=== PATIENT | female | born 1950 | race Caucasian/White ===

== ENCOUNTER 2020-02-05 13:06 | Outpatient (REF) | payer MEDICARE, SELFPAY ==
[2020-02-05 13:56] LABS: MANUAL DIFF FLAG NO
[2020-02-05 14:05] LABS: Basophils Absolute Auto 0.1 X10*3/uL (0.0-0.2); Eosinophils Absolute Auto 0.1 X10*3/uL (0.0-0.4); Eosinophils Percent Auto 2.4 % (0-4); Hematocrit 44.9 % (37-47); Hemoglobin 14.8 g/dl (12.0-16.0); Imm Gran Abs Auto 0.02 X10*3/uL (0.00-0.03); Imm Gran Pct Auto 0.3 % (0.0-0.4); Lymphocytes Percent Auto 34.8 % (20-40); Mean Corpuscular Hemoglobin 31.4 pg (27.0-33.0); Mean Corpuscular Volume 95.3 fL (80-98); Mean Platelet Volume 9.2 fL (9.4-12.3); Monocytes Absolute Auto 0.5 X10*3/uL (0.1-1.2); Monocytes Percent Auto 8.5 % (2-11); Platelet Count 242 X10*3/uL (160-400); Red Blood Count 4.71 X10*6/uL (4.20-5.50); Red Cell Distribution Width 13.2 % (11.0-16.0); White Blood Count 5.8 X10*3/uL (4.8-10.8)
[2020-02-05 14:28] LABS: Alanine Aminotransferase 12 U/L (0-31); Aspartate Amino Transferase 29 U/L (5-31); Cholesterol 262 mg/dL; Estimated Glomerular Filt Rate > 60; HDL Cholesterol 56 mg/dL; LDL Cholesterol Calculated 171 mg/dl; Triglycerides 176 mg/dL
[2020-02-05 14:51] LABS: Estimated Average Glucose 108 mg/dL; Hemoglobin A1c % 5.4 %
[2020-02-05 14:54] LABS: TSH reflex Free T4 8.13 mIU/mL (0.32-4.0)
[2020-02-05 15:34] LABS: Free T4 (Free Thyroxine) 0.93 ng/dL (0.71-1.85)
[2020-02-06 15:58] LABS: Absolute CD3 Count 1086 cells/uL (840-3060); Absolute CD4 Count 591 cells/uL (490-1740); Absolute CD8 Count 507 cells/uL (180-1170); Absolute Lymphocytes 2016 cells/uL (850-3900); CD4 CD8 Ratio 1.17 (0.86-5.00); Percent CD3 Cells 54 % (57-85); Percent CD4 Cells 29 % (30-61); Percent CD8 Cells 25 % (12-42)
[2020-02-08 12:03] LABS: HIV RNA PCR Qn Copies <20 NOT DETECTED copies/mL (NOT DETECTED); HIV RNA PCR Qn Log Copies <1.30 NOT DETECTED (NOT DETECTED)
== END 2020-02-05 13:07 | disposition home or self-care (01) ==
LOC: HO.LAB 13:06
PROVIDERS: PCP Internal Medicine; Visit Provider Internal Medicine Infectious Disease
DX: B20 Human immunodeficiency virus [HIV] disease (principal)
CPT/HCPCS: 36415; 80061; 82565; 83036; 84439; 84443; 84450; 84460; 85025; 86359; 86360; 87536

== ENCOUNTER → 2020-02-21 11:15 | Outpatient (BNVA) | payer MEDICARE, SELFPAY | PROVIDERS: PCP Internal Medicine; Visit Provider Nurse Practitioner | DX: Z76.89 Persons encountering health services in other specified circumstances (principal) ==

== ENCOUNTER 2020-02-26 12:59 | Emergency (ER) | payer MEDICARE, SELFPAY ==
--- NOTE | 2020-02-26 | ECG_ITS ---
Test Reason : CHEST PAIN Blood Pressure : / mmHG Vent. Rate : 074 BPM Atrial Rate : 074 BPM P-R Int : 152 ms QRS Dur : 076 ms QT Int : 406 ms P-R-T Axes : 055 -19 037 degrees QTc Int : 450 ms Normal sinus rhythm Normal ECG When compared with ECG of 23-JUN-2018 18:10, No significant change was found Referred By: Generic ED Physician Electronically Signed By:STANISLAV HIDALGO
[2020-02-26 13:01] VITALS: BP 181/87; PULSE 78; RESP 18; TEMP 36.9; O2SAT 96; BMI 28.9
--- NOTE | 2020-02-26 14:37 | PC.NURSE ---
called for ekg x2, charge nurse aware
--- NOTE | 2020-02-26 15:42 | PC.NURSE ---
charge nurse brought out ekg machine to triage for ekg to be performed
--- NOTE | 2020-02-26 16:07 | ED.CHESTPAIN ---
HPI - Chest Pain General Chief Complaint: Chest Pain Stated Complaint: chest pain Time Seen by Provider: 02/26/20 15:57 Source: patient Mode of arrival: ambulatory Limitations: no limitations History of Present Illness HPI narrative: Patient comes emergency room complaining of intermittent chest pain for a year. Patient states for the last 4 days, it has been more constant. Patient describes as a pinching sensation lasting a few seconds on the left side of the chest that self resolves. Patient states she feels that she gets a cramping sensation on the left side of her arm and chest. At this time, patient states she has no discomfort. All this is unrelated to exertion. MD complaint: chest pain Related Data Allergies Allergy/AdvReac Type Severity Reaction Status Date / Time peanut [PEANUT] Allergy Intermediate RASH Verified 02/26/20 13:01 Sulfa (Sulfonamide Allergy Intermediate HIVES, Verified 02/26/20 13:01 Antibiotics) hives, [SULFA (SULFONAMIDE rash, ANTIBIOTICS)] hives, rash tramadol Allergy Unknown nausea Verified 02/26/20 13:01 blackberry Allergy Itching Verified 02/26/20 13:01 long Allergy Itching Verified 02/26/20 13:01 strawberry Allergy Itching Verified 02/26/20 13:01 acetaminophen [Tylenol] AdvReac Unknown itch Verified 02/26/20 13:01 animals Allergy Itching Uncoded 02/21/20 11:22 red fruit Allergy Itching Uncoded 02/21/20 11:22 tree Allergy eye Uncoded 02/21/20 11:22 swelling, itch Review of Systems Review of Systems: Constitutional : No Weight loss, No Fever, No Chills, No Night Sweats, No Fatigue, No Malaise ENT/Mouth : No Hearing loss, No Ear Pain, No Nasal Congestion, No Sinus Pain, No Hoarseness, No sore throat, No Rhinorrhea, No Swallowing Difficulty Eyes: No Eye Pain, No Swelling, No Redness, No Foreign Body, No Discharge, No Vision Changes Cardiovascular: complaining of pinching sensation on the left side of the chest, cramping on the left side of the arm and left side of the neck, No SOB, No Dyspnea on Exertion, No Orthopnea, No Edema, No Palpitations Respiratory : No Cough, No Sputum, No Wheezing, No Smoke Exposure, No Dyspnea Gastrointestinal : No Nausea, No Vomiting, No Diarrhea, No Constipation, No abdominal Pain, No Hematochezia, No Melena Genitourinary : no irregular bleeding, No Dysuria, No Urinary Frequency, No Hematuria, No Urinary Incontinence, No Urgency, No Flank Pain, No Urinary Flow Changes, No Hesitancy Musculoskeletal : No joint pain, No Myalgias, No Joint Swelling Skin : No Skin Lesions, No rash Neuro : No Weakness, No Numbness, No Paresthesias, No Loss of Consciousness, No Dizziness, No Headache Psych : No Anxiety/Panic, No Depression, No SI/HI/AH/VH, No Social Issues, Heme/Lymph: No Bruising, No Bleeding,No Lymphadenopathy Endocrine : No Polyuria, No Polydipsia, No Temperature Intolerance [facility] Past Medical History Medical History (Updated 02/26/20 @ 18:33 by Neida Andujar MD) Asthma TIA (transient ischemic attack) Surgical History Hx of colonoscopy Family History Family History (Updated 02/21/20 @ 11:27 by DEL Peck) Father Cancer Diabetes Mother Cancer Diabetes Brother Colon polyps Social History Social History (Updated 02/21/20 @ 11:27 by DEL Peck) Alcohol intake: current Alcohol intake frequency: does not drink Smoking Status: Former smoker Advance Directives: No Advance Directives Information Provided: Yes Physical Exam Vital Signs: Vital Signs: Last Vital Signs Temp 98.4 F 02/26/20 13:01 Pulse 78 02/26/20 13:01 Resp 18 02/26/20 13:01 BP 181/87 H 02/26/20 13:01 Pulse Ox 96 02/26/20 13:01 Body Mass Index 28.9 Appearance: Alert. Oriented X3. No acute distress. Eyes: Pupils equal, round and reactive to light. ENT: Pharynx normal. Neck: Normal inspection. Neck supple. No lymph nodes noted. No crepitus CVS: Normal heart rate and rhythm. Pulses normal. Normal S1 and S2 Respiratory: No respiratory distress. Breath sounds normal. No Wheezing. No rales Abdomen: Soft and nontender. No rigidity. No distention. good BS x4 Skin: Skin warm and dry. Normal skin color. Normal skin turgor. Extremities: No lower extremity edema. No lower extremity edema. No Lacerations. No Rash Neuro: Oriented X 3. No motor deficit. No sensory deficit. Moving all extermities. No slurred speech. Course Course Course Narrative: I was informed by the patient's nurse that the patient did no longer want to wait for her labs to be obtained and did not want to wait for results. Patient did not wait for paperwork either. patient eloped MDM - Chest Pain ECG Data ECG #1: Attestation: I personally reviewed and interpreted this ECG as follows: (Heart rate 74, normal sinus rhythm, QTC 450, no ST segment depressions or elevations, no T-wave inversions) Discharge Plan Discharge Clinical Impression: Chest pain Patient Disposition: Elopement
--- NOTE | 2020-02-26 18:31 | PC.NURSE ---
pt stated that she was leaving because nothing was being done. labs were put in, not drawn
--- NOTE | 2020-02-26 19:15 | PC.NURSE ---
pt is not in the room at the time this rn received report.
== END 2020-02-26 18:45 | disposition left against medical advice (07) ==
PROVIDERS: Emergency Provider Emergency Medicine
DX: R07.9 Chest pain, unspecified (principal); J45.909 Unspecified asthma, uncomplicated; Z86.73 Personal history of transient ischemic attack (TIA), and cerebral infarction without residual deficits
CPT/HCPCS: 93005; 99283

== ENCOUNTER 2020-03-04 12:45 | Outpatient (REF) | payer MEDICARE, SELFPAY ==
--- NOTE | 2020-03-04 12:53 | XR_ITS ---
EXAMINATION: XR SHOULDER, LEFT CLINICAL INFORMATION: Pain COMPARISON: None TECHNIQUE: AP external rotation, Grashey, scapular Y, and axillary views of the left shoulder. FINDINGS: Bone alignment is normal. No fracture or dislocation is seen. The glenohumeral joint is normal. There is mild arthritis at the acromioclavicular joint. Soft tissues are unremarkable. XR/XR shoulder LT min 2V IMPRESSION: Mild arthritis at the acromioclavicular joint.
== END 2020-03-04 12:46 | disposition home or self-care (01) ==
LOC: HO.XRAY 12:45
PROVIDERS: PCP Internal Medicine; Visit Provider Physician Assistant
DX: M25.512 Pain in left shoulder (principal)
CPT/HCPCS: 73030

== ENCOUNTER 2020-04-12 14:00 | Outpatient (RCR) | payer MEDICARE, SELFPAY ==
--- NOTE | 2020-03-15 13:36 | MHC.PT.EP ---
[facility] [place] Office [place] Office [place] Office [address] Ivett Ruelas [address] [phone] F: [phone] F: [phone] F: [phone] F: [phone] Physical Therapy Plan of Care Date of Evaluation: 03/15/20 Date of Surgery: N/A Diagnosis: pain in left shoulder Assessment: pt required increased time to educate as to why her doctor referred her to PT, the purpose and role of PT, and the importance of attendance and participation to see if PT will be helpful in reducing her pain. This eval was limited as pt became upset and required time to console. pt presents to physical therapy with pain, decreased range of motion, decreased strength, impaired functional mobility, impaired postural awareness. pt is a fair candidate for skilled PT due to age, potential remediation of impairments, typical disease/condition progression and prognosis, comorbidities, and motivation. pt would benefit from tailored strengthening and stretching exercise program, functional training, postural re-training, neuromuscular re-education, modalities as needed for pain. Frequency and Duration: The patient will be seen 2x/wk for 4 wks Short Term Goals: pt will be I w/ HEP to promote self-management of condition. pt will improve L shoulder flexion by 15 degrees to facilitate ease w/ reaching into higher cabinets. 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 pt will report <1/10 L shoulder pain w/ lifting 5# object to facilitate return to meal prep. Treatment Plan: Modalities to reduce pain, spasms and effusion. Manual therapy to restore motion and function. Therapeutic exercise to improve strength and flexibility. Neuromuscular re-education for posture and balance. Therapeutic activities to return to functional activities of daily living. Electronically signed by: Bethanie Gonzalez PT, DPT Please sign and return to therapist. Thank you for your referral.
--- NOTE | 2020-04-22 09:16 | MHC.PT.DC ---
[facility] [place] Office [place] Office [place] Office [address] Ivett Ruelas [address] [facility] [phone] F: [phone] F: [phone] F: [phone] F: [phone] Physical Therapy Discharge Report Diagnosis: pain in left shoulder Date of Surgery: N/A Date of Evaluation: 03/15/20 Date of Discharge: 04/22/20 Treatments to Date: 3 Cancellations to Date: 3 No Shows to Date: 2 Discharge Status: Improved Function Recommend MD Follow-up Discharge Summary: The patient has missed several appointments due to not feeling well. The patient was seen by one of the physical therapy assistants who noticed the patient did not appear well. She took her blood pressure several times and the highest value recorded was 211/95. The patient refused to go down to the Emergency Department. Her family was contacted and came to pick her up. She was brought down via wheelchair to her family where they were told about her high blood pressure and to contact her primary care physician. The family and the patient verbalized understanding. She is discharged from this physical therapy plan of care until her cardiac and consitutional symptoms are resolved. If she would like to resume physical therapy for her shoulder a new order will need to be obtained once she is medically stable. Electronically signed by: Bethanie Gonzalez PT, DPT Please sign and return to therapist. Thank you for your referral.
== END 2020-04-22 09:17 | disposition other institution (70) ==
LOC: HO.PT 14:00
PROVIDERS: Visit Provider Physician Assistant
DX: M25.512 Pain in left shoulder (principal); M77.8 Other enthesopathies, not elsewhere classified
CPT/HCPCS: 97110; 97161

== ENCOUNTER 2020-05-15 10:34 | Outpatient (REF) | payer MEDICARE, SELFPAY ==
[2020-05-15 11:20] LABS: Hematocrit 41.5 % (37-47); Mean Corpuscular HGB Conc 33.7 g/dl (31.0-35.0); Mean Corpuscular Hemoglobin 31.4 pg (27.0-33.0); Mean Platelet Volume 9.1 fL (9.4-12.3); Platelet Count 244 X10*3/uL (160-400); Red Blood Count 4.46 X10*6/uL (4.20-5.50); Red Cell Distribution Width 12.9 % (11.0-16.0); White Blood Count 6.6 X10*3/uL (4.8-10.8)
[2020-05-15 12:00] LABS: Alanine Aminotransferase 7 U/L (0-31); Albumin Level 4.2 g/dL (3.5-5.0); Alkaline Phosphatase 84 U/L (39-117); Anion Gap 10 (12-20); Aspartate Amino Transferase 21 U/L (5-31); Bilirubin Total 0.6 mg/dL (0.0-1.0); Blood Urea Nitrogen 19 mg/dL (9-16); Carbon Dioxide 29 mmol/L (22-29); Chloride 105 mmol/L (96-108); Cholesterol 241 mg/dL; Estimated Glomerular Filt Rate > 60; Glucose Fasting 89 mg/dL (60-99); HDL Cholesterol 55 mg/dL; LDL Cholesterol Calculated 145 mg/dl; Potassium 4.3 mmol/L (3.3-5.1); Sodium 140 mmol/L (135-145); Triglycerides 206 mg/dL
[2020-05-15 12:10] LABS: TSH reflex Free T4 4.18 uIU/mL (0.32-4.0)
[2020-05-15 12:26] LABS: Syphilis Screen Nonreactive (Nonreactive)
[2020-05-15 13:19] LABS: Free T4 (Free Thyroxine) 1.14 ng/dL (0.71-1.85)
[2020-05-16 09:33] LABS: ~HepC Num1 0.07 S/CO (0.00-0.79); ~Hepatitis C Antibody Nonreactive (Nonreactive)
[2020-05-16 11:20] LABS: CT PCR NOT DETECTED (Not Detect.); NG PCR NOT DETECTED (Not Detect.)
[2020-05-16 13:16] LABS: Absolute CD3 Count 737 cells/uL (840-3060); Absolute CD4 Count 415 cells/uL (490-1740); Absolute CD8 Count 340 cells/uL (180-1170); Absolute Lymphocytes 1373 cells/uL (850-3900); CD4 CD8 Ratio 1.22 (0.86-5.00); Percent CD3 Cells 54 % (57-85); Percent CD4 Cells 30 % (30-61); Percent CD8 Cells 25 % (12-42)
[2020-05-17 19:37] LABS: HIV RNA PCR Qn Copies <20 NOT DETECTED copies/mL (NOT DETECTED); HIV RNA PCR Qn Log Copies <1.30 NOT DETECTED (NOT DETECTED)
[2020-05-18 13:26] LABS: Vitamin D 25-OH, D2 <4 ng/mL; Vitamin D 25-OH, D3 31 ng/mL; Vitamin D 25-OH, Total 31 ng/mL (30-100)
== END 2020-05-15 10:35 | disposition home or self-care (01) ==
LOC: HO.LAB 10:34
PROVIDERS: PCP Internal Medicine; Visit Provider Internal Medicine Infectious Disease
DX: B20 Human immunodeficiency virus [HIV] disease (principal); E78.5 Hyperlipidemia, unspecified; E03.9 Hypothyroidism, unspecified; E55.9 Vitamin D deficiency, unspecified
CPT/HCPCS: 36415; 80053; 80061; 82306; 84439; 84443; 85027; 86359; 86360; 86780; 86803; 87491; 87536; 87591

== ENCOUNTER 2020-06-25 12:32 | Outpatient (REF) | payer MEDICARE, SELFPAY | END 2020-06-25 12:33 | disposition home or self-care (01) | LOC: HO.LAB 12:32 | PROVIDERS: Visit Provider Internal Medicine | DX: Z20.822 Contact with and (suspected) exposure to COVID-19 (principal) | CPT/HCPCS: C9803; U0003; U0005 ==

== ENCOUNTER 2020-08-08 15:04 | Outpatient (REF) | payer MEDICARE, SELFPAY ==
--- NOTE | ~2020-08-08 | XR_ITS ---
EXAMINATION: XR HIP, LEFT CLINICAL INFORMATION: Left hip pain. COMPARISON: None TECHNIQUE: Three views of the left hip. FINDINGS: The patient is status post left hip ORIF with [address] showing good anatomic alignment with no evidence for hardware malfunction. Mild left hip degenerative joint changes are seen. There is no acute fracture or dislocation. The left hemipelvis is intact. The soft tissues are unremarkable. XR/XR hip LT w PEL1V IMPRESSION: 1. No hardware abnormality. No acute fracture. 2. Mild left hip osteoarthritis.
== END 2020-08-08 15:05 | disposition home or self-care (01) ==
LOC: HO.HMGCX 15:04
PROVIDERS: PCP Internal Medicine; Visit Provider Hospitalist
DX: M25.552 Pain in left hip (principal)
CPT/HCPCS: 73502

== ENCOUNTER 2020-08-21 06:41 | Emergency (ER) | payer MEDICARE, SELFPAY ==
--- NOTE | ~2020-08-21 | XR_ITS ---
EXAMINATION: XR CHEST CLINICAL INFORMATION: Cough and shortness of breath COMPARISON: None TECHNIQUE: Frontal view of the chest was obtained. FINDINGS: The lungs are well-expanded hypoexpanded but and clear of acute process. The heart size and pulmonary vascularity is normal. No gross bony abnormality seen. XR/XR chest 1V IMPRESSION: Unremarkable chest exam.
[2020-08-21 06:50] VITALS: BP 147/100; PULSE 120; RESP 20; TEMP 35.9; O2SAT 93; BMI 27.7
[2020-08-21 07:09] VITALS: BP 105/85; PULSE 101; RESP 20; O2SAT 96; BMI 27.9
--- NOTE | 2020-08-21 07:26 | ED_ITS ---
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 Patient with vomiting, cough, and earache since yesterday. Not vaccinated against covid. Patient feeling short of breath Related Data Home Medications Medication Instructions Recorded Confirmed albuterol sulfate 90 mcg/actuation 0 mcg PO 02/29/20 08/12/20 aerosol inhaler famotidine 40 mg tablet 40 mg PO DAILY 02/29/20 08/12/20 fluticasone propionate 110 2,000,000 mcg INHALATION BID 02/29/20 08/12/20 mcg/actuation HFA aerosol inhaler dolutegravir 50 mg-rilpivirine 25 1 tab PO DAILY 05/15/20 08/12/20 mg tablet montelukast 10 mg tablet 10 mg PO DAILY 05/15/20 08/12/20 Previous Rx's Medication Instructions Recorded levothyroxine 88 mcg tablet 88 mcg PO QAM #90 tab 03/03/20 cetirizine 10 mg capsule 10 mg PO DAILY PRN 90 Days #90 cap 05/15/20 ibuprofen 600 mg tablet 600 mg PO TID #30 tab 08/08/20 amoxicillin-pot clavulanate 1 tab PO BID #14 tab 08/21/20 [Augmentin] dextromethorphan polistirex 10 ml PO Q12H PRN #89 ml 08/21/20 [Robitussin ER] prednisone 60 mg PO DAILY #15 tab 08/21/20 Allergies Allergy/AdvReac Type Severity Reaction Status Date / Time blackberry Allergy Intermediate Itching Verified 08/12/20 15:50 long Allergy Intermediate Itching Verified 08/12/20 15:50 peanut [PEANUT] Allergy Intermediate RASH Verified 08/12/20 15:50 Sulfa (Sulfonamide Allergy Intermediate HIVES, Verified 08/12/20 15:50 Antibiotics) hives, [SULFA (SULFONAMIDE rash, ANTIBIOTICS)] hives, rash tramadol Allergy Intermediate nausea Verified 08/12/20 15:50 strawberry Allergy Itching Verified 08/12/20 15:23 acetaminophen [Tylenol] AdvReac Unknown itch Verified 08/12/20 15:23 animals Allergy Itching Uncoded 08/08/20 15:06 red fruit Allergy Itching Uncoded 08/08/20 15:06 tree Allergy eye Uncoded 08/08/20 15:06 swelling, itch Review of Systems Constitutional: Constitutional: Reports no additional constitutional complaints Eyes: Eyes: Reports no additional eye complaints ENT: Denies dizziness Cardiovascular: Cardiovascular: Reports no additional cardiovascular complaints Respiratory: Respiratory: Reports as per HPI Gastrointestinal: Gastrointestinal: Reports no additional gastrointestinal complaints Genitourinary: Genitourinary: Reports no additional female genitourinary complaints Musculoskeletal: Musculoskeletal: Reports no additional musculoskeletal complaints Integumentary/Breasts: Skin/Breast: Denies rash Neurologic: Reports system reviewed and no additional complaints, except as documented, Denies dizziness and Denies Sensory deficit (Neuro) Psychiatric: Psychiatric: Denies anxiety [facility] Past Medical History Medical History Asthma Asthma Dyslipidemia Fracture of left hip requiring operative repair HIV (human immunodeficiency virus infection) Hypothyroidism TIA (transient ischemic attack) Urticaria Verruca Surgical History H/O umbilical hernia repair History of section History of lumbar fusion Hx of colonoscopy Family History Family History Father Cancer Diabetes Mother Cancer Diabetes Brother Colon polyps Social History Social History Housing: Apartment Alcohol intake: former Year quit: 2010 Patient Tobacco Use Status: Former Tobacco user Tobacco use type: Cigarette Second Hand Smoke Exposure: No Advance Directives: No Advance Directives Information Provided: Yes service: No Current occupational status: retired Physical Exam Vital Signs: Vital Signs: Last Vital Signs Temp 98.6 F 08/21/20 08:28 Pulse 99 08/21/20 08:28 Resp 16 08/21/20 08:28 BP 146/78 H 08/21/20 08:28 Pulse Ox 95 08/21/20 08:28 Body Mass Index 27.9 Const: Other: patient with continuous cough looking uncomfortable Nutritional Appearance: average body habitus Orientation/consciousness: oriented to person and patient oriented x3 Limitations: no limitations HENMT: Other: right TM with erythema and bulging Head: Yes normal to inspection Ears: external ears normal General nose exam: Normal external nose present Mouth: Normal oral and palatal mucosa present and oropharynx normal Throat: Yes posterior oropharynx normal Eyes: General: appearance normal, both eyes and all related structures Neck: Other: supple Neck: Yes normal visual inspection Chest: Chest palpation & inspection: normal inspection of the chest Resp: Other: good air movement slight wheeze bilaterally Cardio: Jugular venous distension: no JVD Rate: regular rate Rhythm: regular rhythm Heart sounds: S1 normal heart sound present and S2 normal heart sound present GI: Inspection: Yes normal to inspection Palpation (GI): Soft to palpation, nontender and No hepatosplenomegaly present Auscultation: normal bowel sounds : General: Yes no CVA tenderness Back/Spine/Pelvis: Back: no CVA tenderness Skin: General skin exam: no rashes or lesions noted Neuro: General: oriented to person and patient oriented x3 Cranial nerves: Yes CN's II-XII intact bilaterally Motor exam (neuro): 5/5 motor strength present throughout Sensory Exam: No Sensory deficit (Neuro) Extrem: General: Yes normal to inspection Psych: Appearance: grossly normal Course Course Course Narrative: Covid negative, xray normal patient resting comfortably, oxygen 96%. Will dc home Medical Decision Making Lab Data Result diagrams: 08/21/20 07:57 08/21/20 08:43 Labs: Lab Results 08/21/20 08/21/20 08/21/20 Range/Units 07:57 07:58 08:43 WBC 9.5 (4.8-10.8) X10*3/uL RBC 4.49 (4.20-5.50) X10*6/uL Hgb 14.0 (12.0-16.0) g/dl Hct 40.7 (37-47) % MCV 90.6 (80-98) fL MCH 31.2 (27.0-33.0) pg MCHC 34.4 (31.0-35.0) g/dl RDW 12.8 (11.0-16.0) % Plt Count 248 (160-400) X10*3/uL MPV 9.9 (9.4-12.3) fL Immature Gran % (Auto) 0.1 (0.0-0.4) % Neut % (Auto) 71.7 (45-73) % Lymph % (Auto) 16.5 L (20-40) % Sibley % (Auto) 9.3 (2-11) % Eos % (Auto) 1.9 (0-4) % Baso % (Auto) 0.5 (0-2) % Lymph # (Auto) 1.6 (1.2-4.9) X10*3/uL Sibley # (Auto) 0.9 (0.1-1.2) X10*3/uL Eos # (Auto) 0.2 (0.0-0.4) X10*3/uL Baso # (Auto) 0.1 (0.0-0.2) X10*3/uL Abs Immat Gran (auto) 0.01 (0.00-0.03) X10*3/uL Absolute Neuts (auto) 6.8 (2.0-8.3) X10*3/uL Absolute Nucleated RBC 0.000 (0.0-0.012) X10*3/uL Nucleated RBC % (auto) 0.0 (0.0-0.2) /100WBC Sodium 138 (135-145) mmol/L Potassium 4.3 (3.3-5.1) mmol/L Chloride 108 (96-108) mmol/L Carbon Dioxide 21 L (22-29) mmol/L Anion Gap 13 (12-20) BUN 7 L D (9-16) mg/dL Creatinine 0.74 (0.5-1.4) mg/dL Estim Creat Clear Calc 62.9 Estimated GFR > 60 Random Glucose 95 (60-115) mg/dL Calcium 9.3 (8.4-10.2) mg/dL Total Bilirubin 0.3 (0.0-1.0) mg/dL Direct Bilirubin < 0.2 (0.0-0.5) mg/dL AST 26 (5-31) U/L ALT 6 (0-31) U/L Alkaline Phosphatase 44 D (39-117) U/L Total Protein 7.4 (6.5-8.0) g/dL Albumin 4.5 (3.5-5.0) g/dL Coronavirus (PCR) NEGATIVE (Negative) Influenza Type A (PCR) NEGATIVE (Negative) Influenza Type B (PCR) NEGATIVE (Negative) RSV RNA Qual (PCR) NEGATIVE (Negative) Imaging Data Chest x-ray: Radiologist's impression: IMPRESSION: Unremarkable chest exam. Discharge Plan Discharge Clinical Impression: Upper respiratory infection, Asthma attack Patient Disposition: Home, Self-Care Instructions: Acute Bronchitis (ED) Prescriptions: New prednisone 20 mg tablet 60 mg PO DAILY Qty: 15 RF: 0 amoxicillin-pot clavulanate [Augmentin] 875-125 mg tablet 1 tab PO BID Qty: 14 RF: 0 dextromethorphan polistirex [Robitussin ER] 30 mg/5 mL suspension,extended rel 12 hr 10 ml PO Q12H PRN (Reason: cough) Qty: 89 RF: 0 No Action levothyroxine 88 mcg tablet 88 mcg PO QAM Qty: 90 RF: 1 Flovent HFA 110 mcg/actuation HFA aerosol inhaler 2,000,000 mcg inhalation BID RF: 0 albuterol sulfate 90 mcg/actuation HFA aerosol inhaler 0 mcg PO RF: 0 famotidine 40 mg tablet 40 mg PO DAILY RF: 0 Juluca 50-25 mg tablet 1 tab PO DAILY RF: 0 montelukast 10 mg tablet 10 mg PO DAILY RF: 0 All Day Allergy (cetirizine) 10 mg capsule 10 mg PO DAILY PRN (Reason: allergy symptoms) 90 Days Qty: 90 RF: 1 ibuprofen 600 mg tablet 600 mg PO TID Qty: 30 RF: 0 Referrals: Yamile Flores MD [Primary Care Provider] - 2 days
[2020-08-21] MEDS: 0.9 % Sodium Chloride 1,000 ML 999 ML IVCONT ×2 (08:00→09:35)
[2020-08-21 08:08] LABS: MANUAL DIFF FLAG NO
[2020-08-21 08:17] LABS: Basophils Absolute Auto 0.1 X10*3/uL (0.0-0.2); Basophils Percent Auto 0.5 % (0-2); Eosinophils Absolute Auto 0.2 X10*3/uL (0.0-0.4); Eosinophils Percent Auto 1.9 % (0-4); Hematocrit 40.7 % (37-47); Imm Gran Abs Auto 0.01 X10*3/uL (0.00-0.03); Imm Gran Pct Auto 0.1 % (0.0-0.4); Lymphocytes Absolute Auto 1.6 X10*3/uL (1.2-4.9); Lymphocytes Percent Auto 16.5 % (20-40); Mean Corpuscular HGB Conc 34.4 g/dl (31.0-35.0); Mean Corpuscular Hemoglobin 31.2 pg (27.0-33.0); Mean Corpuscular Volume 90.6 fL (80-98); Mean Platelet Volume 9.9 fL (9.4-12.3); Monocytes Absolute Auto 0.9 X10*3/uL (0.1-1.2); Monocytes Percent Auto 9.3 % (2-11); Neutrophils Absolute Auto 6.8 X10*3/uL (2.0-8.3); Neutrophils Percent Auto 71.7 % (45-73); Platelet Count 248 X10*3/uL (160-400); Red Blood Count 4.49 X10*6/uL (4.20-5.50); Red Cell Distribution Width 12.8 % (11.0-16.0); White Blood Count 9.5 X10*3/uL (4.8-10.8)
[2020-08-21] MEDS: ondansetron HCL 4 MG/2 ML VIAL IVPUSH (08:21)
[2020-08-21] MEDS: dexAMETHasone sod phosphate 4 MG/ML VIAL 6 MG IVPUSH (08:21)
[2020-08-21] MEDS: Albuterol Sulfate 90 MCG 8 GM INHALER 4 PUFF INHALE ×2 (08:22→10:27)
[2020-08-21 08:23] VITALS: PULSE 103; O2SAT 93
[2020-08-21 08:28] VITALS: BP 146/78; PULSE 99; RESP 16; TEMP 37; O2SAT 95
[2020-08-21 09:02] LABS: Influenza A PCR NEGATIVE (Negative); Influenza B PCR NEGATIVE (Negative); Resp Syncy Virus RNA Qual PCR NEGATIVE (Negative); SARS COV2 PCR INHOUSE NEGATIVE (Negative)
[2020-08-21 09:22] LABS: Alanine Aminotransferase 6 U/L (0-31); Albumin Level 4.5 g/dL (3.5-5.0); Alkaline Phosphatase 44 U/L (39-117); Anion Gap 13 (12-20); Aspartate Amino Transferase 26 U/L (5-31); Bilirubin Direct < 0.2 mg/dL (0.0-0.5); Bilirubin Total 0.3 mg/dL (0.0-1.0); Blood Urea Nitrogen 7 mg/dL (9-16); Calcium 9.3 mg/dL (8.4-10.2); Carbon Dioxide 21 mmol/L (22-29); Chloride 108 mmol/L (96-108); Creatinine Clr Calc Pharmacy 62.9; Estimated Glomerular Filt Rate > 60; Glucose Random 95 mg/dL (60-115); Potassium 4.3 mmol/L (3.3-5.1); Sodium 138 mmol/L (135-145); Total Protein 7.4 g/dL (6.5-8.0)
--- NOTE | 2020-08-21 09:48 | ED_ITS ---
HPI - General Adult General Chief complaint: General Medical Stated complaint: Vomiting Time Seen by Provider: 08/21/20 07:26 Source: patient Limitations: language barrier Related Data Home Medications Medication Instructions Recorded Confirmed albuterol sulfate 90 mcg/actuation 0 mcg PO 02/29/20 08/12/20 aerosol inhaler famotidine 40 mg tablet 40 mg PO DAILY 02/29/20 08/12/20 fluticasone propionate 110 2,000,000 mcg INHALATION BID 02/29/20 08/12/20 mcg/actuation HFA aerosol inhaler dolutegravir 50 mg-rilpivirine 25 1 tab PO DAILY 05/15/20 08/12/20 mg tablet montelukast 10 mg tablet 10 mg PO DAILY 05/15/20 08/12/20 Previous Rx's Medication Instructions Recorded levothyroxine 88 mcg tablet 88 mcg PO QAM #90 tab 03/03/20 cetirizine 10 mg capsule 10 mg PO DAILY PRN 90 Days #90 cap 05/15/20 ibuprofen 600 mg tablet 600 mg PO TID #30 tab 08/08/20 amoxicillin-pot clavulanate 1 tab PO BID #14 tab 08/21/20 [Augmentin] dextromethorphan polistirex 10 ml PO Q12H PRN #89 ml 08/21/20 [Robitussin ER] prednisone 60 mg PO DAILY #15 tab 08/21/20 Allergies Allergy/AdvReac Type Severity Reaction Status Date / Time blackberry Allergy Intermediate Itching Verified 08/12/20 15:50 long Allergy Intermediate Itching Verified 08/12/20 15:50 peanut [PEANUT] Allergy Intermediate RASH Verified 08/12/20 15:50 Sulfa (Sulfonamide Allergy Intermediate HIVES, Verified 08/12/20 15:50 Antibiotics) hives, [SULFA (SULFONAMIDE rash, ANTIBIOTICS)] hives, rash tramadol Allergy Intermediate nausea Verified 08/12/20 15:50 strawberry Allergy Itching Verified 08/12/20 15:23 acetaminophen [Tylenol] AdvReac Unknown itch Verified 08/12/20 15:23 animals Allergy Itching Uncoded 08/08/20 15:06 red fruit Allergy Itching Uncoded 08/08/20 15:06 tree Allergy eye Uncoded 08/08/20 15:06 swelling, itch Review of Systems Constitutional: Constitutional: Reports no additional constitutional comp laints Eyes: Eyes: Reports no additional eye complaints ENT: Denies dizziness Cardiovascular: Cardiovascular: Reports no additional cardiovascular complaints Respiratory: Respiratory: Reports as per HPI Gastrointestinal: Gastrointestinal: Reports no additional gastrointestinal complaints Genitourinary: Genitourinary: Reports no additional female genitourinary complaints Musculoskeletal: Musculoskeletal: Reports no additional musculoskeletal complaints Integumentary/Breasts: Skin/Breast: Denies rash Neurologic: Reports system reviewed and no additional complaints, except as documented, Denies dizziness and Denies Sensory deficit (Neuro) Psychiatric: Psychiatric: Denies anxiety [facility] Past Medical History Medical History Asthma Asthma Dyslipidemia Fracture of left hip requiring operative repair HIV (human immunodeficiency virus infection) Hypothyroidism TIA (transient ischemic attack) Urticaria Verruca Surgical History H/O umbilical hernia repair History of section History of lumbar fusion Hx of colonoscopy Family History Family History Father Cancer Diabetes Mother Cancer Diabetes Brother Colon polyps Social History Social History Housing: Apartment Alcohol intake: former Year quit: 2010 Patient Tobacco Use Status: Former Tobacco user Tobacco use type: Cigarette Second Hand Smoke Exposure: No Advance Directives: No Advance Directives Information Provided: Yes service: No Current occupational status: retired Physical Exam Vital Signs: Vital Signs: Last Vital Signs Temp 98.6 F 08/21/20 08:28 Pulse 99 08/21/20 08:28 Resp 16 08/21/20 08:28 BP 146/78 H 08/21/20 08:28 Pulse Ox 95 08/21/20 08:28 Body Mass Index 27.9 Const: Other: female constantly coughing Nutritional Appearance: average body habitus Orientation/consciousness: oriented to person and patient oriented x3 Limitations: no limitations HENMT: Other: right TM with erythema and bulging Head: Yes normal to inspection Ears: external ears normal General nose exam: Normal external nose present Mouth: Normal oral and palatal mucosa present and oropharynx normal Throat: Yes posterior oropharynx normal Eyes: General: appearance normal, both eyes and all related structures Neck: Other: supple Neck: Yes normal visual inspection Chest: Chest palpation & inspection: normal inspection of the chest Resp: Other: slight wheeze but good air movement Cardio: Jugular venous distension: no JVD Rate: regular rate Rhythm: regular rhythm Heart sounds: S1 normal heart sound present and S2 normal heart sound present GI: Inspection: Yes normal to inspection Palpation (GI): Soft to palpation, nontender and No hepatosplenomegaly present Auscultation: normal bowel sounds : General: Yes no CVA tenderness Back/Spine/Pelvis: Back: no CVA tenderness Skin: General skin exam: no rashes or lesions noted Neuro: General: oriented to person and patient oriented x3 Cranial nerves: Yes CN's II-XII intact bilaterally Motor exam (neuro): 5/5 motor strength present throughout Sensory Exam: No Sensory deficit (Neuro) Extrem: General: Yes normal to inspection Psych: Appearance: grossly normal Course Reevaluation(s) Reevaluation #1: breathing better, CXR and covid all negative will dc home Time: 09:51 Medical Decision Making Lab Data Result diagrams: 08/21/20 07:57 08/21/20 08:43 Labs: Lab Results 08/21/20 08/21/20 08/21/20 Range/Units 07:57 07:58 08:43 WBC 9.5 (4.8-10.8) X10*3/uL RBC 4.49 (4.20-5.50) X10*6/uL Hgb 14.0 (12.0-16.0) g/dl Hct 40.7 (37-47) % MCV 90.6 (80-98) fL MCH 31.2 (27.0-33.0) pg MCHC 34.4 (31.0-35.0) g/dl RDW 12.8 (11.0-16.0) % Plt Count 248 (160-400) X10*3/uL MPV 9.9 (9.4-12.3) fL Immature Gran % (Auto) 0.1 (0.0-0.4) % Neut % (Auto) 71.7 (45-73) % Lymph % (Auto) 16.5 L (20-40) % [place] % (Auto) 9.3 (2-11) % Eos % (Auto) 1.9 (0-4) % Baso % (Auto) 0.5 (0-2) % Lymph # (Auto) 1.6 (1.2-4.9) X10*3/uL [place] # (Auto) 0.9 (0.1-1.2) X10*3/uL Eos # (Auto) 0.2 (0.0-0.4) X10*3/uL Baso # (Auto) 0.1 (0.0-0.2) X10*3/uL Abs Immat Gran (auto) 0.01 (0.00-0.03) X10*3/uL Absolute Neuts (auto) 6.8 (2.0-8.3) X10*3/uL Absolute Nucleated RBC 0.000 (0.0-0.012) X10*3/uL Nucleated RBC % (auto) 0.0 (0.0-0.2) /100WBC Sodium 138 (135-145) mmol/L Potassium 4.3 (3.3-5.1) mmol/L Chloride 108 (96-108) mmol/L Carbon Dioxide 21 L (22-29) mmol/L Anion Gap 13 (12-20) BUN 7 L D (9-16) mg/dL Creatinine 0.74 (0.5-1.4) mg/dL Estim Creat Clear Calc 62.9 Estimated GFR > 60 Random Glucose 95 (60-115) mg/dL Calcium 9.3 (8.4-10.2) mg/dL Total Bilirubin 0.3 (0.0-1.0) mg/dL Direct Bilirubin < 0.2 (0.0-0.5) mg/dL AST 26 (5-31) U/L ALT 6 (0-31) U/L Alkaline Phosphatase 44 D (39-117) U/L Total Protein 7.4 (6.5-8.0) g/dL Albumin 4.5 (3.5-5.0) g/dL Coronavirus (PCR) NEGATIVE (Negative) Influenza Type A (PCR) NEGATIVE (Negative) Influenza Type B (PCR) NEGATIVE (Negative) RSV RNA Qual (PCR) NEGATIVE (Negative) Discharge Plan Discharge Clinical Impression: Upper respiratory infection Qualifiers: URI type: unspecified viral URI Qualified Code(s): J06.9 - Acute upper respiratory infection, unspecified Asthma attack Qualifiers: Asthma severity: mild Asthma persistence: persistent Qualified Code(s): J45.31 - Mild persistent asthma with (acute) exacerbation Otitis media Qualifiers: Otitis media type: other nonsuppurative Chronicity: acute Laterality: right Recurrence: non-recurrent Qualified Code(s): H65.191 - Other acute nonsuppurative otitis media, right ear Patient Disposition: Home, Self-Care Instructions: Acute Bronchitis (ED) Prescriptions: New prednisone 20 mg tablet 60 mg PO DAILY Qty: 15 RF: 0 amoxicillin-pot clavulanate [Augmentin] 875-125 mg tablet 1 tab PO BID Qty: 14 RF: 0 dextromethorphan polistirex [Robitussin ER] 30 mg/5 mL suspension,extended rel 12 hr 10 ml PO Q12H PRN (Reason: cough) Qty: 89 RF: 0 No Action levothyroxine 88 mcg tablet 88 mcg PO QAM Qty: 90 RF: 1 Flovent HFA 110 mcg/actuation HFA aerosol inhaler 2,000,000 mcg inhalation BID RF: 0 albuterol sulfate 90 mcg/actuation HFA aerosol inhaler 0 mcg PO RF: 0 famotidine 40 mg tablet 40 mg PO DAILY RF: 0 Juluca 50-25 mg tablet 1 tab PO DAILY RF: 0 montelukast 10 mg tablet 10 mg PO DAILY RF: 0 All Day Allergy (cetirizine) 10 mg capsule 10 mg PO DAILY PRN (Reason: allergy symptoms) 90 Days Qty: 90 RF: 1 ibuprofen 600 mg tablet 600 mg PO TID Qty: 30 RF: 0 Referrals: Yamile Flores MD [Primary Care Provider] - 2 days
[2020-08-21] MEDS: Amoxicillin/Potassium Clav 875 MG TABLET PO (10:27)
[2020-08-21 10:38] VITALS: BP 150/89; PULSE 101; TEMP 36.7; O2SAT 95
== END 2020-08-21 10:46 | disposition home or self-care (01) ==
PROVIDERS: Emergency Provider Emergency Medicine; PCP Internal Medicine
DX: J45.31 Mild persistent asthma with (acute) exacerbation (principal); J06.9 Acute upper respiratory infection, unspecified; H65.191 Other acute nonsuppurative otitis media, right ear; Z21 Asymptomatic human immunodeficiency virus [HIV] infection status; Z79.899 Other long term (current) drug therapy; Z20.822 Contact with and (suspected) exposure to COVID-19
CPT/HCPCS: 0241U; 36415; 71045; 80048; 80076; 85025; 94640; 96361; 96374; 96375; 99284; 99285; J1100; J2405

== ENCOUNTER 2020-08-27 14:52 | Emergency (ER) | payer MEDICARE, SELFPAY ==
--- NOTE | ~2020-08-27 | CT_ITS ---
EXAMINATION: CT CHEST WITHOUT CONTRAST CLINICAL INFORMATION: Cough and SOB COMPARISON: None TECHNIQUE: Multidetector volumetric CT imaging of the chest was done. Axial MIP volume rendering provided. Sagittal and coronal reformatted images were obtained. This CT examination was performed using dose optimization techniques as appropriate, variously including the following: *Automated exposure control *Adjustment of mA and/or kV according to patient size (this includes techniques or standardized protocols for targeted exams where dose is matched to indication/reason for exam; i.e. 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 No pulmonary nodule, mass or consolidation seen. There is mild right posterior apical pleural thickening. MEDIASTINUM: The thyroid lobes are symmetrical and normal. The central trachea and bronchi widely patent. Heart size and the great vessels are normal caliber. There are coronary artery calcifications present. No abnormal mediastinal or hilar lymph nodes seen. No pericardial effusion seen. PLEURA: There is no pleural effusion. No pleural mass or thickening. AXILLA: Small shotty lymph nodes are seen in bilateral axilla. UPPER ABDOMEN: Visualized liver, spleen, pancreas and gallbladder appears unremarkable. OSSEOUS STRUCTURES: No aggressive lytic or sclerotic lesion. CT/CT chest wo con IMPRESSION: Minimal bibasilar dependent atelectasis and mild right apical pleural thickening. No consolidation, pulmonary nodule or mass.
--- NOTE | ~2020-08-27 | XR_ITS ---
EXAMINATION: XR CHEST CLINICAL INFORMATION: Dyspnea. COMPARISON: None TECHNIQUE: Frontal view of the chest was obtained. FINDINGS: No significant abnormality is noted involving the heart, lungs, mediastinum, bony thorax or soft tissues. XR/XR chest 1V IMPRESSION: Unremarkable chest examination.
[2020-08-27 15:40] VITALS: BP 148/73; PULSE 83; RESP 24; TEMP 36.8; O2SAT 98; BMI 27.9
--- NOTE | 2020-08-27 15:44 | ECG_ITS ---
Test Reason : CHST PAIN Blood Pressure : / mmHG Vent. Rate : 081 BPM Atrial Rate : 081 BPM P-R Int : 134 ms QRS Dur : 068 ms QT Int : 374 ms P-R-T Axes : 061 -16 029 degrees QTc Int : 434 ms Sinus rhythm with Fusion complexes Otherwise normal ECG When compared with ECG of 26-FEB-2020 15:35, Fusion complexes are now Present Referred By: Generic ED Physician Electronically Signed By:JANINE BIANCHI MD
[2020-08-27 16:33] LABS: MANUAL DIFF FLAG NO
[2020-08-27 16:35] LABS: Basophils Absolute Auto 0.1 X10*3/uL (0.0-0.2); Basophils Percent Auto 0.5 % (0-2); Eosinophils Absolute Auto 0.5 X10*3/uL (0.0-0.4); Eosinophils Percent Auto 4.7 % (0-4); Hematocrit 42.2 % (37-47); Hemoglobin 14.3 g/dl (12.0-16.0); Imm Gran Abs Auto 0.09 X10*3/uL (0.00-0.03); Imm Gran Pct Auto 0.9 % (0.0-0.4); Lymphocytes Absolute Auto 2.9 X10*3/uL (1.2-4.9); Lymphocytes Percent Auto 29.6 % (20-40); Mean Corpuscular HGB Conc 33.9 g/dl (31.0-35.0); Mean Corpuscular Hemoglobin 30.7 pg (27.0-33.0); Mean Corpuscular Volume 90.6 fL (80-98); Mean Platelet Volume 9.2 fL (9.4-12.3); Monocytes Absolute Auto 0.8 X10*3/uL (0.1-1.2); Monocytes Percent Auto 8.2 % (2-11); Neutrophils Absolute Auto 5.4 X10*3/uL (2.0-8.3); Neutrophils Percent Auto 56.1 % (45-73); Platelet Count 314 X10*3/uL (160-400); Red Blood Count 4.66 X10*6/uL (4.20-5.50); Red Cell Distribution Width 13.1 % (11.0-16.0); White Blood Count 9.7 X10*3/uL (4.8-10.8)
[2020-08-27 16:53] LABS: Anion Gap 14 (12-20); Blood Urea Nitrogen 22 mg/dL (9-16); Calcium 8.9 mg/dL (8.4-10.2); Carbon Dioxide 27 mmol/L (22-29); Chloride 104 mmol/L (96-108); Creatinine Clr Calc Pharmacy 50.6; Estimated Glomerular Filt Rate > 60; Glucose Random 78 mg/dL (60-115); Sodium 141 mmol/L (135-145)
[2020-08-27 17:00] LABS: B Type Natriuretic Peptide 34 pg/mL (<100); Troponin-I High Sensitivity < 3.5 ng/L (<3.5-17.0)
--- NOTE | 2020-08-27 19:44 | ED.SOB ---
HPI - SOB/Dyspnea General Chief Complaint: Dyspnea Stated Complaint: Asthma Source: patient Mode of arrival: ambulatory Limitations: no limitations History of Present Illness HPI Narrative: 70-year-old female with past medical history of HIV, asthma, hyperlipidemia, presents with upper respiratory symptoms. Was seen on Wednesday and diagnosed with bronchitis. Patient states that her cough has not gotten any better. MD elicited complaint: shortness of breath and cough Pertinent past history: COPD and asthma Onset (ago): week(s) Context: recent illness Timing: constant Severity: moderate Exacerbating factors: lying flat, exertion and coughing Relieving factors: nothing Known history of: COPD and HIV Associated symptoms: denies other symptoms Related Data Home Medications Medication Instructions Recorded Confirmed albuterol sulfate 90 mcg/actuation 0 mcg PO 02/29/20 08/12/20 aerosol inhaler famotidine 40 mg tablet 40 mg PO DAILY 02/29/20 08/12/20 fluticasone propionate 110 2,000,000 mcg INHALATION BID 02/29/20 08/12/20 mcg/actuation HFA aerosol inhaler dolutegravir 50 mg-rilpivirine 25 1 tab PO DAILY 05/15/20 08/12/20 mg tablet montelukast 10 mg tablet 10 mg PO DAILY 05/15/20 08/12/20 Previous Rx's Medication Instructions Recorded levothyroxine 88 mcg tablet 88 mcg PO QAM #90 tab 03/03/20 cetirizine 10 mg capsule 10 mg PO DAILY PRN 90 Days #90 cap 05/15/20 ibuprofen 600 mg tablet 600 mg PO TID #30 tab 08/08/20 amoxicillin-pot clavulanate 1 tab PO BID #14 tab 08/21/20 [Augmentin] dextromethorphan polistirex 10 ml PO Q12H PRN #89 ml 08/21/20 [Robitussin ER] prednisone 60 mg PO DAILY #15 tab 08/21/20 benzonatate [Tessalon Perles] 100 mg PO TID PRN #20 cap 08/27/20 Allergies Allergy/AdvReac Type Severity Reaction Status Date / Time blackberry Allergy Intermediate Itching Verified 08/12/20 15:50 long Allergy Intermediate Itching Verified 08/12/20 15:50 peanut [PEANUT] Allergy Intermediate RASH Verified 08/12/20 15:50 Sulfa (Sulfonamide Allergy Intermediate HIVES, Verified 08/12/20 15:50 Antibiotics) hives, [SULFA (SULFONAMIDE rash, ANTIBIOTICS)] hives, rash tramadol Allergy Intermediate nausea Verified 08/12/20 15:50 strawberry Allergy Itching Verified 08/12/20 15:23 acetaminophen [Tylenol] AdvReac Unknown itch Verified 08/12/20 15:23 animals Allergy Itching Uncoded 08/08/20 15:06 red fruit Allergy Itching Uncoded 08/08/20 15:06 tree Allergy eye Uncoded 08/08/20 15:06 swelling, itch Review of Systems Review of Systems: Constitutional: No Fever, No Chills ENT/Mouth: No Hoarseness, No sore throat, No Rhinorrhea Eyes: No Redness, No Discharge, No Vision Changes Cardiovascular: No Chest Pain, positive SOB, positive Dyspnea on Exertion, No Edema Respiratory: positive Cough, No Sputum, positive Wheezing, Gastrointestinal: No Nausea, No Vomiting, No Diarrhea, No abdominal Pain Genitourinary: No Dysuria, No Hematuria Musculoskeletal: No joint pain, No Myalgias Skin: No rash Neuro: No Weakness, No Numbness, No Headache Psych: No anxiety, depression Heme/Lymph: No Bruising, No Bleeding Endocrine: No Polyuria, No Polydipsia Yes all other systems are reviewed and are negative PMFSH Past Medical History Attestation statement: The following information was validated with the patient. Source: old records reviewed Medical History Asthma Asthma Dyslipidemia Fracture of left hip requiring operative repair HIV (human immunodeficiency virus infection) Hypothyroidism TIA (transient ischemic attack) Urticaria Verruca Surgical History H/O umbilical hernia repair History of section History of lumbar fusion Hx of colonoscopy Family History Family History Father Cancer Diabetes Mother Cancer Diabetes Brother Colon polyps Social History Social History Housing: Apartment Alcohol intake: former Year quit: 2010 Patient Tobacco Use Status: Former Tobacco user Tobacco use type: Cigarette Second Hand Smoke Exposure: No Advance Directives: No Advance Directives Information Provided: No service: No Current occupational status: retired Physical Exam Vital Signs: Vital Signs: Last Vital Signs Temp 97.9 F 08/27/20 20:00 Pulse 73 08/27/20 21:41 Resp 18 08/27/20 20:00 BP 124/72 08/27/20 20:00 Pulse Ox 98 08/27/20 20:00 Oxygen Flow Rate 2 08/27/20 15:40 Body Mass Index 27.9 Appearance: Alert. Oriented X3. Mild distress. Head: Normal external exam. Normocephalic. Atraumatic. No Tran signs noted. No raccoon eyes noted Eyes: PERRLA. EOMI. Conjunctiva and sclera normal. Eyelids normal. ENT: TM's Normal. Pharynx normal. Uvula midline. Moist mucous membranes. No trismus noted. No drooling noted. No muffled voice noted. Neck: Normal inspection. Neck supple. No adenopathy. Thyroid Normal. No meningeal signs. No neck mass noted. CVS: Normal heart rate and rhythm. Heart sound normal. No murmurs noted. Pulses equal to all extremities. Respiratory: No respiratory distress. Painless inspiration. lung sounds expiratory wheezing. Chest nontender. No accessory muscle usage noted or decreased air movement noted. Abdomen: Soft and nontender. Bowel sounds normal in all 4 quadrants. No distention noted. No organomegaly noted. No visible injury noted. Back: No CVA tenderness. Full range of motion noted. Skin: Skin warm and dry. Normal skin color. Normal skin turgor. No rashes/lesions/lacerations noted. Extremities: No lower extremity edema. Extremities exhibit normal range of motion. Extremities nontender. Neuro: cranial nerves 2-12 intact, no focal neural deficits, strength 5/5 to all extremities, No motor deficit. No sensory deficit. Course Course Course Narrative: 70-year-old female presents with worsening upper respiratory symptoms. Was diagnosed with bronchitis about a week ago. Will order CT scan of the chest, labs, rule out ACS. Labs are unremarkable, CT chest is negative, EKG normal sinus. COVID test is negative. Will discharge home with Tessalon. Patient was advised to follow up with primary care physician. Patient verbalized understanding of and agrees plan of care discharge home. MDM - SOB/Dyspnea Differential Diagnosis Differential diagnosis: Likely acute exacerbation of chronic obstructive airways disease, congestive heart failure, pneumonia and asthma with exacerbation Medical Records Attestation: I reviewed the patient's medical records. Lab Data Attestation: I reviewed the patient's lab results. Result diagrams: 08/27/20 16:26 08/27/20 16:26 Labs: Lab Results 08/27/20 08/27/20 08/27/20 Range/Units 16:26 16:26 16:26 WBC 9.7 (4.8-10.8) X10*3/uL RBC 4.66 (4.20-5.50) X10*6/uL Hgb 14.3 (12.0-16.0) g/dl Hct 42.2 (37-47) % MCV 90.6 (80-98) fL MCH 30.7 (27.0-33.0) pg MCHC 33.9 (31.0-35.0) g/dl RDW 13.1 (11.0-16.0) % Plt Count 314 D (160-400) X10*3/uL MPV 9.2 L (9.4-12.3) fL Immature Gran % (Auto) 0.9 H (0.0-0.4) % Neut % (Auto) 56.1 (45-73) % Lymph % (Auto) 29.6 (20-40) % [place] % (Auto) 8.2 (2-11) % Eos % (Auto) 4.7 H (0-4) % Baso % (Auto) 0.5 (0-2) % Lymph # (Auto) 2.9 (1.2-4.9) X10*3/uL [place] # (Auto) 0.8 (0.1-1.2) X10*3/uL Eos # (Auto) 0.5 H (0.0-0.4) X10*3/uL Baso # (Auto) 0.1 (0.0-0.2) X10*3/uL Abs Immat Gran (auto) 0.09 H (0.00-0.03) X10*3/uL Absolute Neuts (auto) 5.4 (2.0-8.3) X10*3/uL Absolute Nucleated RBC 0.000 (0.0-0.012) X10*3/uL Nucleated RBC % (auto) 0.0 (0.0-0.2) /100WBC Sodium 141 (135-145) mmol/L Potassium 4.0 (3.3-5.1) mmol/L Chloride 104 (96-108) mmol/L Carbon Dioxide 27 (22-29) mmol/L Anion Gap 14 (12-20) BUN 22 H D (9-16) mg/dL Creatinine 0.92 (0.5-1.4) mg/dL Estim Creat Clear Calc 50.6 Estimated GFR > 60 Random Glucose 78 (60-115) mg/dL Calcium 8.9 (8.4-10.2) mg/dL Troponin I High Sens < 3.5 (<3.5-17.0) ng/L B-Natriuretic Peptide 34 (<100) pg/mL COVID-19 ([facility]) (Negative) COVID-19 Clin Com 08/27/20 Range/Units 20:11 WBC (4.8-10.8) X10*3/uL RBC (4.20-5.50) X10*6/uL Hgb (12.0-16.0) g/dl Hct (37-47) % MCV (80-98) fL MCH (27.0-33.0) pg MCHC (31.0-35.0) g/dl RDW (11.0-16.0) % Plt Count (160-400) X10*3/uL MPV (9.4-12.3) fL Immature Gran % (Auto) (0.0-0.4) % Neut % (Auto) (45-73) % Lymph % (Auto) (20-40) % [place] % (Auto) (2-11) % Eos % (Auto) (0-4) % Baso % (Auto) (0-2) % Lymph # (Auto) (1.2-4.9) X10*3/uL [place] # (Auto) (0.1-1.2) X10*3/uL Eos # (Auto) (0.0-0.4) X10*3/uL Baso # (Auto) (0.0-0.2) X10*3/uL Abs Immat Gran (auto) (0.00-0.03) X10*3/uL Absolute Neuts (auto) (2.0-8.3) X10*3/uL Absolute Nucleated RBC (0.0-0.012) X10*3/uL Nucleated RBC % (auto) (0.0-0.2) /100WBC Sodium (135-145) mmol/L Potassium (3.3-5.1) mmol/L Chloride (96-108) mmol/L Carbon Dioxide (22-29) mmol/L Anion Gap (12-20) BUN (9-16) mg/dL Creatinine (0.5-1.4) mg/dL Estim Creat Clear Calc Estimated GFR Random Glucose (60-115) mg/dL Calcium (8.4-10.2) mg/dL Troponin I High Sens (<3.5-17.0) ng/L B-Natriuretic Peptide (<100) pg/mL COVID-19 ([facility]) Negative (Negative) COVID-19 Clin Com See Note Imaging Data Chest x-ray: Attestation: I personally reviewed and interpreted this imaging study as follows: Radiologist's impression: EXAMINATION: XR CHEST CLINICAL INFORMATION: Dyspnea. COMPARISON: None TECHNIQUE: Frontal view of the chest was obtained. FINDINGS: No significant abnormality is noted involving the heart, lungs, mediastinum, bony thorax or soft tissues. XR/XR chest 1V IMPRESSION: Unremarkable chest examination. CT scan - chest: Attestation: I personally reviewed and interpreted this imaging study as follows: Radiologist's impression: EXAMINATION: CT CHEST WITHOUT CONTRAST CLINICAL INFORMATION: Cough and SOB COMPARISON: None TECHNIQUE: Multidetector volumetric CT imaging of the chest was done. Axial MIP volume rendering provided. Sagittal and coronal reformatted images were obtained. This CT examination was performed using dose optimization techniques as appropriate, variously including the following: *Automated exposure control *Adjustment of mA and/or kV according to patient size (this includes techniques or standardized protocols for targeted exams where dose is matched to indication/reason for exam; i.e. 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 No pulmonary nodule, mass or consolidation seen. There is mild right posterior apical pleural thickening. MEDIASTINUM: The thyroid lobes are symmetrical and normal. The central trachea and bronchi widely patent. Heart size and the great vessels are normal caliber. There are coronary artery calcifications present. No abnormal mediastinal or hilar lymph nodes seen. No pericardial effusion seen. PLEURA: There is no pleural effusion. No pleural mass or thickening. AXILLA: Small shotty lymph nodes are seen in bilateral axilla. UPPER ABDOMEN: Visualized liver, spleen, pancreas and gallbladder appears unremarkable. OSSEOUS STRUCTURES: No aggressive lytic or sclerotic lesion. CT/CT chest wo con IMPRESSION: Minimal bibasilar dependent atelectasis and mild right apical pleural thickening. No consolidation, pulmonary nodule or mass. ECG Data Attestation: I personally reviewed and interpreted this ECG as follows: ECG interpretation date: 08/27/20 ECG interpretation time: 16:20 Interpretation: Vent. rate 81 BPM HI interval 134 ms QRS duration 68 ms QT/QTc 374/434 ms P-R-T axes 61 -16 29 Sinus rhythm with Fusion complexes Otherwise normal ECG When compared with ECG of 26-FEB-2020 15:35, Fusion complexes are now Present Discharge Plan Discharge Clinical Impression: Acute upper respiratory infection, Viral syndrome Patient Disposition: Home, Self-Care Instructions: Viral Syndrome (ED) Additional Instructions: you were evaluated for upper respiratory symptoms. CT scan of the chest is negative for acute findings. Your COVID-19 test was negative. Your EKG was normal sinus. Your cardiac enzymes are negative. Please follow-up with primary care physician. You may take Tessalon Perles as needed for cough. Thank you for choosing this emergency department for evaluation. Please follow-up with primary care physician as needed. Return to the emergency department for any new, concerning, or worsening symptoms. Prescriptions: New benzonatate [Tessalon Perles] 100 mg capsule 100 mg PO TID PRN (Reason: cough) Qty: 20 RF: 0 No Action levothyroxine 88 mcg tablet 88 mcg PO QAM Qty: 90 RF: 1 prednisone 20 mg tablet 60 mg PO DAILY Qty: 15 RF: 0 amoxicillin-pot clavulanate [Augmentin] 875-125 mg tablet 1 tab PO BID Qty: 14 RF: 0 dextromethorphan polistirex [Robitussin ER] 30 mg/5 mL suspension,extended rel 12 hr 10 ml PO Q12H PRN (Reason: cough) Qty: 89 RF: 0 Flovent HFA 110 mcg/actuation HFA aerosol inhaler 2,000,000 mcg inhalation BID RF: 0 albuterol sulfate 90 mcg/actuation HFA aerosol inhaler 0 mcg PO RF: 0 famotidine 40 mg tablet 40 mg PO DAILY RF: 0 Juluca 50-25 mg tablet 1 tab PO DAILY RF: 0 montelukast 10 mg tablet 10 mg PO DAILY RF: 0 All Day Allergy (cetirizine) 10 mg capsule 10 mg PO DAILY PRN (Reason: allergy symptoms) 90 Days Qty: 90 RF: 1 ibuprofen 600 mg tablet 600 mg PO TID Qty: 30 RF: 0 Interventions: ED Discharge Assessment Last Done: 08/27/20 22:54 Discharge Date/Time: 08/27/20 22:57
[2020-08-27 20:00] VITALS: BP 124/72; PULSE 75; RESP 18; TEMP 36.6; O2SAT 98
[2020-08-27 20:36] LABS: COVID-19 Test Negative (Negative)
[2020-08-27] MEDS: Benzonatate 100 MG CAPSULE 200 MG PO (21:21)
[2020-08-27] MEDS: Albuterol Sulfate (0.083%) 2.5 MG/3 ML VIAL.NEB 5 MG INHALE (21:39)
[2020-08-27 21:41] VITALS: PULSE 73; O2SAT 99
--- NOTE | 2020-08-27 21:44 | PC.NURSE ---
PT REFUSING IV PLACEMENT.
== END 2020-08-27 22:57 | disposition home or self-care (01) ==
PROVIDERS: Nurse Practitioner Family; Emergency Provider Internal Medicine
DX: J06.9 Acute upper respiratory infection, unspecified (principal); B34.9 Viral infection, unspecified; R06.02 Shortness of breath; J45.909 Unspecified asthma, uncomplicated; Z21 Asymptomatic human immunodeficiency virus [HIV] infection status; Z86.73 Personal history of transient ischemic attack (TIA), and cerebral infarction without residual deficits; Z79.899 Other long term (current) drug therapy; Z20.822 Contact with and (suspected) exposure to COVID-19
CPT/HCPCS: 36415; 71045; 71250; 80048; 83880; 84484; 85025; 87635; 93005; 94640; 96374; 99284; J2930

== ENCOUNTER 2020-08-28 07:56 | Outpatient (REF) | payer MEDICARE, SELFPAY | END 2020-08-28 07:57 | disposition home or self-care (01) | LOC: HO.HOSX 07:56 | PROVIDERS: Visit Provider Physician Assistant | DX: Z13.89 Encounter for screening for other disorder (principal) ==

== ENCOUNTER 2020-11-08 10:20 | Outpatient (REF) | payer MEDICARE, SELFPAY ==
[2020-11-08 11:32] LABS: MANUAL DIFF FLAG NO
[2020-11-08 11:38] LABS: Basophils Absolute Auto 0.1 X10*3/uL (0.0-0.2); Basophils Percent Auto 1.2 % (0-2); Eosinophils Absolute Auto 0.2 X10*3/uL (0.0-0.4); Eosinophils Percent Auto 4.6 % (0-4); Hematocrit 43.4 % (37-47); Hemoglobin 14.5 g/dl (12.0-16.0); Imm Gran Abs Auto 0.01 X10*3/uL (0.00-0.03); Imm Gran Pct Auto 0.2 % (0.0-0.4); Lymphocytes Absolute Auto 1.4 X10*3/uL (1.2-4.9); Mean Corpuscular HGB Conc 33.4 g/dl (31.0-35.0); Mean Corpuscular Hemoglobin 30.7 pg (27.0-33.0); Mean Corpuscular Volume 91.9 fL (80-98); Mean Platelet Volume 9.5 fL (9.4-12.3); Monocytes Absolute Auto 0.6 X10*3/uL (0.1-1.2); Monocytes Percent Auto 13.3 % (2-11); Neutrophils Absolute Auto 1.9 X10*3/uL (2.0-8.3); Neutrophils Percent Auto 46.7 % (45-73); Platelet Count 244 X10*3/uL (160-400); Red Blood Count 4.72 X10*6/uL (4.20-5.50); Red Cell Distribution Width 13.2 % (11.0-16.0); White Blood Count 4.2 X10*3/uL (4.8-10.8)
[2020-11-08 12:09] LABS: Alanine Aminotransferase 7 U/L (0-31); Aspartate Amino Transferase 23 U/L (5-31); Estimated Glomerular Filt Rate > 60
[2020-11-08 12:24] LABS: Syphilis Screen Nonreactive (Nonreactive)
[2020-11-08 14:52] LABS: CT PCR NOT DETECTED (Not Detect.); NG PCR NOT DETECTED (Not Detect.)
[2020-11-10 07:31] LABS: HIV RNA PCR Qn Copies <20 NOT DETECTED copies/mL (NOT DETECTED); HIV RNA PCR Qn Log Copies <1.30 NOT DETECTED (NOT DETECTED)
[2020-11-11 12:26] LABS: Absolute CD3 Count 766 cells/uL (840-3060); Absolute CD4 Count 381 cells/uL (490-1740); Absolute CD8 Count 403 cells/uL (180-1170); Absolute Lymphocytes 1502 cells/uL (850-3900); CD4 CD8 Ratio 0.95 (0.86-5.00); Percent CD3 Cells 51 % (57-85); Percent CD4 Cells 25 % (30-61); Percent CD8 Cells 27 % (12-42)
== END 2020-11-08 10:21 | disposition home or self-care (01) ==
LOC: HO.LAB 10:20
PROVIDERS: PCP Internal Medicine; Visit Provider Internal Medicine Infectious Disease
DX: B20 Human immunodeficiency virus [HIV] disease (principal)
CPT/HCPCS: 82565; 84450; 84460; 85025; 86359; 86360; 86780; 87491; 87536; 87591

== ENCOUNTER 2020-12-04 10:32 | Outpatient (REF) | payer MEDICARE, SELFPAY ==
[2020-12-04 12:20] LABS: Alanine Aminotransferase 11 U/L (0-31); Albumin Level 4.2 g/dL (3.5-5.0); Alkaline Phosphatase 75 U/L (39-117); Anion Gap 12 (12-20); Aspartate Amino Transferase 21 U/L (5-31); Bilirubin Total 0.6 mg/dL (0.0-1.0); Blood Urea Nitrogen 16 mg/dL (9-16); Calcium 9.5 mg/dL (8.4-10.2); Carbon Dioxide 26 mmol/L (22-29); Chloride 106 mmol/L (96-108); Estimated Glomerular Filt Rate > 60; Glucose Fasting 97 mg/dL (60-99); Potassium 4.2 mmol/L (3.3-5.1); Sodium 140 mmol/L (135-145)
[2020-12-04 12:40] LABS: Thyroid Stimulating Hormone 0.95 uIU/mL (0.32-4.0)
[2020-12-09 13:02] LABS: Vitamin D 25-OH, D2 <4 ng/mL; Vitamin D 25-OH, D3 34 ng/mL; Vitamin D 25-OH, Total 34 ng/mL (30-100)
== END 2020-12-04 10:33 | disposition home or self-care (01) ==
LOC: HO.LAB 10:32
PROVIDERS: PCP Internal Medicine; Visit Provider Internal Medicine Pulmonary Disease
DX: J45.909 Unspecified asthma, uncomplicated (principal); Z91.09 Other allergy status, other than to drugs and biological substances; E03.9 Hypothyroidism, unspecified; E55.9 Vitamin D deficiency, unspecified; E78.5 Hyperlipidemia, unspecified
CPT/HCPCS: 36415; 80053; 82306; 82785; 84443; 86003; 99202

== ENCOUNTER → 2021-01-29 13:21 | Outpatient (BNVA) | payer MEDICARE, SELFPAY | PROVIDERS: PCP Internal Medicine; Visit Provider Internal Medicine Pulmonary Disease | DX: J45.40 Moderate persistent asthma, uncomplicated (principal); Z91.09 Other allergy status, other than to drugs and biological substances | CPT/HCPCS: 99212 ==

== ENCOUNTER 2021-05-06 11:45 | Outpatient (REF) | payer MEDICARE, SELFPAY ==
[2021-05-06 12:04] LABS: MANUAL DIFF FLAG NO
[2021-05-06 12:29] LABS: Basophils Absolute Auto 0.1 X10*3/uL (0.0-0.2); Eosinophils Absolute Auto 0.2 X10*3/uL (0.0-0.4); Eosinophils Percent Auto 3.2 % (0-4); Hematocrit 46.1 % (37.0-47.0); Hemoglobin 15.6 g/dl (12.0-16.0); Imm Gran Abs Auto 0.02 X10*3/uL (0.00-0.03); Imm Gran Pct Auto 0.4 % (0.0-0.4); Lymphocytes Absolute Auto 1.6 X10*3/uL (1.2-4.9); Lymphocytes Percent Auto 30.7 % (20-40); Mean Corpuscular HGB Conc 33.8 g/dl (31.0-35.0); Mean Corpuscular Hemoglobin 31.4 pg (27.0-33.0); Mean Corpuscular Volume 92.8 fL (80.0-98.0); Mean Platelet Volume 9.4 fL (9.4-12.3); Monocytes Absolute Auto 0.5 X10*3/uL (0.1-1.2); Monocytes Percent Auto 10.3 % (2-11); Neutrophils Absolute Auto 2.8 x10*3/uL (2.0-8.3); Neutrophils Percent Auto 54.4 % (45-73); Platelet Count 269 X10*3/uL (160-400); Red Blood Count 4.97 X10*6/uL (4.20-5.50); Red Cell Distribution Width 13.1 % (11.0-16.0); White Blood Count 5.1 X10*3/uL (4.8-10.8)
[2021-05-06 13:26] LABS: Alanine Aminotransferase 9 U/L (0-31); Albumin Level 4.5 g/dL (3.5-5.0); Alkaline Phosphatase 99 U/L (39-117); Anion Gap 13 (12-20); Aspartate Amino Transferase 21 U/L (5-31); Bilirubin Total 0.7 mg/dL (0.0-1.0); Blood Urea Nitrogen 15 mg/dL (9-16); Carbon Dioxide 26 mmol/L (22-29); Chloride 106 mmol/L (96-108); Estimated Glomerular Filt Rate 53; Glucose Fasting 96 mg/dL (60-99); HDL Cholesterol 64 mg/dL; Potassium 4.7 mmol/L (3.3-5.1); Thyroid Stimulating Hormone 1.86 uIU/mL (0.32-4.0); Triglycerides 120 mg/dL
[2021-05-06 13:28] LABS: Cholesterol 317 mg/dL; LDL Cholesterol Calculated 229 mg/dl; Sodium 140 mmol/L (135-145); Total Protein 7.8 g/dL (6.5-8.0)
[2021-05-07 21:42] LABS: Immunoglobulin E 131 kU/L (<OR=114)
== END 2021-05-06 11:46 | disposition home or self-care (01) ==
LOC: HO.LAB 11:45
PROVIDERS: Internal Medicine Pulmonary Disease; PCP Internal Medicine; Visit Provider Internal Medicine
DX: E78.5 Hyperlipidemia, unspecified (principal); E03.9 Hypothyroidism, unspecified; J45.40 Moderate persistent asthma, uncomplicated; Z91.09 Other allergy status, other than to drugs and biological substances; D64.9 Anemia, unspecified
CPT/HCPCS: 36415; 80053; 80061; 82785; 84443; 85025

== ENCOUNTER 2021-07-17 09:08 | Outpatient (REF) | payer OTHER, SELFPAY ==
[2021-07-17 10:05] LABS: MANUAL DIFF FLAG NO
[2021-07-17 10:42] LABS: Basophils Percent Auto 0.6 % (0-2); Eosinophils Absolute Auto 0.2 X10*3/uL (0.0-0.4); Hematocrit 40.7 % (37.0-47.0); Hemoglobin 13.5 g/dl (12.0-16.0); Imm Gran Abs Auto 0.01 X10*3/uL (0.00-0.03); Imm Gran Pct Auto 0.2 % (0.0-0.4); Lymphocytes Absolute Auto 1.4 X10*3/uL (1.2-4.9); Lymphocytes Percent Auto 29.2 % (20-40); Mean Corpuscular HGB Conc 33.2 g/dl (31.0-35.0); Mean Corpuscular Hemoglobin 30.4 pg (27.0-33.0); Mean Corpuscular Volume 91.7 fL (80.0-98.0); Mean Platelet Volume 9.7 fL (9.4-12.3); Monocytes Absolute Auto 0.6 X10*3/uL (0.1-1.2); Monocytes Percent Auto 12.3 % (2-11); Neutrophils Absolute Auto 2.5 x10*3/uL (2.0-8.3); Neutrophils Percent Auto 53.7 % (45-73); Platelet Count 216 X10*3/uL (160-400); Red Blood Count 4.44 X10*6/uL (4.20-5.50); Red Cell Distribution Width 13.1 % (11.0-16.0); White Blood Count 4.7 X10*3/uL (4.8-10.8)
[2021-07-17 11:33] LABS: Thyroid Stimulating Hormone 1.04 uIU/mL (0.32-4.0)
== END 2021-07-17 09:09 | disposition home or self-care (01) ==
LOC: HO.LAB 09:08
PROVIDERS: PCP Internal Medicine; Visit Provider Internal Medicine Pulmonary Disease
DX: E03.9 Hypothyroidism, unspecified (principal); J45.40 Moderate persistent asthma, uncomplicated; R05.9 Cough, unspecified; Z91.09 Other allergy status, other than to drugs and biological substances
CPT/HCPCS: 36415; 82785; 84443; 85025; 86003; 99212

== ENCOUNTER → 2021-09-10 09:19 | Outpatient (BNVA) | payer OTHER, SELFPAY | PROVIDERS: PCP Internal Medicine; Visit Provider Internal Medicine Pulmonary Disease | DX: J45.40 Moderate persistent asthma, uncomplicated (principal); Z91.09 Other allergy status, other than to drugs and biological substances | CPT/HCPCS: 99212 ==

== ENCOUNTER 2021-09-10 09:38 | Outpatient (REF) | payer OTHER, SELFPAY ==
[2021-09-10 10:54] LABS: Alanine Aminotransferase 11 U/L (0-31); Aspartate Amino Transferase 24 U/L (5-31); Cholesterol 246 mg/dL; Estimated Glomerular Filt Rate 55; HDL Cholesterol 56 mg/dL; LDL Cholesterol Calculated 164 mg/dl; Triglycerides 134 mg/dL
[2021-09-10 10:59] LABS: ~HepC Num1 0.04 S/CO (0.00-0.79); ~Hepatitis C Antibody Nonreactive (Nonreactive)
[2021-09-10 11:13] LABS: Syphilis Screen Nonreactive (Nonreactive)
[2021-09-10 11:15] LABS: Thyroid Stimulating Hormone 1.04 uIU/mL (0.32-4.0)
[2021-09-10 15:38] LABS: CT PCR NOT DETECTED (Not Detect.); NG PCR NOT DETECTED (Not Detect.)
[2021-09-12 11:56] LABS: Absolute CD3 Count 666 cells/uL (840-3060); Absolute CD4 Count 385 cells/uL (490-1740); Absolute CD8 Count 299 cells/uL (180-1170); Absolute Lymphocytes 1290 cells/uL (850-3900); CD4 CD8 Ratio 1.29 (0.86-5.00); Percent CD3 Cells 52 % (57-85); Percent CD4 Cells 30 % (30-61); Percent CD8 Cells 23 % (12-42)
== END 2021-09-10 09:39 | disposition home or self-care (01) ==
LOC: HO.LAB 09:38
PROVIDERS: PCP Internal Medicine; Visit Provider Internal Medicine Infectious Disease
DX: Z11.3 Encounter for screening for infections with a predominantly sexual mode of transmission (principal); B20 Human immunodeficiency virus [HIV] disease; R53.83 Other fatigue; E03.9 Hypothyroidism, unspecified
CPT/HCPCS: 80061; 82565; 84443; 84450; 84460; 86359; 86360; 86592; 86780; 86803; 87389; 87491; 87591

== ENCOUNTER 2021-09-30 09:28 | Outpatient (REF) | payer OTHER, SELFPAY ==
--- NOTE | ~2021-09-30 | MM_ITS ---
EXAMINATION: MM SCREENING DIGITAL BREAST TOMOSYNTHESIS, BILATERAL CLINICAL INFORMATION: Screening. Asymptomatic. The lifetime risk of breast cancer based on the Tyrer-Cuzick Model is 2%. COMPARISON: Mammography: 04/08/2018, 03/28/2018, 09/24/2016 TECHNIQUE: Digital breast tomosynthesis is performed in both the craniocaudal and mediolateral oblique views along with computer-aided detection (CAD). Synthesized 2D images are generated from the tomosynthesis. FINDINGS: There are scattered areas of fibroglandular density (ACR BI-RADS breast composition Category b). There are no significant masses, abnormal calcifications, or other abnormalities. No developing density. The axilla and skin contours are unremarkable. MM/MM tomosynthesis screening BI IMPRESSION: No mammographic evidence of malignancy. ASSESSMENT: BI-RADS 1: Negative RECOMMENDATION: Routine annual mammography screening. This patient's information was entered into a reminder system with a target due date for their next mammogram.
== END 2021-09-30 09:29 | disposition home or self-care (01) ==
LOC: HO.MAMMO 09:28
PROVIDERS: PCP Internal Medicine; Visit Provider Internal Medicine
DX: Z12.31 Encounter for screening mammogram for malignant neoplasm of breast (principal)
CPT/HCPCS: 77063; 77067

== ENCOUNTER 2021-12-10 13:12 | Outpatient (REF) | payer OTHER, SELFPAY ==
--- NOTE | 2021-12-10 | PFT_ITS ---
INDICATION: Asthma. SPIROMETRY: FEV1 to FVC at 80% with an FEV1 of 1.84 L, which is 92% predicted. FVC of 2.09 L with 81% predicted. No significant response to bronchodilators noted. Maximum voluntary ventilation 96% predicted. LUNG VOLUMES: Total lung capacity 80% predicted with an expiratory reserve volume of only 17% predicted. DIFFUSION CAPACITY: DLCO 62% predicted. It does correct to normal to 84% when corrected for the alveolar volume. COMPARISONS: None. INTERPRETATION: No obstructive nor restrictive ventilatory defects identified. No significant response to bronchodilators noted. The maximum voluntary ventilation is normal. Lung volumes are low normal and there is also decrease in the expiratory reserve volume. Could be secondary to elevated BMI although neuromuscular conditions could also be considered. The patient does have mild to moderate diffusion impairment. It does correct to normal when correcting for the alveolar volume. If asthma is in the differential, methacholine challenge may be helpful in assessing for hyper-reactive airways, otherwise clinical correlation warranted. MD JUNIOR Rueda/MODL / [phone]
== END 2021-12-10 13:13 | disposition home or self-care (01) ==
LOC: HO.RESP 13:12
PROVIDERS: PCP Internal Medicine; Visit Provider Internal Medicine Pulmonary Disease
DX: J45.40 Moderate persistent asthma, uncomplicated (principal); B20 Human immunodeficiency virus [HIV] disease; Z91.09 Other allergy status, other than to drugs and biological substances
CPT/HCPCS: 94060; 94727; 94729; 99212

== ENCOUNTER → 2022-01-02 10:20 | Outpatient (BNVA) | payer OTHER, SELFPAY | PROVIDERS: PCP Internal Medicine; Visit Provider Internal Medicine Pulmonary Disease | DX: J45.40 Moderate persistent asthma, uncomplicated (principal); Z91.09 Other allergy status, other than to drugs and biological substances | CPT/HCPCS: 99212 ==

== ENCOUNTER 2022-02-03 12:23 | Outpatient (REF) | payer OTHER, SELFPAY ==
[2022-02-03 12:40] LABS: MANUAL DIFF FLAG NO
[2022-02-03 13:41] LABS: Basophils Absolute Auto 0.1 X10*3/uL (0.0-0.2); Basophils Percent Auto 1.2 % (0-2); Eosinophils Absolute Auto 0.2 X10*3/uL (0.0-0.4); Eosinophils Percent Auto 3.7 % (0-4); Hematocrit 43.7 % (37.0-47.0); Hemoglobin 14.4 g/dl (12.0-16.0); Imm Gran Abs Auto 0.01 X10*3/uL (0.00-0.03); Imm Gran Pct Auto 0.2 % (0.0-0.4); Lymphocytes Absolute Auto 1.8 X10*3/uL (1.2-4.9); Lymphocytes Percent Auto 33.8 % (20-40); Mean Platelet Volume 10.3 fL (9.4-12.3); Monocytes Absolute Auto 0.6 X10*3/uL (0.1-1.2); Monocytes Percent Auto 10.8 % (2-11); Neutrophils Absolute Auto 2.6 x10*3/uL (2.0-8.3); Neutrophils Percent Auto 50.3 % (45-73); Platelet Count 273 X10*3/uL (160-400); Red Cell Distribution Width 13.7 % (11.0-16.0); White Blood Count 5.2 X10*3/uL (4.8-10.8)
[2022-02-03 14:29] LABS: Alanine Aminotransferase 11 U/L (0-31); Aspartate Amino Transferase 22 U/L (5-31); Estimated Glomerular Filt Rate 55
[2022-02-03 15:43] LABS: CT PCR NOT DETECTED (Not Detect.); NG PCR NOT DETECTED (Not Detect.)
[2022-02-04 04:44] LABS: HBsAGNum1 0.23 S/CO (0.00-0.99); Hepatitis B Surface Antigen Negative (Negative); ~Hepatitis C Antibody Nonreactive (Nonreactive)
[2022-02-04 05:51] LABS: Syphilis Screen Nonreactive (Nonreactive)
[2022-02-04 20:18] LABS: HIV RNA PCR Qn Copies NOT DETECTED copies/mL (NOT DETECTED); HIV RNA PCR Qn Log Copies NOT DETECTED (NOT DETECTED)
[2022-02-05 11:34] LABS: Absolute CD3 Count 933 cells/uL (840-3060); Absolute CD4 Count 500 cells/uL (490-1740); Absolute CD8 Count 459 cells/uL (180-1170); Absolute Lymphocytes 1784 cells/uL (850-3900); CD4 CD8 Ratio 1.09 (0.86-5.00); Percent CD3 Cells 52 % (57-85); Percent CD4 Cells 28 % (30-61); Percent CD8 Cells 26 % (12-42)
== END 2022-02-03 12:24 | disposition home or self-care (01) ==
LOC: HO.LAB 12:23
PROVIDERS: PCP Internal Medicine; Visit Provider Internal Medicine Infectious Disease
DX: B20 Human immunodeficiency virus [HIV] disease (principal)
CPT/HCPCS: 82565; 84450; 84460; 85025; 86359; 86360; 86780; 86803; 87340; 87491; 87536; 87591

== ENCOUNTER 2022-02-18 10:15 | Outpatient (REF) | payer OTHER, SELFPAY | END 2022-02-18 10:16 | disposition home or self-care (01) | LOC: HO.MDS 10:15 | PROVIDERS: PCP Internal Medicine; Visit Provider Internal Medicine Pulmonary Disease | DX: J45.50 Severe persistent asthma, uncomplicated (principal) | CPT/HCPCS: 96372 ==

== ENCOUNTER 2022-03-18 11:05 | Outpatient (REF) | payer OTHER, SELFPAY | END 2022-03-18 11:06 | disposition home or self-care (01) | LOC: HO.MDS 11:05 | PROVIDERS: Visit Provider Internal Medicine Pulmonary Disease | DX: J45.50 Severe persistent asthma, uncomplicated (principal) | CPT/HCPCS: 96372 ==

== ENCOUNTER 2022-04-15 14:10 | Outpatient (REF) | payer OTHER, SELFPAY | END 2022-04-15 14:11 | disposition home or self-care (01) | LOC: HO.MDS 14:10 | PROVIDERS: Visit Provider Internal Medicine Pulmonary Disease | DX: J45.50 Severe persistent asthma, uncomplicated (principal) | CPT/HCPCS: 96372 ==

== ENCOUNTER → 2022-05-05 10:15 | Outpatient (BNVA) | payer OTHER, SELFPAY | PROVIDERS: PCP Internal Medicine; Visit Provider Internal Medicine Pulmonary Disease | DX: M79.601 Pain in right arm (principal); J45.40 Moderate persistent asthma, uncomplicated; Z91.09 Other allergy status, other than to drugs and biological substances; Z79.899 Other long term (current) drug therapy | CPT/HCPCS: 99212 ==

== ENCOUNTER 2022-07-07 09:10 | Emergency (ER) | payer OTHER, SELFPAY ==
--- NOTE | ~2022-07-07 | XR_ITS ---
EXAMINATION: XR FINGER, RIGHT CLINICAL INFORMATION: Fifth finger injury COMPARISON: Previous x-ray from 2018 TECHNIQUE: Three views of the right fifth finger. FINDINGS: Bone alignment is normal. No fracture or dislocation. There is arthritis at the IP joints. There is a 1 mm density in the superficial soft tissues at the level of the volar PIP joint. This is new from 2018. It is uncertain whether this is is on the skin, related to old soft tissue trauma or could represent foreign body. XR/XR finger RT min 2V IMPRESSION: No fracture or dislocation. Osteoarthritis. New 1 mm density in the superficial soft tissues at the level of the volar PIP joint question representing something on the skin, related to old soft tissue injury versus soft tissue foreign body.
--- NOTE | ~2022-07-07 | XR_ITS ---
EXAMINATION: XR KNEE, RIGHT CLINICAL INFORMATION: Right knee injury COMPARISON: Previous x-ray from 2018 TECHNIQUE: Four views of the right knee. FINDINGS: The bones are osteopenic. No fracture or dislocation. Small osteophyte at the patellofemoral joint. Soft tissue calcification adjacent to the medial femoral condyle suggestive of old soft tissue injury. No joint effusion. Atherosclerotic disease. XR/XR knee RT 4V IMPRESSION: No acute findings.
[2022-07-07 09:21] VITALS: BP 152/77; PULSE 83; RESP 17; TEMP 35.7; O2SAT 97; BMI 26.4
--- NOTE | 2022-07-07 10:16 | PC.NURSE ---
Ring cut off from right pinky finger. Patient tolerated procedure well.
--- NOTE | 2022-07-07 10:17 | ED_ITS ---
HPI - Extremity Problem General Chief complaint: Extremity Injury, Upper Stated complaint: Fall 07/06/ hand inj/R knee pain Time Seen by Provider: 07/07/22 09:42 Source: patient Limitations: no limitations History of Present Illness HPI Narrative: Nfudhha-gda-vkpg-old female who states she [place] her right knee and right 5th finger. Patient has swelling to the right 5th finger. Patient has a pain increases with palpation of the right hand palpation of the right knee. Pain also increases with ambulation. Symptoms are [id number]. Patient has history of asthma urticaria HIV. Patient denies loss consciousness or hitting her head. Symptoms have worsened over the past 24 hours. Related Data Home Medications Medication Instructions Recorded Confirmed famotidine 40 mg tablet 40 mg PO DAILY 02/29/20 09/17/21 montelukast 10 mg tablet 10 mg PO DAILY 05/15/20 09/17/21 dolutegravir 50 mg-rilpivirine 25 1 tab PO DAILY 12/11/20 09/17/21 mg tablet (Juluca) Previous Rx's Medication Instructions Recorded fluticasone fur. 200 mcg-umeclid 1 inh inhalation DAILY 30 days #1 07/17/21 62.5 mcg-vilant 25 mcg ea inhalat.powder (Trelegy Ellipta) levothyroxine 88 mcg tablet 88 mcg PO QAM #90 tabs 11/08/21 nebulizers (AeroEclipse II #1 ea 11/08/21 Nebulizer) sumatriptan succinate 50 mg tablet 50 mg PO Q2-4H PRN migraine 11/08/21 headache 30 days #9 tabs omalizumab 150 mg/mL subcutaneous 300 mg (2 mL) subcut Q4W 28 days 12/22/21 syringe (Xolair) #2 mL hydroxyzine HCl 25 mg tablet 25 mg PO BEDTIME 90 days #90 tabs 06/23/22 methocarbamol 750 mg tablet 750 mg PO TID PRN pain (scale 07/07/22 score 4-6) #14 tabs Allergies Allergy/AdvReac Type Severity Reaction Status Date / Time blackberry Allergy Intermediate Itching Verified 05/05/22 10:18 long Allergy Intermediate Itching Verified 05/05/22 10:18 peanut [PEANUT] Allergy Intermediate RASH Verified 05/05/22 10:18 Sulfa (Sulfonamide Allergy Intermediate HIVES, Verified 05/05/22 10:18 Antibiotics) hives, [SULFA (SULFONAMIDE rash, ANTIBIOTICS)] hives, rash tramadol Allergy Intermediate nausea Verified 05/05/22 10:18 strawberry Allergy Itching Verified 05/05/22 10:18 acetaminophen [Tylenol] AdvReac Unknown itch Verified 05/05/22 10:18 animals Allergy Itching Uncoded 12/10/21 14:06 red fruit Allergy Itching Uncoded 12/10/21 14:06 tree Allergy eye Uncoded 12/10/21 14:06 swelling, itch Review of Systems Review of Systems: General: No fever, no chills Ophthalmology: No vision changes, no discharge ENT: No sore throat, no ear pain Cardiovascular, no chest pain, no peripheral edema no shortness of breath Respiratory: No dyspnea, no sputum production, no cough Muscle skeletal: Right knee pain, right 5th finger pain GI: No abdominal pain: No nausea vomiting, no diarrhea : No dysuria, no urgency, no frequency Psychiatric: No depression, no suicidal ideation, no homicidal ideation Skin: No rash Immunology: History of HIV Hematology: No bleeding, no bruising PMFSH Past Medical History Source: old records reviewed Medical History Asthma Asthma Dyslipidemia Fracture of left hip requiring operative repair GERD (gastroesophageal reflux disease) HIV (human immunodeficiency virus infection) Hypothyroidism TIA (transient ischemic attack) Urticaria Verruca Surgical History H/O umbilical hernia repair History of section History of lumbar fusion Hx of colonoscopy Family History Family History Father Cancer Diabetes Mother Cancer Diabetes Brother Colon polyps Social History Social History Housing: Apartment Alcohol intake: former Year quit: 2010 Patient Tobacco Use Status: Former Tobacco user Tobacco use type: Cigarette e-Cigarette/Vaping Use: Never Used Second Hand Smoke Exposure: No Advance Directives: No Advance Directives Information Provided: Yes service: No Current occupational status: retired Physical Exam Vital Signs: Vital Signs: Last Vital Signs Temp 96.3 F L 07/07/22 09:21 Pulse 83 07/07/22 09:21 Resp 17 07/07/22 09:21 BP 152/77 H 07/07/22 09:21 Pulse Ox 97 07/07/22 09:21 O2 Del Method Room Air 07/07/22 09:21 BMI result Body Mass Index 26.4 General appearance: Awake, alert, cooperative, in no acute distress Skin: Warm, dry, no rash, impressive edema in the right 5th finger secondary to a rings Eyes: PERRL, EOMI, no icterus ENT: Oropharynx normal Neck: Soft supple full range of motion Pulmonary: Breath sounds clear to auscultation bilaterally, no accessory muscle use Cardiovascular: Regular rate and rhythm no murmurs and rubs Abdomen: Soft nontender no rebound or guarding positive bowel sounds Extremities: Diffuse tenderness right 5th finger positive capillary refill. Right knee positive joint line tenderness patient ambulatory Neuro: Alert oriented x3, no focal deficit Psych: Normal affect Course Course Course Narrative: Right 5th finger contusion Fracture Right 5th finger edema secondary to tourniquet from rings Right knee contusion Right knee fracture 72 year old female status post fall yesterday a post office. Patient states she tripped on uneven sidewalk. Secondary to tourniquet edema will remove rings at this time. Was able to remove rains with trauma Lydia ring cutter with RN patient tolerated well X-ray right hand right knee pending Right knee x-ray is negative Right 5th finger x-rays negative question superficial foreign body on the skin versus retained foreign body will re-evaluate at this time. 11:22 No obvious foreign body noted on physical exam. X-rays reviewed with patient with site superintendent Medical Decision Making Radiology Impression Discussion of test interpretation with radiology: I have reviewed the radiologist's reading. Radiologist Impression: [address] [place] [address] XRay Report Signed Patient: Yamile Sheridan MR#: [id number] : 1950 Acct:[id number] Age/Sex: 72 / F ADM Date: 07/07/22 Loc: HO.ED Attending Dr: Ordering Physician: Dann Titus MD Date of Service: 07/07/22 Procedure(s): XR finger RT min 2V Accession Number(s): [id number] cc: Dann Titus MD~ EXAMINATION: XR FINGER, RIGHT CLINICAL INFORMATION: Fifth finger injury? COMPARISON: Previous x-ray from 2018 TECHNIQUE: Three views of the right fifth finger. FINDINGS: Bone alignment is normal. No fracture or dislocation. There is arthritis at the IP joints. There is a 1 mm density in the superficial soft tissues at the level of the volar PIP joint. This is new from 2018. It is uncertain whether this is is on the skin, related to old soft tissue trauma or could represent foreign body.? XR/XR finger RT min 2V IMPRESSION: No fracture or dislocation. Osteoarthritis. New 1 mm density in the superficial soft tissues at the level of the volar PIP joint question representing something on the skin, related to old soft tissue injury versus soft tissue foreign body. ? Dictated By: Jannie Osman MD Signed By: <Electronically signed by Jannie Osman MD in OV> 07/07/22 1108 DD/ 1020 TD/TT:? Funeral Driver: ZE ? [facility] My List KALLIE ?6? To Be Seen ?10? ED ?19? EDBH ?5? EMC/RP/Pivot ?5? Sheridan,Yamile H? ? [facility] Bed 1 - EMC1? Extremity Injury, Upper? 72 F? With Doctor? 4? ?? 1h 51m? ?? REG ER? Draft? Rouge Sifter Needed? ?? Needs rings cut off Dann Titus Michael Fall 5/8/ R hand inj/R knee pain? Order BP 152/77 Pulse 83 Resp 17 Temp 96.3 F O2 Sat 97% (RA) X-Ray Marisa Valentino? ? [facility] Bed 2 - EMC2? Extremity Problem? 38 F? With Doctor? 4? ?? 1h 35m? ?? REG ER? Draft? Rouge Sifter Needed? ?? Dann Titus Michael R arm pain? Order BP 113/71 Pulse 68 Resp 17 Temp 97.5 F O2 Sat 100% (RA) X-Ray Shae Lopez? ? [facility] Bed 3 - EMC03? General Medical? 56 F? With Doctor? 3? ?? 1h 33m? ?? REG ER? Draft? Dann Titus Michael Headaches/Arm weakness? Order BP 155/95 Pulse 59 Resp 20 Temp 97.8 F O2 Sat 99% (RA) Hematology ECG 12 cheryl... CT Mar Nursing Chemistry Rosina Putnam? ? [facility] Bed 4 - EMC4? Head Injury? 40 F? With Doctor? 3? ?? 1h 56m? ?? REG ER? Draft? Rouge Sifter needed Dann Titus Michael Head inj sent by [facility]? Order BP 118/60 Pulse 113 Resp 20 Temp 96.8 F O2 Sat 96% (RA) CT X-Ray Suraj Bonilla? ? [facility] Bed 5 - EMC5? General Medical? 47 M? With Doctor? 4? ?? 45m? ?? PRE ER? Draft? Dann Titus Michael Chest pressure/Allergies? Order BP 143/89 Pulse 106 Resp 16 Temp 97.8 F O2 Sat 96% (RA) ECG 12 cheryl... Nursing X-Ray Serology X-Ray - XR finger RT min 2V; XR knee RT 4V Yamile Sheridan??72??F??1950 ? Allergy/Adv: blackberry, long, peanut, Sulfa (Sulfonamide Antibiotics), tramadol, strawberry, acetaminophen, [animals], [red fruit], [tree] (More??) Close Results Imaging ACTIVITY DATE EXAM STATUS AUTHOR 07/07/22 09:50 Knee X-Ray Signed Jannie Osman Orders Without Results ORDER STATUS ORDER START ORDER DETAIL XR finger RT min 2V Taken 07/07/22 Imaging Reports Close Knee X-Ray (Signed) Jannie Osman - 07/07/22 Launch?Image [address] [address] XRay Report Signed Patient: Yamile Sheridan MR#: [id number] : 1950 Acct:[id number] Age/Sex: 72 / F ADM Date: 07/07/22 Loc: HO.ED Attending Dr: Ordering Physician: Dann Titus MD Date of Service: 07/07/22 Procedure(s): XR knee RT 4V Accession Number(s): [id number] cc: Dann Titus MD~ EXAMINATION: XR KNEE, RIGHT? CLINICAL INFORMATION: Right knee injury? COMPARISON: Previous x-ray from 2018? TECHNIQUE: Four views of the right knee. FINDINGS: The bones are osteopenic. No fracture or dislocation. Small osteophyte at the patellofemoral joint. Soft tissue calcification adjacent to the medial femoral condyle suggestive of old soft tissue injury. No joint effusion. Atherosclerotic disease. XR/XR knee RT 4V IMPRESSION: No acute findings. ? Dictated By: Jannie Osman MD Signed By: <Electronically signed by Jannie Osman MD in OV> 07/07/22 1057 DD/ 0950 TD/TT:? Funeral Driver: ZE Discharge Plan Discharge Clinical Impression: Contusion of knee, right, Finger contusion Patient Disposition: Home, Self-Care Instructions: Contusion in Adults (ED) Additional Instructions: X-ray of your right knee is negative X-ray of the right 5th finger is negative question retained foreign body but none was noted on exam Rest ice elevation of the right upper extremity to help decrease swelling Return if symptoms worsen Prescriptions: New methocarbamol 750 mg tablet 750 mg PO TID PRN (Reason: pain (scale score 4-6)) Qty: 14 0RF No Action levothyroxine 88 mcg tablet 88 mcg PO QAM Qty: 90 2RF sumatriptan succinate 50 mg tablet 50 mg PO Q2-4H PRN (Reason: migraine headache) 30 Days Qty: 9 0RF Rx Instructions: do not exceed 4 doses per 24 hrs (DME) AeroEclipse II Nebulizer Misc See Rx Instructions .Route Qty: 1 0RF Rx Instructions: As directed Xolair 150 mg/mL syringe 300 mg subcut Q4W 28 Days Qty: 2 12RF hydroxyzine HCl 25 mg tablet 25 mg PO BEDTIME 90 Days Qty: 90 0RF famotidine 40 mg tablet 40 mg PO DAILY Juluca 50-25 mg tablet 1 tab PO DAILY Rx Instructions: must administer with a meal/food montelukast 10 mg tablet 10 mg PO DAILY Trelegy Ellipta 200-62.5-25 mcg blister with device 1 inh inhalation DAILY 30 Days Qty: 1 6RF Print Language: Polish
--- NOTE | 2022-07-07 10:59 | PC.NURSE ---
Patient with nasal congestion and cough from worsening allergies. Patient with clear lungs, breathing evenly. Patient takes over the counter allergy medication.
--- NOTE | 2022-07-07 11:03 | PC.NURSE ---
Patient fell outside post office due to the sidewalk being broke and uneven. Patient pinky on the right hand is noted to be swollen, tender to touch, and patient has difficulty moving the finger.
[2022-07-07 11:40] VITALS: BP 158/90; PULSE 79; RESP 17; O2SAT 97
== END 2022-07-07 11:45 | disposition home or self-care (01) ==
PROVIDERS: Emergency Provider Emergency Medicine; PCP Internal Medicine
DX: S80.01XA Contusion of right knee, initial encounter (principal); W01.0XXA Fall on same level from slipping, tripping and stumbling without subsequent striking against object, initial encounter; S60.051A Contusion of right little finger without damage to nail, initial encounter; R60.9 Edema, unspecified; B20 Human immunodeficiency virus [HIV] disease; E78.5 Hyperlipidemia, unspecified; Y93.89 Activity, other specified; Y92.242 Post office as the place of occurrence of the external cause; Y99.9 Unspecified external cause status; Z79.899 Other long term (current) drug therapy
CPT/HCPCS: 73140; 73564; 99283; 99284

== ENCOUNTER 2022-07-20 15:06 | Outpatient (REF) | payer OTHER, SELFPAY ==
--- NOTE | ~2022-07-20 | XR_ITS ---
EXAMINATION: XR CERVICAL SPINE CLINICAL INFORMATION: Cervicalgia. COMPARISON: MR cervical spine 12/20/2017. TECHNIQUE: 3 views of the cervical spine were obtained. FINDINGS: Evaluation of fine osseous details is limited due to exuberant anterior osteophytes as well as calcification of the longitudinal ligaments. However, accounting for this limitation, no discrete acute compression deformity or traumatic subluxation are noted. Advanced multilevel intervertebral disc height loss and uncovertebral hypertrophy with limited assessment of neural foraminal encroachment as well as degree of central canal stenosis in the absence of oblique views. No prevertebral soft tissue thickening. Included portions of the lung apices are clear. XR/XR cervical spine 3V IMPRESSION: Somewhat limited radiographic examination in view of background of advanced cervical spondylosis as well as prominent ossification of the longitudinal ligaments. No discrete fracture or malalignment. Recommend further evaluation with an MRI of the cervical spine as clinically warranted.
--- NOTE | ~2022-07-20 | XR_ITS ---
EXAMINATION: XR SHOULDER, RIGHT CLINICAL INFORMATION: Pain. COMPARISON: CT chest 08/27/2020. TECHNIQUE: Three views of the right shoulder. FINDINGS: No acute fractures or subluxation. Mild to moderate degenerative osteoarthritis of the acromioclavicular joint with bony productive changes and joint space narrowing. No abnormal soft tissue calcifications. Included portions of the right-sided ribs and right lung are clear. XR/XR shoulder RT min 2V IMPRESSION: 1. No acute fractures or subluxation. 2. Mild to moderate degenerative osteoarthritis of the acromioclavicular joint.
== END 2022-07-20 15:07 | disposition home or self-care (01) ==
LOC: HO.XRAY 15:06
PROVIDERS: PCP Internal Medicine; Visit Provider Nurse Practitioner Family
DX: M79.601 Pain in right arm (principal); M54.2 Cervicalgia; M25.511 Pain in right shoulder; G56.91 Unspecified mononeuropathy of right upper limb
CPT/HCPCS: 72040; 73030; 99202

== ENCOUNTER 2022-07-22 09:11 | Outpatient (REF) | payer OTHER, SELFPAY ==
--- NOTE | 2022-07-22 09:21 | EMG_ITS ---
Please see scanned EMG / Nerve Conduction Report. MTDD
== END 2022-07-22 09:12 | disposition home or self-care (01) ==
LOC: HO.NEURO 09:11
PROVIDERS: Visit Provider Nurse Practitioner Family
DX: M54.2 Cervicalgia (principal); G56.90 Unspecified mononeuropathy of unspecified upper limb
CPT/HCPCS: 95885; 95913

== ENCOUNTER 2022-08-04 09:09 | Emergency (ER) | payer OTHER, SELFPAY ==
--- NOTE | ~2022-08-04 | XR_ITS ---
EXAMINATION: XR CHEST CLINICAL INFORMATION: Cough with chest pain. COMPARISON: 08/27/2020 chest radiograph. TECHNIQUE: 2 views of the chest were obtained. FINDINGS: No significant abnormality is noted involving the heart, lungs, mediastinum, bony thorax or soft tissues. XR/XR chest 2V IMPRESSION: No acute cardiopulmonary process.
[2022-08-04 09:15] VITALS: BP 129/87; PULSE 74; RESP 24; TEMP 36.7; O2SAT 95; BMI 26.8
--- NOTE | 2022-08-04 09:48 | ED.ASTHMA ---
HPI - Asthma General Chief Complaint: Asthma Stated Complaint: Diff breathing Time Seen by Provider: 08/04/22 09:48 Source: patient, family and interpreter for the deaf Mode of arrival: ambulatory Limitations: language barrier History of Present Illness HPI Narrative: Patient is a 72 year old assigned female at with a history of asthma presenting to the emergency department today with worsening wheezing. Patient states that she was upstairs to visit her son when she began to feel increased wheezing. Patient denies any dizziness, lightheadedness, abdominal pain, nausea, vomiting, fever, chills, blurry vision, double vision, loss of vision, chest pain, back pain, night sweats, pain with urination, increased urinary frequency, increased urinary urgency, blood in her urine or stool, syncope or a near syncopal episode, recent trauma or falls, bowel incontinence, bladder incontinence, bowel retention, bladder retention, or any other complaints at this time. MD complaint: asthma attack and wheezing Onset (ago): minute(s) Severity: mild Associated symptoms: none Related Data Home Medications Medication Instructions Recorded Confirmed famotidine 40 mg tablet 40 mg PO DAILY 02/29/20 07/09/22 montelukast 10 mg tablet 10 mg PO DAILY 05/15/20 07/09/22 dolutegravir 50 mg-rilpivirine 25 1 tab PO DAILY 12/11/20 07/09/22 mg tablet (Juluca) atorvastatin 10 mg tablet 10 mg PO DAILY 07/20/22 famotidine 20 mg tablet 20 mg PO BID PRN acid reflux 07/20/22 Previous Rx's Medication Instructions Recorded fluticasone fur. 200 mcg-umeclid 1 inh inhalation DAILY 30 days #1 07/17/21 62.5 mcg-vilant 25 mcg ea inhalat.powder (Trelegy Ellipta) levothyroxine 88 mcg tablet 88 mcg PO QAM #90 tabs 11/08/21 nebulizers (AeroEclipse II #1 ea 11/08/21 Nebulizer) sumatriptan succinate 50 mg tablet 50 mg PO Q2-4H PRN migraine 11/08/21 headache 30 days #9 tabs omalizumab 150 mg/mL subcutaneous 300 mg (2 mL) subcut Q4W 28 days 12/22/21 syringe (Xolair) #2 mL hydroxyzine HCl 25 mg tablet 25 mg PO BEDTIME 90 days #90 tabs 04/25/23 methocarbamol 750 mg tablet 750 mg PO TID PRN pain (scale 07/07/22 score 4-6) #14 tabs albuterol sulfate 1.25 mg/3 mL 1.25 mg (3 mL) inhalation Q4-6H 08/04/22 solution for nebulization PRN shortness of breath or wheezing #75 mL Allergies Allergy/AdvReac Type Severity Reaction Status Date / Time blackberry Allergy Intermediate Itching Verified 07/20/22 15:18 long Allergy Intermediate Itching Verified 07/20/22 15:18 peanut [PEANUT] Allergy Intermediate RASH Verified 07/20/22 15:18 Sulfa (Sulfonamide Allergy Intermediate HIVES, Verified 07/20/22 15:18 Antibiotics) hives, [SULFA (SULFONAMIDE rash, ANTIBIOTICS)] hives, rash tramadol Allergy Intermediate nausea Verified 07/20/22 15:18 strawberry Allergy Itching Verified 07/20/22 15:18 acetaminophen [Tylenol] AdvReac Unknown itch Verified 07/20/22 15:18 animals Allergy Itching Uncoded 12/10/21 14:06 red fruit Allergy Itching Uncoded 12/10/21 14:06 tree Allergy eye Uncoded 12/10/21 14:06 swelling, itch Review of Systems Constitutional: Constitutional: Reports no additional constitutional complaints, Denies chills, Denies fever(s) and Denies night sweats Eyes: Eyes: Reports no additional eye complaints, Denies blurry vision, Denies change in vision, Denies diplopia, Denies eye discharge, Denies loss of vision and Denies eye pain ENT: Denies dizziness Cardiovascular: Cardiovascular: Reports no additional cardiovascular complaints, Denies chest pain, Denies lightheadedness and Denies Loss of Consciousness Respiratory: Respiratory: Reports no additional respiratory complaints and Reports wheezing Gastrointestinal: Gastrointestinal: Reports no additional gastrointestinal complaints, Denies abdominal pain, Denies melena, Denies hematochezia, Denies change in bowel habits and Denies change in stool character Genitourinary: Genitourinary: Denies hematuria, Denies urinary frequency, Denies dysuria, Denies urinary incontinence, Denies urinary hesitancy and Denies urinary urgency Musculoskeletal: Musculoskeletal: Reports no additional musculoskeletal complaints, Denies numbness and Denies tingling Neurologic: Denies dizziness, Denies loss of vision, Denies numbness and Denies tingling Psychiatric: Psychiatric: Reports no additional psychiatric complaints Endocrine: Endocrine: Reports no additional endocrine complaints Hematologic/Lymphatic: Hematologic/Lymphatic: Reports no additional hematologic/lymphatic complaints Allergic/Immunologic: Allergic/Immunologic: Reports no additional allergic/immunologic complaints and Reports wheezing PMFSH Past Medical History Attestation statement: The following information was validated with the patient. (all information validated with the family at the bed side) Source: old records reviewed, obtained from family (patient's family at the bed side) and nursing notes reviewed Medical History Asthma Asthma Dyslipidemia Fracture of left hip requiring operative repair GERD (gastroesophageal reflux disease) HIV (human immunodeficiency virus infection) Hypothyroidism TIA (transient ischemic attack) Urticaria Verruca Surgical History H/O umbilical hernia repair History of section History of lumbar fusion Hx of colonoscopy Family History Family History Father Cancer Diabetes Mother Cancer Diabetes Brother Colon polyps Social History Social History Housing: Apartment Alcohol intake: never Patient Tobacco Use Status: Former Tobacco user Tobacco use type: Cigarette e-Cigarette/Vaping Use: Never Used Second Hand Smoke Exposure: No Advance Directives: Yes Advance Directives Information Provided: Yes Advance Directives on File: No service: No Current occupational status: retired Physical Exam Vital Signs: Vital Signs: Last Vital Signs Temp 98.1 F 08/04/22 09:15 Pulse 74 08/04/22 10:01 Resp 20 08/04/22 10:01 BP 129/87 08/04/22 09:15 Pulse Ox 95 08/04/22 09:15 O2 Del Method Room Air 08/04/22 09:15 BMI result Body Mass Index 26.8 Const: General: cooperative, no acute distress, alert and awake Nutritional Appearance: well nourished Orientation/consciousness: patient oriented x3 Limitations: no limitations HEENT: Head: Yes normal to inspection and Yes atraumatic Ears: hearing grossly normal bilaterally and external ears normal General nose exam: Normal external nose present, no nasal discharge noted and no epistaxis Face and sinus: Yes normal facial exam, No abrasion and No laceration Mouth: Normal oral and palatal mucosa present, no drooling and no muffled voice Eyes: General: appearance normal, both eyes and all related structures Periorbital: periorbital findings normal Eyelids: Yes eyelids normal Conjunctivae: conjunctivae normal Pupils: Equal, round and reactive pupils present EOM: EOMs intact bilaterally Neck: Neck: Yes normal visual inspection, Yes full ROM and Yes no lymphadenopathy Chest: Chest palpation & inspection: normal inspection of the chest Resp: Effort & Inspection: normal respiratory effort and able to speak in complete sentences Auscultation: clear to auscultation bilaterally GI: Inspection: Yes normal to inspection Neuro: General: patient oriented x3 and moves all extremities Cranial nerves: Yes Equal, round and reactive pupils present Cognition (Neuro): normal cognition Motor exam (neuro): 5/5 motor strength present throughout Sensory Exam: Normal double simultaneous stimulation for sensation Coordination: [id number] test normal Extrem: General: Yes normal to inspection, Yes full ROM and Yes capillary refill normal Psych: Appearance: grossly normal Mental Status: mental status grossly normal Affect: normal affect Attitude: cooperative Thought process: Normal thought process present Thought content: Normal thought content present Insight: Good insight present (Psych) Medications Administered Discontinued Medications Generic Name Dose Route Start Last Admin Trade Name Viktoria PRN Reason Stop Dose Admin Albuterol Sulfate 10 mg 08/04/22 09:49 08/04/22 10:00 Albuterol Sulfate (0.083%) 2.5 Mg/3 Ml Vial.Neb INHALE 08/04/22 09:50 10 mg ONCE ONE Administration Magnesium Sulfate 2 gm in 50 mls @ 25 mls/hr 08/04/22 09:49 08/04/22 10:17 Magnesium Sulfate/H2o IV 08/04/22 11:48 25 mls/hr ONCE ONE Administration Methylprednisolone Sodium Succinate 60 mg 08/04/22 09:49 08/04/22 10:17 Methylprednisolone Sod Succ 125 Mg/2 Ml Vial IVPUSH 08/04/22 09:50 60 mg ONCE ONE Administration Medical Decision Making Medical Decision Making [place] Narrative: Patient is a 72 year old assigned female at with a history of asthma presenting to the emergency department today with increased wheezing. Patient's physical exam showed bilaterally clear lungs to auscultation. Patient's blood work was unremarkable. Patient's chest x-ray showed no acute process. I explained my physical exam findings as well as all test results to the patient and the patient's family at the bed side. I answered all questions asked by the patient and the patient's family at the bed side. Patient received IV steroids, magnesium, and a breathing treatment which she stated helped her symptoms significantly. I stressed the importance of the patient taking her medication as prescribed. I stressed the importance of the patient following up with her primary care provider. I stressed the importance of the patient returning to the emergency department immediately if her symptoms were to worsen or if she were to develop any dizziness, shortness of breath, difficulty breathing, chest pain, blurry vision, loss of vision, nausea, vomiting, abdominal pain, fever, chills, back pain, or any other complaints. Patient and the patient's family at the bed side verbalized agreement and understanding with this treatment plan and discharge. Differential Diagnosis Differential Diagnoses: The differential diagnosis associated with the presentation includes asthma exacerbation, asthma Admission/Observation Consideration of admission/observation: Escalation of care including admission/observation considered Patient would have been admitted to the hospital had his work up had any findings where hospital admission was appropriate. Lab Data MDM Lab Attestation statement: I reviewed the patient's lab results. My interpretation of these studies and their corresponding values is that they are grossly normal. 08/04/22 10:29 08/04/22 10:29 Labs: Lab Results 08/04/22 08/04/22 08/04/22 Range/Units 10:29 10:29 10:29 WBC 8.0 (4.8-10.8) X10*3/uL RBC 4.82 (4.20-5.50) X10*6/uL Hgb 15.1 (12.0-16.0) g/dl Hct 45.3 (37.0-47.0) % MCV 94.0 (80.0-98.0) fL MCH 31.3 (27.0-33.0) pg MCHC 33.3 (31.0-35.0) g/dl RDW 13.6 (11.0-16.0) % Plt Count 250 (160-400) X10*3/uL MPV 9.1 L (9.4-12.3) fL Immature Gran % (Auto) 0.2 (0.0-0.4) % Neut % (Auto) 40.7 L (45-73) % Lymph % (Auto) 49.4 H (20-40) % [place] % (Auto) 6.9 (2-11) % Eos % (Auto) 2.2 (0-4) % Baso % (Auto) 0.6 (0-2) % Lymph # (Auto) 4.0 (1.2-4.9) X10*3/uL [place] # (Auto) 0.6 (0.1-1.2) X10*3/uL Eos # (Auto) 0.2 (0.0-0.4) X10*3/uL Baso # (Auto) 0.1 (0.0-0.2) X10*3/uL Abs Immat Gran (auto) 0.02 (0.00-0.03) X10*3/uL Absolute Neuts (auto) 3.3 (2.0-8.3) x10*3/uL Absolute Nucleated RBC 0.000 (0.0-0.012) X10*3/uL Nucleated RBC % (auto) 0.0 (0.0-0.2) /100WBC Sodium 143 (135-145) mmol/L Potassium 3.6 D (3.3-5.1) mmol/L Chloride 106 (96-108) mmol/L Carbon Dioxide 25 (22-29) mmol/L Anion Gap 16 (12-20) BUN 12 (9-16) mg/dL Creatinine 0.87 (0.5-1.4) mg/dL Estim Creat Clear Calc 50.9 Estimated GFR > 60 Random Glucose 110 (60-115) mg/dL Calcium 10.2 (8.4-10.2) mg/dL Magnesium 2.3 (1.6-2.6) mg/dL Total Bilirubin 0.6 (0.0-1.0) mg/dL AST 22 (5-31) U/L ALT 10 (0-31) U/L Alkaline Phosphatase 112 (39-117) U/L Total Protein 7.4 (6.5-8.0) g/dL Albumin 4.3 (3.5-5.0) g/dL COVID-19 ([facility]) Negative (Negative) COVID-19 Clin Com See Note Independent Interpretation I performed an independent interpretation of an: Plain X-Ray Interpretation: My interpretation is in agreement with the radiologist's impression of this imaging study. EXAMINATION: XR CHEST CLINICAL INFORMATION: Cough with chest pain. COMPARISON: 08/27/2020 chest radiograph. TECHNIQUE: 2 views of the chest were obtained. FINDINGS: No significant abnormality is noted involving the heart, lungs, mediastinum, bony thorax or soft tissues. XR/XR chest 2V IMPRESSION: No acute cardiopulmonary process. Dictated By: Oswaldo Gutierrez MD Signed By: Electronically signed by Oswaldo Gutierrez MD 08/04/22 1144 Independent Historian Clinical information obtained from an independent historian. History obtained from or confirmed by: Other (family at the bed side provided history and confirmed the history provided by the patient) Critical Care Time Critical Care Time Critical Care Time: Yes Total Critical Care Time: 30 Attestation: I spent 30 minutes of Critical Care Time with this patient. This does not include time spent on separately reported billable procedures. Discharge Plan Discharge Clinical Impression: Asthma Patient Disposition: Home, Self-Care Instructions: Asthma (DC) Additional Instructions: Follow up with your primary care provider. Return to the emergency department immediately if your symptoms worsen or if you develop any dizziness, shortness of breath, difficulty breathing, chest pain, blurry vision, loss of vision, nausea, vomiting, abdominal pain, fever, chills, back pain, or any other complaints. Michael un seguimiento con lazcano proveedor de atenci?n primaria. Regrese a la jeromy de emergencias de inmediato si sly s?ntomas empeoran o si presenta mareos, dificultad para respirar, dolor de pecho, visi?n borrosa, p?rdida de la visi?n, n?useas, v?mitos, dolor abdominal, fiebre, escalofr?os, dolor de espalda o cualquier otras quejas. Prescriptions: New albuterol sulfate 1.25 mg/3 mL solution for nebulization 1.25 mg inhalation Q4-6H PRN (Reason: shortness of breath or wheezing) Qty: 75 0RF No Action levothyroxine 88 mcg tablet 88 mcg PO QAM Qty: 90 2RF sumatriptan succinate 50 mg tablet 50 mg PO Q2-4H PRN (Reason: migraine headache) 30 Days Qty: 9 0RF Rx Instructions: do not exceed 4 doses per 24 hrs (DME) AeroEclipse II Nebulizer Misc See Rx Instructions .Route Qty: 1 0RF Rx Instructions: As directed Xolair 150 mg/mL syringe 300 mg subcut Q4W 28 Days Qty: 2 12RF hydroxyzine HCl 25 mg tablet 25 mg PO BEDTIME 90 Days Qty: 90 0RF methocarbamol 750 mg tablet 750 mg PO TID PRN (Reason: pain (scale score 4-6)) Qty: 14 0RF famotidine 40 mg tablet 40 mg PO DAILY Juluca 50-25 mg tablet 1 tab PO DAILY Rx Instructions: must administer with a meal/food montelukast 10 mg tablet 10 mg PO DAILY Trelegy Ellipta 200-62.5-25 mcg blister with device 1 inh inhalation DAILY 30 Days Qty: 1 6RF famotidine 20 mg tablet 20 mg PO BID PRN (Reason: acid reflux) atorvastatin 10 mg tablet 10 mg PO DAILY Referrals: [facility] [place] [place] [facility] [Provider Group] (Call to establish and follow up with a primary care provider. If you already have a primary care provider, please follow up with them. Llame para establecer y hacer un seguimiento con un proveedor de atenci?n primaria. Si ya tiene un proveedor de atenci?n primaria, michael un seguimiento con ?l.) [facility] [place] [Provider Group] (Call to establish and follow up with a primary care provider. If you already have a primary care provider, please follow up with them. Llame para establecer y hacer un seguimiento con un proveedor de atenci?n primaria. Si ya tiene un proveedor de atenci?n primaria, michael un seguimiento con ?l.) [facility] [place] [facility] [Provider Group] (Call to establish and follow up with a primary care provider. If you already have a primary care provider, please follow up with them. Llame para establecer y hacer un seguimiento con un proveedor de atenci?n primaria. Si ya tiene un proveedor de atenci?n primaria, michael un seguimiento con ?l.) Interventions: ED Discharge Assessment Last Done: 08/04/22 11:34 Discharge Date/Time: 08/04/22 11:36 Print Language: Croatian
[2022-08-04] MEDS: Albuterol Sulfate (0.083%) 2.5 MG/3 ML VIAL.NEB 10 MG INHALE (10:00)
[2022-08-04 10:01] VITALS: PULSE 74; RESP 20; O2SAT 97
[2022-08-04] MEDS: Magnesium Sulfate/H2O 2 GM/50 ML PIGGYBACK IV (10:17)
[2022-08-04] MEDS: methylPREDNISolone Sod Succ 125 MG/2 ML VIAL 60 MG IVPUSH (10:17)
[2022-08-04 10:37] LABS: MANUAL DIFF FLAG NO
[2022-08-04 10:42] LABS: Basophils Absolute Auto 0.1 X10*3/uL (0.0-0.2); Basophils Percent Auto 0.6 % (0-2); Eosinophils Absolute Auto 0.2 X10*3/uL (0.0-0.4); Eosinophils Percent Auto 2.2 % (0-4); Hematocrit 45.3 % (37.0-47.0); Hemoglobin 15.1 g/dl (12.0-16.0); Imm Gran Abs Auto 0.02 X10*3/uL (0.00-0.03); Imm Gran Pct Auto 0.2 % (0.0-0.4); Lymphocytes Percent Auto 49.4 % (20-40); Mean Corpuscular HGB Conc 33.3 g/dl (31.0-35.0); Mean Corpuscular Hemoglobin 31.3 pg (27.0-33.0); Mean Platelet Volume 9.1 fL (9.4-12.3); Monocytes Absolute Auto 0.6 X10*3/uL (0.1-1.2); Monocytes Percent Auto 6.9 % (2-11); Neutrophils Absolute Auto 3.3 x10*3/uL (2.0-8.3); Neutrophils Percent Auto 40.7 % (45-73); Platelet Count 250 X10*3/uL (160-400); Red Blood Count 4.82 X10*6/uL (4.20-5.50); Red Cell Distribution Width 13.6 % (11.0-16.0)
[2022-08-04 10:56] LABS: Alanine Aminotransferase 10 U/L (0-31); Albumin Level 4.3 g/dL (3.5-5.0); Alkaline Phosphatase 112 U/L (39-117); Anion Gap 16 (12-20); Aspartate Amino Transferase 22 U/L (5-31); Bilirubin Total 0.6 mg/dL (0.0-1.0); Blood Urea Nitrogen 12 mg/dL (9-16); Calcium 10.2 mg/dL (8.4-10.2); Carbon Dioxide 25 mmol/L (22-29); Chloride 106 mmol/L (96-108); Creatinine Clr Calc Pharmacy 50.9; Estimated Glomerular Filt Rate > 60; Glucose Random 110 mg/dL (60-115); Magnesium 2.3 mg/dL (1.6-2.6); Potassium 3.6 mmol/L (3.3-5.1); Sodium 143 mmol/L (135-145); Total Protein 7.4 g/dL (6.5-8.0)
[2022-08-04 11:00] LABS: COVID-19 Test Negative (Negative); IDNOW Serial# 08D9AD1C
== END 2022-08-04 11:36 | disposition home or self-care (01) ==
PROVIDERS: Physician Assistant Medical; Emergency Provider Emergency Medicine
DX: J45.909 Unspecified asthma, uncomplicated (principal); Z20.822 Contact with and (suspected) exposure to COVID-19; Z79.899 Other long term (current) drug therapy
CPT/HCPCS: 71046; 80053; 83735; 85025; 87635; 94640; 96365; 96375; 99283; 99284; J2930; J3475

== ENCOUNTER 2022-09-28 13:26 | Emergency (ER) | payer OTHER, SELFPAY ==
--- NOTE | ~2022-09-28 | XR_ITS ---
EXAMINATION: XR CHEST CLINICAL INFORMATION: Shortness of breath. COMPARISON: 08/04/2022 TECHNIQUE: Frontal view of the chest was obtained. FINDINGS: Rounded double density overlying the left lung base is unchanged as compared to prior and may correspond to a small eventration. Mild linear atelectasis at the left lung base . No consolidation, pneumothorax, or pleural effusion. Cardiac and mediastinal contours are normal. No acute osseous findings. Mild degenerative disc disease in the thoracolumbar spine. XR/XR chest 1V IMPRESSION: No acute pulmonary findings. Mild linear atelectasis at the left lung base.
[2022-09-28 13:33] VITALS: BP 158/73; PULSE 86; RESP 17; TEMP 35.7; O2SAT 97; BMI 24.2
--- NOTE | 2022-09-28 13:35 | ED.GENADULT ---
HPI - General Adult General Chief complaint: Asthma Stated complaint: asthma Time Seen by Provider: 09/28/22 13:53 Source: patient, RN notes reviewed and old records reviewed Mode of arrival: ambulatory History of Present Illness HPI narrative: 72-year-old female with a past medical history of asthma, HLD, GERD, HIV, hypothyroid, TIA, presenting to the ED complaining of asthma exacerbation with dry cough, SOB, and chest tightness x 4 days. States ran out of her asthma pump, denies recent steroids/prednisone use. Does admit recently got home from [place] on the , denies sick contacts. Denies fever/chills, sore throat, edema, calf pain Onset (ago): day(s) Related Data Home Medications Medication Instructions Recorded Confirmed famotidine 40 mg tablet 40 mg PO DAILY 02/29/20 07/09/22 montelukast 10 mg tablet 10 mg PO DAILY 05/15/20 07/09/22 dolutegravir 50 mg-rilpivirine 25 1 tab PO DAILY 12/11/20 07/09/22 mg tablet (Juluca) atorvastatin 10 mg tablet 10 mg PO DAILY 07/20/22 famotidine 20 mg tablet 20 mg PO BID PRN acid reflux 07/20/22 Previous Rx's Medication Instructions Recorded fluticasone fur. 200 mcg-umeclid 1 inh inhalation DAILY 30 days #1 07/17/21 62.5 mcg-vilant 25 mcg ea inhalat.powder (Trelegy Ellipta) levothyroxine 88 mcg tablet 88 mcg PO QAM #90 tabs 11/08/21 nebulizers (AeroEclipse II #1 ea 11/08/21 Nebulizer) sumatriptan succinate 50 mg tablet 50 mg PO Q2-4H PRN migraine 11/08/21 headache 30 days #9 tabs omalizumab 150 mg/mL subcutaneous 300 mg (2 mL) subcut Q4W 28 days 12/22/21 syringe (Xolair) #2 mL methocarbamol 750 mg tablet 750 mg PO TID PRN pain (scale 07/07/22 score 4-6) #14 tabs albuterol sulfate 1.25 mg/3 mL 1.25 mg (3 mL) inhalation Q4-6H 08/04/22 solution for nebulization PRN shortness of breath or wheezing #75 mL hydroxyzine HCl 25 mg tablet 25 mg PO BEDTIME 90 days #90 tabs 09/19/22 albuterol sulfate 2.5 mg/0.5 mL 5 mg inhalation Q4H PRN shortness 09/28/22 solution for nebulization of breath or wheezing #30 ea albuterol sulfate 90 mcg/actuation 2 puff inhalation Q4-6H PRN 09/28/22 aerosol inhaler shortness of breath or wheezing #6.7 grams benzonatate 100 mg capsule 100 mg PO TID PRN cough #14 caps 09/28/22 prednisone 20 mg tablet 40 mg PO DAILY 5 days #10 tabs 09/28/22 Allergies Allergy/AdvReac Type Severity Reaction Status Date / Time blackberry Allergy Intermediate Itching Verified 07/20/22 15:18 long Allergy Intermediate Itching Verified 07/20/22 15:18 peanut [PEANUT] Allergy Intermediate RASH Verified 07/20/22 15:18 Sulfa (Sulfonamide Allergy Intermediate HIVES, Verified 07/20/22 15:18 Antibiotics) hives, [SULFA (SULFONAMIDE rash, ANTIBIOTICS)] hives, rash tramadol Allergy Intermediate nausea Verified 07/20/22 15:18 strawberry Allergy Itching Verified 07/20/22 15:18 acetaminophen [Tylenol] AdvReac Unknown itch Verified 07/20/22 15:18 animals Allergy Itching Uncoded 12/10/21 14:06 red fruit Allergy Itching Uncoded 12/10/21 14:06 tree Allergy eye Uncoded 12/10/21 14:06 swelling, itch Review of Systems Review of Systems: Constitutional: No Fever, No Chills, No Fatigue, No Malaise ENT/Mouth: No Ear Pain, No Nasal Congestion, No sore throat, No Rhinorrhea, No Swallowing Difficulty Eyes: No Eye Pain, No Swelling, No Redness, No Vision Changes Cardiovascular: + Chest tightness, + SOB, No Dyspnea on Exertion, No Orthopnea, No Edema, No Palpitations Respiratory: + Cough, No Sputum, No Dyspnea, +wheezing Gastrointestinal: No Nausea, No Vomiting, No Diarrhea, No Constipation, No Abdominal pain Musculoskeletal: No joint pain, No Myalgias, No Joint Swelling Skin: No Skin Lesions, No rash Neuro: No Weakness, No Numbness, No Headache Yes all other systems are reviewed and are negative Constitutional: Constitutional: Reports as per HPI PMFSH Past Medical History Attestation statement: The following information was validated with the patient. Source: old records reviewed Medical History Asthma Asthma Dyslipidemia Fracture of left hip requiring operative repair GERD (gastroesophageal reflux disease) HIV (human immunodeficiency virus infection) Hypothyroidism TIA (transient ischemic attack) Urticaria Verruca Surgical History H/O umbilical hernia repair History of section History of lumbar fusion Hx of colonoscopy Family History Family History Father Cancer Diabetes Mother Cancer Diabetes Brother Colon polyps Social History Social History Housing: Apartment Alcohol intake: never Patient Tobacco Use Status: Former Tobacco user Tobacco use type: Cigarette Smoked in Last 30 Days: No e-Cigarette/Vaping Use: Never Used Second Hand Smoke Exposure: No Use of substances other than those prescribed or required for medical reasons: No Advance Directives: No Advance Directives Information Provided: No service: No Current occupational status: retired Physical Exam ED Vital Signs: Vital Signs - 24 hr 09/28/22 13:33 09/28/22 13:49 09/28/22 13:55 Temperature 96.3 F L Pulse Rate 86 92 87 Respiratory Rate 17 16 30 H Blood Pressure 158/73 H Pulse Oximetry 97 100 Oxygen Delivery Method Room Air Nasal Cannula Oxygen Flow Rate 5 09/28/22 15:07 09/28/22 15:49 Temperature Pulse Rate 93 96 Respiratory Rate 16 18 Blood Pressure 140/80 H Pulse Oximetry 100 Oxygen Delivery Method Room Air Oxygen Flow Rate BMI result Body Mass Index 24.2 Const General: cooperative, healthy appearing, no acute distress and anxious Orientation/consciousness: patient oriented x3 Limitations: no limitations HENMT Head: Yes normal to inspection and Yes atraumatic Ears: hearing grossly normal bilaterally General nose exam: Normal external nose present Face and sinus: Yes normal facial exam Eyes General: appearance normal, both eyes and all related structures EOM: EOMs intact bilaterally Neck Neck: Yes normal visual inspection and Yes no meningeal signs Resp Effort & Inspection: normal respiratory effort and no respiratory distress Auscultation: wheezes expiratory wheezes and diminished lung sounds diffuse Cardio Rate: regular rate Heart sounds: S1 normal heart sound present and S2 normal heart sound present Skin Rashes: no rashes Wounds: no wounds Neuro General: patient oriented x3, tone normal and no meningeal signs Gait exam (Neuro): Normal gait present Extrem General: Yes normal to inspection, Yes no pedal edema and Yes no calf tenderness Course Course Course Narrative: This is an RME: Additional HPI, ROS, PE not included below will be deferred to primary provider. 72-year-old female presents with dry cough, shortness of breath patient states that this is her typical asthma attack. She says she has been here before for this. Wheezing throughout on exam Patient's vital signs are stable in triage. Albuterol treatment ordered. And chest x-ray no indication for labs. -1550--on re-evaluation patient is still with persistent dry cough, lungs with much improvement, good air movement, slight residual wheeze -labs reassuring, troponin negative -COVID and influenza negative -1725--on re-evaluation patient reports symptomatic improvement, lungs CTA, safe for discharge home at this time Results discussed with patient including worrisome signs and symptoms and strict return precautions, and when to return to the emergency department. They verbalized understanding and feel safe for discharge at this time. Medications Administered Discontinued Medications Generic Name Dose Route Start Last Admin Trade Name Viktoria PRN Reason Stop Dose Admin Albuterol Sulfate 10 mg 09/28/22 13:32 09/28/22 13:48 Albuterol Sulfate (0.083%) 2.5 Mg/3 Ml Vial.Neb INHALE 09/28/22 13:33 10 mg ONCE ONE Administration Benzonatate 100 mg 09/28/22 15:34 09/28/22 15:44 Benzonatate 100 Mg Capsule PO 09/28/22 15:35 100 mg ONCE ONE Administration Albuterol Sulfate 2.5 mg/ 0 mg 09/28/22 15:34 09/28/22 15:47 Albuterol/Ipratropium 3 ml INHALE 09/28/22 15:35 1 dose ONCE ONE Administration Hydrocodone Bit/Homatropine Methylb 5 ml 09/28/22 15:34 09/28/22 15:44 Hydrocodone/Homat 5/1.5/5 Ml 5 Ml Syrup PO 09/28/22 15:35 5 ml ONCE ONE Administration Methylprednisolone Sodium Succinate 125 mg 09/28/22 14:29 09/28/22 14:37 Methylprednisolone Sod Succ 125 Mg/2 Ml Vial IVPUSH 09/28/22 14:30 125 mg ONCE ONE Administration Medical Decision Making Medical Decision Making [facility] Narrative: 72-year-old female with a past medical history of asthma, HLD, GERD, HIV, hypothyroid, TIA, presenting to the ED complaining of asthma exacerbation with dry cough, SOB, and chest tightness x 4 days. On exam vital signs stable, anxious, thrashing around stretcher, expiratory wheeze and diminished lung sounds noted throughout. No pedal edema/calf tenderness. Dry cough appreciated. Concern for asthma exacerbation vs viral syndrome vs pneumonia. Lower suspicion for ACS/PE or CHF. Unlikely DVT Plan: EKG, labs, CXR, COVID/influenza testing, DuoNeb, IV Solu-Medrol, re-evaluate Please refer to course for remaining clinical decision making, interpretation of labs/imaging results, and discussions with consultants and/or family members. Differential Diagnosis Differential Diagnoses: The differential diagnosis associated with the presentation includes As above Admission/Observation Consideration of admission/observation: Escalation of care including admission/observation considered Lab Data [facility] Lab Attestation statement: I reviewed the patient's lab results. 09/28/22 14:34 09/28/22 14:34 Labs: Lab Results 09/28/22 09/28/22 09/28/22 Range/Units 14:34 14:34 15:09 WBC 11.9 H (4.8-10.8) X10*3/uL RBC 4.54 (4.20-5.50) X10*6/uL Hgb 14.5 (12.0-16.0) g/dl Hct 43.0 (37.0-47.0) % MCV 94.7 (80.0-98.0) fL MCH 31.9 (27.0-33.0) pg MCHC 33.7 (31.0-35.0) g/dl RDW 13.6 (11.0-16.0) % Plt Count 262 (160-400) X10*3/uL MPV 9.5 (9.4-12.3) fL Immature Gran % (Auto) 0.4 (0.0-0.4) % Neut % (Auto) 63.4 (45-73) % Lymph % (Auto) 24.4 (20-40) % [place] % (Auto) 9.5 (2-11) % Eos % (Auto) 1.6 (0-4) % Baso % (Auto) 0.7 (0-2) % Lymph # (Auto) 2.9 (1.2-4.9) X10*3/uL [place] # (Auto) 1.1 (0.1-1.2) X10*3/uL Eos # (Auto) 0.2 (0.0-0.4) X10*3/uL Baso # (Auto) 0.1 (0.0-0.2) X10*3/uL Abs Immat Gran (auto) 0.05 H (0.00-0.03) X10*3/uL Absolute Neuts (auto) 7.5 (2.0-8.3) x10*3/uL Absolute Nucleated RBC 0.000 (0.0-0.012) X10*3/uL Nucleated RBC % (auto) 0.0 (0.0-0.2) /100WBC Sodium 141 (135-145) mmol/L Potassium 3.5 (3.3-5.1) mmol/L Chloride 107 (96-108) mmol/L Carbon Dioxide 21 L (22-29) mmol/L Anion Gap 17 (12-20) BUN 8 L (9-16) mg/dL Creatinine 0.78 (0.5-1.4) mg/dL Estim Creat Clear Calc 52.3 Estimated GFR > 60 Random Glucose 109 (60-115) mg/dL Calcium 9.5 D (8.4-10.2) mg/dL Troponin I High Sens 4.2 (<3.5-17.0) ng/L COVID-19 (SAMY) (Negative) COVID-19 Clin Com Influenza Type A (NEFTALI) (Negative) Influenza Type B (NEFTALI) (Negative) Influenza A & B Note 09/28/22 09/28/22 Range/Units 15:09 15:09 WBC (4.8-10.8) X10*3/uL RBC (4.20-5.50) X10*6/uL Hgb (12.0-16.0) g/dl Hct (37.0-47.0) % MCV (80.0-98.0) fL MCH (27.0-33.0) pg MCHC (31.0-35.0) g/dl RDW (11.0-16.0) % Plt Count (160-400) X10*3/uL MPV (9.4-12.3) fL Immature Gran % (Auto) (0.0-0.4) % Neut % (Auto) (45-73) % Lymph % (Auto) (20-40) % [place] % (Auto) (2-11) % Eos % (Auto) (0-4) % Baso % (Auto) (0-2) % Lymph # (Auto) (1.2-4.9) X10*3/uL [place] # (Auto) (0.1-1.2) X10*3/uL Eos # (Auto) (0.0-0.4) X10*3/uL Baso # (Auto) (0.0-0.2) X10*3/uL Abs Immat Gran (auto) (0.00-0.03) X10*3/uL Absolute Neuts (auto) (2.0-8.3) x10*3/uL Absolute Nucleated RBC (0.0-0.012) X10*3/uL Nucleated RBC % (auto) (0.0-0.2) /100WBC Sodium (135-145) mmol/L Potassium (3.3-5.1) mmol/L Chloride (96-108) mmol/L Carbon Dioxide (22-29) mmol/L Anion Gap (12-20) BUN (9-16) mg/dL Creatinine (0.5-1.4) mg/dL Estim Creat Clear Calc Estimated GFR Random Glucose (60-115) mg/dL Calcium (8.4-10.2) mg/dL Troponin I High Sens (<3.5-17.0) ng/L COVID-19 (SAMY) Negative (Negative) COVID-19 Clin Com See Note Influenza Type A (NEFTALI) Negative (Negative) Influenza Type B (NEFTALI) Negative (Negative) Influenza A & B Note See Note Independent Interpretation I performed an independent interpretation of an: EKG (My interpretation normal sinus rhythm at a rate of 84. QTC 458. No STEMI ) Radiology Impression Discussion of test interpretation with radiology: I have reviewed the radiologist's reading. Independent Historian Clinical information obtained from an independent historian. History obtained from or confirmed by: Other (Family) External Record Review External record reviewed: Inpatient record, Office record, Outpatient record, Prior outpatient labs, Prior outpatient radiology, Primary care record and Outside ED record Tests considered The following testing was considered but not selected: As above Prescription Management I considered prescription management with: Other Chronic Conditions Patient?s care impacted by: Other (Asthma) Critical Care Time Critical Care Time Critical Care Time: Yes Total Critical Care Time: 40 Attestation: I have personally provided critical care time exclusive of time spent on separately billable procedures. Time includes review of lab data, radiology results, discussion with consultants, and monitoring for potential decompensation. Intervention performed as documented. Discharge Plan Discharge Clinical Impression: Asthma with acute exacerbation Patient Disposition: Home, Self-Care Instructions: Asthma (DC) Additional Instructions: Your blood work and x-ray were reassuring Please use your inhalers and neb machine at home In addition prednisone as a steroid please take as prescribed Tessalon Perlflorentino for cough Follow-up with her doctor Is symptoms persist or worsen return to the ED Seo an?lisis de kleber y carmen X fueron tranquilizadores. Utilice sly inhaladores y seo m?quina neb en casa. Adem?s, prednisona sherman esteroide, t?gary seg?n lo prescrito. Tesalon Perles para la tos Seguimiento con seo m?dico Si los s?ntomas persisten o empeoran, regrese al servicio de urgencias. Prescriptions: New prednisone 20 mg tablet 40 mg PO DAILY 5 Days Qty: 10 0RF benzonatate 100 mg capsule 100 mg PO TID PRN (Reason: cough) Qty: 14 0RF albuterol sulfate 90 mcg/actuation HFA aerosol inhaler 2 puff inhalation Q4-6H PRN (Reason: shortness of breath or wheezing) Qty: 6.7 0RF albuterol sulfate 2.5 mg/0.5 mL solution for nebulization 5 mg inhalation Q4H PRN (Reason: shortness of breath or wheezing) Qty: 30 0RF No Action levothyroxine 88 mcg tablet 88 mcg PO QAM Qty: 90 2RF sumatriptan succinate 50 mg tablet 50 mg PO Q2-4H PRN (Reason: migraine headache) 30 Days Qty: 9 0RF Rx Instructions: do not exceed 4 doses per 24 hrs (DME) AeroEclipse II Nebulizer Misc See Rx Instructions .Route Qty: 1 0RF Rx Instructions: As directed Xolair 150 mg/mL syringe 300 mg subcut Q4W 28 Days Qty: 2 12RF hydroxyzine HCl 25 mg tablet 25 mg PO BEDTIME 90 Days Qty: 90 0RF methocarbamol 750 mg tablet 750 mg PO TID PRN (Reason: pain (scale score 4-6)) Qty: 14 0RF albuterol sulfate 1.25 mg/3 mL solution for nebulization 1.25 mg inhalation Q4-6H PRN (Reason: shortness of breath or wheezing) Qty: 75 0RF famotidine 40 mg tablet 40 mg PO DAILY Juluca 50-25 mg tablet 1 tab PO DAILY Rx Instructions: must administer with a meal/food montelukast 10 mg tablet 10 mg PO DAILY Trelegy Ellipta 200-62.5-25 mcg blister with device 1 inh inhalation DAILY 30 Days Qty: 1 6RF famotidine 20 mg tablet 20 mg PO BID PRN (Reason: acid reflux) atorvastatin 10 mg tablet 10 mg PO DAILY Referrals: Yamile Flores MD [Physician] - 2 days Interventions: ED Discharge Assessment Last Done: 09/28/22 17:45 Discharge Date/Time: 09/28/22 17:46 Print Language: [place]
[2022-09-28] MEDS: Albuterol Sulfate (0.083%) 2.5 MG/3 ML VIAL.NEB 10 MG INHALE (13:48)
[2022-09-28 13:49] VITALS: PULSE 92; RESP 16; O2SAT 94
[2022-09-28 13:55] VITALS: PULSE 87; RESP 30; O2SAT 100
--- NOTE | 2022-09-28 14:29 | ECG_ITS ---
Test Reason : SOB Blood Pressure : / mmHG Vent. Rate : 084 BPM Atrial Rate : 084 BPM P-R Int : 134 ms QRS Dur : 074 ms QT Int : 388 ms P-R-T Axes : 051 -21 025 degrees QTc Int : 458 ms Normal sinus rhythm Nonspecific ST and T wave abnormality When compared with ECG of 27-AUG-2020 16:20, Nonspecific ST and T wave abnormality present Referred By: Carolynn Hoang Electronically Signed By:STANISLAV HIDALGO
[2022-09-28] MEDS: methylPREDNISolone Sod Succ 125 MG/2 ML VIAL IVPUSH (14:37)
[2022-09-28 14:40] LABS: MANUAL DIFF FLAG NO
[2022-09-28 14:47] LABS: Basophils Absolute Auto 0.1 X10*3/uL (0.0-0.2); Basophils Percent Auto 0.7 % (0-2); Eosinophils Absolute Auto 0.2 X10*3/uL (0.0-0.4); Eosinophils Percent Auto 1.6 % (0-4); Hemoglobin 14.5 g/dl (12.0-16.0); Imm Gran Abs Auto 0.05 X10*3/uL (0.00-0.03); Imm Gran Pct Auto 0.4 % (0.0-0.4); Lymphocytes Absolute Auto 2.9 X10*3/uL (1.2-4.9); Lymphocytes Percent Auto 24.4 % (20-40); Mean Corpuscular HGB Conc 33.7 g/dl (31.0-35.0); Mean Corpuscular Hemoglobin 31.9 pg (27.0-33.0); Mean Corpuscular Volume 94.7 fL (80.0-98.0); Mean Platelet Volume 9.5 fL (9.4-12.3); Monocytes Absolute Auto 1.1 X10*3/uL (0.1-1.2); Monocytes Percent Auto 9.5 % (2-11); Neutrophils Absolute Auto 7.5 x10*3/uL (2.0-8.3); Neutrophils Percent Auto 63.4 % (45-73); Platelet Count 262 X10*3/uL (160-400); Red Blood Count 4.54 X10*6/uL (4.20-5.50); Red Cell Distribution Width 13.6 % (11.0-16.0); White Blood Count 11.9 X10*3/uL (4.8-10.8)
[2022-09-28 15:07] VITALS: BP 140/80; PULSE 93; RESP 16; O2SAT 100
--- NOTE | 2022-09-28 15:09 | PC.NURSE ---
pt brought over to [facility] from triage due to asthma exacerbation. Pt was having difficulty breathing, pdry cough, with strong sats and HR in 80s. Some wheezing noted in lung enamorado. Respiratory admin albuterol treatment. IV obtained and labs drawn. Solumedrol given per APR. at this time, pt is resting, on room air sat 99%. will cont to monitor
[2022-09-28 15:12] LABS: Troponin-I High Sensitivity 4.2 ng/L (<3.5-17.0)
[2022-09-28 15:32] LABS: COVID-19 Test Negative (Negative); IDNOW Serial# BCCEAD1C
[2022-09-28 15:33] LABS: IDNOW Serial# 08D9AD1C; Influenza A Negative (Negative); Influenza B2 Negative (Negative)
[2022-09-28 15:35] LABS: Anion Gap 17 (12-20); Blood Urea Nitrogen 8 mg/dL (9-16); Calcium 9.5 mg/dL (8.4-10.2); Carbon Dioxide 21 mmol/L (22-29); Chloride 107 mmol/L (96-108); Creatinine Clr Calc Pharmacy 52.3; Estimated Glomerular Filt Rate > 60; Glucose Random 109 mg/dL (60-115); Potassium 3.5 mmol/L (3.3-5.1); Sodium 141 mmol/L (135-145)
[2022-09-28] MEDS: HYDROcodone/Homat 5/1.5/5 ML 5 ML SYRUP PO (15:44)
[2022-09-28] MEDS: Benzonatate 100 MG CAPSULE PO (15:44)
[2022-09-28] MEDS: Albuterol Sulfate 2.5 MG, Albuterol/Iprat 2.5/0.5MG 3 ML 3 ML INHALE (15:47)
[2022-09-28 15:49] VITALS: PULSE 96; RESP 18; O2SAT 100
== END 2022-09-28 17:46 | disposition home or self-care (01) ==
PROVIDERS: Physician Assistant; Emergency Provider Emergency Medicine
DX: J45.901 Unspecified asthma with (acute) exacerbation (principal); Z20.822 Contact with and (suspected) exposure to COVID-19; E78.5 Hyperlipidemia, unspecified; B20 Human immunodeficiency virus [HIV] disease; Z87.891 Personal history of nicotine dependence
CPT/HCPCS: 36415; 71045; 80048; 84484; 85025; 87502; 87635; 93005; 94640; 96374; 99284; 99285; J2930

== ENCOUNTER → 2022-09-28 14:29 | Outpatient (BNV) | payer OTHER, SELFPAY | PROVIDERS: Emergency Provider Emergency Medicine; Visit Provider Internal Medicine | DX: R06.02 Shortness of breath (principal); R94.31 Abnormal electrocardiogram [ECG] [EKG] | CPT/HCPCS: 93010 ==

== ENCOUNTER 2022-09-29 12:34 | Emergency (ER) | payer OTHER, SELFPAY ==
--- NOTE | ~2022-09-29 | XR_ITS ---
EXAMINATION: XR CHEST CLINICAL INFORMATION: Chest pain, shortness of breath COMPARISON: 09/28/2022, 08/04/2022 TECHNIQUE: 2 views of the chest were obtained. FINDINGS: Redemonstration of rounded double density overlying the left lung base, possibly related to eventration. Decreased mild left basilar atelectasis. There is no gross pneumothorax. Heart size is normal. No pleural effusion. Mild degenerative changes in the thoracic spine. XR/XR chest 2V IMPRESSION: Redemonstration of rounded double density overlying the left lung base, possibly related to eventration, but of indeterminate etiology. CT scan could be considered for further evaluation. Decreased mild left basilar atelectasis. Stat results provided as requested to referring clinician at time of this exam was provided for interpretation.
--- NOTE | ~2022-09-29 | CT_ITS ---
EXAMINATION: CT CHEST WITHOUT CONTRAST CLINICAL INFORMATION: Abnormal chest x-ray, cough, history of HIV. COMPARISON: Chest radiographs from earlier today as well as a CT scan dated 08/27/2020. TECHNIQUE: Multidetector volumetric CT imaging of the chest was done. Axial MIP volume rendering provided. Sagittal and coronal reformatted images were obtained. Suboptimal inspiration limits evaluation. This CT examination was performed using dose optimization techniques as appropriate, variously including the following: *Automated exposure control *Adjustment of mA and/or kV according to patient size (this includes techniques or standardized protocols for targeted exams where dose is matched to indication/reason for exam; i.e. extremities or head) *Use of iterative reconstruction technique DLP: 225 mGy-cm FINDINGS: LUNGS/PLEURA/AIRWAYS: There is mild elevation of the right hemidiaphragm with mild smooth lobulation without significant change secondary to the superjacent superior hepatic margin. Mild biapical pleural thickening and scarring is seen, right greater than left with similar appearance. Mild centrilobular paraseptal emphysema is seen. Mild dependent atelectasis in the lower lobes and bases. No significant/suspicious pulmonary nodules. There are no pleural effusions. The airways are patent. MEDIASTINUM: Mild atherosclerosis in the aortic arch. No significant dilatation. Mild coronary artery calcifications. No pericardial effusion. No mediastinal or hilar lymphadenopathy. UPPER ABDOMEN: Unremarkable. MUSCULOSKELETAL: Mild to moderate degenerative changes in the thoracic spine. No acute/suspicious abnormality. SOFT TISSUES: Unremarkable. CT/CT chest wo IV con IMPRESSION: 1. Chronic hemidiaphragm changes. Mild increased lung markings are likely secondary to suboptimal inspiration. Chronic changes without suspicious abnormality. Short-term radiographic follow-up is recommended as clinically indicated.
--- NOTE | 2022-09-29 12:36 | ECG_ITS ---
Test Reason : chest pain/sob Blood Pressure : / mmHG Vent. Rate : 091 BPM Atrial Rate : 091 BPM P-R Int : 150 ms QRS Dur : 070 ms QT Int : 368 ms P-R-T Axes : 067 -10 035 degrees QTc Int : 452 ms Normal sinus rhythm Possible Left atrial enlargement Borderline ECG When compared with ECG of 28-SEP-2022 14:39, No significant change was found Referred By: Ester Minaya Electronically Signed By:STANISLAV HIDALGO
[2022-09-29 13:09] VITALS: BP 152/67; PULSE 89; RESP 15; TEMP 35.9; O2SAT 97; BMI 24.6
--- NOTE | 2022-09-29 13:10 | ED.SOB ---
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 She reports 4 days of shortness of breath, sore throat, cough the shortness of breath follow the cough she otherwise denies any GI or symptoms and denies any chest pain/palpitations. She has had some mild nausea. Related Data Home Medications Medication Instructions Recorded Confirmed famotidine 40 mg tablet 40 mg PO DAILY 02/29/20 07/09/22 montelukast 10 mg tablet 10 mg PO DAILY 05/15/20 07/09/22 dolutegravir 50 mg-rilpivirine 25 1 tab PO DAILY 12/11/20 07/09/22 mg tablet (Juluca) atorvastatin 10 mg tablet 10 mg PO DAILY 07/20/22 famotidine 20 mg tablet 20 mg PO BID PRN acid reflux 07/20/22 Previous Rx's Medication Instructions Recorded fluticasone fur. 200 mcg-umeclid 1 inh inhalation DAILY 30 days #1 07/17/21 62.5 mcg-vilant 25 mcg ea inhalat.powder (Trelegy Ellipta) levothyroxine 88 mcg tablet 88 mcg PO QAM #90 tabs 11/08/21 nebulizers (AeroEclipse II #1 ea 11/08/21 Nebulizer) sumatriptan succinate 50 mg tablet 50 mg PO Q2-4H PRN migraine 11/08/21 headache 30 days #9 tabs omalizumab 150 mg/mL subcutaneous 300 mg (2 mL) subcut Q4W 28 days 12/22/21 syringe (Xolair) #2 mL methocarbamol 750 mg tablet 750 mg PO TID PRN pain (scale 07/07/22 score 4-6) #14 tabs albuterol sulfate 1.25 mg/3 mL 1.25 mg (3 mL) inhalation Q4-6H 08/04/22 solution for nebulization PRN shortness of breath or wheezing #75 mL hydroxyzine HCl 25 mg tablet 25 mg PO BEDTIME 90 days #90 tabs 09/19/22 albuterol sulfate 2.5 mg/0.5 mL 5 mg inhalation Q4H PRN shortness 09/28/22 solution for nebulization of breath or wheezing #30 ea albuterol sulfate 90 mcg/actuation 2 puff inhalation Q4-6H PRN 09/28/22 aerosol inhaler shortness of breath or wheezing #6.7 grams benzonatate 100 mg capsule 100 mg PO TID PRN cough #14 caps 09/28/22 prednisone 20 mg tablet 40 mg PO DAILY 5 days #10 tabs 09/28/22 benzonatate 200 mg capsule 200 mg PO TID PRN cough #20 caps 09/29/22 Allergies Allergy/AdvReac Type Severity Reaction Status Date / Time blackberry Allergy Intermediate Itching Verified 07/20/22 15:18 long Allergy Intermediate Itching Verified 07/20/22 15:18 peanut [PEANUT] Allergy Intermediate RASH Verified 07/20/22 15:18 Sulfa (Sulfonamide Allergy Intermediate HIVES, Verified 07/20/22 15:18 Antibiotics) hives, [SULFA (SULFONAMIDE rash, ANTIBIOTICS)] hives, rash tramadol Allergy Intermediate nausea Verified 07/20/22 15:18 strawberry Allergy Itching Verified 07/20/22 15:18 acetaminophen [Tylenol] AdvReac Unknown itch Verified 07/20/22 15:18 animals Allergy Itching Uncoded 12/10/21 14:06 red fruit Allergy Itching Uncoded 12/10/21 14:06 tree Allergy eye Uncoded 12/10/21 14:06 swelling, itch Review of Systems Review of Systems: Pertinent positives and negatives as stated in [facility] Past Medical History Source: nursing notes reviewed Medical History Asthma Asthma Dyslipidemia Fracture of left hip requiring operative repair GERD (gastroesophageal reflux disease) HIV (human immunodeficiency virus infection) Hypothyroidism TIA (transient ischemic attack) Urticaria Verruca Surgical History H/O umbilical hernia repair History of section History of lumbar fusion Hx of colonoscopy Family History Family History Father Cancer Diabetes Mother Cancer Diabetes Brother Colon polyps Social History Social History Housing: Apartment Alcohol intake: never Patient Tobacco Use Status: Former Tobacco user Tobacco use type: Cigarette Smoked in Last 30 Days: No e-Cigarette/Vaping Use: Never Used Second Hand Smoke Exposure: No Use of substances other than those prescribed or required for medical reasons: No Advance Directives: No Advance Directives Information Provided: Yes service: No Current occupational status: retired Physical Exam Vital Signs: Vital Signs: Last Vital Signs Temp 96.7 F L 09/29/22 13:09 Pulse 106 H 09/29/22 15:42 Resp 22 H 09/29/22 15:42 BP 148/68 H 09/29/22 14:53 Pulse Ox 95 09/29/22 14:53 O2 Del Method Room Air 09/29/22 14:53 BMI result Body Mass Index 24.6 VITAL SIGNS: Reviewed. GENERAL: Well developed, well nourished, in no acute distress. HEAD: Normocephalic/atraumatic EYES: PERRLA, EOMI EARS: Ext canals without abnormality NOSE: Nares patent bilateral OROPHARYNX: no oral lesions noted, posterior pharynx clear NECK: Supple, no adenopathy LUNGS: Coarse rhonchi, no bibasilar rales and no expiratory wheeze appreciated. SpO2<95> CARDIOVASCULAR: Regular rate and rhythm without noted murmurs, no JVD or lower extremity edema. ABDOMEN: Soft, non-tender, non-distended with bowel sounds. MUSCULOSKELETAL: No tenderness, deformities, or effusions noted on gross inspection. EXTREMITIES: No cyanosis, clubbing or edema. SKIN: Inspection of the skin reveals no rashes NEUROLOGIC: Alert and oriented x 4. Strength and sensation to light touch were grossly intact x 4. Course Course Course Narrative: RME - 72 yo Brazilian speaking female with history of HIV, asthma, GERD, HLD, hypothyroidism who was seen here yesterday for SOB and dry cough who presents back to the ER for evaluation of ongoing cough and SOB for the last 5 days. Discharged after improvement with nebs and IV steroids. Snet home with prednisone and albuterol but her nebulizer tubing needs to be replaced. Also has trouble using the inhaler correctly. In triage persistent dry cough. And now diffuse chest pain with every cough as well as at rest. SpO2 98%. No wheezing on exam but very bronchospastic. Plan: repeat CXR and labs given chest pains, EKG Medications Administered Discontinued Medications Generic Name Dose Route Start Last Admin Trade Name Viktoria PRN Reason Stop Dose Admin Albuterol Sulfate 10 mg 09/29/22 13:23 09/29/22 13:41 Albuterol Sulfate (0.083%) 2.5 Mg/3 Ml Vial.Neb INHALE 09/29/22 13:24 10 mg ONCE ONE Administration Albuterol Sulfate 2 puff 09/29/22 15:45 09/29/22 16:04 Albuterol Sulfate 90 Mcg 8 Gm Inhaler INHALE 09/29/22 15:46 2 puff ONCE ONE Administration Benzonatate 200 mg 09/29/22 15:12 09/29/22 15:36 Benzonatate 100 Mg Capsule PO 09/29/22 15:13 200 mg ONCE ONE Administration Albuterol Sulfate 7.5 mg/ 0 mg 09/29/22 15:12 09/29/22 15:39 Albuterol/Ipratropium 3 ml INHALE 09/29/22 15:13 10 each ONCE ONE Administration Guaifenesin/Codeine Phosphate 10 ml 09/29/22 13:23 09/29/22 13:35 Guaifen/Codeine Sf 200/20/10ml 10 Ml Liquid PO 09/29/22 13:24 10 ml ONCE ONE Administration Medical Decision Making Medical Decision Making MDM Narrative: 72-year-old female with history and clinical presentation, DDX: Persistent asthma exacerbation without hypoxia patient was discharged home on steroids and suspect that the leukocytosis that is observed to secondary to the steroid use as patient is afebrile. Patient is compliant with HAART medication so I do not feel that this is in HIV related infection although on my review of laboratory results there is no corresponding eosinophilia to better explain patient's presentation. Review of viral testing yesterday is negative for evidence of influenza or COVID. Cough does appear to be dry. The remaining laboratory results I reviewed and chemistry indices are grossly within normal limits without evidence of GIL, electrolyte or liver enzyme abnormalities. There is a slight increase in BNP but there is no comparison - CT chest noncontrast, DuoNeb x2, Tessalon I reviewed CT of the chest without gross abnormalities, patient received an additional DuoNeb treatment as well as cough suppressant, patient was also provided with the inhaler with a spacer as requested. She is otherwise hemodynamically stable, oxygenating well and is being discharged home to resume her continued course of steroids and albuterol. Differential Diagnosis Differential Diagnoses: The differential diagnosis associated with the presentation includes Please see the discussion above Admission/Observation Consideration of admission/observation: Escalation of care including admission/observation considered Please see the discussion above Lab Data MDM Lab Attestation statement: I reviewed the patient's lab results. Please see the discussion above 09/29/22 12:58 09/29/22 12:58 Labs: Lab Results 09/29/22 09/29/22 09/29/22 Range/Units 12:58 12:58 12:58 WBC 14.7 H (4.8-10.8) X10*3/uL RBC 4.30 (4.20-5.50) X10*6/uL Hgb 13.5 (12.0-16.0) g/dl Hct 39.7 (37.0-47.0) % MCV 92.3 (80.0-98.0) fL MCH 31.4 (27.0-33.0) pg MCHC 34.0 (31.0-35.0) g/dl RDW 13.7 (11.0-16.0) % Plt Count 286 (160-400) X10*3/uL MPV 9.2 L (9.4-12.3) fL Immature Gran % (Auto) 0.4 (0.0-0.4) % Neut % (Auto) 70.4 (45-73) % Lymph % (Auto) 18.9 L (20-40) % [place] % (Auto) 10.0 (2-11) % Eos % (Auto) 0.1 (0-4) % Baso % (Auto) 0.2 (0-2) % Lymph # (Auto) 2.8 (1.2-4.9) X10*3/uL [place] # (Auto) 1.5 H (0.1-1.2) X10*3/uL Eos # (Auto) 0.0 (0.0-0.4) X10*3/uL Baso # (Auto) 0.0 (0.0-0.2) X10*3/uL Abs Immat Gran (auto) 0.06 H (0.00-0.03) X10*3/uL Absolute Neuts (auto) 10.3 H (2.0-8.3) x10*3/uL Absolute Nucleated RBC 0.000 (0.0-0.012) X10*3/uL Nucleated RBC % (auto) 0.0 (0.0-0.2) /100WBC Sodium 141 (135-145) mmol/L Potassium 3.8 (3.3-5.1) mmol/L Chloride 107 (96-108) mmol/L Carbon Dioxide 20 L (22-29) mmol/L Anion Gap 18 (12-20) BUN 12 (9-16) mg/dL Creatinine 0.85 (0.5-1.4) mg/dL Estim Creat Clear Calc 50.1 Estimated GFR > 60 Random Glucose 98 (60-115) mg/dL Calcium 10.0 (8.4-10.2) mg/dL Magnesium 2.3 (1.6-2.6) mg/dL Total Bilirubin 0.6 (0.0-1.0) mg/dL Direct Bilirubin 0.2 (0.0-0.5) mg/dL AST 27 (5-31) U/L ALT 9 (0-31) U/L Alkaline Phosphatase 106 (39-117) U/L Troponin I High Sens 7.4 D (<3.5-17.0) ng/L B-Natriuretic Peptide (<100) pg/mL Total Protein 7.6 (6.5-8.0) g/dL Albumin 4.2 (3.5-5.0) g/dL 09/29/22 Range/Units 12:58 WBC (4.8-10.8) X10*3/uL RBC (4.20-5.50) X10*6/uL Hgb (12.0-16.0) g/dl Hct (37.0-47.0) % MCV (80.0-98.0) fL MCH (27.0-33.0) pg MCHC (31.0-35.0) g/dl RDW (11.0-16.0) % Plt Count (160-400) X10*3/uL MPV (9.4-12.3) fL Immature Gran % (Auto) (0.0-0.4) % Neut % (Auto) (45-73) % Lymph % (Auto) (20-40) % [place] % (Auto) (2-11) % Eos % (Auto) (0-4) % Baso % (Auto) (0-2) % Lymph # (Auto) (1.2-4.9) X10*3/uL [place] # (Auto) (0.1-1.2) X10*3/uL Eos # (Auto) (0.0-0.4) X10*3/uL Baso # (Auto) (0.0-0.2) X10*3/uL Abs Immat Gran (auto) (0.00-0.03) X10*3/uL Absolute Neuts (auto) (2.0-8.3) x10*3/uL Absolute Nucleated RBC (0.0-0.012) X10*3/uL Nucleated RBC % (auto) (0.0-0.2) /100WBC Sodium (135-145) mmol/L Potassium (3.3-5.1) mmol/L Chloride (96-108) mmol/L Carbon Dioxide (22-29) mmol/L Anion Gap (12-20) BUN (9-16) mg/dL Creatinine (0.5-1.4) mg/dL Estim Creat Clear Calc Estimated GFR Random Glucose (60-115) mg/dL Calcium (8.4-10.2) mg/dL Magnesium (1.6-2.6) mg/dL Total Bilirubin (0.0-1.0) mg/dL Direct Bilirubin (0.0-0.5) mg/dL AST (5-31) U/L ALT (0-31) U/L Alkaline Phosphatase (39-117) U/L Troponin I High Sens (<3.5-17.0) ng/L B-Natriuretic Peptide 103 H (<100) pg/mL Total Protein (6.5-8.0) g/dL Albumin (3.5-5.0) g/dL Independent Interpretation I performed an independent interpretation of an: EKG Interpretation: Normal sinus rhythm, HR-91, no STEMI, PA/QRS/QTC is within normal limits. Radiology Impression Radiologist Impression: No pneumonia, otherwise my interpretation is in agreement with radiology's impression and will proceed with CT of the chest. CT of the chest without acute pneumonia and otherwise my interpretation is in agreement with radiology's impression External Record Review External record reviewed: Outpatient record and Prior outpatient labs Chronic Conditions Patient?s care impacted by: Other HIV, Asthma Critical Care Time Critical Care Time Critical Care Time: Yes Total Critical Care Time: 30 Attestation: I personally attest to this time spent taking care of the patient. Discharge Plan Discharge Clinical Impression: Asthma exacerbation Patient Disposition: Home, Self-Care Instructions: Asthma (ED) Additional Instructions: 1. Reanudar todos los medicamentos caseros seg?n lo prescrito. 2. Complete el curso de esteroides seg?n lo prescrito. 3. Le he recetado medicamentos para ayudar a controlar la tos. 4. Llame a la oficina de lazcano proveedor de atenci?n primaria a primera hora de la ma?americo para programar josh yash para la reevaluaci?n. Adem?s, comun?quese con el consultorio de lazcano neum?logo para programar josh yash para josh reevaluaci?n. Regrese a la jeromy de emergencias si los s?ntomas empeoran. 1. Resume all home medications as prescribed. 2. Complete the course of steroids as prescribed. 3. I have prescribed you for medication to help control your cough. 4. Please call the office of your primary care provider 1st thing in the morning to set up an appointment for re-evaluation. 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 Return to the ER for any worsening symptoms. Prescriptions: New benzonatate 200 mg capsule 200 mg PO TID PRN (Reason: cough) Qty: 20 0RF No Action levothyroxine 88 mcg tablet 88 mcg PO QAM Qty: 90 2RF sumatriptan succinate 50 mg tablet 50 mg PO Q2-4H PRN (Reason: migraine headache) 30 Days Qty: 9 0RF Rx Instructions: do not exceed 4 doses per 24 hrs (DME) AeroEclipse II Nebulizer Misc See Rx Instructions .Route Qty: 1 0RF Rx Instructions: As directed Xolair 150 mg/mL syringe 300 mg subcut Q4W 28 Days Qty: 2 12RF hydroxyzine HCl 25 mg tablet 25 mg PO BEDTIME 90 Days Qty: 90 0RF prednisone 20 mg tablet 40 mg PO DAILY 5 Days Qty: 10 0RF benzonatate 100 mg capsule 100 mg PO TID PRN (Reason: cough) Qty: 14 0RF albuterol sulfate 90 mcg/actuation HFA aerosol inhaler 2 puff inhalation Q4-6H PRN (Reason: shortness of breath or wheezing) Qty: 6.7 0RF albuterol sulfate 2.5 mg/0.5 mL solution for nebulization 5 mg inhalation Q4H PRN (Reason: shortness of breath or wheezing) Qty: 30 0RF methocarbamol 750 mg tablet 750 mg PO TID PRN (Reason: pain (scale score 4-6)) Qty: 14 0RF albuterol sulfate 1.25 mg/3 mL solution for nebulization 1.25 mg inhalation Q4-6H PRN (Reason: shortness of breath or wheezing) Qty: 75 0RF famotidine 40 mg tablet 40 mg PO DAILY Juluca 50-25 mg tablet 1 tab PO DAILY Rx Instructions: must administer with a meal/food montelukast 10 mg tablet 10 mg PO DAILY Trelegy Ellipta 200-62.5-25 mcg blister with device 1 inh inhalation DAILY 30 Days Qty: 1 6RF famotidine 20 mg tablet 20 mg PO BID PRN (Reason: acid reflux) atorvastatin 10 mg tablet 10 mg PO DAILY Referrals: Lucho Aburto MD [Physician] - Armen Bone PA-C [Physician Advanced Clinical Specialist] - Print Language: Brazilian
[2022-09-29 13:17] LABS: MANUAL DIFF FLAG NO
[2022-09-29 13:20] LABS: Basophils Percent Auto 0.2 % (0-2); Eosinophils Percent Auto 0.1 % (0-4); Hematocrit 39.7 % (37.0-47.0); Hemoglobin 13.5 g/dl (12.0-16.0); Imm Gran Abs Auto 0.06 X10*3/uL (0.00-0.03); Imm Gran Pct Auto 0.4 % (0.0-0.4); Lymphocytes Absolute Auto 2.8 X10*3/uL (1.2-4.9); Lymphocytes Percent Auto 18.9 % (20-40); Mean Corpuscular Hemoglobin 31.4 pg (27.0-33.0); Mean Corpuscular Volume 92.3 fL (80.0-98.0); Mean Platelet Volume 9.2 fL (9.4-12.3); Monocytes Absolute Auto 1.5 X10*3/uL (0.1-1.2); Neutrophils Absolute Auto 10.3 x10*3/uL (2.0-8.3); Neutrophils Percent Auto 70.4 % (45-73); Platelet Count 286 X10*3/uL (160-400); Red Cell Distribution Width 13.7 % (11.0-16.0); White Blood Count 14.7 X10*3/uL (4.8-10.8)
[2022-09-29] MEDS: guaiFEN/Codeine SF 200/20/10ML 10 ML LIQUID PO (13:35)
[2022-09-29 13:41] VITALS: PULSE 92; O2SAT 98
[2022-09-29] MEDS: Albuterol Sulfate (0.083%) 2.5 MG/3 ML VIAL.NEB 10 MG INHALE (13:41)
[2022-09-29 13:43] LABS: Alanine Aminotransferase 9 U/L (0-31); Albumin Level 4.2 g/dL (3.5-5.0); Alkaline Phosphatase 106 U/L (39-117); Anion Gap 18 (12-20); Aspartate Amino Transferase 27 U/L (5-31); Bilirubin Direct 0.2 mg/dL (0.0-0.5); Bilirubin Total 0.6 mg/dL (0.0-1.0); Blood Urea Nitrogen 12 mg/dL (9-16); Carbon Dioxide 20 mmol/L (22-29); Chloride 107 mmol/L (96-108); Creatinine Clr Calc Pharmacy 50.1; Estimated Glomerular Filt Rate > 60; Glucose Random 98 mg/dL (60-115); Magnesium 2.3 mg/dL (1.6-2.6); Potassium 3.8 mmol/L (3.3-5.1); Sodium 141 mmol/L (135-145); Total Protein 7.6 g/dL (6.5-8.0)
[2022-09-29 13:49] LABS: B Type Natriuretic Peptide 103 pg/mL (<100)
[2022-09-29 13:50] LABS: Troponin-I High Sensitivity 7.4 ng/L (<3.5-17.0)
--- NOTE | 2022-09-29 14:31 | PC.NURSE ---
pt comes in with uncontrolled cough. updraft and cough syrup given. lung sounds clear throughout - wheeze noted with cough audibly but not heard in lung enamorado.
[2022-09-29 14:53] VITALS: BP 148/68; PULSE 106; RESP 26; O2SAT 95
--- NOTE | 2022-09-29 14:53 | PC.NURSE ---
updraft finished - was admin off of wall Air, not 02. Sats 95 RA continual cough, though has lessened since first arrival
[2022-09-29] MEDS: Benzonatate 100 MG CAPSULE 200 MG PO (15:36)
[2022-09-29] MEDS: Albuterol Sulfate 7.5 MG, Albuterol/Iprat 2.5/0.5MG 3 ML 3 ML INHALE (15:39)
[2022-09-29 15:42] VITALS: PULSE 106; RESP 22
[2022-09-29] MEDS: Albuterol Sulfate 90 MCG 8 GM INHALER 2 PUFF INHALE (16:04)
--- NOTE | 2022-09-29 17:23 | PC.NURSE ---
lung sounds clear, pt continues to have persistent cough. will CTM
== END 2022-09-29 17:51 | disposition home or self-care (01) ==
PROVIDERS: Physician Assistant; Emergency Provider Student in an Organized Health Care Education/Training Program
DX: J45.901 Unspecified asthma with (acute) exacerbation (principal); R06.02 Shortness of breath; E78.5 Hyperlipidemia, unspecified; B20 Human immunodeficiency virus [HIV] disease; Z87.891 Personal history of nicotine dependence; Z79.899 Other long term (current) drug therapy
CPT/HCPCS: 36415; 71046; 71250; 80048; 80076; 83735; 83880; 84484; 85025; 93005; 94640; 99285

== ENCOUNTER → 2022-09-29 12:36 | Outpatient (BNV) | payer OTHER, SELFPAY | PROVIDERS: Emergency Provider Student in an Organized Health Care Education/Training Program; Visit Provider Internal Medicine | DX: R07.9 Chest pain, unspecified (principal); R06.02 Shortness of breath; R94.31 Abnormal electrocardiogram [ECG] [EKG] | CPT/HCPCS: 93010 ==

== ENCOUNTER 2022-10-10 13:23 | Emergency (ER) | payer OTHER, SELFPAY ==
[2022-10-10 14:56] VITALS: BP 139/75; PULSE 84; RESP 18; TEMP 36.8; O2SAT 98; BMI 24.6
--- NOTE | 2022-10-10 14:57 | ED.GENADULT ---
HPI - General Adult General Chief complaint: General Medical Stated complaint: covid symptoms Time Seen by Provider: 10/10/22 15:20 Source: patient Mode of arrival: ambulatory Limitations: no limitations History of Present Illness HPI narrative: 72-year-old [place]ian-speaking female with history of GERD, asthma, hypothyroidism, dyslipidemia, HIV on HAART who presents to the ER for evaluation of scratchy no and runny nose that started this morning. She denies any fever or chills. She has no shortness of breath or chest pain. She has a slight cough that has been present for over a month. While in the waiting room patient reports a stabbing pain in her left arm that has since resolved. No chest pain at the time. No injury to the arm. No swelling of the arm. MD complaint: Scratchy throat and runny nose Onset (ago): hour(s) Relieving factors: none Exacerbating factors: none Associated symptoms: denies other symptoms Treatments prior to arrival: none Related Data Home Medications Medication Instructions Recorded Confirmed famotidine 40 mg tablet 40 mg PO DAILY 02/29/20 07/09/22 montelukast 10 mg tablet 10 mg PO DAILY 05/15/20 07/09/22 dolutegravir 50 mg-rilpivirine 25 1 tab PO DAILY 12/11/20 07/09/22 mg tablet (Juluca) atorvastatin 10 mg tablet 10 mg PO DAILY 07/20/22 famotidine 20 mg tablet 20 mg PO BID PRN acid reflux 07/20/22 Previous Rx's Medication Instructions Recorded fluticasone fur. 200 mcg-umeclid 1 inh inhalation DAILY 30 days #1 07/17/21 62.5 mcg-vilant 25 mcg ea inhalat.powder (Trelegy Ellipta) levothyroxine 88 mcg tablet 88 mcg PO QAM #90 tabs 11/08/21 nebulizers (AeroEclipse II #1 ea 11/08/21 Nebulizer) sumatriptan succinate 50 mg tablet 50 mg PO Q2-4H PRN migraine 11/08/21 headache 30 days #9 tabs omalizumab 150 mg/mL subcutaneous 300 mg (2 mL) subcut Q4W 28 days 12/22/21 syringe (Xolair) #2 mL methocarbamol 750 mg tablet 750 mg PO TID PRN pain (scale 07/07/22 score 4-6) #14 tabs albuterol sulfate 1.25 mg/3 mL 1.25 mg (3 mL) inhalation Q4-6H 08/04/22 solution for nebulization PRN shortness of breath or wheezing #75 mL hydroxyzine HCl 25 mg tablet 25 mg PO BEDTIME 90 days #90 tabs 09/19/22 albuterol sulfate 2.5 mg/0.5 mL 5 mg inhalation Q4H PRN shortness 09/28/22 solution for nebulization of breath or wheezing #30 ea albuterol sulfate 90 mcg/actuation 2 puff inhalation Q4-6H PRN 09/28/22 aerosol inhaler shortness of breath or wheezing #6.7 grams benzonatate 100 mg capsule 100 mg PO TID PRN cough #14 caps 09/28/22 prednisone 20 mg tablet 40 mg PO DAILY 5 days #10 tabs 09/28/22 benzonatate 200 mg capsule 200 mg PO TID PRN cough #20 caps 09/29/22 Allergies Allergy/AdvReac Type Severity Reaction Status Date / Time blackberry Allergy Intermediate Itching Verified 07/20/22 15:18 long Allergy Intermediate Itching Verified 07/20/22 15:18 peanut [PEANUT] Allergy Intermediate RASH Verified 07/20/22 15:18 Sulfa (Sulfonamide Allergy Intermediate HIVES, Verified 07/20/22 15:18 Antibiotics) hives, [SULFA (SULFONAMIDE rash, ANTIBIOTICS)] hives, rash tramadol Allergy Intermediate nausea Verified 07/20/22 15:18 strawberry Allergy Itching Verified 07/20/22 15:18 acetaminophen [Tylenol] AdvReac Unknown itch Verified 07/20/22 15:18 animals Allergy Itching Uncoded 12/10/21 14:06 red fruit Allergy Itching Uncoded 12/10/21 14:06 tree Allergy eye Uncoded 12/10/21 14:06 swelling, itch Review of Systems Review of Systems: Yes all other systems are reviewed and are negative PMFSH Past Medical History Medical History Asthma Asthma Dyslipidemia Fracture of left hip requiring operative repair GERD (gastroesophageal reflux disease) HIV (human immunodeficiency virus infection) Hypothyroidism TIA (transient ischemic attack) Urticaria Verruca Surgical History H/O umbilical hernia repair History of section History of lumbar fusion Hx of colonoscopy Family History Family History Father Cancer Diabetes Mother Cancer Diabetes Brother Colon polyps Social History Social History Housing: Apartment Alcohol intake: never Patient Tobacco Use Status: Former Tobacco user Tobacco use type: Cigarette e-Cigarette/Vaping Use: Never Used Second Hand Smoke Exposure: No Advance Directives: No Advance Directives Information Provided: Yes service: No Current occupational status: retired Physical Exam ED Vital Signs: Vital Signs - 24 hr 10/10/22 14:56 Temperature 98.2 F Pulse Rate 84 Respiratory Rate 18 Blood Pressure 139/75 Pulse Oximetry 98 Oxygen Delivery Method Room Air BMI result Body Mass Index 24.6 Appearance: Alert. Oriented X3. No acute distress. Head: normocephalic, atraumatic. Eyes: Pupils equal, round and reactive to light. ENT: Pharynx normal. No tonsillar swelling or exudate. Neck: Normal inspection. Neck supple. CVS: Normal heart rate and rhythm. Pulses normal. Respiratory: No respiratory distress. Breath sounds normal. Abdomen: Soft and nontender. +BS x4 Skin: Skin warm and dry. Normal skin color. Normal skin turgor. No rashes. Extremities: No lower extremity edema. No joint swelling. Normal ROM of the LUE without swelling or tenderness. Neuro/psych: Oriented X 3. No motor deficit. No sensory deficit. CN II-XII intact. Normal speech and cognition. Steady gait Course Course Course Narrative: RME- 72-year-old female presents for evaluation of ?scratchy throat and runny nose. She would like to be tested for COVID. Medical Decision Making Medical Decision Making MDM Narrative: 72-year-old female presenting to the ER for evaluation of scratchy throat and runny nose that started today. Her vital signs are stable on arrival. Her physical exam is unremarkable. Patient was found to be COVID positive. Her symptoms are very mild. She does have a medical comorbidities however there are multiple interactions with her medications, would not recommend Paxlovid at this time, wound defer to PCP. patient was counseled on her diagnosis and return precautions. She is stable for discharge home with supportive care. Patient agrees w/ plan Differential Diagnosis Differential Diagnoses: The differential diagnosis associated with the presentation includes strep, covid, flu, rsv, other viral syndrome, bronchitis, pneumonia, no evidence of peritonsillar abcsess or retropharyngeal abscess Lab Data [facility] Lab Attestation statement: I reviewed the patient's lab results. Labs: Lab Results 10/10/22 Range/Units 15:01 COVID-19 ([facility]) Positive A (Negative) COVID-19 Clin Com See Note External Record Review External record reviewed: Office record, Outpatient record, Prior outpatient labs and Prior outpatient radiology Tests considered The following testing was considered but not selected: consider chest x-ray but oxygen saturations are normal and lung sounds are clear. Prescription Management I considered prescription management with: Antiviral Chronic Conditions Patient?s care impacted by: Other ( HIV and asthma) Critical Care Time Critical Care Time Critical Care Time: No Discharge Plan Discharge Clinical Impression: COVID-19 Patient Disposition: Home, Self-Care Instructions: Covid-19 Viral Syndrome and Novel Coronavirus (ED) Hey/Ath Additional Instructions: You were found to be COVID-19 POSITIVE today. Your exam and oxygen levels were normal. Rest. Drink plenty of fluids. Do not go out in public while you are not feeling well. Take over the counter cold/flu medications as needed for your symptoms. Take Tylenol and/or Motrin as needed for fevers and body aches. Follow up with your doctor as needed If you develop new or worsening symptoms call 911 or come back to the ER for further evaluation. Prescriptions: No Action levothyroxine 88 mcg tablet 88 mcg PO QAM Qty: 90 2RF sumatriptan succinate 50 mg tablet 50 mg PO Q2-4H PRN (Reason: migraine headache) 30 Days Qty: 9 0RF Rx Instructions: do not exceed 4 doses per 24 hrs (DME) AeroEclipse II Nebulizer Misc See Rx Instructions .Route Qty: 1 0RF Rx Instructions: As directed Xolair 150 mg/mL syringe 300 mg subcut Q4W 28 Days Qty: 2 12RF hydroxyzine HCl 25 mg tablet 25 mg PO BEDTIME 90 Days Qty: 90 0RF prednisone 20 mg tablet 40 mg PO DAILY 5 Days Qty: 10 0RF benzonatate 100 mg capsule 100 mg PO TID PRN (Reason: cough) Qty: 14 0RF albuterol sulfate 90 mcg/actuation HFA aerosol inhaler 2 puff inhalation Q4-6H PRN (Reason: shortness of breath or wheezing) Qty: 6.7 0RF albuterol sulfate 2.5 mg/0.5 mL solution for nebulization 5 mg inhalation Q4H PRN (Reason: shortness of breath or wheezing) Qty: 30 0RF benzonatate 200 mg capsule 200 mg PO TID PRN (Reason: cough) Qty: 20 0RF methocarbamol 750 mg tablet 750 mg PO TID PRN (Reason: pain (scale score 4-6)) Qty: 14 0RF albuterol sulfate 1.25 mg/3 mL solution for nebulization 1.25 mg inhalation Q4-6H PRN (Reason: shortness of breath or wheezing) Qty: 75 0RF famotidine 40 mg tablet 40 mg PO DAILY Juluca 50-25 mg tablet 1 tab PO DAILY Rx Instructions: must administer with a meal/food montelukast 10 mg tablet 10 mg PO DAILY Trelegy Ellipta 200-62.5-25 mcg blister with device 1 inh inhalation DAILY 30 Days Qty: 1 6RF famotidine 20 mg tablet 20 mg PO BID PRN (Reason: acid reflux) atorvastatin 10 mg tablet 10 mg PO DAILY Interventions: ED Discharge Assessment Last Done: 10/10/22 16:38 Discharge Date/Time: 10/10/22 16:39 Print Language: Bermudian
[2022-10-10 15:40] LABS: COVID-19 Test Positive (Negative); IDNOW Serial# BCCEAD1C
== END 2022-10-10 16:39 | disposition home or self-care (01) ==
PROVIDERS: Physician Assistant; Emergency Provider Emergency Medicine Emergency Medical Services
DX: U07.1 COVID-19 (principal); R09.89 Other specified symptoms and signs involving the circulatory and respiratory systems; B20 Human immunodeficiency virus [HIV] disease; E03.9 Hypothyroidism, unspecified; R05.9 Cough, unspecified
CPT/HCPCS: 87635; 99282; 99283

== ENCOUNTER 2022-10-21 12:34 | Outpatient (AMB) | payer OTHER, SELFPAY ==
[2022-10-21 12:53] VITALS: BP 132/88; PULSE 96; O2SAT 98; BMI 25.2
--- NOTE | 2022-10-21 12:53 | MHC.OFFVIS ---
Intake Vital Signs 10/21/22 12:53 Height 5 ft 1 in Weight 133 lb 6.075 oz BMI 25.2 BP 132/88 Blood Pressure Location Lt brachial Position Sitting Pulse 96 Pulse Source Doppler Pulse Oximetry (%) 98 Oxygen Delivery Method Room Air Intake Visit Reasons: asthma Allergies blackberry Allergy (Intermediate, Verified 10/21/22 13:00) Itching long Allergy (Intermediate, Verified 10/21/22 13:00) Itching peanut [PEANUT] Allergy (Intermediate, Verified 10/21/22 13:00) RASH Sulfa (Sulfonamide Antibiotics) [SULFA (SULFONAMIDE ANTIBIOTICS)] Allergy (Intermediate, Verified 10/21/22 13:00) HIVES, hives, rash, hives, rash tramadol Allergy (Intermediate, Verified 10/21/22 13:00) nausea strawberry Allergy (Verified 10/21/22 13:00) Itching acetaminophen [Tylenol] Adverse Reaction (Unknown, Verified 10/21/22 13:00) itch animals Allergy (Uncoded 12/10/21 14:06) Itching red fruit Allergy (Uncoded 12/10/21 14:06) Itching tree Allergy (Uncoded 12/10/21 14:06) eye swelling, itch HPI asthma HPI Details 72-year-old lady, former smoker of marijuana, but not tobacco, now followed for moderate to severe persistent asthma and environmental allergies.? Patient previously on Xolair, however now she does not want to using. She states that his symptoms are well controlled on trilogy and albuterol MDI/nebs. She denies recent exacerbations. [facility] Medical History Asthma Asthma Dyslipidemia Fracture of left hip requiring operative repair GERD (gastroesophageal reflux disease) HIV (human immunodeficiency virus infection) Hypothyroidism TIA (transient ischemic attack) Urticaria Verruca Surgical History H/O umbilical hernia repair History of section History of lumbar fusion Hx of colonoscopy Family History Father Cancer Diabetes Mother Cancer Diabetes Brother Colon polyps Social History Housing: Apartment Alcohol intake: never Patient Tobacco Use Status: Former Tobacco user Tobacco use type: Cigarette e-Cigarette/Vaping Use: Never Used Second Hand Smoke Exposure: No service: No Current occupational status: retired Review of Systems Const Denies daytime sleepiness, Denies excessive sweating, Denies fatigue, Denies fever(s), Denies lethargy, Denies malaise, Denies night sweats, Denies snoring and Denies weight loss Eyes Denies blurry vision and Denies itchy eyes ENT Denies nasal congestion, Denies post nasal drip, Denies sinus pain, Denies sinus pressure and Denies other ( Thrush) Card Denies chest pain, Denies pedal edema, Denies dyspnea, Denies orthopnea and Denies paroxysmal nocturnal dyspnea Resp Denies cough, Denies hemoptysis, Denies excessive phlegm production, Denies dyspnea, Denies snoring and Denies wheezing GI Denies abdominal pain and Denies heartburn Musc Denies myalgias, Denies arthralgias and Denies joint swelling Skin/Breast Denies rash Neuro Denies memory loss and Denies seizure-like activity Psych Denies abnormal sleep pattern, Denies anxiety and Denies memory loss Endo Denies excessive sweating, Denies fatigue and Denies heat intolerance Cordell/Lymph Denies easy bruising Aller/Immun Denies itchy eyes, Denies seasonal rhinorrhea and Denies wheezing Physical Exam Vital Signs: Last Vital Signs Pulse 96 10/21/22 12:53 BP 132/88 10/21/22 12:53 Pulse Ox 98 10/21/22 12:53 Oxygen Delivery Method Room Air 10/21/22 12:53 BMI result Body Mass Index 25.2 Const General: no acute distress and alert Nutritional Appearance: not obese Orientation/consciousness: Other orientation findings ( oriented) HEENT Head: Yes atraumatic Eyes General: appearance normal, both eyes and all related structures Sclerae: sclerae normal EOM: EOMs intact bilaterally Neck Neck: Yes supple Lymphatic: no lymphadenopathy noted Resp Effort & Inspection: normal respiratory effort and no use of accessory muscles Auscultation: clear to auscultation bilaterally Cardio Rate: regular rate Rhythm: regular rhythm Heart sounds: no gallops, no murmurs and no rubs Skin General skin exam: other ( warm) Extrem General: No clubbing, No cyanosis and No edema Assessment & Plan Assessment & Plan (1) Asthma: Code(s): J45.909 - Unspecified asthma, uncomplicated Qualifiers: Asthma severity: moderate Asthma persistence: persistent Asthma complication type: uncomplicated Qualified Code(s): J45.40 - Moderate persistent asthma, uncomplicated Plan: Well controlled current regimen of Trelegy and albuterol MDI. Continue current regimen. (2) Environmental allergies: Code(s): Z91.09 - Other allergy status, other than to drugs and biological substances Plan: Patient does not want Xolair therapy at this time. Continue on Singulair. Medications: Refilled elwfnykksps-kczupkocc-drbslhyv 200-62.5-25 mcg (Trelegy Ellipta) 1 inh inhalation DAILY 1 ea 6RF 30 days Discontinued omalizumab (Xolair) Discontinued Reason: Doctor's Order 300 mg (2 mL) subcut Q4W 2 mL 12RF 28 days Coding Level of Care Code Est Pt Level 4 (87192) Diagnoses Asthma J45.40 Asthma severity: moderate Asthma persistence: persistent Asthma complication type: uncomplicated Environmental allergies Z91.09
== END 2022-10-21 13:08 | disposition home or self-care (01) ==
PROVIDERS: PCP Physician Assistant; Visit Provider Internal Medicine Pulmonary Disease
DX: J45.40 Moderate persistent asthma, uncomplicated (principal); Z91.09 Other allergy status, other than to drugs and biological substances
CPT/HCPCS: 99214

== ENCOUNTER → 2022-10-21 12:34 | Outpatient (BNVA) | payer OTHER, SELFPAY | PROVIDERS: Visit Provider Internal Medicine Pulmonary Disease | DX: J45.40 Moderate persistent asthma, uncomplicated (principal); Z91.09 Other allergy status, other than to drugs and biological substances; Z79.899 Other long term (current) drug therapy | CPT/HCPCS: 99212 ==

== ENCOUNTER 2022-11-16 11:07 | Outpatient (AMB) | payer OTHER, SELFPAY ==
[2022-11-16 11:13] VITALS: BP 142/82; PULSE 85; RESP 16; O2SAT 99; BMI 27.7
--- NOTE | 2022-11-16 11:13 | MHC.PC.OV ---
Vital Signs 11/16/22 11:13 Height 4 ft 11 in Weight 137 lb 2 oz BMI 27.7 BP 142/82 H Blood Pressure Location Lt brachial Position Sitting Respiration 16 Pulse 85 Pulse Source Pulse Oximeter Pulse Oximetry (%) 99 Oxygen Delivery Method Room Air Comment pt had 4oz of coffee with cream. Intake Visit Reasons: Transfer of care Intake Note: Pt is here for transfer of care from Dr. Bates. Pt had a fall around June and was not seen at the ER. Pt has been experiencing ongoing pain on the left side of the hip. [employer] Required: Yes [employer] Language: Tamazight Accompanied by: Self / Same As Patient Allergies blackberry Allergy (Intermediate, Verified 11/16/22 11:34) Itching long Allergy (Intermediate, Verified 11/16/22 11:34) Itching peanut [PEANUT] Allergy (Intermediate, Verified 11/16/22 11:34) RASH Sulfa (Sulfonamide Antibiotics) [SULFA (SULFONAMIDE ANTIBIOTICS)] Allergy (Intermediate, Verified 11/16/22 11:34) HIVES, hives, rash, hives, rash tramadol Allergy (Intermediate, Verified 11/16/22 11:34) nausea strawberry Allergy (Verified 11/16/22 11:34) Itching acetaminophen [Tylenol] Adverse Reaction (Unknown, Verified 11/16/22 11:34) itch animals Allergy (Uncoded 11/16/22 11:16) Itching red fruit Allergy (Uncoded 11/16/22 11:16) Itching tree Allergy (Uncoded 11/16/22 11:16) eye swelling, itch Medication List - Last Reconciled 11/16/22 by Armen Bone PA-C albuterol sulfate 1.25 mg (3 mL) inhalation Q4-6H PRN albuterol sulfate 5 mg inhalation Q4H PRN albuterol sulfate 90 mcg/actuation 2 puffs inhalation Q4-6H PRN atorvastatin 10 mg PO DAILY dolutegravir-rilpivirine 50-25 mg (Juluca) 1 tab PO DAILY famotidine 40 mg PO DAILY famotidine 20 mg PO BID PRN ximrptrytvd-orsnmnitz-dbgeedxz 200-62.5-25 mcg (Trelegy Ellipta) 1 inh inhalation DAILY 30 days hydroxyzine HCl 25 mg PO BEDTIME 90 days levothyroxine 88 mcg PO QAM methocarbamol 750 mg PO TID PRN montelukast 10 mg PO DAILY nebulizers (AeroEclipse II Nebulizer) As directed sumatriptan succinate 50 mg PO Q2-4H PRN 30 days Tobacco use date assessed: 07/09/22 Fall risk assessment: 2 + Falls in past year Last assessed Fall Risk: 11/16/22 Dental Screening Dental Screen Date: 11/16/22 Did you have a dental visit in the last 12 months?: No Did you have a dental problem in the last 6 months where you did not have access to dental care?: No Was dental information given to patient?: Patient has dentist HPI Transfer of care HPI Details Pt is a 72 y/o F here today for a transfer of care visit. Patient has a past medical history significant moderate persistent asthma, history of HIV, hypothyroidism migraine disorder. . Concern--> has a warty like lesion over her left side of scalp that she has been using topical [id number] creams on which without much relief. She would like to this lesion removed. Also has history a left total hip replacement secondary to a fracture. She does have hardware in place. She does report a while vacationing in [place] tilting and left hip pain to which she continues to have. She reports pain is mostly on the lateral aspect of her hip that radiates down the lateral thigh which causes her to have a lot of pain while getting up from sitting position. .. Asthma: Patient by [facility] pulmonology and continues and inhaler and albuterol inhaler p.r.n.. She reports her asthma is fairly well controlled does seldomly have asthma exacerbations. She also seems to be suffering with allergies to which bother her eyes, nose and throat. She does use Benadryl which is helpful at night. . HIV: Patient followed by infectious disease specialist and continues on daily antiviral therapy. [facility] Medical History (Updated 11/16/22 @ 11:55 by Armen Bone PA-C) GERD (gastroesophageal reflux disease) Asthma Urticaria Fracture of left hip requiring operative repair HIV (human immunodeficiency virus infection) Hypothyroidism Dyslipidemia Verruca TIA (transient ischemic attack) Asthma Surgical History History of hip replacement, total History of lumbar fusion History of section H/O umbilical hernia repair Hx of colonoscopy Family History Father Cancer Diabetes Mother Cancer Diabetes Brother Colon polyps Social History Housing: Apartment Alcohol intake: never Patient Tobacco Use Status: Former Tobacco user Tobacco use type: Cigarette e-Cigarette/Vaping Use: Never Used Second Hand Smoke Exposure: No service: No Current occupational status: retired Cognitive needs: No Hearing needs: No Vision needs: Yes Questionnaire Thrive Questionnaire Date Thrive assessed: 04/28/21 IAN-7 AMB Questionnaire IAN-7 Date IAN - 7 assessed: 07/09/22 Source: Developed by Drs. Bobo Mccall, Karen Huber, Jason Soria and colleagues, with an educational ramin from [employer]. Review of Systems Const Denies headache(s) Eyes Denies loss of vision ENT Denies vertigo, Denies dizziness, Denies headache(s) and Denies sore throat Card Denies chest pain, Denies leg edema and Denies lightheadedness Resp Denies cough, Denies hemoptysis and Denies wheezing GI Denies abdominal pain, Denies melena, Denies constipation, Denies diarrhea and Denies vomiting Denies urinary frequency, Denies dysuria and Denies urinary urgency Musc Denies arthralgias, Denies joint swelling, Denies numbness and Denies tingling Neuro Denies Abnormal speech present, Denies behavioral changes, Denies vertigo, Denies dizziness, Denies headache(s), Denies loss of vision, Denies memory loss, Denies numbness and Denies tingling Psych Denies anxiety, Denies behavioral changes, Denies depression, Denies memory loss and Denies panic attacks Cordell/Lymph Denies easy bleeding and Denies easy bruising Aller/Immun Denies wheezing Physical exam (Primary Care) Vital Signs: Last Vital Signs Pulse 85 11/16/22 11:13 Resp 16 11/16/22 11:13 BP 142/82 H 11/16/22 11:13 Pulse Ox 99 11/16/22 11:13 Oxygen Delivery Method Room Air 11/16/22 11:13 BMI result Body Mass Index 27.7 Tobacco/Smoking Status: Tobacco use Status Tobacco use date assessed 07/09/22 11/16/22 11:23 Patient Tobacco Use Status Former Tobacco user 11/16/22 11:23 Tobacco use type Cigarette 11/16/22 11:23 e-Cigarette/Vaping Use Never Used 11/16/22 11:23 Thrive Assessment: Date of Thrive Assessment Date Thrive assessed 04/28/21 11/16/22 11:23 Const General: healthy appearing, no acute distress, alert and awake Nutritional Appearance: well nourished Orientation/consciousness: oriented to person, oriented to place and oriented to time HENMT Ears: TM's normal bilaterally General nose exam: Normal nasal mucous membranes and turbinates present Eyes Conjunctivae: conjunctivae normal Sclerae: sclerae normal Pupils: Equal, round and reactive pupils present Neck Neck: Yes no lymphadenopathy and Yes no JVD Thyroid: Thyroid normal Carotids: no bruits Resp Effort & Inspection: normal respiratory effort and not tachypneic Auscultation: no crackles, no rales, no rhonchi and no wheezes Cardio Rate: regular rate Rhythm: regular rhythm Heart sounds: no murmurs and normal S1 and S2 GI Palpation (GI): Soft to palpation, nontender, no hepatomegaly and no splenomegaly Auscultation: normal bowel sounds Skin General skin exam: no rashes or lesions noted and dry skin Neuro General: oriented to person, oriented to place and oriented to time Cranial nerves: Yes Equal, round and reactive pupils present Speech: No Abnormal speech present Gait exam (Neuro): Normal gait present Motor exam (neuro): no tremor noted Extrem Right upper extremity: full ROM Left upper extremity: full ROM Right lower extremity: full ROM; no edema Left lower extremity: full ROM; no edema Psych Mental Status: mental status grossly normal Speech and movement: Normal speech and movement present Affect: normal affect Attitude: cooperative Thought process: Normal thought process present Assessment and Plan Assessment & Plan (1) HIV (human immunodeficiency virus infection): Code(s): B20 - Human immunodeficiency virus [HIV] disease Qualifiers: HIV symptom status: asymptomatic, with no history of HIV-related illness Qualified Code(s): Z21 - Asymptomatic human immunodeficiency virus [HIV] infection status Plan: Followed by HIV specialist. Continues on daily antiviral therapy. (2) Dyslipidemia: Code(s): E78.5 - Hyperlipidemia, unspecified Plan: Continues on statin therapy. Will check fasting lipid panel to assure normal. Goal LDL to be below 130 (3) Iliotibial band tendinitis of left side: Code(s): M76.32 - Iliotibial band syndrome, left leg Plan: Seems to be suffering with iliotibial band tendinitis and greater trochanteric bursitis which he would likely benefit from physical therapy. (4) Hypothyroidism: Code(s): E03.9 - Hypothyroidism, unspecified Qualifiers: Hypothyroidism type: acquired Qualified Code(s): E03.9 - Hypothyroidism, unspecified Plan: Patient continues on daily use of levothyroxine 88 mcg. Will repeat check TSH to assure normal. (5) Asthma: Code(s): J45.909 - Unspecified asthma, uncomplicated Qualifiers: Asthma complication type: uncomplicated Asthma persistence: persistent Asthma severity: moderate Qualified Code(s): J45.40 - Moderate persistent asthma, uncomplicated Plan: Patient followed by pulmonology. She does report having some asthma exacerbations at times related to her allergies and changes in weather. (6) Left hip pain: Code(s): M25.552 - Pain in left hip Plan: Has a history of left hip fracture and replacement. She does report having some lateral hip pain after a fall. Will send for x-ray to evaluate hardware placement. (7) Wart of scalp: Code(s): B07.9 - Viral wart, unspecified (8) Conjunctiva disorder: Code(s): H11.9 - Unspecified disorder of conjunctiva Plan: Seems to be suffering with allergic conjunctivitis. Advised on antihistamine eyedrops and use of daily antihistamine therapy. Orders: Orders TSH reflex Free T4 Today E03.9 - Hypothyroidism, unspecified Comprehensive [facility]. Panel Fast Today E78.5 - Hyperlipidemia, unspecified PT Evaluation and Treatment Today M76.32 - Iliotibial band syndrome, left leg XR hip LT min 2V Today M25.552 - Pain in left hip Lipid Panel Today E78.5 - Hyperlipidemia, unspecified Referrals General Surgery Referral B07.9 - Viral wart, unspecified Medications: New gabapentin 100 mg PO DAILY 15 days PRN 15 caps 1RF pain (scale score 7-10) G56.90 - Unspecified mononeuropathy of unspecified upper limb loratadine 10 mg PO DAILY 90 days 90 tabs 1RF H11.9 - Unspecified disorder of conjunctiva olopatadine 0.2% (Pataday Once Daily Relief) 1 drp ophthalmic (eye) DAILY 30 days 2.5 mL 1RF H11.9 - Unspecified disorder of conjunctiva Coding Level of Care Code Est Pt Level 4 (37225) Diagnoses Asymptomatic HIV infection, with no history of HIV-related illness Z21 HIV symptom status: asymptomatic, with no history of HIV-related illness Dyslipidemia E78.5 Iliotibial band tendinitis of left side M76.32 Acquired hypothyroidism E03.9 Hypothyroidism type: acquired Moderate persistent asthma without complication J45.40 Asthma complication type: uncomplicated Asthma persistence: persistent Asthma severity: moderate Left hip pain M25.552 Wart of scalp B07.9 Conjunctiva disorder H11.9
== END 2022-11-16 12:01 | disposition home or self-care (01) ==
PROVIDERS: PCP Internal Medicine; Visit Provider Physician Assistant
DX: Z21 Asymptomatic human immunodeficiency virus [HIV] infection status (principal); E03.9 Hypothyroidism, unspecified; J45.40 Moderate persistent asthma, uncomplicated; E78.5 Hyperlipidemia, unspecified; M76.32 Iliotibial band syndrome, left leg; M25.552 Pain in left hip; B07.9 Viral wart, unspecified; H11.9 Unspecified disorder of conjunctiva
CPT/HCPCS: 99214

== ENCOUNTER 2022-11-20 10:35 | Outpatient (REF) | payer OTHER, SELFPAY ==
--- NOTE | ~2022-11-20 | XR_ITS ---
EXAMINATION: XR HIP, LEFT CLINICAL INFORMATION: Pain COMPARISON: Hip radiograph 08/08/2020 TECHNIQUE: Two views of the left hip. 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 Mild degenerative changes of the hip with degenerative spurring. No evidence of hardware fracture or complication. Calcified phleboliths in the pelvis. Desiccated stool within the rectum. No acute fracture or dislocation. XR/XR hip LT min 2V IMPRESSION: 1. 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 No evidence of hardware fracture or complication. 2. Mild degenerative changes of the hip.
[2022-11-20 12:41] LABS: Alanine Aminotransferase 6 U/L (0-31); Albumin Level 4.3 g/dL (3.5-5.0); Alkaline Phosphatase 116 U/L (39-117); Anion Gap 13 (12-20); Aspartate Amino Transferase 21 U/L (5-31); Bilirubin Total 0.4 mg/dL (0.0-1.0); Blood Urea Nitrogen 13 mg/dL (9-16); Calcium 9.3 mg/dL (8.4-10.2); Carbon Dioxide 29 mmol/L (22-29); Chloride 105 mmol/L (96-108); Cholesterol 262 mg/dL (<200); Estimated Glomerular Filt Rate 57; Glucose Fasting 96 mg/dL (60-99); HDL Cholesterol 67 mg/dL (>40); LDL Cholesterol Calculated 172 mg/dL (<100); Potassium 4.3 mmol/L (3.3-5.1); Sodium 143 mmol/L (135-145); TSH reflex Free T4 15.52 uIU/mL (0.32-4.0); Total Protein 7.6 g/dL (6.5-8.0); Triglycerides 116 mg/dL (<150)
[2022-11-20 13:11] LABS: Free T4 (Free Thyroxine) 0.84 ng/dL (0.71-1.85)
== END 2022-11-20 10:36 | disposition home or self-care (01) ==
LOC: HO.LAB 10:35
PROVIDERS: PCP Physician Assistant; Visit Provider Physician Assistant
DX: E03.9 Hypothyroidism, unspecified (principal); E78.5 Hyperlipidemia, unspecified; M25.552 Pain in left hip
CPT/HCPCS: 36415; 73502; 80053; 80061; 84439; 84443

== ENCOUNTER 2022-11-30 10:19 | Outpatient (REF) | payer OTHER, SELFPAY ==
[2022-11-30 11:03] LABS: MANUAL DIFF FLAG NO
[2022-11-30 12:04] LABS: Basophils Absolute Auto 0.1 X10*3/uL (0.0-0.2); Basophils Percent Auto 1.2 % (0-2); Eosinophils Absolute Auto 0.2 X10*3/uL (0.0-0.4); Eosinophils Percent Auto 3.8 % (0-4); Hemoglobin 14.7 g/dl (12.0-16.0); Imm Gran Abs Auto 0.01 X10*3/uL (0.00-0.03); Imm Gran Pct Auto 0.2 % (0.0-0.4); Lymphocytes Absolute Auto 1.5 X10*3/uL (1.2-4.9); Lymphocytes Percent Auto 25.2 % (20-40); Mean Corpuscular HGB Conc 33.4 g/dl (31.0-35.0); Mean Corpuscular Hemoglobin 31.9 pg (27.0-33.0); Mean Corpuscular Volume 95.4 fL (80.0-98.0); Monocytes Absolute Auto 0.6 X10*3/uL (0.1-1.2); Monocytes Percent Auto 10.2 % (2-11); Neutrophils Absolute Auto 3.4 x10*3/uL (2.0-8.3); Neutrophils Percent Auto 59.4 % (45-73); Platelet Count 300 X10*3/uL (160-400); Red Blood Count 4.61 X10*6/uL (4.20-5.50); Red Cell Distribution Width 13.6 % (11.0-16.0); White Blood Count 5.8 X10*3/uL (4.8-10.8)
[2022-11-30 12:53] LABS: HBsAGNum1 0.43 S/CO (0.00-0.99); Hepatitis B Surface Antigen Negative (Negative); Syphilis Screen Nonreactive (Nonreactive); ~HepC Num1 0.04 S/CO (0.00-0.79); ~Hepatitis C Antibody Nonreactive (Nonreactive)
[2022-11-30 12:58] LABS: Alanine Aminotransferase 7 U/L (0-31); Anion Gap 15 (12-20); Aspartate Amino Transferase 19 U/L (5-31); Carbon Dioxide 27 mmol/L (22-29); Chloride 104 mmol/L (96-108); Estimated Glomerular Filt Rate > 60; Potassium 3.7 mmol/L (3.3-5.1); Sodium 142 mmol/L (135-145)
[2022-11-30 13:38] LABS: CT PCR NOT DETECTED (Not Detect.); NG PCR NOT DETECTED (Not Detect.)
[2022-12-01 07:23] LABS: Absolute CD3 Count 875 cells/uL (840-3060); Absolute CD4 Count 470 cells/uL (490-1740); Absolute CD8 Count 424 cells/uL (180-1170); Absolute Lymphocytes 1654 cells/uL (850-3900); CD4 CD8 Ratio 1.11 (0.86-5.00); Percent CD3 Cells 53 % (57-85); Percent CD4 Cells 28 % (30-61); Percent CD8 Cells 26 % (12-42)
[2022-12-02 09:09] LABS: Hepatitis B Viral DNA Qn - cp NOT DETECTED Log IU/mL (NOT DETECTED); Hepatitis B Viral DNA Qn-IU/mL NOT DETECTED (NOT DETECTED)
[2022-12-02 19:18] LABS: HIV RNA PCR Qn Copies NOT DETECTED copies/mL (NOT DETECTED); HIV RNA PCR Qn Log Copies NOT DETECTED (NOT DETECTED)
== END 2022-11-30 10:20 | disposition home or self-care (01) ==
LOC: HO.LAB 10:19
PROVIDERS: PCP Physician Assistant; Visit Provider Internal Medicine Infectious Disease
DX: B20 Human immunodeficiency virus [HIV] disease (principal)
CPT/HCPCS: 0353U; 80051; 82565; 84450; 84460; 85025; 86359; 86360; 86780; 86803; 87340; 87517; 87536

== ENCOUNTER 2023-01-11 12:37 | Emergency (ER) | payer OTHER, SELFPAY ==
--- NOTE | ~2023-01-11 | CT_ITS ---
EXAMINATION: CT ABDOMEN AND PELVIS WITH CONTRAST CLINICAL INFORMATION: lower abdominal pain mucousy bloody stools COMPARISON: 11/20/2019 CT scan TECHNIQUE: Multidetector volumetric imaging was performed from the superior aspect of the liver through the pubic symphysis following administration of 85 mL Omnipaque 300 intravenous contrast. Sagittal and coronal reformatted images were obtained on the technologist workstation.. This CT examination was performed using dose optimization techniques as appropriate, variously including the following: *Automated exposure control *Adjustment of mA and/or kV according to patient size (this includes techniques or standardized protocols for targeted exams where dose is matched to indication/reason for exam; i.e. extremities or head) *Use of iterative reconstruction technique DLP: 458 mGy-cm FINDINGS: LUNG BASES: Mild bibasilar dependent atelectasis LIVER, GALLBLADDER, AND BILIARY TREE: The liver is normal in size, shape, and attenuation. No focal hepatic lesion or biliary ductal dilatation is present. The gallbladder is unremarkable with no evidence of radiopaque gallstones, gallbladder wall thickening, or obvious pericholecystic inflammatory changes. PANCREAS: Unfortunately there is new pancreatic ductal dilatation extending up to the region of the ampulla where there is a very subtle 1 cm hypoattenuating lesions seen. Although this is near the ampulla, the common bile duct does not appear to be abnormally dilated with this appearance, a subtle pancreatic mass lesion would be suspected. Correlation with dedicated ERCP and endoscopic ultrasound or pancreatic MRI would be recommended to exclude underlying pancreatic malignancy. No peripancreatic inflammatory changes or fluid SPLEEN: Unremarkable. ADRENAL GLANDS: Unremarkable. KIDNEYS AND URETERS: The kidneys are normal in size, shape, and attenuation. No hydronephrosis, hydroureter, or calculi seen. No perinephric stranding. BLADDER: Unremarkable. GASTROINTESTINAL TRACT: There is scattered colonic diverticulosis. Main abnormality of note is diffuse colonic wall thickening in the region of the mid transverse colon to mid descending colon appearance is likely due to underlying infectious or inflammatory colitis and likely the source of the patient's current symptoms. No obstructive changes to the more proximal bowel. Visualized small bowel unremarkable ABDOMINAL WALL: No significant hernia is appreciated. LYMPHOVASCULAR STRUCTURES: No lymphadenopathy. The aorta is unremarkable. PELVIC VISCERA: Unremarkable. OSSEOUS STRUCTURES: Extensive multilevel degenerative changes in the spine CT/CT abdomen pelvis w IV con IMPRESSION: 1. Unfortunately there is new pancreatic ductal dilatation extending up to the region of the ampulla where there is a very subtle 1 cm hypoattenuating lesion seen in the inferior pancreatic head. Although this is near the ampulla, the common bile duct does not appear to be abnormally dilated. With this appearance, a subtle pancreatic mass lesion would be suspected. Correlation with dedicated ERCP and endoscopic ultrasound or pancreatic MRI would be recommended to exclude underlying pancreatic malignancy. 2. There is diffuse colonic wall thickening in the region of the mid transverse colon to mid descending colon. The appearance is likely due to underlying infectious or inflammatory colitis and likely the source of the patient's current symptoms. This critical result was discussed with Dr Camara at 01/11/2023 5:59 PM and it was ascertained that the content and urgency of the report was understood at the time of direct communication.
[2023-01-11 13:01] VITALS: BP 151/64; PULSE 83; RESP 18; TEMP 36.6; O2SAT 98; BMI 24.9
--- NOTE | 2023-01-11 13:04 | ED_ITS ---
HPI - General Adult General Chief complaint: Abdominal Pain Stated complaint: Lower abd pain Time Seen by Provider: 01/11/23 15:05 Source: patient, old records reviewed and seismic interpreter Mode of arrival: ambulatory Limitations: no limitations History of Present Illness HPI narrative: 73 yo female with PMH of GERD, hypothyroidism, athma, migraines, HLD, HIV on HAART without any illness here with c/o 3 days of lower abdominal cramping, not feeling well, significant diarrhea that is now mucousy and at times streaked with blood or dark. No travel, abx use. But this started the day after she went to a [employer] and ate a lot of shrimp. She reports regular normal colonoscopy. No bleeding today. MD complaint: abdominal pain diarrhea Onset (ago): day(s) (3) Location: abdomen Radiation: non-radiation Severity: moderate Quality: other (cramping) Pain Consistency: intermittent Relieving factors: none Exacerbating factors: eating Associated symptoms: loss of appetite and other (diarrhea) Treatments prior to arrival: none Related Data Home Medications Medication Instructions Recorded Confirmed famotidine 40 mg tablet 40 mg PO DAILY 02/29/20 11/16/22 dolutegravir 50 mg-rilpivirine 25 1 tab PO DAILY 12/11/20 11/16/22 mg tablet (Juluca) atorvastatin 10 mg tablet 10 mg PO DAILY 07/20/22 11/16/22 famotidine 20 mg tablet 20 mg PO BID PRN acid reflux 07/20/22 11/16/22 Previous Rx's Medication Instructions Recorded nebulizers (AeroEclipse II #1 ea 11/08/21 Nebulizer) sumatriptan succinate 50 mg tablet 50 mg PO Q2-4H PRN migraine 11/08/21 headache 30 days #9 tabs methocarbamol 750 mg tablet 750 mg PO TID PRN pain (scale 07/07/22 score 4-6) #14 tabs albuterol sulfate 1.25 mg/3 mL 1.25 mg (3 mL) inhalation Q4-6H 08/04/22 solution for nebulization PRN shortness of breath or wheezing #75 mL albuterol sulfate 2.5 mg/0.5 mL 5 mg inhalation Q4H PRN shortness 09/28/22 solution for nebulization of breath or wheezing #30 ea albuterol sulfate 90 mcg/actuation 2 puff inhalation Q4-6H PRN 09/28/22 aerosol inhaler shortness of breath or wheezing #6.7 grams fluticasone fur. 200 mcg-umeclid 1 inh inhalation DAILY 30 days #1 10/21/22 62.5 mcg-vilant 25 mcg ea inhalat.powder (Trelegy Ellipta) gabapentin 100 mg capsule 100 mg PO DAILY PRN pain (scale 11/16/22 score 7-10) 15 days #15 caps loratadine 10 mg tablet 10 mg PO DAILY 90 days #90 tabs 11/16/22 olopatadine 0.2 % eye drops 1 drp ophthalmic (eye) DAILY 30 11/16/22 (Pataday Once Daily Relief) days #2.5 mL levothyroxine 112 mcg tablet 112 mcg PO DAILY 30 days #30 tabs 11/25/22 hydroxyzine HCl 25 mg tablet 25 mg PO BEDTIME 90 days #90 tabs 12/18/22 Allergies Allergy/AdvReac Type Severity Reaction Status Date / Time blackberry Allergy Intermediate Itching Verified 11/16/22 11:34 long Allergy Intermediate Itching Verified 11/16/22 11:34 peanut [PEANUT] Allergy Intermediate RASH Verified 11/16/22 11:34 Sulfa (Sulfonamide Allergy Intermediate HIVES, Verified 11/16/22 11:34 Antibiotics) hives, [SULFA (SULFONAMIDE rash, ANTIBIOTICS)] hives, rash tramadol Allergy Intermediate nausea Verified 11/16/22 11:34 strawberry Allergy Itching Verified 11/16/22 11:34 acetaminophen [Tylenol] AdvReac Unknown itch Verified 11/16/22 11:34 animals Allergy Itching Uncoded 11/16/22 11:16 red fruit Allergy Itching Uncoded 11/16/22 11:16 tree Allergy eye Uncoded 11/16/22 11:16 swelling, itch Review of Systems 2 Review of Systems: Constitutional : No Weight loss, No Fever, No Chills ENT/Mouth : No sore throat, No Rhinorrhea Eyes: No Swelling, No Redness Cardiovascular : No Chest Pain, No SOB, NoEdema Respiratory : No Cough, No Sputum, No Wheezing Gastrointestinal : Positive Nausea, no Vomiting, positive Diarrhea, positive abdominal Pain, pos Hematochezia, No Melena Genitourinary : No Dysuria, No Urinary Frequency, No Hematuria, No Urgency Musculoskeletal : No joint pain, No Myalgias, No Joint Swelling Skin : No Skin Lesions, No rash Neuro : No Weakness, No Numbness, No Dizziness, No Headache Psych : No Anxiety/Panic, No Depression All other systems reviewed and are negative. [facility] Past Medical History Attestation statement: The following information was validated with the patient. Source: old records reviewed Medical History Conjunctiva disorder Wart of scalp COVID-19 Upper extremity neuropathy Right shoulder pain Right arm pain Physical exam Cough Environmental allergies Left hip pain Left shoulder tendinitis Left shoulder pain GERD (gastroesophageal reflux disease) Asthma Urticaria Fracture of left hip requiring operative repair HIV (human immunodeficiency virus infection) Hypothyroidism Dyslipidemia Verruca TIA (transient ischemic attack) Asthma Surgical History History of hip replacement, total History of lumbar fusion History of section H/O umbilical hernia repair Hx of colonoscopy Family History Family History Father Cancer Diabetes Mother Cancer Diabetes Brother Colon polyps Social History Social History Housing: Apartment Alcohol intake: never Patient Tobacco Use Status: Former Tobacco user Tobacco use type: Cigarette Smoked in Last 30 Days: No e-Cigarette/Vaping Use: Never Used Second Hand Smoke Exposure: No Use of substances other than those prescribed or required for medical reasons: Yes Substance Use Type: Marijuana Advance Directives: No Advance Directives Information Provided: Yes service: No Current occupational status: retired Cognitive needs: No Hearing needs: No Vision needs: Yes Physical Exam ED Vital Signs: Vital Signs - 24 hr 01/11/23 13:01 Temperature 97.8 F Pulse Rate 83 Respiratory Rate 18 Blood Pressure 151/64 H Pulse Oximetry 98 Oxygen Delivery Method Room Air BMI result Body Mass Index 24.9 Appearance: Alert. Oriented X3. No acute distress. Eyes: Pupils equal, round and reactive to light. ENT: Pharynx normal. Neck: Normal inspection. Neck supple. CVS: Normal heart rate and rhythm. Pulses normal. Respiratory: No respiratory distress. Breath sounds normal. Abdomen: Soft and mild LLQ pain Rectal: loose brownish mucous stool Skin: Skin warm and dry. Normal skin color. Normal skin turgor. Extremities: No lower extremity edema. No calf ttp Neuro: Oriented X 3. No motor deficit. No sensory deficit. Course Course Course Narrative: RME performed by Belle Goetz PA-C. Patient is a 73 year old assigned female at presenting to the emergency department with abdominal pain and diarrhea. Labs and swabs ordered. Patient placed back in the waiting room pending room availability and results. Reevaluation(s) Reevaluation #1: signed out to Dr. Campos pending CT scan and further lab studies Medical Decision Making Medical Decision Making MDM Narrative: 73 yo female with PMH of GERD, hypothyroidism, athma, migraines, HLD, HIV on HAART without any illness here with 3 days of abdominal cramping, diarrhea that is mucous sometimes blood after eating shrimp at [employer] at this time will obtain labs, stool study, UA and CT scan for possible colitis. Has never had colitis and all symptoms started after eating shrimp. Differential Diagnosis Differential Diagnoses: The differential diagnosis associated with the presentation includes enteritis, colitis, diarrhea Admission/Observation Consideration of admission/observation: Escalation of care including admission/observation considered Lab Data [facility] Lab Attestation statement: I reviewed the patient's lab results. 01/11/23 13:22 01/11/23 13:22 Labs: Lab Results 01/11/23 01/11/23 01/11/23 Range/Units 13:18 13:22 15:34 WBC 8.2 (4.8-10.8) X10*3/uL RBC 4.67 (4.20-5.50) X10*6/uL Hgb 14.6 (12.0-16.0) g/dl Hct 44.0 (37.0-47.0) % MCV 94.2 (80.0-98.0) fL MCH 31.3 (27.0-33.0) pg MCHC 33.2 (31.0-35.0) g/dl RDW 13.0 (11.0-16.0) % Plt Count 276 (160-400) X10*3/uL MPV 9.0 L (9.4-12.3) fL Immature Gran % (Auto) 0.1 (0.0-0.4) % Neut % (Auto) 60.6 (45-73) % Lymph % (Auto) 28.2 (20-40) % Spencer % (Auto) 8.2 (2-11) % Eos % (Auto) 2.4 (0-4) % Baso % (Auto) 0.5 (0-2) % Lymph # (Auto) 2.3 (1.2-4.9) X10*3/uL Spencer # (Auto) 0.7 (0.1-1.2) X10*3/uL Eos # (Auto) 0.2 (0.0-0.4) X10*3/uL Baso # (Auto) 0.0 (0.0-0.2) X10*3/uL Abs Immat Gran (auto) 0.01 (0.00-0.03) X10*3/uL Absolute Neuts (auto) 5.0 (2.0-8.3) x10*3/uL Absolute Nucleated RBC 0.000 (0.0-0.012) X10*3/uL Nucleated RBC % (auto) 0.0 (0.0-0.2) /100WBC Sodium 143 (135-145) mmol/L Potassium 3.7 (3.3-5.1) mmol/L Chloride 104 (96-108) mmol/L Carbon Dioxide 28 (22-29) mmol/L Anion Gap 15 (12-20) BUN 14 (9-16) mg/dL Creatinine 0.84 (0.5-1.4) mg/dL Estim Creat Clear Calc 50.2 Estimated GFR > 60 Random Glucose 98 (60-115) mg/dL Calcium 9.4 (8.4-10.2) mg/dL Magnesium 2.2 (1.6-2.6) mg/dL Total Bilirubin 0.4 (0.0-1.0) mg/dL AST 21 (5-31) U/L ALT 11 (0-31) U/L Alkaline Phosphatase 96 (39-117) U/L Total Protein 7.2 (6.5-8.0) g/dL Albumin 4.1 (3.5-5.0) g/dL Urine Color Yellow Urine Appearance Clear Urine pH 6.0 (5.0-9.0) Ur Specific [place] 1.020 (1.005-1.025) Urine Protein Negative (Neg-Trace) mg/dL Urine Glucose (UA) Negative (Negative) mg/dL Urine Ketones Negative (Negative) mg/dL Urine Blood Small (1+) H (Negative) Urine Nitrite Negative (Negative) Ur Leukocyte Esterase Trace H (Negative) Urine RBC 11-20 H (0-2) /HPF Urine WBC 0-5 (0-5) /HPF Ur Squamous Epith Cells 0-2 (0-2) /HPF Urine Bacteria None Seen (None Seen) Hyaline Casts 0-2 (0-2) /LPF Stool Occult Blood NEGATIVE (NEGATIVE) Influenza Type A (PCR) NEGATIVE (Negative) Influenza Type B (PCR) NEGATIVE (Negative) RSV RNA Qual (PCR) NEGATIVE (Negative) SARS-CoV-2 RNA (RT-PCR) NEGATIVE (Negative) Independent Interpretation I performed an independent interpretation of an: CT Scan Independent Historian Clinical information obtained from an independent historian. History obtained from or confirmed by: Other (sister) External Record Review External record reviewed: Inpatient record Chronic Conditions Patient?s care impacted by: Other (HIV) Discharge Plan Discharge Clinical Impression: Acute diarrhea Abdominal pain Qualifiers: Abdominal location: lower abdomen, unspecified Qualified Code(s): R10.30 - Lower abdominal pain, unspecified Patient Disposition: Still a Patient Prescriptions: No Action sumatriptan succinate 50 mg tablet 50 mg PO Q2-4H PRN (Reason: migraine headache) 30 Days Qty: 9 0RF Rx Instructions: do not exceed 4 doses per 24 hrs (DME) AeroEclipse II Nebulizer Misc See Rx Instructions .Route Qty: 1 0RF Rx Instructions: As directed levothyroxine 112 mcg tablet 112 mcg PO DAILY 30 Days Qty: 30 1RF hydroxyzine HCl 25 mg tablet 25 mg PO BEDTIME 90 Days Qty: 90 0RF albuterol sulfate 90 mcg/actuation HFA aerosol inhaler 2 puff inhalation Q4-6H PRN (Reason: shortness of breath or wheezing) Qty: 6.7 0RF albuterol sulfate 2.5 mg/0.5 mL solution for nebulization 5 mg inhalation Q4H PRN (Reason: shortness of breath or wheezing) Qty: 30 0RF methocarbamol 750 mg tablet 750 mg PO TID PRN (Reason: pain (scale score 4-6)) Qty: 14 0RF albuterol sulfate 1.25 mg/3 mL solution for nebulization 1.25 mg inhalation Q4-6H PRN (Reason: shortness of breath or wheezing) Qty: 75 0RF famotidine 40 mg tablet 40 mg PO DAILY Juluca 50-25 mg tablet 1 tab PO DAILY Rx Instructions: must administer with a meal/food loratadine 10 mg tablet 10 mg PO DAILY 90 Days Qty: 90 1RF olopatadine [Pataday Once Daily Relief] 0.2 % drops 1 drp ophthalmic (eye) DAILY 30 Days Qty: 2.5 1RF gabapentin 100 mg capsule 100 mg PO DAILY PRN (Reason: pain (scale score 7-10)) 15 Days Qty: 15 1RF Trelegy Ellipta 200-62.5-25 mcg blister with device 1 inh inhalation DAILY 30 Days Qty: 1 6RF famotidine 20 mg tablet 20 mg PO BID PRN (Reason: acid reflux) atorvastatin 10 mg tablet 10 mg PO DAILY
[2023-01-11 13:26] LABS: MANUAL DIFF FLAG NO
[2023-01-11 13:27] LABS: Basophils Percent Auto 0.5 % (0-2); Eosinophils Absolute Auto 0.2 X10*3/uL (0.0-0.4); Eosinophils Percent Auto 2.4 % (0-4); Hemoglobin 14.6 g/dl (12.0-16.0); Imm Gran Abs Auto 0.01 X10*3/uL (0.00-0.03); Imm Gran Pct Auto 0.1 % (0.0-0.4); Lymphocytes Absolute Auto 2.3 X10*3/uL (1.2-4.9); Lymphocytes Percent Auto 28.2 % (20-40); Mean Corpuscular HGB Conc 33.2 g/dl (31.0-35.0); Mean Corpuscular Hemoglobin 31.3 pg (27.0-33.0); Mean Corpuscular Volume 94.2 fL (80.0-98.0); Monocytes Absolute Auto 0.7 X10*3/uL (0.1-1.2); Monocytes Percent Auto 8.2 % (2-11); Neutrophils Percent Auto 60.6 % (45-73); Platelet Count 276 X10*3/uL (160-400); Red Blood Count 4.67 X10*6/uL (4.20-5.50); White Blood Count 8.2 X10*3/uL (4.8-10.8)
[2023-01-11 13:41] LABS: Alanine Aminotransferase 11 U/L (0-31); Albumin Level 4.1 g/dL (3.5-5.0); Alkaline Phosphatase 96 U/L (39-117); Anion Gap 15 (12-20); Aspartate Amino Transferase 21 U/L (5-31); Bilirubin Total 0.4 mg/dL (0.0-1.0); Blood Urea Nitrogen 14 mg/dL (9-16); Calcium 9.4 mg/dL (8.4-10.2); Carbon Dioxide 28 mmol/L (22-29); Chloride 104 mmol/L (96-108); Creatinine Clr Calc Pharmacy 50.2; Estimated Glomerular Filt Rate > 60; Glucose Random 98 mg/dL (60-115); Magnesium 2.2 mg/dL (1.6-2.6); Potassium 3.7 mmol/L (3.3-5.1); Sodium 143 mmol/L (135-145); Total Protein 7.2 g/dL (6.5-8.0)
[2023-01-11 14:14] LABS: Influenza A PCR NEGATIVE (Negative); Influenza B PCR NEGATIVE (Negative); Resp Syncy Virus RNA Qual PCR NEGATIVE (Negative); SARS COV2 PCR INHOUSE NEGATIVE (Negative)
--- OUTSIDE RECORDS SUMMARY | 2023-01-11 15:09 | XMS_ITS | Continuity of Care Document ---
Author Name Unknown Organization [facility] Address [address] [place] [address]- Care Team Providers Care Machine Repairman Name Role Phone Kvng Saha DO Primary Care Physician [phone] Encounter [facility] Date(s): 04/03/21 - 05/25/[address] [address]- Attending Physician: Idania Altamirano OD, I Admitting Physician: Idania Altamirano OD, I Allergies, Adverse Reactions, Alerts Substance Reaction Severity Status sulfADIAZINE hives Persistent Moderate Active Immunizations Given and Recorded Vaccine Date Status Refusal Reason pneumococcal 23-valent vaccine 03/24/17 Given influenza virus vaccine, inactivated 1 12/01/16 Gi gabino influenza virus vaccine, inactivated 2 01/04/15 Gi gabino influenza virus vaccine, inactivated 12/08/13 Give n tetanus/diphtheria/pertussis, acel(Tdap) 12/08/13 Given 1Result Comment: [12/01/2016] [facility] 59588-527-47 2Result Comment: [01/04/2015] VIS in Greek given with service order expediter Aroldo Medications acetaminophen-HYDROcodone 325 mg-5 mg oral tablet 1 tablet, By Mouth, Every 12 hours, PRN for pain, # 56 tablet, 0 Refills, Maintenance, 11/22/17 9:55:53 EDT, Tablet Start Date: 11/22/17 Status: Ordered aspirin 81 mg oral tablet 1 tablet = 81 mg, By Mouth, Daily, # 90 tablet, 3 Refills, Maintenance, 09/13/17 16:10:47 EDT, Tablet Start Date: 09/13/17 Status: Ordered Calcium 600 +D oral tablet 2 tablets, By Mouth, Daily, # 180 tablet, 4 Refills, Maintenance, 06/11/17 14:40:35 EDT, Tablet, 2 tablets By Mouth Daily,x90 days Start Date: 06/11/17 Stop Date: 09/04/18 Status: Ordered diclofenac 1% topical gel = 4 Gm, Topically, 4 times a day, PRN for pain, # 100 Gm, 3 Refills, Maintenance, 10/01/17 14:48:43EDT, Gel, 4 Gm Topically 4 times a day,x30 days,PRN:for pain Start Date: 10/01/17 Stop Date: 01/29/18 Status: Ordered Genvoya oral tablet 1 tablet, By Mouth, Daily, with food, # 30 tablet, 5 Refills, Maintenance, 09/20/17 16:02:53 EDT, Tablet, 1 tablet By Mouth Daily,Instr:with food Start Date: 09/20/17 Status: Ordered Grabber tool Grabber tool, See Instructions, # 1 each, Refills 0, Tot. Refills 0, Maintenance, Dx: Left hip fracture, impaired mobility, fall risk Duration of need: 3 months, 08/30/17 15:52:29 EDT, Compound Start Date: 08/30/17 Status: Ordered hydrOXYzine hydrochloride 25 mg oral tablet 1 tablet = 25 mg, By Mouth, 3 times a day, PRN for anxiety, # 40 tablet, 5 Refills, Maintenance, 01/25/18 23:38:11 EST, Tablet Start Date: 01/25/18 Status: Ordered levothyroxine 0.088 mg oral tablet 1 tablet = 88 mcg, By Mouth, Daily, take at 7am before food, # 30 tablet, 3 Refills, Maintenance, 08/30/17 15:21:16 EDT, Tablet Start Date: 08/30/17 Status: Ordered loratadine 10 mg oral tablet 10 mg, 1, tablet, By Mouth, Daily, label in Greek. for allergies, # 30 tablet, Refills 5, Tot. Refills 5, Maintenance, 08/30/17 15:21:34 EDT, Route to Pharmacy Electronically, [id number], [facility] [place], [place] -... Start Date: 08/30/17 Stop Date: 02/26/18 Status: Ordered omeprazole 40 mg oral enteric coated capsule 1 capsule = 40 mg, By Mouth, Daily, # 30 capsule, 2 Refills, Maintenance, 11/20/17 7:58:12 EDT, EC Capsule Start Date: 11/20/17 Status: Ordered Ventolin HFA 108 mcg/inh inhalation aerosol with adapter 2 puffs, Inhalation, 4 times a day, PRN for wheezing, # 1 each, 11 Refills, Maintenance, 01/25/18 23:38:11 EST, Aerosol Start Date: 01/25/18 Stop Date: 01/20/19 Status: Ordered verapamil 40 mg oral tablet 1 tablet = 40 mg, By Mouth, 3 times a day, # 90 tablet, 5 Refills, Maintenance, 08/30/17 15:19:56 EDT Start Date: 08/30/17 Status: Ordered Wellbutrin XL 300 mg/24 hours oral tablet, extended release 1 tablet = 300 mg, By Mouth, Daily, # 30 tablet, 5 Refills, Maintenance, 08/30/17 15:26:32 EDT, ER Tablet Start Date: 08/30/17 Status: Ordered Wheeled walker with seat and brakes Wheeled walker with seat and brakes, See Instructions, # 1 each, Refills 0, Tot. Refills 0, Maintenance, Dx: Femur Fracture ICD10: S72.3 Duration of need: 1 year, 09/07/17 11:36:10 EDT, Compound Start Date: 09/07/17 Status: Ordered Problem List Condition Effective Dates Status Health Status Inform ant Anxiety(Confirmed) Active Closed fracture of base of n adria of femur with routine healing(Confirmed) 06/2017 Active Depression(Confirmed) Active TMJ (dislocation of temporom andibular joint)(Confirmed) Active GERD (gastroesophageal reflu x disease)(Confirmed) Active HIV infection(Confirmed) 2 Active Hypothyroidism(Confirmed) Active Chronic joint pain(Confirmed) Active Osteopenia(Confirmed) Active *[id number]-[facility] Partn er Katherine Howard(Confirmed) Active TIA (transient ischemic attack)(Confirmed) 3 10/2015 Active 1surgically repaired at [place], [place] 2followed by Dr. Shah 3Seen at [facility] ER Social History Social History Type Response Smoking Status Former smoker; Other : pt states she quit 1992; entered on: 08/17/14 Sex
--- OUTSIDE RECORDS SUMMARY | 2023-01-11 15:09 | XMS_ITS | Continuity of Care Document ---
Author Name Unknown Organization [facility] Address [address] [place] [address]- Care Team Providers Care Screening Specialist Name Role Phone Kvng Saha DO Primary Care Physician Encounter [facility] Date(s): 04/24/22 - 05/24/22 [facility] [address], [place] [address] Attending Physician: Matt Guajardo Admitting Physician: AdmtrMatt Referring Physician: Admtr, Ar8 Allergies, Adverse Reactions, Alerts Substance Reaction Severity Status sulfADIAZINE hives Persistent Moderate Active Immunizations Given and Recorded Vaccine Date Status Refusal Reason pneumococcal 23-valent vaccine 03/24/17 Given influenza virus vaccine, inactivated 1 12/01/16 Gi gabino influenza virus vaccine, inactivated 2 01/04/15 Gi gabino influenza virus vaccine, inactivated 12/08/13 Give n tetanus/diphtheria/pertussis, acel(Tdap) 12/08/13 Given 1Result Comment: [12/01/2016] [facility] 31393-480-03 2Result Comment: [01/04/2015] VIS in Bulgarian given with mine shifter Aroldo Medications acetaminophen-HYDROcodone 325 mg-5 mg oral [...] Date: 10/01/17 Stop Date: 01/29/18 Status: Ordered gabapentin 100 mg oral capsule 1-2 capsule, By Mouth, 2 times a day, PRN, Start with 1 cap and increase to 2 caps daily if needed and tolerated. May cause tiredness. May ALSO take Tylenol., # 60 capsule, Refills 1, Tot. Refills 1,Maintenance, arm pain, 04/24/22 18:31:00 EST, Rou... Start Date: 04/24/22 Stop Date: 06/23/22 Status: Ordered Genvoya oral tablet 1 tablet, [...] 1, tablet, By Mouth, Daily, label in Bulgarian. for allergies, # 30 tablet, Refills 5, Tot. Refills 5, Maintenance, 08/30/17 15:21:34 EDT, Route to Pharmacy Electronically, [id number], [place], [place] -... Start Date: 08/30/17 Stop Date: [...] Date: 09/07/17 Status: Ordered Problem List Condition Confirmation Course Effective Dates Status Health Status Informant Anxiety Confirmed Active Closed fracture of base of neck of femur with routine healing 1 Confirmed 06/2017 Active Depression Confirmed Active TMJ (dislocation of temporomandibular joint) Confirmed Active GERD (gastroesophageal reflux disease) Confirmed Active HIV infection 2 Confirmed Active Hypothyroidism Confirmed Active Chronic joint pain Confirmed Active Osteopenia Confirmed Active *[id number]-Clinical Lab Assistant Katherine Howard Confirmed Active TIA (transient ischemic attack) 3 Confirmed 10/2015 Active 1surgically repaired at [place], [place] 2followed by Dr. Shah 3Seen at [facility] ER Social History Social History Type Response Smoking Status Former smoker; Other : pt states she quit 1992; entered on: 08/17/14 Sex Patient Care team information Care Team Personnel Name: Kvng Saha DO Position: [facility] Resident Member Role: PCP Address: Address: [address] [place] [id number]- Name: Michoacano ARMENDARIZ, Pura Position: [facility] Hospital It Solutions Architect Member Role: Primary Care Nurse Care Team Related Persons Name: LOULOU RIVERA Name: LIBBY HERNANDEZ Address: home [address] [place] [address] Name: ROSIBEL JORDAN Address: [place] [address] Name: MIRNA GRANT Address: home [address] [place] [address]
--- OUTSIDE RECORDS SUMMARY | 2023-01-11 15:09 | XMS_ITS | Continuity of Care Document ---
Author Name Unknown Organization [facility] Address [address] [place] [address]- Care Team Providers Care Immigration Manager Name Role Phone Socorro CONRAD, Marcia Hall Primary Care Physician Encounter [facility] Date(s): 09/12/22 - 10/21/[address] [address] Attending Physician: Marcia Quintanilla MD Admitting Physician: Marcia Quintanilla MD Referring Physician: Marcia Quintanilla MD Allergies, Adverse Reactions, Alerts Substance Reaction Severity Status sulfADIAZINE hives Persistent Moderate Active Immunizations Given and Recorded Vaccine Date Status Refusal Reason pneumococcal 23-valent vaccine 03/24/17 Given influenza virus vaccine, inactivated 1 12/01/16 Gi gabino influenza virus vaccine, inactivated 2 01/04/15 Gi gabino influenza virus vaccine, inactivated 12/08/13 Give n tetanus/diphtheria/pertussis, acel(Tdap) 12/08/13 Given 1Result Comment: [12/01/2016] [facility] [id number] 2Result Comment: [01/04/2015] VIS in Chilean given with bilingual interpreter Aroldo Medications atorvastatin 10 mg oral tablet 1 tablet = 10 mg, By Mouth, Daily at bedtime, # 90 tablet, 1 Refills, Maintenance, 07/17/22 16:34:00 EDT, [facility]/pharmacy #[id number], Partial fill upon patient request if the prescription is for a schedule II opioid drug., 152.5, cm, 07/17/22 10:23:00 EDT, He... Start Date: 07/17/22 Stop Date: 01/13/23 Status: Ordered famotidine 20 mg oral tablet See Instructions, TOME LEONA TABLETA DOS VECES AL DEANA CUANDO SEA NECESARIO FOR REFLUX, # 180 tablet, Refills 0, Maintenance, 10/13/22 9:27:00 EDT, Instructions Replace Required Details, Route to Pharmacy Electronically, [id number], 152.5, cm, 07/17... Start Date: 10/13/22 Status: Ordered gabapentin 100 mg oral capsule 100 mg, 1, capsule, By Mouth, Daily at bedtime, # 90 capsule, Refills 0, Maintenance, 07/17/22 8:20:00 EDT, Partial fill upon patient request if the prescription is for a schedule II opioid drug. Start Date: 07/17/22 Status: Ordered hydrOXYzine hydrochloride 25 mg oral tablet 1 tablet = 25 mg, By Mouth, Daily, # 90 tablet, 0 Refills, Maintenance, 07/17/22 8:20:00 EDT, Tablet, Partial fill upon patient request if the prescription is for a schedule II opioid drug. Start Date: 07/17/22 Status: Ordered Juluca 50 mg-25 mg oral tablet 1 tablet, 0 Refills, Maintenance, 07/17/22 8:25:00 EDT, Partial fill upon patient request if the prescription is for a schedule II opioid drug. Start Date: 07/17/22 Status: Ordered levothyroxine 0.088 mg oral tablet 1 tablet = 88 mcg, By Mouth, Daily, # 90 tablet, 0 Refills, Maintenance, 07/17/22 8:20:00 EDT, Tablet, Partial fill upon patient request if the prescription is for a schedule II opioid drug. Start Date: 07/17/22 Status: Ordered Problem List Condition Confirmation Course Effective Dates Status Health Status Informant Anxiety Confirmed Active Closed fracture of base of neck of femur with routine healing 1 Confirmed 06/2017 Active Depression Confirmed Active TMJ (dislocation of temporomandibular joint) Confirmed Active GERD (gastroesophageal reflux disease) Confirmed Active HIV infection 2 Confirmed Active Hypothyroidism Confirmed Active Chronic joint pain Confirmed Active Migraine Confirmed Active Osteopenia Confirmed Active *[id number]-Chicken And Fish Butcher Katherine Howard Confirmed Active TIA (transient ischemic attack) 3 Confirmed 10/2015 Active 1surgically repaired at [place], [place] 2followed by Dr. Shah 3Seen at [facility] ER Social History Social History Type Response Smoking Status Former smoker; Other : pt states she quit 1992; entered on: 08/17/14 Sex Patient Care team information Care Team Personnel Name: Marcia Quintanilla MD Position: [facility] Physician - Primary Care Member Role: PCP Address: Address: [address] [place] [address]- Name: Pura Ríos RN Position: [facility] Hospital Parachute Folder Member Role: Primary Care Nurse Care Team Related Persons Name: LOULOU RIVERA Name: LIBBY HERNANDEZ Address: home [address] [place] [address] Name: ROSIBEL JORDAN Address: [place] [address] Name: MIRNA GRANT Address: home [address] [place] [address]
--- OUTSIDE RECORDS SUMMARY | 2023-01-11 15:09 | XMS_ITS | Continuity of Care Document ---
Author Name Unknown Organization [facility] Address [address] [place] [address]- Care Team Providers Care Photographer'S Model Name Role Phone Kvng Saha DO Primary Care Physician Encounter [facility] Date(s): 03/12/21 - 05/03/[address] [address] Attending Physician: Not on Staff, Attending MD Allergies, Adverse Reactions, Alerts Substance Reaction Severity Status sulfADIAZINE hives Persistent Moderate Active Immunizations Given and Recorded Vaccine Date Status Refusal Reason pneumococcal 23-valent vaccine 03/24/17 Given influenza virus vaccine, inactivated 1 12/01/16 Gi gabino influenza virus vaccine, inactivated 2 01/04/15 Gi gabino influenza virus vaccine, inactivated 12/08/13 Give n tetanus/diphtheria/pertussis, acel(Tdap) 12/08/13 Given 1Result Comment: [12/01/2016] [facility] [id number] 2Result Comment: [01/04/2015] VIS in Tamazight given with real estate professor Aroldo Medications acetaminophen-HYDROcodone 325 mg-5 mg oral [...] 1, tablet, By Mouth, Daily, label in Tamazight. for allergies, # 30 tablet, Refills 5, Tot. Refills 5, Maintenance, 08/30/17 15:21:34 EDT, Route to Pharmacy Electronically, [id number], [facility] [place], [place] -... Start Date: 08/30/17 Stop Date: [...] n adria of femur with routine healing(Confirmed) 1 06/2017 Active Depression(Confirmed) Active TMJ (dislocation of temporom andibular joint)(Confirmed) Active GERD (gastroesophageal reflu x disease)(Confirmed) Active HIV infection(Confirmed) 2 Active Hypothyroidism(Confirmed) Active Chronic joint pain(Confirmed) Active Osteopenia(Confirmed) Active *[id number]-[facility] Partn er Katherine Howard(Confirmed) Active TIA (transient ischemic attack)(Confirmed) 3 10/2015 Active 1surgically repaired at [place], [place] 2followed by Dr. Shah 3Seen at [facility] ER Social History Social History Type Response Smoking Status Former smoker; Other : pt states she quit 1992; entered on: 08/17/14 Sex
--- OUTSIDE RECORDS SUMMARY | 2023-01-11 15:09 | XMS_ITS | Continuity of Care Document ---
Author Name Unknown Organization [facility] Address [address] [place] [address]- Care Team Providers Care Double Surface Operator Name Role Phone Kvng Saha DO Primary Care Physician Encounter [facility] Date(s): 06/12/21 - 07/12/[address] [address]- Attending Physician: AdmMatt pulido Admitting Physician: AdmtrMatt Referring Physician: Admtr, Ar8 [...] tetanus/diphtheria/pertussis, acel(Tdap) 12/08/13 Given 1Result Comment: [12/01/2016] [facility] [id number] 2Result Comment: [01/04/2015] VIS in Rwandan given with language interpreter Aroldo Medications acetaminophen-HYDROcodone 325 mg-5 mg oral [...] 1, tablet, By Mouth, Daily, label in Rwandan. for allergies, # 30 tablet, Refills 5, Tot. Refills 5, Maintenance, 08/30/17 15:21:34 EDT, Route to Pharmacy Electronically, [id number], [facility] [place], [place] -... Start Date: 08/30/17 Stop Date: [...] Active Chronic joint pain(Confirmed) Active Osteopenia(Confirmed) Active *[id number]-[facility] Partn er Katherine Howard(Confirmed) Active TIA (transient ischemic attack)(Confirmed) 3 10/2015 Active 1surgically repaired at [place], [place] 2followed by Dr. Shah 3Seen at [facility] ER Social History Social History Type Response Smoking Status Former smoker; Other : pt states she quit 1992; entered on: 08/17/14 Sex
--- OUTSIDE RECORDS SUMMARY | 2023-01-11 15:09 | XMS_ITS | Continuity of Care Document ---
Author Name Unknown Organization [facility] Address [address] [place] [address]- Care Team Providers Care Nursing Staff Development Coordinator Name Role Phone Marcia Quintanilla MD Primary Care Physician Encounter [facility] Date(s): 11/19/22 - 12/19/[address] [address] Attending Physician: Matt Guajardo Admitting Physician: Matt Guajardo Referring Physician: AdmtrMatt Allergies, Adverse Reactions, Alerts Substance Reaction Severity Status sulfADIAZINE hives Persistent Moderate Active Immunizations Given and Recorded Vaccine Date Status Refusal Reason pneumococcal 23-valent vaccine 03/24/17 Given influenza virus vaccine, inactivated 1 12/01/16 Gi gabino influenza virus vaccine, inactivated 2 01/04/15 Gi gabino influenza virus vaccine, inactivated 12/08/13 Give n tetanus/diphtheria/pertussis, acel(Tdap) 12/08/13 Given 1Result Comment: [12/01/2016] [facility] [id number] 2Result Comment: [01/04/2015] VIS in North Korean given with web site developer Aroldo Medications atorvastatin 10 mg oral tablet 1 tablet = 10 mg, By Mouth, Daily at bedtime, # 90 tablet, 1 Refills, Maintenance, 07/17/22 16:34:00 EDT, [facility]/pharmacy #[id number], Partial fill upon patient request if the [...] Replace Required Details, Route to Pharmacy Electronically, [id number], 152.5, cm, 07/17... Start Date: 10/13/22 Status: [...] Active Migraine Confirmed Active Osteopenia Confirmed Active *[id number]-Senior Test Engineer Katherine Howard Confirmed Active TIA (transient ischemic attack) 3 Confirmed 10/2015 Active 1surgically repaired at [place], [place] 2followed by Dr. Shah 3Seen at [facility] ER Social History Social History Type Response Smoking Status Former smoker; Other : pt states she quit 1992; entered on: 08/17/14 Sex Patient Care team information Care Team Personnel Name: Marcia Quintanilla MD Position: [facility] Physician - Primary Care Member Role: PCP Address: Address: [address] [place] [id number] Name: Pura Ríos RN Position: [facility] Hospital Adjuster And Inspector Member Role: Primary Care Nurse Care Team Related Persons Name: LOULOU RIVERA Name: LIBBY HERNANDEZ Address: home [address] [place] [address] Name: ROSIBEL JORDAN Address: [place] [address] Name: MIRNA GRANT Address: [address] [address]
--- OUTSIDE RECORDS SUMMARY | 2023-01-11 15:09 | XMS_ITS | Continuity of Care Document ---
Author Name Unknown Organization [facility] Address [address] [place] [address]- Care Team Providers Care Chain Saw Operator Name Role Phone Kvng Saha DO Primary Care Physician Encounter [facility] Date(s): 10/24/19 - 12/01/[address] [address]- [place] Attending Physician: Not on Staff, Attending MD Referring Physician: Kvng Saha DO Allergies, Adverse Reactions, Alerts Substance Reaction Severity Status sulfADIAZINE hives Persistent Moderate Active Immunizations Given and Recorded Vaccine Date Status Refusal Reason pneumococcal 23-valent vaccine 03/24/17 Given influenza virus vaccine, inactivated 1 12/01/16 Gi gabino influenza virus vaccine, inactivated 2 01/04/15 Gi gabino influenza virus vaccine, inactivated 12/08/13 Give n tetanus/diphtheria/pertussis, acel(Tdap) 12/08/13 Given 1Result Comment: [12/01/2016] [facility] [id number] 2Result Comment: [01/04/2015] VIS in Bahraini given with paddock judge Aroldo Medications acetaminophen-HYDROcodone 325 mg-5 mg oral [...] 1, tablet, By Mouth, Daily, label in Bahraini. for allergies, # 30 tablet, Refills 5, Tot. Refills 5, Maintenance, 08/30/17 15:21:34 EDT, Route to Pharmacy Electronically, [id number], [facility] [place], [place] -... Start Date: 08/30/17 Stop [...] Active Chronic joint pain(Confirmed) Active Osteopenia(Confirmed) Active *[id number]-[facility] Partn er Katherine Howard(Confirmed) Active TIA (transient ischemic attack)(Confirmed) 3 10/2015 Active 1surgically repaired at [place], [place] 2followed by Dr. Shah 3Seen at [facility] ER Social History Social History Type Response Smoking Status Former smoker; Other : pt states she quit 1992; entered on: 08/17/14 Sex
--- OUTSIDE RECORDS SUMMARY | 2023-01-11 15:09 | XMS_ITS | Continuity of Care Document ---
Author Name Unknown Organization [facility] Address [address] [place] [address]- Care Team Providers Care Dental Technology Advisor Name Role Phone Socorro CONRAD, Marcia Hall Primary Care Physician Encounter [facility] Date(s): 07/17/22 - 08/16/22 [facility] [address] [place] [address]- Attending Physician: Matt Guajardo Admitting Physician: Matt [...] tetanus/diphtheria/pertussis, acel(Tdap) 12/08/13 Given 1Result Comment: [12/01/2016] [facility] [id number] 2Result Comment: [01/04/2015] VIS in Brazilian given with social work faculty member Aroldo Medications atorvastatin 10 mg oral tablet 1 tablet = 10 mg, By Mouth, Daily at bedtime, # 90 tablet, 1 Refills, Maintenance, 07/17/22 16:34:00 EDT, [facility]/pharmacy #[id number], Partial fill upon patient request if the prescription is for a schedule II opioid drug., 152.5, cm, 07/17/22 10:23:00 EDT, He... Start Date: 07/17/22 Stop Date: 01/13/23 Status: Ordered famotidine 20 mg oral tablet 20 mg, 1, tablet, By Mouth, 2 times a day, PRN, # 180 tablet, Refills 0, Tot. Refills 0, Maintenance, reflux, 07/17/22 8:34:00 EDT, Route to Pharmacy Electronically, [facility]/pharmacy #[id number], Partial fill upon patient request if the prescription is for a sc... Start Date: 07/17/22 Stop Date: 10/15/22 Status: Ordered gabapentin 100 mg oral capsule [...] Active Migraine Confirmed Active Osteopenia Confirmed Active *[id number]-Digital Marketing Officer Katherine Baezkel Confirmed Active TIA (transient ischemic attack) 3 Confirmed 10/2015 Active 1surgically repaired at [place], [place] 2followed by Dr. Shah 3Seen at [facility] ER Social History Social History Type Response Smoking Status Former smoker; Other : pt states she quit 1992; entered on: 08/17/14 Sex Laboratory * Event Display: Non Lab Results Authored Date: Patient Care team information Care Team Personnel Name: Marcia Quintanilla MD Position: [facility] Physician - Primary Care Member Role: PCP Address: Address: [address] [place] [id number] Name: Michoacano ARMENDARIZ, Pura Position: [facility] Hospital Clock Repairer Member Role: Primary Care Nurse Care Team Related Persons Name: LOULOU RIVERA Name: LIBBY HERNANDEZ Address: home [address] [place] [id number] Name: ROSIBEL JORDAN Address: [place] [address] Name: MIRNA GRANT Address: [address] [address]
--- OUTSIDE RECORDS SUMMARY | 2023-01-11 15:09 | XMS_ITS | Continuity of Care Document ---
Author Name Unknown Organization [facility] Address [address] [place] [address]- Care Team Providers Care Regional Trainer Name Role Phone Kvng Saha DO Primary Care Physician Encounter [facility] Date(s): 11/01/19 - 12/01/[address] [address]- [facility] Attending Physician: Matt Guajardo Admitting Physician: Matt [...] acel(Tdap) 12/08/13 Given 1Result Comment: [12/01/2016] [facility] [id number] 2Result Comment: [01/04/2015] VIS in Citizen Of [place] given with dental laboratory technician Aroldo Medications acetaminophen-HYDROcodone 325 mg-5 mg oral [...] 1, tablet, By Mouth, Daily, label in [place]. for allergies, # 30 tablet, Refills 5, Tot. Refills 5, Maintenance, 08/30/17 15:21:34 EDT, Route to Pharmacy Electronically, [id number], [facility] [place], [place] -... Start Date: 08/30/17 Stop Date: [...] Active Chronic joint pain(Confirmed) Active Osteopenia(Confirmed) Active *[id number]-[facility] Partn er Katherine Howard(Confirmed) Active TIA (transient ischemic attack)(Confirmed) 3 10/2015 Active 1surgically repaired at [place], [place] 2followed by Dr. Shah 3Seen at [facility] ER Social History Social History Type Response Smoking Status Former smoker; Other : pt states she quit 1992; entered on: 08/17/14 Sex
--- OUTSIDE RECORDS SUMMARY | 2023-01-11 15:09 | XMS_ITS | Continuity of Care Document ---
Author Name Unknown Organization [facility] Address [address] [place] [address]- Care Team Providers Care Cement Finisher Apprentice Name Role Phone Marcia Quintanilla MD Primary Care Physician Encounter [facility] [place] Date(s): 09/21/22 - 10/21/[address] [address] Attending Physician: Matt Guajardo Admitting Physician: AdmtrMatt [...] tetanus/diphtheria/pertussis, acel(Tdap) 12/08/13 Given 1Result Comment: [12/01/2016] [facility] [id number] 2Result Comment: [01/04/2015] VIS in Iraqi given with seismic interpreter Aroldo Medications atorvastatin 10 mg oral tablet 1 tablet = 10 mg, By Mouth, Daily at bedtime, # 90 tablet, 1 Refills, Maintenance, 07/17/22 16:34:00 EDT, [facility]/pharmacy #[id number], Partial fill upon patient request if the [...] Replace Required Details, Route to Pharmacy Electronically, [id number], 152.5, cm, 07/17... Start Date: 10/13/22 Status: [...] Active Migraine Confirmed Active Osteopenia Confirmed Active *[id number]-Occupational Hygienist Katherine Baezkel Confirmed Active TIA (transient ischemic attack) 3 Confirmed 10/2015 Active 1surgically repaired at [place], [place] 2followed by Dr. Shah 3Seen at [facility] ER Social History Social History Type Response Smoking Status Former smoker; Other : pt states she quit 1992; entered on: 08/17/14 Sex Patient Care team information Care Team Personnel Name: Socorro CONRAD, Marcia Hall Position: [facility] Physician - Primary Care Member Role: PCP Address: Address: [address] [place] [address]- Name: Pura Ríos RN Position: [facility] Hospital Bank Vault Attendant Member Role: Primary Care Nurse Care Team Related Persons Name: LOULOU RIVERA Name: LIBBY HERNANDEZ Address: home [address] [place] [address] Name: ROSIBEL JORDAN Address: [place] [address] Name: MIRNA GRANT Address: home [address] [place] [address]
--- OUTSIDE RECORDS SUMMARY | 2023-01-11 15:09 | XMS_ITS | Continuity of Care Document ---
Author Name Unknown Organization [facility] Address [address] [place] [address]- Care Team Providers Care Short Goods Drier Name Role Phone Marcia Quintanilla MD Primary Care Physician [place] [facility] [place] 07/01/22 - 10/21/[address] [address] Attending Physician: Not on Staff, [...] Given 1Result Comment: [12/01/2016] [facility] [id number] 2Result Comment: [01/04/2015] VIS in Nauruan given with fire technology instructor Aroldo Medications atorvastatin 10 mg oral tablet 1 tablet = 10 mg, By Mouth, Daily at bedtime, # 90 tablet, 1 Refills, Maintenance, 07/17/22 16:34:00 EDT, [facility]/pharmacy #[id number], Partial fill upon patient request if the prescription is for a schedule II opioid drug., 152.5, cm, 07/17/22 10:23:00 EDT, He... Start Date: 07/17/22 Stop Date: 01/13/23 Status: Ordered famotidine 20 mg oral tablet See Instructions, TOME LEONA TABLETA DOS VECES AL DEANA CUANDO SEA NECESARIO FOR REFLUX, # 180 tablet, Refills 0, Maintenance, 08/15/23 9:27:00 EDT, Instructions Replace Required Details, Route to Pharmacy Electronically, [facility], 152.5, cm, 07/17... Start Date: 10/13/22 Status: [...] Active Migraine Confirmed Active Osteopenia Confirmed Active *[id number]-Arts And Crafts Instructor Katherine Howard Confirmed Active TIA (transient ischemic attack) 3 Confirmed 10/2015 Active 1surgically repaired at [place], [place] 2followed by Dr. Shah 3Seen at [facility] Social History Social History Type Response Smoking Status Former smoker; Other : pt states she quit 1992; entered on: 08/17/14 Sex Patient Care team information Care Team Personnel Name: Socorro CONRAD, Marcia Hall Position: [facility] Physician - Primary Care Member Role: PCP Address: Address: [address] [place] [address]- Name: Pura Ríos RN Position: [facility] Hospital Director [place] Sales Member Role: Primary Care Nurse Care Team Related Persons Name: LOULOU RIVERA Name: LIBBY HERNANDEZ Address: home [address] [place] [address] Name: ROSIBEL JORDAN Address: [place] [address] Name: MIRNA GRANT Address: [address] [address]
--- OUTSIDE RECORDS SUMMARY | 2023-01-11 15:09 | XMS_ITS | Continuity of Care Document ---
Author Name Unknown Organization [facility] Address [address] [place] [address]- Care Team Providers Care Dynamic Balancer Name Role Phone Kvng Saha DO Primary Care Physician Encounter [facility] Date(s): 05/28/20 - 06/27/[address] [address]- Allergies, Adverse Reactions, Alerts Substance Reaction Severity Status sulfADIAZINE hives Persistent Moderate Active Immunizations Given and Recorded Vaccine Date Status Refusal Reason pneumococcal 23-valent vaccine 03/24/17 Given influenza virus vaccine, inactivated 1 12/01/16 Gi gabino influenza virus vaccine, inactivated 2 01/04/15 Gi gabino influenza virus vaccine, inactivated 12/08/13 Give n tetanus/diphtheria/pertussis, acel(Tdap) 12/08/13 Given 1Result Comment: [12/01/2016] [facility] [id number] 2Result Comment: [01/04/2015] VIS in French given with parts interpreter Aroldo Medications acetaminophen-HYDROcodone 325 mg-5 mg [...] 1, tablet, By Mouth, Daily, label in French. for allergies, # 30 tablet, Refills 5, Tot. Refills 5, Maintenance, 08/30/17 15:21:34 EDT, Route to Pharmacy Electronically, [id number], [facility] [place], [place] -... Start Date: 08/30/17 Stop Date: [...] Active Chronic joint pain(Confirmed) Active Osteopenia(Confirmed) Active *[id number]-[facility] Partn er Katherine Howard(Confirmed) Active TIA (transient ischemic attack)(Confirmed) 3 10/2015 Active 1surgically repaired at [place], [place] 2followed by Dr. Shah 3Seen at [facility] Social History Social History Type Response Smoking Status Former smoker; Other : pt states she quit 1992; entered on: 08/17/14 Sex
[2023-01-11 15:45] LABS: OBS Int Ctl Valid YES; OBS1 NEGATIVE (NEGATIVE)
[2023-01-11 15:46] LABS: Appearance Urine Clear; Color Urine Yellow; Glucose Urine UA Negative (Negative); Leukocyte Esterase Urine Trace (Negative); Nitrite Urine Negative (Negative); UMIC TRIGGER UACC YES; Urine Blood Small (1+) (Negative); Urine Ketones Negative (Negative); Urine Protein Negative (Neg-Trace)
[2023-01-11 15:50] LABS: Bacteria Urine None Seen (None Seen); Hyaline Casts Urine 0-2 /LPF (0-2); Squamous Epithelial Cell Urine 0-2 /HPF (0-2); WBC Urine 0-5 /HPF (0-5)
[2023-01-11 16:00] VITALS: BP 169/89; PULSE 75; RESP 16; TEMP 36.8; O2SAT 99
[2023-01-11] MEDS: ondansetron HCL 4 MG/2 ML VIAL IVPUSH (16:21)
[2023-01-11] MEDS: 0.9 % Sodium Chloride 1,000 ML 999 ML IV (16:21)
[2023-01-11] MEDS: Morphine Sulfate 2 MG/ML CARTRIDGE IVPUSH (16:21)
--- NOTE | 2023-01-11 16:28 | PC.NURSE ---
pt a&ox3, ambulated to bathroom with steady gait, urine obtained, rectal exam performed by provider, iv inserted, labs previously drawn in triage, pt medicated for nausea/pain, ivf hung per order, vss, pt awaiting for ct scan will continue to monitor
[2023-01-11] MEDS: iohexoL 350 MG/ML 100 ML INFUS..BTL IV (17:01)
--- NOTE | 2023-01-11 17:25 | PC.NURSE ---
pt ambulated to bathroom with steady gait
[2023-01-11] MEDS: cefTRIAXone sodium 1 GM in 0.9 % Sodium Chloride 50 ML IV (18:40)
[2023-01-11] MEDS: metroNIDAZOLE 500 MG TABLET PO (18:41)
--- NOTE | 2023-01-11 18:54 | PC.NURSE ---
provider stated pt does NOT need blood cultures, po abx and IV abx hung per order.
--- NOTE | 2023-01-11 20:08 | PC.NURSE ---
Reviewed discharge instructions with pt and family at the bed side, Notified MARCELLO Ceballos.
== END 2023-01-11 20:10 | disposition home or self-care (01) ==
PROVIDERS: Emergency Medicine; Physician Assistant Medical; Emergency Provider Internal Medicine; PCP Physician Assistant
DX: R19.7 Diarrhea, unspecified (principal); R10.30 Lower abdominal pain, unspecified; B20 Human immunodeficiency virus [HIV] disease; K52.9 Noninfective gastroenteritis and colitis, unspecified; K86.9 Disease of pancreas, unspecified; E03.9 Hypothyroidism, unspecified; Z20.822 Contact with and (suspected) exposure to COVID-19; Z20.828 Contact with and (suspected) exposure to other viral communicable diseases
CPT/HCPCS: 0241U; 74177; 80053; 81001; 82272; 83735; 85025; 96374; 96375; 99284; J0696; J2270; J2405; Q9967

== ENCOUNTER → 2023-01-18 15:40 | Outpatient (BNV) | payer OTHER, SELFPAY | PROVIDERS: PCP Physician Assistant; Visit Provider Internal Medicine | DX: K86.89 Other specified diseases of pancreas (principal) | CPT/HCPCS: 99204; 99214 ==

== ENCOUNTER 2023-01-27 12:10 | Outpatient (AMB) | payer OTHER, SELFPAY ==
--- OUTSIDE RECORDS SUMMARY | 2023-01-27 12:12 | XMS_ITS | Continuity of Care Document ---
Author Name Unknown Organization [facility] Address [address] [place] [address]- Care Team Providers Care Trommel Tender Name Role Phone Socorro CONRAD, Marcia Hall Primary Care Physician Encounter [facility] Date(s): 12/25/22 - 01/24/23 [facility] [address] [place] [address]- Allergies, Adverse Reactions, Alerts Substance Reaction Severity Status sulfADIAZINE hives Persistent Moderate Active Immunizations Given and Recorded Vaccine Date Status Refusal Reason pneumococcal 23-valent vaccine 03/24/17 Given influenza virus vaccine, inactivated 1 12/01/16 Gi gabino influenza virus vaccine, inactivated 2 01/04/15 Gi gabino influenza virus vaccine, inactivated 12/08/13 Give n tetanus/diphtheria/pertussis, acel(Tdap) 12/08/13 Given 1Result Comment: [12/01/2016] [facility] [id number] 2Result Comment: [01/04/2015] VIS in Polish given with spanish medical interpreter Aroldo Medications atorvastatin 10 mg oral tablet See Instructions, TOME LEONA TABLETA TODOS [place] ACOSTARSE, # 90 tablet, 1 Refills, Maintenance, 01/07/23 17:43:00 EST, [facility], 152.5, cm, 07/17/22 10:23:00 EDT, Height Start Date: 01/07/23 Status: Ordered famotidine 20 mg oral tablet See Instructions, TOME LEONA TABLETA DOS VECES AL DEANA CUANDO SEA NECESARIO FOR REFLUX, # 180 tablet, Refills 0, Maintenance, 01/08/23 9:04:00 EST, Instructions Replace Required Details, Route to Pharmacy Electronically, [facility], 152.5, cm, 07/17... Start Date: 01/08/23 Status: Ordered gabapentin 100 mg oral capsule [...] Active Migraine Confirmed Active Osteopenia Confirmed Active *[id number]-Social Media Executive Katherine Howard Confirmed Active TIA (transient ischemic attack) 3 Confirmed 10/2015 Active 1surgically repaired at [place], [place] 2followed by Dr. Shah 3Seen at [facility] ER Social History Social History Type Response Smoking Status Former smoker; Other : pt states she quit 1992; entered on: 08/17/14 Sex Patient Care team information Care Team Personnel Name: Marcia Quintanilla MD Position: S Physician - Primary Care Member Role: PCP Address: Address: [address] [place], [place] [address], [place] [address]- [place] Name: [place] ARMENDARIZ, Pura Position: [facility] Manager Sustainability Member Role: Primary Care Nurse Care Team Related Persons Name: LOULOU RIVERA Name: LIBBY HERNANDEZ Address: home [address] [place] [phone] Name: ROSIBEL JORDAN Address: [place] [address] Name: MIRNA RGANT Address: home [address] [place] [id number]
[2023-01-27 12:24] VITALS: BP 140/70; PULSE 92; TEMP 36.6; O2SAT 98
--- NOTE | 2023-01-27 12:24 | AM.OFFWIN_ITS ---
Intake Vital Signs 01/27/23 12:24 Height 5 ft 1 in BP 140/70 H Blood Pressure Location Rt brachial Position Sitting Pulse 92 Pulse Source Pulse Oximeter Temp 97.9 F Temp Source Oral Pulse Oximetry (%) 98 Intake Visit Reasons: EST/vomitting/bowel issues(lobby masked) Intake Note: pt is here for c/o vomitting and diarrhea since 5 am Patient Tobacco Use Status: Former Tobacco user Allergies blackberry Allergy (Intermediate, Verified 01/27/23 13:12) Itching long Allergy (Intermediate, Verified 01/27/23 13:12) Itching peanut [PEANUT] Allergy (Intermediate, Verified 01/27/23 13:12) RASH Sulfa (Sulfonamide Antibiotics) [SULFA (SULFONAMIDE ANTIBIOTICS)] Allergy (Intermediate, Verified 01/27/23 13:12) HIVES, hives, rash, hives, rash tramadol Allergy (Intermediate, Verified 01/27/23 13:12) nausea strawberry Allergy (Verified 01/27/23 13:12) Itching animals Allergy (Uncoded 01/27/23 13:12) Itching red fruit Allergy (Uncoded 01/27/23 13:12) Itching tree Allergy (Uncoded 01/27/23 13:12) eye swelling, itch Do you need a note to return to daycare/school/sports/work: Yes HPI HPI Comments History of Present Illness Details Niece and property disposal manager with her interpretting Pt speaks japanese as well 5am onset of vomiting, diarrhea (loose s tools) without blood or black but states very dark Pain in abdomen is 8/10 She has not been able to keep pepto or edwina seltzer down 3 weeks ago seen in [place] ER and diagn osed with pancreatic mass with Ct scan who recommended oncology follow up Noted pancreatic mass/ca by oncology but awaiting MRI and biopsy at [facility] No fevers PFSH Medical History Conjunctiva disorder Wart of scalp COVID-19 Upper extremity neuropathy Right shoulder pain Right arm pain Physical exam Cough Environmental allergies Left hip pain Left shoulder tendinitis Left shoulder pain GERD (gastroesophageal reflux disease) Asthma Urticaria Fracture of left hip requiring operative repair HIV (human immunodeficiency virus infection) Hypothyroidism Dyslipidemia Verruca TIA (transient ischemic attack) Asthma Surgical History History of hip replacement, total History of lumbar fusion History of section H/O umbilical hernia repair Hx of colonoscopy Family History Father Cancer Diabetes Mother Cancer Diabetes Brother Colon polyps Social History (Updated 01/18/23 @ 15:42 by Jennie Mcallister) Household Members: None Housing: Apartment Alcohol intake: never Patient Tobacco Use Status: Former Tobacco user Tobacco use type: Cigarette e-Cigarette/Vaping Use: Never Used Second Hand Smoke Exposure: No Substance Use Type: Marijuana service: No Current occupational status: retired Cognitive needs: No Hearing needs: No Vision needs: Yes Review of Systems Const Denies fever(s), Reports malaise and Reports poor appetite Card Denies chest pain and Reports dyspnea (chronic due to asthma but unchanged per pt) Resp Denies cough and Reports dyspnea (chronic due to asthma but unchanged per pt) GI Reports abdominal pain, Denies constipation, Reports diarrhea, Reports nausea and Reports vomiting Denies dysuria Physical Exam Vital Signs: Last Vital Signs Temp 97.9 F 01/27/23 12:24 Pulse 92 01/27/23 12:24 BP 140/70 H 01/27/23 12:24 Pulse Ox 98 01/27/23 12:24 General: Non-toxic, NAD. Speaking full sentences. Skin: Warm dry throughout Eye: EOMI Respiratory: CTA bilaterally. No wheezes, rales or rhonchi Cardiac: RRR. No murmur Abdominal: BS present. + tender throughout. No pusatile mass noted. MSK: Full ROM extremities. Neurology: No aphasia or facial droop. Gait without abnormality Psych: Good mood and affect Assessment & Plan Assessment & Plan (1) Acute abdominal pain: Code(s): R10.9 - Unspecified abdominal pain (2) Pancreatic mass: Code(s): K86.89 - Other specified diseases of pancreas (3) Acute nausea with nonbilious vomiting: Code(s): R11.2 - Nausea with vomiting, unspecified Plan Patient seen and evaluated. She is hypertensive with acute abdominal pain Newly diagnosed pancreatic mass Discussed with patient and relative that she needs to go to ED for fluids, pain control, imaging and labs They understand and niece feels comfortable driving her down Patient gave verbal understanding and had no additional questions or concerns at time of discharge All questions answered Expect was called to the [facility] ED Coding Level of Care Code Est Pt Level 4 (75[address]) Diagnoses Acute abdominal pain R10.9 Pancreatic mass K86.89 Acute nausea with nonbilious vomiting R11.2
== END 2023-01-27 13:04 | disposition home or self-care (01) ==
PROVIDERS: PCP Physician Assistant; Visit Provider Physician Assistant
DX: R10.9 Unspecified abdominal pain (principal); K86.89 Other specified diseases of pancreas; R11.2 Nausea with vomiting, unspecified
CPT/HCPCS: 99214

== ENCOUNTER 2023-01-27 13:01 | Emergency (ER) | payer OTHER, SELFPAY ==
--- NOTE | ~2023-01-27 | CT_ITS ---
EXAMINATION: CT ABDOMEN AND PELVIS WITH CONTRAST CLINICAL INFORMATION: Abdominal pain. COMPARISON: CT abdomen and pelvis dated 01/11/2023. TECHNIQUE: Multidetector volumetric images were obtained from the superior aspect of the liver through the pubic symphysis following administration 85 mL of Omnipaque 350 intravenous contrast. Sagittal and coronal reformatted images were obtained on the technologist's workstation. Oral contrast: No This CT examination was performed using dose optimization techniques as appropriate, variously including the following: *Automated exposure control *Adjustment of mA and/or kV according to patient size (this includes techniques or standardized protocols for targeted exams where dose is matched to indication/reason for exam; i.e. extremities or head) *Use of iterative reconstruction technique DLP: 412 mGy-cm FINDINGS: LUNG BASES: There is bibasilar dependent hypoaeration. LIVER, GALLBLADDER, AND BILIARY TREE: The liver is normal in size, shape, and attenuation. There is mild focal fatty infiltration adjacent to the falciform ligament. No focal hepatic lesion or biliary ductal dilatation is present. The gallbladder is unremarkable with no evidence of radiopaque gallstones, gallbladder wall thickening, or obvious pericholecystic inflammatory changes. PANCREAS: Again, there is mild pancreatic ductal dilatation to 4 mm, which extends to the ampulla. A very subtle 1.2 cm lesion is again questioned of the inferior pancreatic head adjacent to the ampulla (7:44 and 3:34). Again, the common bile duct is not distended. SPLEEN: Unremarkable. ADRENAL GLANDS: Unremarkable. KIDNEYS AND URETERS: The kidneys are normal in size, shape, and attenuation. No hydronephrosis, hydroureter, or calculi seen. No perinephric stranding. BLADDER: Unremarkable. GASTROINTESTINAL TRACT: There is mild diverticulosis, without acute diverticulitis. No bowel obstruction, free intraperitoneal air or abscess is seen. There is no significant focal bowel wall thickening presently noted. The vermiform appendix appears normal, with a caliber of 5 mm and no periappendiceal fat stranding or fluid (3:59). ABDOMINAL WALL: No significant hernia is appreciated. LYMPH NODES: Normal. VASCULAR: There is moderate aortoiliac atherosclerotic calcification. No abdominal aortic aneurysm or dissection is seen. PELVIC VISCERA: Unremarkable. OSSEOUS STRUCTURES: There is multi-level marked thoracolumbar degenerative disc disease, spondylosis and facet arthropathy. Particular note is made of large upper and lower endplate Schmorl's nodes at L3-L4. No acute or aggressive osseous finding is seen. CT/CT abdomen pelvis w IV con IMPRESSION: 1. Again, there is pancreatic ductal dilatation and a subtle inferior pancreatic head mass is questioned in the vicinity of the ampulla. The common bile does not appear distended. Again, recommend correlation with ERCP and endoscopic ultrasound or pancreatic MRI (please see report dated 01/11/2023). 2. There is interim improvement in previously noted wall thickening of the transverse and descending colon segments. No obstruction, free intraperitoneal air or abscess is presently seen. There is diverticulosis, without acute diverticulitis. The vermiform appendix appears normal. 3. There are multi-level degenerative changes of the spine. Fleischner guidelines were followed.
[2023-01-27 13:12] VITALS: BP 143/85; PULSE 88; RESP 19; TEMP 36.6; O2SAT 98; BMI 24.2
--- NOTE | 2023-01-27 13:12 | ED_ITS ---
HPI - General Adult General Chief complaint: Abdominal Pain Stated complaint: Vomiting, abd pain Time Seen by Provider: 01/27/23 21:05 Source: patient and family History of Present Illness HPI narrative: This is a 73-year-old female who presents with known pancreatic mass and describes 1 week diarrhea, bladder pain , as well as nausea but denies any fever or chills. Related Data Home Medications Medication Instructions Recorded Confirmed famotidine 40 mg tablet 40 mg PO DAILY 02/29/20 01/18/23 dolutegravir 50 mg-rilpivirine 25 1 tab PO DAILY 12/11/20 01/18/23 mg tablet (Juluca) atorvastatin 10 mg tablet 10 mg PO DAILY 07/20/22 01/18/23 famotidine 20 mg tablet 20 mg PO BID PRN acid reflux 07/20/22 01/18/23 Previous Rx's Medication Instructions Recorded nebulizers (AeroEclipse II #1 ea 11/08/21 Nebulizer) sumatriptan succinate 50 mg tablet 50 mg PO Q2-4H PRN migraine 11/08/21 headache 30 days #9 tabs methocarbamol 750 mg tablet 750 mg PO TID PRN pain (scale 07/07/22 score 4-6) #14 tabs albuterol sulfate 1.25 mg/3 mL 1.25 mg (3 mL) inhalation Q4-6H 08/04/22 solution for nebulization PRN shortness of breath or wheezing #75 mL albuterol sulfate 2.5 mg/0.5 mL 5 mg inhalation Q4H PRN shortness 09/28/22 solution for nebulization of breath or wheezing #30 ea albuterol sulfate 90 mcg/actuation 2 puff inhalation Q4-6H PRN 09/28/22 aerosol inhaler shortness of breath or wheezing #6.7 grams fluticasone fur. 200 mcg-umeclid 1 inh inhalation DAILY 30 days #1 10/21/22 62.5 mcg-vilant 25 mcg ea inhalat.powder (Trelegy Ellipta) gabapentin 100 mg capsule 100 mg PO DAILY PRN pain (scale 11/16/22 score 7-10) 15 days #15 caps loratadine 10 mg tablet 10 mg PO DAILY 90 days #90 tabs 11/16/22 olopatadine 0.2 % eye drops 1 drp ophthalmic (eye) DAILY 30 11/16/22 (Pataday Once Daily Relief) days #2.5 mL hydroxyzine HCl 25 mg tablet 25 mg PO BEDTIME 90 days #90 tabs 12/18/22 ciprofloxacin HCl 500 mg tablet 500 mg PO BID #20 tabs 01/11/23 (Cipro) dicyclomine 20 mg tablet 20 mg PO QID PRN abdominal pain 01/11/23 #20 tabs metronidazole 500 mg tablet 500 mg PO BID 10 days #20 tabs 01/11/23 oxycodone 5 mg tablet 5 mg PO BID PRN pain 5 days #10 01/18/23 tabs levothyroxine 112 mcg tablet 112 mcg PO DAILY 30 days #30 tabs 01/22/23 Allergies Allergy/AdvReac Type Severity Reaction Status Date / Time blackberry Allergy Intermediate Itching Verified 01/27/23 13:12 long Allergy Intermediate Itching Verified 01/27/23 13:12 peanut [PEANUT] Allergy Intermediate RASH Verified 01/27/23 13:12 Sulfa (Sulfonamide Allergy Intermediate HIVES, Verified 01/27/23 13:12 Antibiotics) hives, [SULFA (SULFONAMIDE rash, ANTIBIOTICS)] hives, rash tramadol Allergy Intermediate nausea Verified 01/27/23 13:12 strawberry Allergy Itching Verified 01/27/23 13:12 animals Allergy Itching Uncoded 01/27/23 13:12 red fruit Allergy Itching Uncoded 01/27/23 13:12 tree Allergy eye Uncoded 01/27/23 13:12 swelling, itch Review of Systems 2 Review of Systems: Pertinent positives and negatives as stated in [facility] Past Medical History Source: nursing notes reviewed Medical History Conjunctiva disorder Wart of scalp COVID-19 Upper extremity neuropathy Right shoulder pain Right arm pain Physical exam Cough Environmental allergies Left hip pain Left shoulder tendinitis Left shoulder pain GERD (gastroesophageal reflux disease) Asthma Urticaria Fracture of left hip requiring operative repair HIV (human immunodeficiency virus infection) Hypothyroidism Dyslipidemia Verruca TIA (transient ischemic attack) Asthma Surgical History History of hip replacement, total History of lumbar fusion History of section H/O umbilical hernia repair Hx of colonoscopy Family History Family History Father Cancer Diabetes Mother Cancer Diabetes Brother Colon polyps Social History Social History Household Members: None Housing: Apartment Alcohol intake: never Patient Tobacco Use Status: Former Tobacco user Tobacco use type: Cigarette Smoked in Last 30 Days: No e-Cigarette/Vaping Use: Never Used Second Hand Smoke Exposure: No Substance Use Type: Marijuana Advance Directives: No Advance Directives Information Provided: Yes service: No Current occupational status: retired Cognitive needs: No Hearing needs: No Vision needs: Yes Physical Exam ED Vital Signs: Vital Signs - 24 hr 01/27/23 13:12 01/27/23 19:22 01/27/23 22:40 Temperature 98 F 98.2 F 98.4 F Pulse Rate 88 85 96 Respiratory Rate 19 16 18 Blood Pressure 143/85 H 150/82 H 138/84 Pulse Oximetry 98 97 97 Oxygen Delivery Method Room Air Room Air Room Air BMI result Body Mass Index 24.2 VITAL SIGNS: Reviewed. GENERAL: Well developed, well nourished, in no acute distress. HEAD: Normocephalic/atraumatic EYES: PERRLA, EOMI EARS: Ext canals without abnormality NOSE: Nares patent bilateral OROPHARYNX: no oral lesions noted, posterior pharynx clear NECK: Supple, no adenopathy LUNGS: Normal breath sounds. No adventitious sounds or accessory muscle use. SpO2<97> CARDIOVASCULAR: Regular rate and rhythm without noted murmurs, no JVD or lower extremity edema. ABDOMEN: Soft, lower abdominal tenderness to palpation without rebound, non- distended with bowel sounds. MUSCULOSKELETAL: No tenderness, deformities, or effusions noted on gross inspection. EXTREMITIES: No cyanosis, clubbing or edema. SKIN: Inspection of the skin reveals no rashes NEUROLOGIC: Alert and oriented x 4. Strength and sensation to light touch were grossly intact x 4. Course Course Course Narrative: This is an RME: Additional HPI, ROS, PE not included below will be deferred to primary provider. This is a [id number]-female presenting to the emergency department with a complaint of abdominal pain, vomiting and diarrhea since 5am. Was seen in [place] ER, diagnosed with pancreatic mass with CT scan who rec oncology follow up. Seen by oncology but waiting for MRI and biopsy at [facility]. 2139 - Pt has been in main ER awaiting to be picked up by primary provider. Nurse Desiree approached me as pt was having worsening AP and nausea. IV zofran, morphine, and CT abd w/ IV con ordered. Medications Administered Discontinued Medications Generic Name Dose Route Start Last Admin Trade Name Desq PRN Reason Stop Dose Admin Iohexol 85 ml 01/27/23 21:54 01/27/23 21:55 Iohexol 350 Mg/Ml 100 Ml Infus..Btl IV 01/27/23 21:55 85 ml ONCE ONE Administration Morphine Sulfate 4 mg 01/27/23 20:35 01/27/23 21:33 Morphine Sulfate 4 Mg/Ml Cartridge IVPUSH 01/27/23 20:36 4 mg ONCE ONE Administration Protocol Ondansetron HCl 4 mg 01/27/23 20:35 01/27/23 21:33 Ondansetron Hcl 4 Mg/2 Ml Vial IVPUSH 01/27/23 20:36 4 mg ONCE ONE Administration Medical Decision Making Medical Decision Making [facility] Narrative: 2144: 73-year-old female with history and clinical presentation, DDX: Colitis (viral/bacterial), UTI, diverticulitis I reviewed all investigations and there is no hematologic indices indicating leukocytosis, there is a left shift and no anemia or thrombocytopenia. Chemistry indices are grossly within normal limits without evidence of GIL I are electrolytes/liver enzyme derangements, lipase is within normal limits. Urinalysis is negative for urinary tract infection. Viral testing negative for influenza/RSV/COVID. Review of CT scan negative for evidence to suggest a colitis/diverticulitis/appendicitis. My interpretation is that patient is having lower abdominal discomfort and nausea which may be related to her underlying pathology although liver enzymes appear to be within normal limits, patient has had no further bowel movements since arrival to the emergency room so unable to obtain GI panel prior to discharge. I did discuss all results and findings with the patient and encouraged her to follow-up with Dr. Verdugo for possible increased pain and nausea management. At this time will discharge patient with Zofran, it does appear that she has been approved for her MRI which will now be scheduled and she has a pending appointment with [facility] to see the pancreatic cancer specialist. I discussed all results and findings with the patient and her family at bedside Differential Diagnosis Differential Diagnoses: The differential diagnosis associated with the presentation includes Please see the discussion above Admission/Observation Consideration of admission/observation: Escalation of care including admission/observation considered Please see the discussion above Lab Data MDM Lab Attestation statement: I reviewed the patient's lab results. Please see the discussion above 01/27/23 15:17 01/27/23 15:17 Labs: Lab Results 01/27/23 01/27/23 Range/Units 15:17 20:15 WBC 8.4 (4.8-10.8) X10*3/uL RBC 4.89 (4.20-5.50) X10*6/uL Hgb 15.4 (12.0-16.0) g/dl Hct 45.7 (37.0-47.0) % MCV 93.5 (80.0-98.0) fL MCH 31.5 (27.0-33.0) pg MCHC 33.7 (31.0-35.0) g/dl RDW 12.8 (11.0-16.0) % Plt Count 292 (160-400) X10*3/uL MPV 8.9 L (9.4-12.3) fL Immature Gran % (Auto) 0.2 (0.0-0.4) % Neut % (Auto) 82.3 H (45-73) % Lymph % (Auto) 13.8 L (20-40) % [place] % (Auto) 2.7 (2-11) % Eos % (Auto) 0.6 (0-4) % Baso % (Auto) 0.4 (0-2) % Lymph # (Auto) 1.2 (1.2-4.9) X10*3/uL [place] # (Auto) 0.2 (0.1-1.2) X10*3/uL Eos # (Auto) 0.1 (0.0-0.4) X10*3/uL Baso # (Auto) 0.0 (0.0-0.2) X10*3/uL Abs Immat Gran (auto) 0.02 (0.00-0.03) X10*3/uL Absolute Neuts (auto) 6.9 (2.0-8.3) x10*3/uL Absolute Nucleated RBC 0.000 (0.0-0.012) X10*3/uL Nucleated RBC % (auto) 0.0 (0.0-0.2) /100WBC Sodium 141 (135-145) mmol/L Potassium 4.2 (3.3-5.1) mmol/L Chloride 105 (96-108) mmol/L Carbon Dioxide 26 (22-29) mmol/L Anion Gap 14 (12-20) BUN 12 (9-16) mg/dL Creatinine 0.75 (0.5-1.4) mg/dL Estim Creat Clear Calc 55.5 Estimated GFR > 60 Random Glucose 90 (60-115) mg/dL Calcium 9.9 (8.4-10.2) mg/dL Magnesium 2.3 (1.6-2.6) mg/dL Total Bilirubin 0.6 (0.0-1.0) mg/dL Direct Bilirubin 0.1 (0.0-0.5) mg/dL AST 20 (5-31) U/L ALT 6 (0-31) U/L Alkaline Phosphatase 88 (39-117) U/L Total Protein 7.7 (6.5-8.0) g/dL Albumin 4.3 (3.5-5.0) g/dL Lipase 16 (8-78) U/L Urine Color Dark Yellow Urine Appearance Clear Urine pH 5.5 (5.0-9.0) Ur Specific [place] >= 1.030 H (1.005-1.025) Urine Protein Trace (Neg-Trace) mg/dL Urine Glucose (UA) Negative (Negative) mg/dL Urine Ketones 15 (Negative) mg/dL Urine Blood Trace H (Negative) Urine Nitrite Negative (Negative) Ur Leukocyte Esterase Negative (Negative) Urine RBC 11-20 H (0-2) /HPF Urine WBC 0-5 (0-5) /HPF Ur Squamous Epith Cells 0-2 (0-2) /HPF Urine Bacteria None Seen (None Seen) Hyaline Casts 0-2 (0-2) /LPF Influenza Type A (PCR) NEGATIVE (Negative) Influenza Type B (PCR) NEGATIVE (Negative) RSV RNA Qual (PCR) NEGATIVE (Negative) SARS-CoV-2 RNA (RT-PCR) NEGATIVE (Negative) Radiology Impression Discussion of test interpretation with radiology: I have reviewed the radiologist's reading. Radiologist Impression: Please see the discussion above External Record Review External record reviewed: Outpatient record, Prior outpatient labs and Prior outpatient radiology Chronic Conditions Patient?s care impacted by: Other HIV Critical Care Time Critical Care Time Critical Care Time: Yes Total Critical Care Time: 30 Attestation: I personally attest to this time spent taking care of the patient. Discharge Plan Discharge Clinical Impression: Abdominal pain, lower, Nausea Patient Disposition: Home, Self-Care Instructions: Abdominal Pain (ED) Additional Instructions: 1. Reanudar todos los medicamentos caseros seg?n lo recetado. 2. Le recet? Zofran para ayudar a controlar las n?useas. 3. Comun?quese con el Dr. Verdugo o lazcano m?dico de atenci?n primaria a primera hora de la ma?americo para programar josh yash para josh reevaluaci?n, josh posible discusi?n adicional sobre el manejo ambulatorio sobre un mayor control/manejo del dolor. Regrese a la jeromy de emergencias si los s?ntomas empeoran. 1. Resume all home medications as prescribed. 2. I have prescribed Zofran to help control your nausea. 3. Please contact Dr. Verdugo or your primary care doctor 1st thing in the morning to set up an appointment for re-evaluation further outpatient management possible discussion regarding increased pain control/management. Return to the ER for any worsening symptoms. Prescriptions: No Action sumatriptan succinate 50 mg tablet 50 mg PO Q2-4H PRN (Reason: migraine headache) 30 Days Qty: 9 0RF Rx Instructions: do not exceed 4 doses per 24 hrs (DME) AeroEclipse II Nebulizer Misc See Rx Instructions .Route Qty: 1 0RF Rx Instructions: As directed hydroxyzine HCl 25 mg tablet 25 mg PO BEDTIME 90 Days Qty: 90 0RF oxycodone 5 mg tablet 5 mg PO BID PRN (Reason: pain) 5 Days Qty: 10 0RF Rx Instructions: Partial Fill upon patient request. levothyroxine 112 mcg tablet 112 mcg PO DAILY 30 Days Qty: 30 1RF albuterol sulfate 90 mcg/actuation HFA aerosol inhaler 2 puff inhalation Q4-6H PRN (Reason: shortness of breath or wheezing) Qty: 6.7 0RF albuterol sulfate 2.5 mg/0.5 mL solution for nebulization 5 mg inhalation Q4H PRN (Reason: shortness of breath or wheezing) Qty: 30 0RF metronidazole 500 mg tablet 500 mg PO BID 10 Days Qty: 20 0RF ciprofloxacin HCl [Cipro] 500 mg tablet 500 mg PO BID Qty: 20 0RF dicyclomine 20 mg tablet 20 mg PO QID PRN (Reason: abdominal pain) Qty: 20 0RF methocarbamol 750 mg tablet 750 mg PO TID PRN (Reason: pain (scale score 4-6)) Qty: 14 0RF albuterol sulfate 1.25 mg/3 mL solution for nebulization 1.25 mg inhalation Q4-6H PRN (Reason: shortness of breath or wheezing) Qty: 75 0RF famotidine 40 mg tablet 40 mg PO DAILY Juluca 50-25 mg tablet 1 tab PO DAILY Rx Instructions: must administer with a meal/food loratadine 10 mg tablet 10 mg PO DAILY 90 Days Qty: 90 1RF olopatadine [Pataday Once Daily Relief] 0.2 % drops 1 drp ophthalmic (eye) DAILY 30 Days Qty: 2.5 1RF gabapentin 100 mg capsule 100 mg PO DAILY PRN (Reason: pain (scale score 7-10)) 15 Days Qty: 15 1RF Trelegy Ellipta 200-62.5-25 mcg blister with device 1 inh inhalation DAILY 30 Days Qty: 1 6RF famotidine 20 mg tablet 20 mg PO BID PRN (Reason: acid reflux) atorvastatin 10 mg tablet 10 mg PO DAILY Referrals: Armen Bone PA-C [Primary Care Provider] - Johanny Verdugo MD [Physician] - Print Language: Faroese
[2023-01-27 15:29] LABS: MANUAL DIFF FLAG NO
[2023-01-27 15:39] LABS: Basophils Percent Auto 0.4 % (0-2); Eosinophils Absolute Auto 0.1 X10*3/uL (0.0-0.4); Eosinophils Percent Auto 0.6 % (0-4); Hematocrit 45.7 % (37.0-47.0); Hemoglobin 15.4 g/dl (12.0-16.0); Imm Gran Abs Auto 0.02 X10*3/uL (0.00-0.03); Imm Gran Pct Auto 0.2 % (0.0-0.4); Lymphocytes Absolute Auto 1.2 X10*3/uL (1.2-4.9); Lymphocytes Percent Auto 13.8 % (20-40); Mean Corpuscular HGB Conc 33.7 g/dl (31.0-35.0); Mean Corpuscular Hemoglobin 31.5 pg (27.0-33.0); Mean Corpuscular Volume 93.5 fL (80.0-98.0); Mean Platelet Volume 8.9 fL (9.4-12.3); Monocytes Absolute Auto 0.2 X10*3/uL (0.1-1.2); Monocytes Percent Auto 2.7 % (2-11); Neutrophils Absolute Auto 6.9 x10*3/uL (2.0-8.3); Neutrophils Percent Auto 82.3 % (45-73); Platelet Count 292 X10*3/uL (160-400); Red Blood Count 4.89 X10*6/uL (4.20-5.50); Red Cell Distribution Width 12.8 % (11.0-16.0); White Blood Count 8.4 X10*3/uL (4.8-10.8)
[2023-01-27 15:46] LABS: Alanine Aminotransferase 6 U/L (0-31); Albumin Level 4.3 g/dL (3.5-5.0); Alkaline Phosphatase 88 U/L (39-117); Anion Gap 14 (12-20); Aspartate Amino Transferase 20 U/L (5-31); Bilirubin Direct 0.1 mg/dL (0.0-0.5); Bilirubin Total 0.6 mg/dL (0.0-1.0); Blood Urea Nitrogen 12 mg/dL (9-16); Calcium 9.9 mg/dL (8.4-10.2); Carbon Dioxide 26 mmol/L (22-29); Chloride 105 mmol/L (96-108); Creatinine Clr Calc Pharmacy 55.5; Estimated Glomerular Filt Rate > 60; Glucose Random 90 mg/dL (60-115); Lipase 16 U/L (8-78); Magnesium 2.3 mg/dL (1.6-2.6); Potassium 4.2 mmol/L (3.3-5.1); Sodium 141 mmol/L (135-145); Total Protein 7.7 g/dL (6.5-8.0)
[2023-01-27 16:20] LABS: Influenza A PCR NEGATIVE (Negative); Influenza B PCR NEGATIVE (Negative); Resp Syncy Virus RNA Qual PCR NEGATIVE (Negative); SARS COV2 PCR INHOUSE NEGATIVE (Negative)
[2023-01-27 19:22] VITALS: BP 150/82; PULSE 85; RESP 16; TEMP 36.8; O2SAT 97
[2023-01-27 20:22] LABS: Appearance Urine Clear; Color Urine Dark Yellow; Glucose Urine UA Negative (Negative); Leukocyte Esterase Urine Negative (Negative); Nitrite Urine Negative (Negative); PH 5.5 (5.0-9.0); Specific Gravity - Urine >= 1.030 (1.005-1.025); UMIC TRIGGER UACC YES; Urine Blood Trace (Negative); Urine Ketones 15 mg/dL (Negative); Urine Protein Trace mg/dL (Neg-Trace)
[2023-01-27 20:24] LABS: Bacteria Urine None Seen (None Seen); Hyaline Casts Urine 0-2 /LPF (0-2); Squamous Epithelial Cell Urine 0-2 /HPF (0-2); WBC Urine 0-5 /HPF (0-5)
[2023-01-27] MEDS: ondansetron HCL 4 MG/2 ML VIAL IVPUSH (21:33)
[2023-01-27] MEDS: Morphine Sulfate 4 MG/ML CARTRIDGE IVPUSH (21:33)
[2023-01-27] MEDS: iohexoL 350 MG/ML 100 ML INFUS..BTL 85 ML IV (21:55)
[2023-01-27 22:40] VITALS: BP 138/84; PULSE 96; RESP 18; TEMP 36.9; O2SAT 97
== END 2023-01-27 23:36 | disposition home or self-care (01) ==
PROVIDERS: Physician Assistant Medical; Emergency Provider Student in an Organized Health Care Education/Training Program; PCP Physician Assistant
DX: R11.2 Nausea with vomiting, unspecified (principal); R10.30 Lower abdominal pain, unspecified; Z79.899 Other long term (current) drug therapy; Z87.891 Personal history of nicotine dependence; Z20.822 Contact with and (suspected) exposure to COVID-19; Z20.828 Contact with and (suspected) exposure to other viral communicable diseases
CPT/HCPCS: 0241U; 74177; 80048; 80076; 81001; 83690; 83735; 85025; 96374; 96375; 99284; J2270; J2405; Q9967

== ENCOUNTER 2023-02-05 11:11 | Outpatient (REF) | payer OTHER, SELFPAY ==
--- NOTE | ~2023-02-05 | MR_ITS ---
EXAMINATION: MR ABDOMEN WITHOUT AND WITH CONTRAST CLINICAL INFORMATION: Followup pancreatic lesion. COMPARISON: CT abdomen/pelvis 01/27/2023 and 01/11/2023. TECHNIQUE: MR abdomen was performed without and with use of 5.5 mL intravenous Gadavist gadolinium contrast. Postcontrast images are performed in multiphase dynamic sequences. Imaging was performed in 3 planes. FINDINGS: LUNG BASES: The visualized lung bases are unremarkable. LIVER, GALLBLADDER, AND BILIARY TREE: Signal loss of the liver parenchyma in the opposed phase dual echo images consistent with hepatic steatosis. Otherwise, liver is normal in size and shape. No focal hepatic lesion or biliary ductal dilatation is present. Cholelithiasis without significant findings to suspect acute cholecystitis. No biliary ductal dilatation. PANCREAS: Again noted pancreatic ductal dilatation measuring up to 6 mm in diameter up to the level of the periampullary region increased compared to 11/20/2019, not significantly changed compared to recent prior CTs from December 2022. Corresponding to the previously described focal observation on CT along the inferior pancreatic head adjacent to the ampullary region, there is perhaps some minimal decreased T1 signal (image 33 series 9) and faint hypoenhancement, best seen on postcontrast arterial phase (image 84 series 100). No discrete additional focal signal abnormalities are noted in the pancreatic parenchyma. SPLEEN: Normal. ADRENAL GLANDS: Normal. KIDNEYS AND URETERS: The kidneys are normal in size, shape, and enhance symmetrically. No hydronephrosis. No perinephric stranding. GASTROINTESTINAL TRACT: No bowel obstruction. No ascites or fluid collection. ABDOMINAL WALL: No significant hernia is appreciated. LYMPH NODES: No lymphadenopathy. VASCULAR: Normal caliber abdominal aorta. OSSEOUS STRUCTURES: No acute or aggressive appearing osseous findings. MR/MR abdomen wo/w con IMPRESSION: Again noted pancreatic ductal dilatation up to the periampullary region that is increased compared to a remote CT from 11/20/2019 with a faint focal area of signal abnormality in the inferior aspect of the pancreatic head near the ampullary region/duodenum. Findings remain worrisome for underlying lesion in view of the changes in the caliber of the main pancreatic duct compared to 2019. If not recently obtained, EUS correlation is highly recommended. If the EUS results are normal, then close attention on follow-up with interval MRI in 3-6 months is recommended. Addition of DWI sequences to the MRI would be helpful in future imaging. Also, as a troubleshooting imaging modality PET/CT could be considered.
[2023-02-05] MEDS: gadobutroL 7.5 ML VIAL IVPUSH (12:26)
== END 2023-02-05 11:12 | disposition home or self-care (01) ==
LOC: HO.MRI 11:11
PROVIDERS: PCP Physician Assistant; Visit Provider Internal Medicine
DX: K86.89 Other specified diseases of pancreas (principal)
CPT/HCPCS: 74183; A9585

== ENCOUNTER 2023-02-08 13:08 | Outpatient (REF) | payer OTHER, SELFPAY ==
[2023-02-08 13:33] LABS: MANUAL DIFF FLAG NO
[2023-02-08 14:29] LABS: Basophils Absolute Auto 0.1 X10*3/uL (0.0-0.2); Basophils Percent Auto 0.8 % (0-2); Eosinophils Absolute Auto 0.2 X10*3/uL (0.0-0.4); Eosinophils Percent Auto 2.5 % (0-4); Hematocrit 42.7 % (37.0-47.0); Hemoglobin 14.2 g/dl (12.0-16.0); Imm Gran Abs Auto 0.02 X10*3/uL (0.00-0.03); Imm Gran Pct Auto 0.3 % (0.0-0.4); Lymphocytes Absolute Auto 1.8 X10*3/uL (1.2-4.9); Lymphocytes Percent Auto 28.6 % (20-40); Mean Corpuscular HGB Conc 33.3 g/dl (31.0-35.0); Mean Corpuscular Hemoglobin 30.9 pg (27.0-33.0); Mean Corpuscular Volume 92.8 fL (80.0-98.0); Mean Platelet Volume 9.6 fL (9.4-12.3); Monocytes Absolute Auto 0.4 X10*3/uL (0.1-1.2); Monocytes Percent Auto 6.3 % (2-11); Neutrophils Absolute Auto 3.9 x10*3/uL (2.0-8.3); Neutrophils Percent Auto 61.5 % (45-73); Platelet Count 314 X10*3/uL (160-400); Red Cell Distribution Width 12.3 % (11.0-16.0); White Blood Count 6.4 X10*3/uL (4.8-10.8)
[2023-02-08 15:09] LABS: Alanine Aminotransferase 6 U/L (0-31); Anion Gap 13 (12-20); Aspartate Amino Transferase 17 U/L (5-31); Carbon Dioxide 28 mmol/L (22-29); Chloride 106 mmol/L (96-108); Estimated Glomerular Filt Rate > 60; Potassium 3.9 mmol/L (3.3-5.1); Sodium 143 mmol/L (135-145)
[2023-02-08 16:55] LABS: CT PCR NOT DETECTED (Not Detect.); NG PCR NOT DETECTED (Not Detect.)
[2023-02-09 08:03] LABS: HBsAGNum1 0.36 S/CO (0.00-0.99); Hepatitis B Surface Antigen Negative (Negative); ~HepC Num1 0.07 S/CO (0.00-0.79); ~Hepatitis C Antibody Nonreactive (Nonreactive)
[2023-02-09 08:20] LABS: Syphilis Screen Nonreactive (Nonreactive)
[2023-02-09 12:39] LABS: Absolute CD3 Count 1096 cells/uL (840-3060); Absolute CD4 Count 628 cells/uL (490-1740); Absolute CD8 Count 500 cells/uL (180-1170); Absolute Lymphocytes 2042 cells/uL (850-3900); CD4 CD8 Ratio 1.26 (0.86-5.00); Percent CD3 Cells 54 % (57-85); Percent CD4 Cells 31 % (30-61); Percent CD8 Cells 24 % (12-42)
[2023-02-09 14:19] LABS: HIV RNA PCR Qn Copies NOT DETECTED copies/mL (NOT DETECTED); HIV RNA PCR Qn Log Copies NOT DETECTED (NOT DETECTED)
== END 2023-02-08 13:09 | disposition home or self-care (01) ==
LOC: HO.LAB 13:08
PROVIDERS: Visit Provider Internal Medicine Infectious Disease
DX: B20 Human immunodeficiency virus [HIV] disease (principal)
CPT/HCPCS: 0353U; 80051; 82565; 84450; 84460; 85025; 86359; 86360; 86780; 86803; 87340; 87536

== ENCOUNTER 2023-02-10 08:51 | Outpatient (AMB) | payer OTHER, SELFPAY ==
[2023-02-10 09:07] VITALS: BP 162/104; PULSE 90; RESP 16; BMI 24.8
--- NOTE | 2023-02-10 09:07 | MHC.PC.OV ---
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: No Accompanied by: Other Relationship Allergies blackberry Allergy (Intermediate, Verified 02/10/23 09:26) Itching long Allergy (Intermediate, Verified 02/10/23 09:26) Itching peanut [PEANUT] Allergy (Intermediate, Verified 02/10/23 09:26) RASH Sulfa (Sulfonamide Antibiotics) [SULFA (SULFONAMIDE ANTIBIOTICS)] Allergy (Intermediate, Verified 02/10/23 09:26) HIVES, hives, rash, hives, rash tramadol Allergy (Intermediate, Verified 02/10/23 09:26) nausea strawberry Allergy (Verified 02/10/23 09:26) Itching animals Allergy (Uncoded 02/10/23 09:14) Itching red fruit Allergy (Uncoded 02/10/23 09:14) Itching tree Allergy (Uncoded 02/10/23 09:14) eye swelling, itch Medication List - Last Reconciled 02/10/23 by Armen Bone PA-C albuterol sulfate 1.25 mg (3 mL) inhalation Q4-6H PRN albuterol sulfate 5 mg inhalation Q4H PRN albuterol sulfate 90 mcg/actuation 2 puffs inhalation Q4-6H PRN atorvastatin 10 mg PO DAILY dicyclomine 20 mg PO QID PRN dolutegravir-rilpivirine 50-25 mg (Juluca) 1 tab PO DAILY famotidine 20 mg PO BID PRN wqzaepbiraz-lxojoseid-snaxvsru 200-62.5-25 mcg (Trelegy Ellipta) 1 inh inhalation DAILY 30 days gabapentin 100 mg PO DAILY PRN 15 days hydroxyzine HCl 25 mg PO BEDTIME 90 days levothyroxine 112 mcg PO DAILY 30 days loratadine 10 mg PO DAILY 90 days lorazepam 0.5 mg PO ONCE PRN 1 day methocarbamol 750 mg PO TID PRN nebulizers (AeroEclipse II Nebulizer) As directed olopatadine 0.2% (Pataday Once Daily Relief) 1 drp ophthalmic (eye) DAILY 30 days ondansetron 8 mg PO Q8H PRN oxycodone 5 mg PO BID PRN 5 days sumatriptan succinate 50 mg PO Q2-4H PRN 30 days Tobacco use date assessed: 07/09/22 HPI 3 month f/u HPI Details Patient is a 73 y/o F here today for a follow-up visit Patient has a past medical history significant moderate persistent asthma, history of HIV, hypothyroidism migraine disorder. . Concern--> recently had several your visits for abdominal pain. CT of abdomen showing concerning pancreatic lesion. Has been referred to Oncology an MRI of abdomen done and of waiting results. Recently had endoscopy at [facility] and a possible lesion at the distal common bile duct a fine-needle biopsy was done (awaiting pathology report). There was mild dilation of the pancreatic duct in the head. CA 19 9 normal. Continues to have abd pain mostly over her mid abd/ lower abdomen. She denies any diarrhea . She does report oxycodone is helpful to reduce her pain. She is only using this medication on a very limited PRN basis. She does admit to some urinary frequency and urinalysis does show red blood cells. She is a former smoker thus will send for urine cytology and bladder scan. .. CHRONIC MEDICAL CONDITION--> Asthma: Patient by [facility] and continues and inhaler and albuterol inhaler p.r.n.. She reports her asthma is fairly well controlled does seldomly have asthma exacerbations. She also seems to be suffering with allergies to which bother her eyes, nose and throat. She does use Benadryl which is helpful at night. . HIV: Patient followed by infectious disease specialist and continues on daily antiviral therapy. [facility] Medical History Conjunctiva disorder Wart of scalp COVID-19 Upper extremity neuropathy Right shoulder pain Right arm pain Physical exam Cough Environmental allergies Left hip pain Left shoulder tendinitis Left shoulder pain GERD (gastroesophageal reflux disease) Asthma Urticaria Fracture of left hip requiring operative repair HIV (human immunodeficiency virus infection) Hypothyroidism Dyslipidemia Verruca TIA (transient ischemic attack) Asthma Surgical History History of hip replacement, total History of lumbar fusion History of section H/O umbilical hernia repair Hx of colonoscopy Family History Father Cancer Diabetes Mother Cancer Diabetes Brother Colon polyps Social History Household Members: None Housing: Apartment Alcohol intake: never Patient Tobacco Use Status: Former Tobacco user Tobacco use type: Cigarette e-Cigarette/Vaping Use: Never Used Second Hand Smoke Exposure: No Substance Use Type: Marijuana service: No Current occupational status: retired Cognitive needs: No Hearing needs: No Vision needs: Yes Questionnaire Thrive Questionnaire Date Thrive assessed: 02/10/23 I am a: Patient What is your living situation today?: I have a steady place to live Within the past 12 months, did the food you bought not last and you didn't have the money to get more?: Never true Within the past 12 months, did you worry whether your food would run out before you got money to buy more?: Never true Do you have trouble paying for medicines?: No Do you have trouble getting transportation to medical appointments?: No Do you have trouble paying your heating and electricity bill?: No Do you have trouble taking care of your child, family member or friend?: No Do you have trouble with day-to-day activities such as bathing, preparing meals, shopping, managing finances, etc.?: No Are you currently unemployed and looking for a job?: No Are you interested in more education?: No Please select the resources that you would like help with: None Currently or been in a relationship where the following occur: no concerns reported AUDIT C Alcohol Use Questionnaire (AUDIT-C) 1. How often do you have a drink containing alcohol?: Never 3. How often do you have six or more drinks on one occasion?: Never Total Score: 0 IAN-7 AMB Questionnaire IAN-7 Date IAN - 7 assessed: 07/09/22 Source: Developed by Drs. Bobo Mccall, Karen Huber, Jason Soria and colleagues, with an educational ramin from [employer]. Review of Systems Const Denies headache(s) Eyes Denies loss of vision ENT Denies vertigo, Denies dizziness, Denies headache(s) and Denies sore throat Card Denies chest pain, Denies leg edema and Denies lightheadedness Resp Denies cough, Denies hemoptysis and Denies wheezing GI Denies abdominal pain, Denies melena, Denies constipation, Denies diarrhea and Denies vomiting Denies urinary frequency, Denies dysuria and Denies urinary urgency Musc Denies arthralgias, Denies joint swelling, Denies numbness and Denies tingling Neuro Denies Abnormal speech present, Denies behavioral changes, Denies vertigo, Denies dizziness, Denies headache(s), Denies loss of vision, Denies memory loss, Denies numbness and Denies tingling Psych Denies anxiety, Denies behavioral changes, Denies depression, Denies memory loss and Denies panic attacks Cordell/Lymph Denies easy bleeding and Denies easy bruising Aller/Immun Denies wheezing Physical exam (Primary Care) Vital Signs: Last Vital Signs Pulse 90 02/10/23 09:07 Resp 16 02/10/23 09:07 BP 148/90 H 02/10/23 09:43 BMI result Body Mass Index 24.8 Tobacco/Smoking Status: Tobacco use Status Tobacco use date assessed 07/09/22 02/10/23 09:17 Patient Tobacco Use Status Former Tobacco user 02/10/23 09:17 Tobacco use type Cigarette 02/10/23 09:17 e-Cigarette/Vaping Use Never Used 02/10/23 09:17 Thrive Assessment: Date of Thrive Assessment Date Thrive assessed 02/10/23 02/10/23 09:17 Currently or been in a relationship where the following occur: no concerns reported Const General: healthy appearing, no acute distress, alert and awake Nutritional Appearance: well nourished Orientation/consciousness: oriented to person, oriented to place and oriented to time [facility] Ears: TM's normal bilaterally General nose exam: Normal nasal mucous membranes and turbinates present Eyes Conjunctivae: conjunctivae normal Sclerae: sclerae normal Pupils: Equal, round and reactive pupils present Neck Neck: Yes no lymphadenopathy and Yes no JVD Thyroid: Thyroid normal Carotids: no bruits Resp Effort & Inspection: normal respiratory effort and not tachypneic Auscultation: no crackles, no rales, no rhonchi and no wheezes Cardio Rate: regular rate Rhythm: regular rhythm Heart sounds: no murmurs and normal S1 and S2 GI Other: TENDERNESS TO PALPATION OVER RIGHT/MIDDLE AND LEFT LOWER ABDOMEN. Palpation (GI): Soft to palpation, Tenderness to palpation present (GI), no hepatomegaly and no splenomegaly Auscultation: normal bowel sounds Skin General skin exam: no rashes or lesions noted and dry skin Neuro General: oriented to person, oriented to place and oriented to time Cranial nerves: Yes Equal, round and reactive pupils present Speech: No Abnormal speech present Gait exam (Neuro): Normal gait present Motor exam (neuro): no tremor noted Extrem Right upper extremity: full ROM Left upper extremity: full ROM Right lower extremity: full ROM; no edema Left lower extremity: full ROM; no edema Psych Mental Status: mental status grossly normal Speech and movement: Normal speech and movement present Affect: normal affect Attitude: cooperative Thought process: Normal thought process present Assessment and Plan Assessment & Plan (1) Pancreatic mass: Code(s): K86.89 - Other specified diseases of pancreas Plan: As per HPI patient is undergoing evaluation for pancreatic mass. Endoscopy findings as per HPI. She did get biopsy at the time of her endoscopy. Has followed up with Oncology--> She recently got MRI of abdomen is awaiting Radiology final. (2) Bladder pain: Code(s): R39.89 - Other symptoms and signs involving the genitourinary system Plan: Patient's pain seems to be more focused on lower abdomen. She does have red blood cells in the urine thus will send for urine cytology to evaluate for any typical cells. Will send for bladder ultrasound and transvaginal ultrasound to evaluate for uterine fibroids are ovarian cysts that could be causing her abdominal pain. (3) Dyslipidemia: Code(s): E78.5 - Hyperlipidemia, unspecified Plan: Continues on statin therapy. Will check fasting lipid panel to assure normal. Goal LDL to be below 130 (4) Hypothyroidism: Code(s): E03.9 - Hypothyroidism, unspecified Qualifiers: Hypothyroidism type: acquired Qualified Code(s): E03.9 - Hypothyroidism, unspecified Plan: Patient continues on daily use of levothyroxine 88 mcg. Will repeat check TSH to assure normal. (5) Asthma: Code(s): J45.909 - Unspecified asthma, uncomplicated Qualifiers: Asthma complication type: uncomplicated Asthma persistence: persistent Asthma severity: moderate Qualified Code(s): J45.40 - Moderate persistent asthma, uncomplicated Plan: Patient followed by pulmonology. She does report having some asthma exacerbations at times related to her allergies and changes in weather. (6) Abdominal pain, lower: Code(s): R10.30 - Lower abdominal pain, unspecified Orders: Orders US pelvic and transvaginal Today R10.2 - Pelvic and perineal pain, R10.9 - Unspecified abdominal pain US bladder Today R31.9 - Hematuria, unspecified, R39.89 - Other symptoms and signs involving the genitourinary system Urine Cytology Today R39.89 - Other symptoms and signs involving the genitourinary system XR KUB Today R39.89 - Other symptoms and signs involving the genitourinary system Medications: New oxycodone Partial Fill upon patient request. 10 mg PO BID 7 days PRN 14 tabs 0RF pain K86.89 - Other specified diseases of pancreas Changed From dicyclomine 20 mg PO QID PRN 20 tabs 0RF abdominal pain R10.9 - Unspecified abdominal pain To dicyclomine 20 mg PO TID 30 days 90 tabs 2RF abdominal pain R10.9 - Unspecified abdominal pain Refilled sumatriptan succinate do not exceed 4 doses per 24 hrs 50 mg PO Q2-4H 30 days PRN 9 tabs 0RF migraine headache hydroxyzine HCl 25 mg PO BEDTIME 90 days 90 tabs 0RF Discontinued oxycodone Partial Fill upon patient request. Discontinued Reason: Duplicate 5 mg PO BID 5 days PRN 10 tabs 0RF pain K86.89 - Other specified diseases of pancreas Coding Level of Care Code Est Pt Level 4 (73794) Diagnoses Pancreatic mass K86.89 Bladder pain R39.89 Dyslipidemia E78.5 Acquired hypothyroidism E03.9 Hypothyroidism type: acquired Moderate persistent asthma without complication J45.40 Asthma complication type: uncomplicated Asthma persistence: persistent Asthma severity: moderate Abdominal pain, lower R10.30
[2023-02-10 09:43] VITALS: BP 148/90
== END 2023-02-10 09:58 | disposition home or self-care (01) ==
PROVIDERS: Visit Provider Physician Assistant
DX: K86.89 Other specified diseases of pancreas (principal); R39.89 Other symptoms and signs involving the genitourinary system; E78.5 Hyperlipidemia, unspecified; E03.9 Hypothyroidism, unspecified; J45.40 Moderate persistent asthma, uncomplicated; R10.30 Lower abdominal pain, unspecified
CPT/HCPCS: 99214

== ENCOUNTER 2023-02-11 09:22 | Outpatient (REF) | payer OTHER, SELFPAY ==
--- NOTE | ~2023-02-11 | XR_ITS ---
EXAMINATION: XR ABDOMEN KUB CLINICAL INDICATION: Other symptoms and signs involving the genitourinary system. COMPARISON: MR abdomen 02/05/2023, CT abdomen and pelvis 01/27/2023, left hip radiographs 11/20/2022. TECHNIQUE: 2 AP supine views of the abdomen. FINDINGS: Tepikete-yz-tqaee amount stool in the colon. Nonobstructive bowel gas pattern. Degenerative changes in the lumbar spine. Postsurgical changes of left hip ORIF redemonstrated with 3 surgical fixation screws. No radiopaque renal calculi identified, however, visualization limited due to overlying bowel. XR/XR KUB IMPRESSION: Mwdhykbh-qu-tekmz amount of stool in the colon. Nonobstructive bowel gas pattern.
[2023-02-11 10:11] LABS: Urine Cytology See Pathology rpt
== END 2023-02-11 09:23 | disposition home or self-care (01) ==
LOC: HO.LAB 09:22
PROVIDERS: PCP Physician Assistant; Visit Provider Physician Assistant
DX: R39.89 Other symptoms and signs involving the genitourinary system (principal)
CPT/HCPCS: 74018; 88112

== ENCOUNTER 2023-03-30 09:57 | Outpatient (AMB) | payer OTHER, SELFPAY ==
--- NOTE | 2023-03-30 10:02 | A.OFFVIS_ITS ---
Intake Intake Visit Reasons: Hematuria Intake Note: New Patient presents for initial visit for Hematuria Urology Medications: none Blood Thinner: none Smoker: former smoker Recent Cytology: 02/20 Cashier Or Checker Stock Clerk Required: Yes Cashier Or Checker Stock Clerk Name: EMILIANO FELDMAN MONIQUE Accompanied by: Unknown Allergies blackberry Allergy (Intermediate, Verified 03/30/23 14:31) Itching long Allergy (Intermediate, Verified 03/30/23 14:31) Itching peanut [PEANUT] Allergy (Intermediate, Verified 03/30/23 14:31) RASH Sulfa (Sulfonamide Antibiotics) [SULFA (SULFONAMIDE ANTIBIOTICS)] Allergy (Inte rmediate, Verified 03/30/23 14:31) HIVES, hives, rash, hives, rash tramadol Allergy (Intermediate, Verified 03/30/23 14:31) nausea strawberry Allergy (Verified 03/30/23 14:31) Itching animals Allergy (Uncoded 03/30/23 14:31) Itching red fruit Allergy (Uncoded 03/30/23 14:31) Itching tree Allergy (Uncoded 03/30/23 14:31) eye swelling, itch Medication List - Last Reconciled 03/30/23 by ANDERSON Gonzalez- albuterol sulfate 1.25 mg (3 mL) inhalation Q4-6H PRN albuterol sulfate 5 mg inhalation Q4H PRN albuterol sulfate 90 mcg/actuation 2 puffs inhalation Q4-6H PRN atorvastatin 10 mg PO DAILY dicyclomine 20 mg PO TID 30 days dolutegravir-rilpivirine 50-25 mg (Juluca) 1 tab PO DAILY famotidine 20 mg PO BID PRN nxzwpchtvau-lgzpdwlxc-kzzqipze 200-62.5-25 mcg (Trelegy Ellipta) 1 inh inhalation DAILY 30 days gabapentin 100 mg PO DAILY PRN 15 days hydroxyzine HCl 25 mg PO BEDTIME 90 days levothyroxine 112 mcg PO DAILY 30 days loratadine 10 mg PO DAILY 90 days lorazepam 0.5 mg PO ONCE PRN 1 day methocarbamol 750 mg PO TID PRN nebulizers (AeroEclipse II Nebulizer) As directed olopatadine 0.2% (Pataday Once Daily Relief) 1 drp ophthalmic (eye) DAILY 30 days ondansetron 8 mg PO Q8H PRN oxycodone 10 mg PO BID PRN 7 days phenazopyridine 100 mg PO Q8H 6 doses sennosides (senna) 17.2 mg (2 x 8.6 mg) PO BEDTIME PRN 15 days sumatriptan succinate 50 mg PO Q2-4H PRN 30 days HPI HPI Comments History of Present Illness Details Yamile is a very pleasant 73-year-old [place]-speaking female patient of Dr. Bone who was accompanied by her niece at today's office visit. Cashier Or Checker Stock Clerk offered however patient would like and is requesting niece to provide translation. Cashier Or Checker Stock Clerk present if needed. She has a past medical history of environmental allergies, GERD, anxiety, HIV, hypothyroidism, dyslipidemia, TIA, and asthma. She presents to the office today as a new patient for microscopic hematuria and abnormal cytology. In discussion with the patient today she reports having followed up with her PCP for ongoing lower abdominal pressure and discomfort at which time a CT was ordered for further assessment evaluation. These results reviewed with the patient today. The kidneys are normal in size shape and attenuation. No hydronephrosis, hydroureter or calculi seen. The bladder is unremarkable. There were abnormal findings regarding her pancreas and she reports to be following up with Gastroenterology. In review of patient's chart it appears cytology was ordered and performed. These results were reviewed with the patient today. Urine: Few atypical squamous cells, suspicious for low grade dysplasia. When asked she does report a longstanding history of smoking recreational marijuana frequently. She reports having smoked for many years. She reports smoking recreational marijuana daily for over 20 years however quit for 12 years in his smoking again. She otherwise denies any previous nicotine dependence and or workplace chemical exposure. When asked she reports lower abdominal bladder pressure, nocturia, and urinary urgency. Discussed at length potential causes for lower urinary tract symptoms patient is experiencing. Discussed further workup with in office cystoscopy for further assessment evaluation. In office urinalysis today with 2+ microscopic hematuria. She otherwise denies dysuria, foul smelling urine, changes to urinary stream, flank pain, fever, and or chills. [facility] Medical History Conjunctiva disorder Wart of scalp COVID-19 Upper extremity neuropathy Right shoulder pain Right arm pain Physical exam Cough Environmental allergies Left hip pain Left shoulder tendinitis Left shoulder pain GERD (gastroesophageal reflux disease) Asthma Urticaria Fracture of left hip requiring operative repair HIV (human immunodeficiency virus infection) Hypothyroidism Dyslipidemia Verruca TIA (transient ischemic attack) Asthma Surgical History History of hip replacement, total History of lumbar fusion History of section H/O umbilical hernia repair Hx of colonoscopy Family History Father Cancer Diabetes Mother Cancer Diabetes Brother Colon polyps Social History Household Members: None Housing: Apartment Alcohol intake: never Patient Tobacco Use Status: Former Tobacco user Tobacco use type: Cigarette e-Cigarette/Vaping Use: Never Used Second Hand Smoke Exposure: No Substance Use Type: Marijuana service: No Current occupational status: retired Cognitive needs: No Hearing needs: No Vision needs: Yes Review of Systems Const Reports as per HPI Eyes Reports no additional complaints ENT Reports no additional complaints Card Reports as per HPI Resp Reports as per HPI GI Reports as per HPI Reports as per HPI Musc Reports no additional complaints Neuro Reports as per HPI Psych Reports as per HPI Endo Reports no additional complaints Cordell/Lymph Reports as per HPI Aller/Immun Reports as per HPI Physical Exam Const General: cooperative, healthy appearing, comfortable, no acute distress, well developed, alert and awake Orientation/consciousness: patient oriented x3 Limitations: no limitations HEENT Head: Yes normal to inspection, Yes normocephalic and Yes atraumatic Ears: hearing grossly normal bilaterally Eyes General: appearance normal, both eyes and all related structures Neck Neck: Yes normal visual inspection and Yes trachea midline Chest Chest palpation & inspection: normal inspection of the chest Resp Effort & Inspection: normal respiratory effort and able to speak in complete sentences Cardio Rate: regular rate GI Inspection: Yes normal to inspection General: Yes no CVA tenderness Back/Spine/Pelvis Back: no CVA tenderness Skin General skin exam: no rashes or lesions noted Neuro General: patient oriented x3 Extrem General: Yes normal to inspection Psych Appearance: grossly normal and well kempt Mental Status: mental status grossly normal Speech and movement: Normal speech and movement present and Clear speech present Affect: normal affect Attitude: cooperative Thought process: Normal thought process present Thought content: Normal thought content present Insight: Fair insight present (Psych) Judgement: Fair judgement present (Psych) Results AMB Urinalysis, Automated UA Leukoctes 0 Jason/uL Last Edit by Dialective on 03/30/23 10:17 UA Nitrite Negative Last Edit by Dialective on 03/30/23 10:17 UA Urobilinogen 0.2 mg/dL Last Edit by Dialective on 03/30/23 10:17 UA Protein 15 mg/dL Last Edit by Dialective on 03/30/23 10:17 UA pH 6.0 Last Edit by Dialective on 03/30/23 10:17 UA Blood 80 Obdulio/uL Last Edit by Dialective on 03/30/23 10:17 UA Specific [place] 1.025 Last Edit by Dialective on 03/30/23 10:17 UA Ketone Negative Last Edit by Dialective on 03/30/23 10:17 UA Bilirubin 0 mg/dL Last Edit by Dialective on 03/30/23 10:17 UA Glucose 0 mg/dL Last Edit by Dialective on 03/30/23 10:17 Results Reviewed Results Reviewed: Laboratory Last Values Urine pH (Auto) 6.0 03/30/23 10:11 Specific [place] (Auto) 1.025 03/30/23 10:11 Urine Protein (Auto) 15 mg/dL 03/30/23 10:11 Glucose (UA)(Auto) 0 mg/dL 03/30/23 10:11 Urine Ketones (Auto) Negative 03/30/23 10:11 Urine Blood (Auto) 80 Obdulio/uL 03/30/23 10:11 Urine Nitrite (Auto) Negative 03/30/23 10:11 Urine Bilirubin (Auto) 0 mg/dL 03/30/23 10:11 Urine Urobilinogen (Auto) 0.2 mg/dL 03/30/23 10:11 Leukocyte Esterase (Auto) 0 Jason/uL 03/30/23 10:11 Date of Service: 01/27/23 EXAMINATION: CT ABDOMEN AND PELVIS WITH CONTRAST FINDINGS: LUNG BASES: There is bibasilar dependent hypoaeration. LIVER, GALLBLADDER, AND BILIARY TREE: The liver is normal in size, shape, and attenuation. There is mild focal fatty infiltration adjacent to the falciform ligament. No focal hepatic lesion or biliary ductal dilatation is present. The gallbladder is unremarkable with no evidence of radiopaque gallstones, gallbladder wall thickening, or obvious pericholecystic inflammatory changes. PANCREAS: Again, there is mild pancreatic ductal dilatation to 4 mm, which extends to the ampulla. A very subtle 1.2 cm lesion is again questioned of the inferior pancreatic head adjacent to the ampulla (7:44 and 3:34). Again, the common bile duct is not distended. SPLEEN: Unremarkable. ADRENAL GLANDS: Unremarkable. KIDNEYS AND URETERS: The kidneys are normal in size, shape, and attenuation. No hydronephrosis, hydroureter, or calculi seen. No perinephric stranding. BLADDER: Unremarkable. GASTROINTESTINAL TRACT: There is mild diverticulosis, without acute diverticulitis. No bowel obstruction, free intraperitoneal air or abscess is seen. There is no significant focal bowel wall thickening presently noted. The vermiform appendix appears normal, with a caliber of 5 mm and no periappendiceal fat stranding or fluid (3:59). ABDOMINAL WALL: No significant hernia is appreciated. LYMPH NODES: Normal. VASCULAR: There is moderate aortoiliac atherosclerotic calcification. No abdominal aortic aneurysm or dissection is seen. PELVIC VISCERA: Unremarkable. OSSEOUS STRUCTURES: There is multi-level marked thoracolumbar degenerative disc disease, spondylosis and facet arthropathy. Particular note is made of large upper and lower endplate Schmorl's nodes at L3-L4. No acute or aggressive osseous finding is seen. CT/CT abdomen pelvis w IV con IMPRESSION: 1. Again, there is pancreatic ductal dilatation and a subtle inferior pancreatic head mass is questioned in the vicinity of the ampulla. The common bile does not appear distended. Again, recommend correlation with ERCP and endoscopic ultrasound or pancreatic MRI (please see report dated 01/11/2023). 2. There is interim improvement in previously noted wall thickening of the transverse and descending colon segments. No obstruction, free intraperitoneal air or abscess is presently seen. There is diverticulosis, without acute diverticulitis. The vermiform appendix appears normal. 3. There are multi-level degenerative changes of the spine. Assessment & Plan Assessment & Plan (1) Hematuria: Code(s): R31.9 - Hematuria, unspecified (2) Abnormal cytology: Code(s): R89.6 - Abnormal cytological findings in specimens from other organs, systems and tissues (3) Sensation of pressure in bladder area: Code(s): R39.89 - Other symptoms and signs involving the genitourinary system (4) Cannabis abuse: Code(s): F12.10 - Cannabis abuse, uncomplicated Plan In office urinalysis results reviewed with the patient today; as noted above; will send for urine cytology. Recent CT results reviewed with the patient today; as noted above. Recent urine cytology results reviewed with the patient today; as noted above. Discussed at length potential causes of microscopic hematuria and lower urinary tract symptoms patient has been experiencing. Discussed, educated, and stressed the importance of drinking plenty of water daily. Prescription provided for p.r.n. Pyridium. Discussed and educated on the importance of limiting/quitting recreational marijuana for overall health and well-being. Discussed further workup with in office cystoscopy for further assessment evaluation; risks and benefits were discussed at length Follow-up cystoscopy; or sooner with any issues, concerns, and or questions. Orders: Orders AMB Urinalysis Automated Today Z13.9 - Encounter for screening, unspecified Urine Cytology Today R31.9 - Hematuria, unspecified Medications: New phenazopyridine 100 mg PO Q8H 6 doses 6 tabs 0RF M54.50 - Low back pain, unspecified, R31.9 - Hematuria, unspecified Patient Instructions: The patient had an opportunity to ask questions regarding the treatment plan. All questions were answered. Physical exam, labs, and imaging were discussed and reviewed in detail. As well as risks, benefits, and discussion of treatment choices. No major barriers to understanding were identified. The patient expressed understanding and agreement with the above treatment plan. The patient was made aware they should contact our office by phone for worsening of their current condition, the appearance of new symptoms, or with any questions or concerns. Compliance is encouraged with any medications and follow up testing that is ordered. It is a privilege to be allowed the opportunity to participate in? your urological care.? Again, if you have any questions or concerns If you have any questions or concerns please do not hesitate to contact me. The office is [phone]. This note is constructed using voice recognition software. While every effort has been made to ensure accuracy aquaculturist errors may have been included. Yours sincerely, RAYSA Gonzalez Coding Level of Care Code New Pt Level 4 (41488) Diagnoses Hematuria R31.9 Abnormal cytology R89.6 Sensation of pressure in bladder area R39.89 Cannabis abuse F12.10
== END 2023-03-30 10:49 | disposition home or self-care (01) ==
PROVIDERS: PCP Physician Assistant; Visit Provider Nurse Practitioner Family
DX: R31.9 Hematuria, unspecified (principal); R89.6 Abnormal cytological findings in specimens from other organs, systems and tissues; R39.89 Other symptoms and signs involving the genitourinary system; F12.10 Cannabis abuse, uncomplicated; Z13.9 Encounter for screening, unspecified
CPT/HCPCS: 99204

== ENCOUNTER 2023-03-30 09:57 | Outpatient (REF) | payer OTHER, SELFPAY ==
[2023-03-30 16:45] LABS: Urine Cytology See Pathology rpt
== END 2023-03-30 09:58 | disposition home or self-care (01) ==
LOC: HO.LNP 09:57
PROVIDERS: PCP Physician Assistant; Visit Provider Nurse Practitioner Family
DX: R31.29 Other microscopic hematuria (principal); R39.15 Urgency of urination; R35.1 Nocturia; R14.0 Abdominal distension (gaseous); R89.6 Abnormal cytological findings in specimens from other organs, systems and tissues; R39.89 Other symptoms and signs involving the genitourinary system; Z79.899 Other long term (current) drug therapy
CPT/HCPCS: 81003; 88112; 99202

== ENCOUNTER 2023-04-27 13:03 | Outpatient (REF) | payer OTHER, SELFPAY ==
[2023-04-27 13:31] LABS: MANUAL DIFF FLAG NO
[2023-04-27 13:49] LABS: Basophils Absolute Auto 0.1 X10*3/uL (0.0-0.2); Basophils Percent Auto 0.8 % (0-2); Eosinophils Absolute Auto 0.1 X10*3/uL (0.0-0.4); Hematocrit 45.8 % (37.0-47.0); Hemoglobin 15.4 g/dl (12.0-16.0); Imm Gran Abs Auto 0.01 X10*3/uL (0.00-0.03); Imm Gran Pct Auto 0.2 % (0.0-0.4); Lymphocytes Absolute Auto 1.8 X10*3/uL (1.2-4.9); Lymphocytes Percent Auto 29.7 % (20-40); Mean Corpuscular HGB Conc 33.6 g/dl (31.0-35.0); Mean Corpuscular Hemoglobin 31.6 pg (27.0-33.0); Mean Corpuscular Volume 93.9 fL (80.0-98.0); Mean Platelet Volume 9.2 fL (9.4-12.3); Monocytes Absolute Auto 0.5 X10*3/uL (0.1-1.2); Monocytes Percent Auto 7.5 % (2-11); Neutrophils Absolute Auto 3.6 x10*3/uL (2.0-8.3); Neutrophils Percent Auto 59.8 % (45-73); Platelet Count 260 X10*3/uL (160-400); Red Blood Count 4.88 X10*6/uL (4.20-5.50); Red Cell Distribution Width 13.6 % (11.0-16.0)
[2023-04-27 14:27] LABS: Alanine Aminotransferase 8 U/L (0-31); Anion Gap 13 (12-20); Aspartate Amino Transferase 22 U/L (5-31); Carbon Dioxide 27 mmol/L (22-29); Chloride 104 mmol/L (96-108); Estimated Glomerular Filt Rate 43; Potassium 3.8 mmol/L (3.3-5.1); Sodium 140 mmol/L (135-145)
[2023-04-27 16:48] LABS: CT PCR NOT DETECTED (Not Detect.); NG PCR NOT DETECTED (Not Detect.)
[2023-04-28 08:27] LABS: HBsAGNum1 0.39 S/CO (0.00-0.99); Hepatitis B Surface Antigen Negative (Negative); ~HepC Num1 0.08 S/CO (0.00-0.79); ~Hepatitis C Antibody Nonreactive (Nonreactive)
[2023-04-28 08:43] LABS: Syphilis Screen Nonreactive (Nonreactive)
[2023-04-28 16:37] LABS: HIV RNA PCR Qn Copies NOT DETECTED copies/mL (NOT DETECTED); HIV RNA PCR Qn Log Copies NOT DETECTED (NOT DETECTED)
[2023-04-29 21:44] LABS: TS Negative Control Passed; TS Panel A 1; TS Panel B 1; TS Positive Control Passed; TSpotTB Negative (Negative)
== END 2023-04-27 13:04 | disposition home or self-care (01) ==
LOC: HO.LAB 13:03
PROVIDERS: PCP Physician Assistant; Visit Provider Internal Medicine Infectious Disease
DX: B20 Human immunodeficiency virus [HIV] disease (principal)
CPT/HCPCS: 0353U; 80051; 82565; 84450; 84460; 85025; 86481; 86780; 86803; 87340; 87536

== ENCOUNTER 2023-04-28 13:23 | Outpatient (AMB) | payer OTHER, SELFPAY ==
[2023-04-28 13:25] VITALS: BP 138/78; PULSE 88; O2SAT 99; BMI 26.4
--- NOTE | 2023-04-28 13:25 | A.OFFVIS_ITS ---
Intake Vital Signs 04/28/23 13:25 Height 5 ft 1 in Weight 139 lb 15.896 oz BMI 26.4 BP 138/78 Blood Pressure Location Rt brachial Position Sitting Pulse 88 Pulse Source Doppler Pulse Oximetry (%) 99 Oxygen Delivery Method Room Air Intake Visit Reasons: asthma Stock Taker Required: Yes Stock Taker Name: Cindy Almanza Julio.L.M Allergies blackberry Allergy (Intermediate, Verified 04/28/23 13:33) Itching long Allergy (Intermediate, Verified 04/28/23 13:33) Itching peanut [PEANUT] Allergy (Intermediate, Verified 04/28/23 13:33) RASH Sulfa (Sulfonamide Antibiotics) [SULFA (SULFONAMIDE ANTIBIOTICS)] Allergy (Intermediate, Verified 04/28/23 13:33) HIVES, hives, rash, hives, rash tramadol Allergy (Intermediate, Verified 04/28/23 13:33) nausea strawberry Allergy (Verified 04/28/23 13:33) Itching animals Allergy (Uncoded 03/30/23 14:31) Itching red fruit Allergy (Uncoded 03/30/23 14:31) Itching tree Allergy (Uncoded 03/30/23 14:31) eye swelling, itch HPI asthma HPI Details 73-year-old lady, former smoker of [employer] but not tobacco, now followed for moderate to severe persistent asthma and environmental allergies.? Patient previously on Xolair, however now she does not want to continue using. She states that his symptoms are well controlled on Trelegy and albuterol MDI/nebs. She has been using Singulair for her underlying allergies. She denies recent exacerbations. [facility] Medical History Conjunctiva disorder Wart of scalp COVID-19 Upper extremity neuropathy Right shoulder pain Right arm pain Physical exam Cough Environmental allergies Left hip pain Left shoulder tendinitis Left shoulder pain GERD (gastroesophageal reflux disease) Asthma Urticaria Fracture of left hip requiring operative repair HIV (human immunodeficiency virus infection) Hypothyroidism Dyslipidemia Verruca TIA (transient ischemic attack) Asthma Surgical History History of hip replacement, total History of lumbar fusion History of section H/O umbilical hernia repair Hx of colonoscopy Family History Father Cancer Diabetes Mother Cancer Diabetes Brother Colon polyps Social History Household Members: None Housing: Apartment Alcohol intake: never Patient Tobacco Use Status: Former Tobacco user Tobacco use type: Cigarette e-Cigarette/Vaping Use: Never Used Second Hand Smoke Exposure: No Substance Use Type: Marijuana service: No Current occupational status: retired Cognitive needs: No Hearing needs: No Vision needs: Yes Review of Systems Const Denies daytime sleepiness, Denies excessive sweating, Denies fatigue, Denies fever(s), Denies lethargy, Denies malaise, Denies night sweats, Denies snoring and Denies weight loss Eyes Denies blurry vision and Denies itchy eyes ENT Denies nasal congestion, Denies post nasal drip, Denies sinus pain, Denies sinus pressure and Denies other ( Thrush) Card Denies chest pain, Denies pedal edema, Denies dyspnea, Denies orthopnea and Denies paroxysmal nocturnal dyspnea Resp Denies cough, Denies hemoptysis, Denies excessive phlegm production, Denies dyspnea, Denies snoring and Denies wheezing GI Denies abdominal pain and Denies heartburn Musc Denies myalgias, Denies arthralgias and Denies joint swelling Skin/Breast Denies rash Neuro Denies memory loss and Denies seizure-like activity Psych Denies abnormal sleep pattern, Denies anxiety and Denies memory loss Endo Denies excessive sweating, Denies fatigue and Denies heat intolerance Cordell/Lymph Denies easy bruising Aller/Immun Denies itchy eyes, Denies seasonal rhinorrhea and Denies wheezing Physical Exam Vital Signs: Last Vital Signs Pulse 88 04/28/23 13:25 BP 138/78 04/28/23 13:25 Pulse Ox 99 04/28/23 13:25 Oxygen Delivery Method Room Air 04/28/23 13:25 BMI result Body Mass Index 26.4 Const General: no acute distress and alert Nutritional Appearance: not obese Orientation/consciousness: Other orientation findings ( oriented) HEENT Head: Yes atraumatic Eyes General: appearance normal, both eyes and all related structures Sclerae: sclerae normal EOM: EOMs intact bilaterally Neck Neck: Yes supple Lymphatic: no lymphadenopathy noted Resp Effort & Inspection: normal respiratory effort and no use of accessory muscles Auscultation: clear to auscultation bilaterally Cardio Rate: regular rate Rhythm: regular rhythm Heart sounds: no gallops, no murmurs and no rubs Skin General skin exam: other ( warm) Extrem General: No clubbing, No cyanosis and No edema Assessment & Plan Assessment & Plan (1) Asthma: Code(s): J45.909 - Unspecified asthma, uncomplicated Qualifiers: Asthma severity: moderate Asthma persistence: persistent Asthma complication type: uncomplicated Qualified Code(s): J45.40 - Moderate persistent asthma, uncomplicated Plan: Well controlled on Trelegy and albuterol MDI. Continue current regimen. (2) Environmental allergies: Code(s): Z91.09 - Other allergy status, other than to drugs and biological substances Plan: Patient no longer wants to continue on Xolair. Continue Singulair. Coding Level of Care Code Est Pt Level 4 (96829) Diagnoses Moderate persistent asthma without complication J45.40 Asthma severity: moderate Asthma persistence: persistent Asthma complication type: uncomplicated Environmental allergies Z91.09
== END 2023-04-28 13:50 | disposition home or self-care (01) ==
PROVIDERS: PCP Physician Assistant; Visit Provider Internal Medicine Pulmonary Disease
DX: J45.40 Moderate persistent asthma, uncomplicated (principal); Z91.09 Other allergy status, other than to drugs and biological substances
CPT/HCPCS: 99214

== ENCOUNTER → 2023-04-28 13:23 | Outpatient (BNVA) | payer OTHER, SELFPAY | PROVIDERS: PCP Physician Assistant; Visit Provider Internal Medicine Pulmonary Disease | DX: J45.40 Moderate persistent asthma, uncomplicated (principal); Z91.09 Other allergy status, other than to drugs and biological substances | CPT/HCPCS: 99212 ==

== ENCOUNTER 2023-05-04 15:30 | Outpatient (AMB) | payer OTHER, SELFPAY ==
--- NOTE | 2023-05-04 15:34 | MHC.OFFVIS ---
Intake Intake Visit Reasons: cysto Confirmed Intake Note: Patient presents today for a Cystoscopy Meds: None Allergies to Antibiotic: Sulfa Blood Thinner: None Urinalysis test clear for Cysto? Yes Disposable Uro-G Cystoscope Cannula: Lot: [id number] Exp: 07/12/2024 Dish Carrier Required: No Accompanied by: niece Allergies blackberry Allergy (Intermediate, Verified 05/04/23 16:54) Itching long Allergy (Intermediate, Verified 05/04/23 16:54) Itching peanut [PEANUT] Allergy (Intermediate, Verified 05/04/23 16:54) RASH Sulfa (Sulfonamide Antibiotics) [SULFA (SULFONAMIDE ANTIBIOTICS)] Allergy (Intermediate, Verified 05/04/23 16:54) HIVES, hives, rash, hives, rash tramadol Allergy (Intermediate, Verified 05/04/23 16:54) nausea strawberry Allergy (Verified 05/04/23 16:54) Itching animals Allergy (Uncoded 05/04/23 16:54) Itching red fruit Allergy (Uncoded 05/04/23 16:54) Itching tree Allergy (Uncoded 05/04/23 16:54) eye swelling, itch Medication List - Last Reconciled 05/04/23 by ANDERSON Gonzalez-FUENTES albuterol sulfate 1.25 mg (3 mL) inhalation Q4-6H PRN albuterol sulfate 5 mg inhalation Q4H PRN albuterol sulfate 90 mcg/actuation 2 puffs inhalation Q4-6H PRN amitriptyline 25 mg PO BEDTIME 30 days atorvastatin 10 mg PO DAILY dicyclomine 20 mg PO TID 30 days dolutegravir-rilpivirine 50-25 mg (Juluca) 1 tab PO DAILY estradiol 0.01%(0.1mg/gram) vaginally 3 times a week; pea sized amount to urethra 3 times a week 30 days famotidine 20 mg PO BID PRN wtsrczbcujf-ujijfdruk-lzdmgows 200-62.5-25 mcg (Trelegy Ellipta) 1 inh inhalation DAILY 30 days gabapentin 100 mg PO DAILY PRN 15 days hydroxyzine HCl 25 mg PO BEDTIME 90 days levothyroxine 112 mcg PO DAILY 30 days loratadine 10 mg PO DAILY 90 days lorazepam 0.5 mg PO ONCE PRN 1 day methocarbamol 750 mg PO TID PRN mirabegron ER (Myrbetriq) 25 mg PO DAILY 30 days montelukast 10 mg PO DAILY 30 days nebulizers (AeroEclipse II Nebulizer) As directed olopatadine 0.2% (Pataday Once Daily Relief) 1 drp ophthalmic (eye) DAILY 30 days ondansetron 8 mg PO Q8H PRN oxycodone 10 mg PO BID PRN 7 days phenazopyridine 100 mg PO Q8H 6 doses sennosides (senna) 17.2 mg (2 x 8.6 mg) PO BEDTIME PRN 15 days sumatriptan succinate 50 mg PO Q2-4H PRN 30 days HPI HPI Comments History of Present Illness Details Yamile is a very pleasant 73-year-old [place] Islander-speaking female patient of Dr. Bone who was accompanied by her niece at today's office visit. Dish Carrier offered however patient would like and is requesting niece to provide translation. She has a past medical history of environmental allergies, GERD, anxiety, HIV, hypothyroidism, dyslipidemia, TIA, and asthma. She presents to the office today for Of note, patient was seen approximately 6 weeks ago as a new patient for microscopic hematuria and abnormal cytology. She presents to the office today for a cystoscopy for further assessment evaluation. Mild generalized erythema noted throughout the bladder. Caruncle noted. No bladder tumors noted. Discussed possible interstitial cystitis given mild generalized erythema noted throughout the bladder. Discussed importance of bladder triggers and irritants as well as pelvic floor therapy. Previous workup has included a CT noting kidneys are normal in size shape and attenuation. No hydronephrosis, hydroureter or calculi seen. The bladder is unremarkable. Cytology 02/20--few atypical squamous cell, suspicion for low-grade dysplasia, 04/24--atypical squamous cells. When asked she does report a longstanding history of smoking recreational marijuana frequently. She reports having smoked for many years. She reports smoking recreational marijuana daily for over 20 years however quit for 12 years and is now smoking again. She otherwise denies any previous nicotine dependence and or workplace chemical exposure. When asked she continues to report lower abdominal bladder pressure, nocturia, and urinary urgency. Discussed at length potential causes for lower urinary tract symptoms patient is experiencing. In office urinalysis results reviewed with the patient today. She otherwise denies dysuria, foul smelling urine, changes to urinary stream, flank pain, fever, and or chills. [facility] Medical History Conjunctiva disorder Wart of scalp COVID-19 Upper extremity neuropathy Right shoulder pain Right arm pain Physical exam Cough Environmental allergies Left hip pain Left shoulder tendinitis Left shoulder pain GERD (gastroesophageal reflux disease) Asthma Urticaria Fracture of left hip requiring operative repair HIV (human immunodeficiency virus infection) Hypothyroidism Dyslipidemia Verruca TIA (transient ischemic attack) Asthma Surgical History History of hip replacement, total History of lumbar fusion History of section H/O umbilical hernia repair Hx of colonoscopy Family History Father Cancer Diabetes Mother Cancer Diabetes Brother Colon polyps Social History Household Members: None Housing: Apartment Alcohol intake: never Patient Tobacco Use Status: Former Tobacco user Tobacco use type: Cigarette e-Cigarette/Vaping Use: Never Used Second Hand Smoke Exposure: No Substance Use Type: Marijuana service: No Current occupational status: retired Cognitive needs: No Hearing needs: No Vision needs: Yes Review of Systems Const Reports as per [facility] Eyes Reports no additional complaints ENT Reports no additional complaints Card Reports as per [facility] Resp Reports as per [facility] GI Reports as per HPI Reports as per [facility] Musc Reports no additional complaints Neuro Reports as per [facility] Psych Reports as per [facility] Endo Reports no additional complaints Cordell/Lymph Reports as per HPI Aller/Immun Reports as per HPI Physical Exam Const General: cooperative, healthy appearing, comfortable, no acute distress, well developed, alert and awake Orientation/consciousness: patient oriented x3 Limitations: no limitations HEENT Head: Yes normal to inspection, Yes normocephalic and Yes atraumatic Ears: hearing grossly normal bilaterally Eyes General: appearance normal, both eyes and all related structures Neck Neck: Yes normal visual inspection and Yes trachea midline Chest Chest palpation & inspection: normal inspection of the chest Resp Effort & Inspection: normal respiratory effort and able to speak in complete sentences Cardio Rate: regular rate GI Inspection: Yes normal to inspection General: Yes no CVA tenderness External Female Exam: normal external appearance and other (caruncle) Speculum Exam - Vagina: normal appearance of the vagina Back/Spine/Pelvis Back: no CVA tenderness Skin General skin exam: no rashes or lesions noted Neuro General: patient oriented x3 Extrem General: Yes normal to inspection Psych Appearance: grossly normal and well kempt Mental Status: mental status grossly normal Speech and movement: Normal speech and movement present and Clear speech present Affect: normal affect Attitude: cooperative Thought process: Normal thought process present Thought content: Normal thought content present Insight: Fair insight present (Psych) Judgement: Fair judgement present (Psych) Office Procedures Cystoscopy Consent Discussed risk and benefit or proposed procedure with the patient. Information consent for procedure given to the patient. Discussed technical aspects, risks, benefits and alternatives in full. Addressed all of the patient's questions and concerns regarding the procedure. The patient demonstrated knowledge and understanding. They wish to proceed with this procedure. Preparation The patient was prepped in the usual manner. A proposal specialist was present and in the room. Genitalia was prepped with betadine solution in a sterile manner. Lidocaine Jelly 2% was placed into the urethra and 16Fr flexible Olympus cystoscope was inserted into the meatus after adequate lubrication. Procedure Meatus: caruncle Urethra: Normal Bladder examination with retroflexion of cystoscope Bladder Orifices: normal shape and position Trigone: inflamed Bladder Capacity: medium Trabeculations: mild; grade one Cellule Formation : None Diverticulum Formation: none Mucosal Erythema: Mild mucosal erythema throughout the bladder. Bladder Tumor: none. Patient tolerated procedure well. [id number] DISPOSABLE SCOPE URO-G FLEXIBLE SCOPE Procedure code (CPT) selection complete Office Meds lidocaine HCl 2 % mucosal jelly in applicator Performing Provider: AMBER Gonzalez [place] [facility] [facility] Administered by: Arjun Benavidez LPN on 05/04/23 15:53 Dose Route Admin Location Dispensed Lot Number Expiration Date [facility] Corporate Director Of Pharmacy 10 mL intra-urethral 10 mL nitrofurantoin monohydrate/macrocrystals 100 mg capsule Performing Provider: AMBER Gonzalez [place] [facility] [place] [facility] Administered by: Arjun Benavidez LPN on 05/04/23 15:53 Dose Route Admin Location Dispensed Lot Number Expiration Date [facility] Corporate Director Of Pharmacy 100 mg PO 1 cap naproxen 500 mg tablet Performing Provider: AMBER Gonzalez [place]forming [place] [facility] [place] [facility] Administered by: Arjun Benavidez LPN on 05/04/23 15:53 Dose Route Admin Location Dispensed Lot Number Expiration Date [facility] Corporate Director Of Pharmacy 500 mg PO 1 tab Results AMB Urinalysis, Automated UA Leukoctes 0 Jason/uL Last Edit by Leanne Lopez, [facility] on 05/04/23 16:06 UA Nitrite Negative Last Edit by [facility], [facility] on 05/04/23 16:06 UA Urobilinogen 0.2 mg/dL Last Edit by [facility], [facility] on 05/04/23 16:06 UA Protein 15 mg/dL Last Edit by [facility], [facility] on 05/04/23 16:06 UA pH 5.5 Last Edit by [facility], [facility] on 05/04/23 16:06 UA Blood 80 Obdulio/uL Last Edit by [facility], [facility] on 05/04/23 16:06 UA Specific [place] 1.025 Last Edit by [facility], [facility] on 05/04/23 16:06 UA Ketone Negative Last Edit by [facility], [facility] on 05/04/23 16:06 UA Bilirubin 0 mg/dL Last Edit by [facility], [facility] on 05/04/23 16:06 UA Glucose 0 mg/dL Last Edit by [facility], [facility] on 05/04/23 16:06 Results Reviewed Results Reviewed: Laboratory Last Values Urine pH (Auto) 5.5 05/04/23 16:04 Specific [place] (Auto) 1.025 05/04/23 16:04 Urine Protein (Auto) 15 mg/dL 05/04/23 16:04 Glucose (UA)(Auto) 0 mg/dL 05/04/23 16:04 Urine Ketones (Auto) Negative 05/04/23 16:04 Urine Blood (Auto) 80 Obdulio/uL 05/04/23 16:04 Urine Nitrite (Auto) Negative 05/04/23 16:04 Urine Bilirubin (Auto) 0 mg/dL 05/04/23 16:04 Urine Urobilinogen (Auto) 0.2 mg/dL 05/04/23 16:04 Leukocyte Esterase (Auto) 0 Jason/uL 05/04/23 16:04 Assessment & Plan Assessment & Plan (1) Bladder pain: Code(s): R39.89 - Other symptoms and signs involving the genitourinary system (2) Pelvic pain in female: Code(s): R10.2 - Pelvic and perineal pain (3) Sensation of pressure in bladder area: Code(s): R39.89 - Other symptoms and signs involving the genitourinary system (4) Urinary urgency: Code(s): R39.15 - Urgency of urination Plan In office urinalysis results reviewed with the patient today; as noted above. Start amitriptyline 25 mg at bedtime, Myrbetriq 25 mg daily, and Estrace cream as discussed and prescribed. Discussed at length potential causes for lower urinary tract symptoms patient is experiencing. Discussed pelvic floor therapy for further assessment evaluation. Discussed at length caruncle. Discussed bladder triggers/irritants. Discussed importance of drinking water daily. Follow-up in 3 months with [facility]; or sooner with any issues, concerns, and or questions. Orders: Orders AMB Cystoscopy 05/04/23 R31.9 - Hematuria, unspecified, R39.89 - Other symptoms and signs involving the genitourinary system, R89.6 - Abnormal cytological findings in specimens from other organs, systems and tissues AMB Urinalysis Automated 05/04/23 R33.9 - Retention of urine, unspecified Referrals Pelvic Cheese Grader Referral R10.2 - Pelvic and perineal pain, R39.89 - Other symptoms and signs involving the genitourinary system Medications: New mirabegron ER (Myrbetriq) 25 mg PO DAILY 30 tabs 2RF 30 days N30.10 - Interstitial cystitis (chronic) without hematuria, N32.81 - Overactive bladder, R35.1 - Nocturia, R39.15 - Urgency of urination estradiol 0.01%(0.1mg/gram) vaginally 3 times a week; pea sized amount to urethra 3 times a week 42.5 grams 3RF 30 days amitriptyline 25 mg PO BEDTIME 30 tabs 2RF 30 days N30.10 - Interstitial cystitis (chronic) without hematuria Discontinued oxycodone Partial Fill upon patient request. Discontinued Reason: Patient Completed Course 10 mg PO BID 7 days PRN 14 tabs 0RF pain K86.89 - Other specified diseases of pancreas Patient Instructions: The patient had an opportunity to ask questions regarding the treatment plan. All questions were answered. Physical exam, labs, and imaging were discussed and reviewed in detail. As well as risks, benefits, and discussion of treatment choices. No major barriers to understanding were identified. The patient expressed understanding and agreement with the above treatment plan. The patient was made aware they should contact our office by phone for worsening of their current condition, the appearance of new symptoms, or with any questions or concerns. Compliance is encouraged with any medications and follow up testing that is ordered. It is a privilege to be allowed the opportunity to participate in? your urological care.? Again, if you have any questions or concerns If you have any questions or concerns please do not hesitate to contact me. The office is [phone]. This note is constructed using voice recognition software. While every effort has been made to ensure accuracy nike athlete errors may have been included. Yours sincerely, ANDERSON Gonzalez-FUENTES Coding Level of Care Code Est Pt Level 4 (34830) Diagnoses Bladder pain R39.89 Pelvic pain in female R10.2 Sensation of pressure in bladder area R39.89 Urinary urgency R39.15 CPT Codes Cystoscopy - CPT: 03295-[id number] ([id number])
== END 2023-05-04 16:46 | disposition home or self-care (01) ==
PROVIDERS: PCP Physician Assistant; Visit Provider Nurse Practitioner Family
DX: R39.89 Other symptoms and signs involving the genitourinary system (principal); R10.2 Pelvic and perineal pain; R39.15 Urgency of urination
CPT/HCPCS: 52000; 99214

== ENCOUNTER → 2023-05-04 15:30 | Outpatient (BNVA) | payer OTHER, SELFPAY | PROVIDERS: PCP Physician Assistant; Visit Provider Nurse Practitioner Family | DX: R39.89 Other symptoms and signs involving the genitourinary system (principal); R10.2 Pelvic and perineal pain; R39.15 Urgency of urination | CPT/HCPCS: 52000; 81003; 99212 ==

== ENCOUNTER 2023-05-13 09:19 | Outpatient (AMB) | payer OTHER, SELFPAY ==
--- NOTE | 2023-05-13 09:36 | MHC.PC.OV ---
Vital Signs 05/13/23 09:37 Height 5 ft 1 in Weight 135 lb BMI 25.5 BP 126/76 Blood Pressure Location Lt brachial Position Sitting Respiration 15 Pulse 86 Pulse Source Pulse Oximeter Pulse Oximetry (%) 98 Oxygen Delivery Method Room Air Intake Visit Reasons: PE Intake Note: Patient is here today for a physical. Slab Miller Operator Required: No Accompanied by: Other Relationship Allergies blackberry Allergy (Intermediate, Verified 05/13/23 09:53) Itching long Allergy (Intermediate, Verified 05/13/23 09:53) Itching peanut [PEANUT] Allergy (Intermediate, Verified 05/13/23 09:53) RASH Sulfa (Sulfonamide Antibiotics) [SULFA (SULFONAMIDE ANTIBIOTICS)] Allergy (Intermediate, Verified 05/13/23 09:53) HIVES, hives, rash, hives, rash tramadol Allergy (Intermediate, Verified 05/13/23 09:53) nausea strawberry Allergy (Verified 05/13/23 09:53) Itching animals Allergy (Uncoded 05/13/23 09:43) Itching red fruit Allergy (Uncoded 05/13/23 09:43) Itching tree Allergy (Uncoded 05/13/23 09:43) eye swelling, itch Medication List - Last Reconciled 05/13/23 by Armen Bone PA-C albuterol sulfate 5 mg inhalation Q4H PRN albuterol sulfate 90 mcg/actuation 2 puffs inhalation Q4-6H PRN amitriptyline 25 mg PO BEDTIME 30 days atorvastatin 10 mg PO DAILY dicyclomine 20 mg PO TID 30 days dolutegravir-rilpivirine 50-25 mg (Juluca) 1 tab PO DAILY estradiol 0.01%(0.1mg/gram) vaginally 3 times a week; pea sized amount to urethra 3 times a week 30 days famotidine 20 mg PO BID PRN tpdkrvfqmyz-voatwbahq-udkbyjqv 200-62.5-25 mcg (Trelegy Ellipta) 1 inh inhalation DAILY 30 days gabapentin 100 mg PO DAILY PRN 15 days hydroxyzine HCl 25 mg PO BEDTIME 90 days levothyroxine 112 mcg PO DAILY 30 days loratadine 10 mg PO DAILY 90 days lorazepam 0.5 mg PO ONCE PRN 1 day methocarbamol 750 mg PO TID PRN mirabegron ER (Myrbetriq) 25 mg PO DAILY 30 days montelukast 10 mg PO DAILY 30 days nebulizers (AeroEclipse II Nebulizer) As directed olopatadine 0.2% (Pataday Once Daily Relief) 1 drp ophthalmic (eye) DAILY 30 days ondansetron 8 mg PO Q8H PRN phenazopyridine 100 mg PO Q8H 6 doses sennosides (senna) 17.2 mg (2 x 8.6 mg) PO BEDTIME PRN 15 days sumatriptan succinate 50 mg PO Q2-4H PRN 30 days Tobacco use date assessed: 05/13/23 Fall risk assessment: No Falls in past year Last assessed Fall Risk: 05/13/23 Dental Screening Dental Screen Date: 05/13/23 Did you have a dental visit in the last 12 months?: Yes Did you have a dental problem in the last 6 months where you did not have access to dental care?: No Was dental information given to patient?: Patient has dentist HPI PE HPI Details Patient is a 73 y/o F here today for a routine annual physical Patient has a past medical history significant moderate persistent asthma, history of HIV, hypothyroidism migraine disorder. Concern--> reports having bilateral thigh and hip pain and weakness. She does report having a surgical hardware in her left hip due to an injury while in [place]. She also reports she has widespread body itch that has worsened over the last several weeks. She has a very itchy scalp and has multiple verruca like lesions over her head. She is interested in seeing a per diem physical therapist assistant . Lower abdominal pain: recently had several your visits for abdominal pain. CT of abdomen showing concerning pancreatic lesion. Has been referred to Oncology an MRI of abdomen done and of waiting results. Recently had endoscopy at [facility] and a possible lesion at the distal common bile duct a fine-needle biopsy was done (awaiting pathology report). There was mild dilation of the pancreatic duct in the head. CA 19 9 normal. Continues to have abd pain mostly over her mid abd/ lower abdomen. She denies any diarrhea . She is followed up with Gastroenterology at [facility] and did get pancreatic biopsy which showed benign tissue. She has followed up with Urology and did undergo a cystoscopy and was started on new bladder medication. She did have a urine cytology showing atypical squamous cells. .. CHRONIC MEDICAL CONDITION--> Asthma: Patient by [facility] pul[facility] and continues and inhaler and albuterol inhaler p.r.n.. She reports her asthma is fairly well controlled does seldomly have asthma exacerbations. She also seems to be suffering with allergies to which bother her eyes, nose and throat. She does use Benadryl which is helpful at night. . HIV: Patient followed by infectious disease specialist and continues on daily antiviral therapy. VAccine: Declines Flu vaccine, UTD PCV, reports getting td. Need shingles vaccine. Colonoscopy: done in 2019 - Mammo : missed appt for mammo [facility] Medical History Conjunctiva disorder Wart of scalp COVID-19 Upper extremity neuropathy Right shoulder pain Right arm pain Physical exam Cough Environmental allergies Left hip pain Left shoulder tendinitis Left shoulder pain GERD (gastroesophageal reflux disease) Asthma Urticaria Fracture of left hip requiring operative repair HIV (human immunodeficiency virus infection) Hypothyroidism Dyslipidemia Verruca TIA (transient ischemic attack) Asthma Surgical History History of hip replacement, total History of lumbar fusion History of section H/O umbilical hernia repair Hx of colonoscopy Family History Father Cancer Diabetes Mother Cancer Diabetes Brother Colon polyps Social History (Updated 05/13/23 @ 10:09 by Armen Bone PA-C) Household Members: None Housing: Apartment Alcohol intake: never Patient Tobacco Use Status: Former Tobacco user Quit Date: 2009 Tobacco use type: Cigarette e-Cigarette/Vaping Use: Never Used Second Hand Smoke Exposure: No Substance Use Type: Marijuana service: No Current occupational status: retired Cognitive needs: No Hearing needs: No Vision needs: Yes Questionnaire PHQ-9 Over the last 2 weeks, how often have you been bothered by any of the following problems? 1. Little interest or pleasure in doing things: not at all 2. Feeling down, depressed, or hopeless: more than half the days 3. Trouble falling or staying asleep, or sleeping too much: more than half the days 4. Feeling tired or having little energy: more than half the days 5. Poor appetite or overeating: not at all 6. Feeling bad about yourself - or that you are a failure or have let yourself or your family down: not at all 7. Trouble concentrating on things, such as reading the newspaper or watching television: more than half the days 8. Moving or speaking so slowly that other people could have noticed. Or the opposite - being so fidgety or restless that you have been moving around a lot more than usual: not at all 9. Thoughts that you would be better off or of hurting yourself in some way: not at all Total score: 8 Depression Screening Interpretation: Positive Depression Screening Follow-up: Existing condition and Community Mental Health Worker F/U Depression Screening Done: Yes 41036 - PHQ-9 Billing: Yes Source: Developed by Drs. Bobo Mccall, Karen Huber, Jason Soria and colleagues, with an educational ramin from [employer]. Thrive Questionnaire Date Thrive assessed: 05/13/23 I am a: Patient What is your living situation today?: I have a steady place to live Within the past 12 months, did the food you bought not last and you didn't have the money to get more?: Never true Within the past 12 months, did you worry whether your food would run out before you got money to buy more?: Never true Do you have trouble paying for medicines?: No Do you have trouble getting transportation to medical appointments?: No Do you have trouble paying your heating and electricity bill?: No Do you have trouble taking care of your child, family member or friend?: No Do you have trouble with day-to-day activities such as bathing, preparing meals, shopping, managing finances, etc.?: No Are you currently unemployed and looking for a job?: No Are you interested in more education?: No Please select the resources that you would like help with: None Currently or been in a relationship where the following occur: no concerns reported THRIVE Score: 0 AUDIT C Alcohol Use Questionnaire (AUDIT-C) 1. How often do you have a drink containing alcohol?: Never 3. How often do you have six or more drinks on one occasion?: Never Total Score: 0 IAN-7 AMB Questionnaire IAN-7 Date IAN - 7 assessed: 05/13/23 Feeling nervous, anxious, or on edge: 1 = Several days Not being able to stop or control worryin = Not at all Worrying too much about different things: 0 = Not at all Trouble relaxin = Not at all Being so restless that it is hard to sit still: 0 = Not at all Becoming easily annoyed or irritable: 0 = Not at all Feeling afraid as if something awful might happen: 3 = Nearly every day Total IAN-7 score (0-4 normal; 5-9 mild; 10-14 moderate; 15-21 severe): 4 Source: Developed by Drs. Bobo Mccall, Karen Huber, Jason Soria and colleagues, with an educational ramin from [employer]. IAN-7 Assessment Billing IAN-7 Assessment Tool: IAN-7 Assessment 76710 Review of Systems Const Denies excessive sweating, Denies fatigue and Denies headache(s) Eyes Denies loss of vision ENT Denies vertigo, Denies dizziness, Denies headache(s) and Denies sore throat Card Denies chest pain, Denies leg edema and Denies lightheadedness Resp Denies cough, Denies hemoptysis and Denies wheezing GI Denies abdominal pain, Denies melena, Denies constipation, Denies diarrhea and Denies vomiting Denies urinary frequency, Denies dysuria and Denies urinary urgency Musc Denies arthralgias, Denies joint swelling, Denies numbness and Denies tingling Skin/Breast Denies rash and Denies skin ulcer Neuro Denies Abnormal speech present, Denies behavioral changes, Denies vertigo, Denies dizziness, Denies headache(s), Denies loss of vision, Denies memory loss, Denies numbness and Denies tingling Psych Denies anxiety, Denies behavioral changes, Denies depression, Denies memory loss and Denies panic attacks Endo Denies excessive sweating, Denies fatigue, Denies flushing, Denies polydipsia and Denies polyuria Cordell/Lymph Denies easy bleeding and Denies easy bruising Aller/Immun Denies wheezing Physical exam (Primary Care) Vital Signs: Last Vital Signs Pulse 86 05/13/23 09:37 Resp 15 05/13/23 09:37 BP 126/76 05/13/23 09:37 Pulse Ox 98 05/13/23 09:37 Oxygen Delivery Method Room Air 05/13/23 09:37 BMI result Body Mass Index 25.5 Tobacco/Smoking Status: Tobacco use Status Tobacco use date assessed 05/13/23 05/13/23 09:49 Patient Tobacco Use Status Former Tobacco user 05/13/23 10:09 Tobacco use type Cigarette 05/13/23 10:09 e-Cigarette/Vaping Use Never Used 05/13/23 10:09 PHQ-9: PHQ-9 Score PHQ-9: Total score 8 05/13/23 09:55 Depression Screening Interpretation: Positive Depression Screening Follow-up: Existing condition and Community Mental Health Worker F/U Thrive Assessment: Date of Thrive Assessment Date Thrive assessed 05/13/23 05/13/23 09:49 Currently or been in a relationship where the following occur: no concerns reported Const General: healthy appearing, no acute distress, alert and awake Nutritional Appearance: well nourished Orientation/consciousness: oriented to person, oriented to place and oriented to time HENMT Head: Yes normocephalic Head images: 1. SEVERAL VERRUCA LIKE SKIN LESIONS OVER THE SCALP. Ears: TM's normal bilaterally General nose exam: Normal nasal mucous membranes and turbinates present Face and sinus: No sinus tenderness Mouth: Normal oral and palatal mucosa present and tongue normal Teeth and gingiva: dentition normal and gingiva normal Throat: Yes posterior oropharynx normal, Yes tonsils normal and Yes uvula midline Eyes Conjunctivae: conjunctivae normal Sclerae: sclerae normal Pupils: Equal, round and reactive pupils present EOM: EOMs intact bilaterally Direct Ophthalmoscopy: No no photophobia Neck Neck: Yes no lymphadenopathy and Yes no JVD Thyroid: Thyroid normal Carotids: no bruits Chest Chest palpation & inspection: no tenderness Resp Effort & Inspection: normal respiratory effort and not tachypneic Auscultation: no crackles, no rales, no rhonchi and no wheezes Cardio Jugular venous distension: no JVD Rate: regular rate Rhythm: regular rhythm Heart sounds: no murmurs and normal S1 and S2 Bruits: no carotid bruits Peripheral pulses: Peripheral pulses 2+ throughout GI Inspection: Yes normal to inspection, No abdominal wall ecchymosis and No visible herniation Palpation (GI): Soft to palpation, nontender, no hepatomegaly and no splenomegaly Auscultation: normal bowel sounds General: Yes no CVA tenderness Back/Spine/Pelvis Back: no CVA tenderness and No back tenderness Cervical Spine: cervical ROM normal Thoracic/Lumbar Spine: thoracic and lumbar spine normal to inspection, straight leg raise negative bilaterally, No thoraco-lumbar ROM limited and No lumbar spinal tenderness Skin General skin exam: no rashes or lesions noted and dry skin Lesions: no lesions Rashes: no rashes Wounds: no wounds Neuro General: oriented to person, oriented to place and oriented to time Cranial nerves: Yes Equal, round and reactive pupils present Cognition (Neuro): normal cognition Speech: No Abnormal speech present Gait exam (Neuro): Normal gait present Motor exam (neuro): no tremor noted Extrem Right upper extremity: full ROM Left upper extremity: full ROM Right lower extremity: full ROM; no edema Left lower extremity: full ROM; no edema Psych Appearance: grossly normal Mental Status: mental status grossly normal Speech and movement: Normal speech and movement present Affect: normal affect Attitude: cooperative Thought process: Normal thought process present Assessment and Plan Assessment & Plan (1) Annual physical exam: Code(s): Z00.00 - Encounter for general adult medical examination without abnormal findings (2) Pancreatic mass: Code(s): K86.89 - Other specified diseases of pancreas Plan: As per HPI patient is undergoing evaluation for pancreatic mass. Endoscopy findings as per [facility]. She did get biopsy at the time of her endoscopy. Has followed up with Oncology--> pathology normal . She will have surveillance imaging done with [facility] gastroenterology (3) Bladder pain: Code(s): R39.89 - Other symptoms and signs involving the genitourinary system Plan: Patient's pain seems to be more focused on lower abdomen. She has underwent a cystoscopy without any significant findings. She was started on new bladder medication (4) Dyslipidemia: Code(s): E78.5 - Hyperlipidemia, unspecified Plan: Continues on statin therapy. Will check fasting lipid panel to assure normal. Goal LDL to be below 130 (5) Hypothyroidism: Code(s): E03.9 - Hypothyroidism, unspecified Qualifiers: Hypothyroidism type: acquired Qualified Code(s): E03.9 - Hypothyroidism, unspecified Plan: Patient continues on daily use of levothyroxine 88 mcg. Will repeat check TSH to assure normal. (6) Asthma: Code(s): J45.909 - Unspecified asthma, uncomplicated Qualifiers: Asthma complication type: uncomplicated Asthma persistence: persistent Asthma severity: moderate Qualified Code(s): J45.40 - Moderate persistent asthma, uncomplicated Plan: Patient followed by pulmonology. She does report having some asthma exacerbations at times related to her allergies and changes in weather. (7) Postmenopausal: Code(s): Z78.0 - Asymptomatic menopausal state (8) Breast cancer screening: Code(s): Z12.39 - Encounter for other screening for malignant neoplasm of breast Qualifiers: Breast cancer screening modality: mammogram Qualified Code(s): Z12.31 - Encounter for screening mammogram for malignant neoplasm of breast (9) Osteoarthritis of left hip: Code(s): M16.12 - Unilateral primary osteoarthritis, left hip Qualifiers: Osteoarthritis type: primary Qualified Code(s): M16.12 - Unilateral primary osteoarthritis, left hip Plan: Reports left hip pain. Does have a traumatic femur fracture years back and had surgical hardware placed in [place]. (10) Skin lesion of scalp: Code(s): L98.9 - Disorder of the skin and subcutaneous tissue, unspecified Plan: As per [facility] Orders: Orders TSH reflex Free T4 Today E03.9 - Hypothyroidism, unspecified XR DEXA axial skeleton Today Z78.0 - Asymptomatic menopausal state XR hip LT min 2V Today M16.12 - Unilateral primary osteoarthritis, left hip XR hip RT min 2V Today M25.551 - Pain in right hip Lipid Panel Today E78.5 - Hyperlipidemia, unspecified Comprehensive [place]. Panel Fast Today E78.5 - Hyperlipidemia, unspecified Referrals Dermatology Referral L98.9 - Disorder of the skin and subcutaneous tissue, unspecified Orthopedics Referral M16.12 - Unilateral primary osteoarthritis, left hip Medications: New cetirizine 10 mg PO DAILY 90 days 90 tabs 1RF allergy symptoms Discontinued loratadine Discontinued Reason: Doctor's Order 10 mg PO DAILY 90 days 90 tabs 1RF H11.9 - Unspecified disorder of conjunctiva Coding Level of Care Code Est Pt Prev Care >65y(56601) Diagnoses Annual physical exam Z00.00 Pancreatic mass K86.89 Bladder pain R39.89 Dyslipidemia E78.5 Acquired hypothyroidism E03.9 Hypothyroidism type: acquired Moderate persistent asthma without complication J45.40 Asthma complication type: uncomplicated Asthma persistence: persistent Asthma severity: moderate Postmenopausal Z78.0 Encounter for screening mammogram for malignant neoplasm of breast Z12.31 Breast cancer screening modality: mammogram Primary osteoarthritis of left hip M16.12 Osteoarthritis type: primary Skin lesion of scalp L98.9 Additional Codes IAN-7 Assessment Billing - IAN-7 Assessment Tool: IAN-7 Assessment [id number] ([id number])
[2023-05-13 09:37] VITALS: BP 126/76; PULSE 86; RESP 15; O2SAT 98; BMI 25.5
== END 2023-05-13 10:29 | disposition home or self-care (01) ==
PROVIDERS: PCP Physician Assistant; Visit Provider Physician Assistant
DX: Z00.00 Encounter for general adult medical examination without abnormal findings (principal); K86.89 Other specified diseases of pancreas; R39.89 Other symptoms and signs involving the genitourinary system; E78.5 Hyperlipidemia, unspecified; E03.9 Hypothyroidism, unspecified; J45.40 Moderate persistent asthma, uncomplicated; Z78.0 Asymptomatic menopausal state; Z12.31 Encounter for screening mammogram for malignant neoplasm of breast; M16.12 Unilateral primary osteoarthritis, left hip; L98.9 Disorder of the skin and subcutaneous tissue, unspecified
CPT/HCPCS: 99397

== ENCOUNTER 2023-05-25 11:09 | Outpatient (REF) | payer OTHER, SELFPAY ==
[2023-05-25 13:27] LABS: Alanine Aminotransferase 9 U/L (0-31); Albumin Level 4.2 g/dL (3.5-5.0); Alkaline Phosphatase 103 U/L (39-117); Anion Gap 16 (12-20); Aspartate Amino Transferase 20 U/L (5-31); Bilirubin Total 0.5 mg/dL (0.0-1.0); Blood Urea Nitrogen 14 mg/dL (9-16); Calcium 9.8 mg/dL (8.4-10.2); Carbon Dioxide 27 mmol/L (22-29); Chloride 107 mmol/L (96-108); Cholesterol 141 mg/dL (<200); Estimated Glomerular Filt Rate > 60; Glucose Fasting 86 mg/dL (60-99); HDL Cholesterol 62 mg/dL (>40); LDL Cholesterol Calculated 64 mg/dL (<100); Potassium 4.5 mmol/L (3.3-5.1); Sodium 145 mmol/L (135-145); TSH reflex Free T4 0.08 uIU/mL (0.32-4.0); Total Protein 7.6 g/dL (6.5-8.0); Triglycerides 78 mg/dL (<150)
[2023-05-25 14:07] LABS: Free T4 (Free Thyroxine) 1.15 ng/dL (0.71-1.85)
== END 2023-05-25 11:10 | disposition home or self-care (01) ==
LOC: HO.LAB 11:09
PROVIDERS: PCP Physician Assistant; Visit Provider Physician Assistant
DX: E03.9 Hypothyroidism, unspecified (principal); E78.5 Hyperlipidemia, unspecified
CPT/HCPCS: 36415; 80053; 80061; 84439; 84443

== ENCOUNTER 2023-05-27 12:01 | Outpatient (REF) | payer OTHER, SELFPAY ==
--- NOTE | ~2023-05-27 | XR_ITS ---
STUDY: Bilateral hips INDICATION: Bilateral hip pain, left greater than right COMPARISON: 11/20/2022 left hip TECHNIQUE: 2 views each hip FINDINGS: Right hip: Mild right hip joint narrowing. Mild greater trochanteric spurring. No fracture or dislocation. Degenerative changes lower lumbar spine. Right SI joint within normal limits. Phleboliths. Left hip: Stable appearance left hip ORIF 3 surgical screws. No evidence of loosening or failure. Femoral head remains seated in the bony acetabulum with mild hip joint narrowing. Left SI joint within normal limits. Degenerative changes lower lumbar spine. Phleboliths. Soft tissue density in the pelvis likely bladder. XR/XR hip LT min 2V IMPRESSION: Mild bilateral hip joint narrowings. Left hip ORIF. No acute bony pathology bilateral hips.
--- NOTE | ~2023-05-27 | XR_ITS ---
STUDY: Bilateral hips INDICATION: Bilateral hip pain, left greater than right COMPARISON: 11/20/2022 left hip TECHNIQUE: 2 views each hip FINDINGS: Right hip: Mild right hip joint narrowing. Mild greater trochanteric spurring. No fracture or dislocation. Degenerative changes lower lumbar spine. Right SI joint within normal limits. Phleboliths. Left hip: Stable appearance left hip ORIF 3 surgical screws. No evidence of loosening or failure. Femoral head remains seated in the bony acetabulum with mild hip joint narrowing. Left SI joint within normal limits. Degenerative changes lower lumbar spine. Phleboliths. Soft tissue density in the pelvis likely bladder. XR/XR hip RT min 2V IMPRESSION: Mild bilateral hip joint narrowings. Left hip ORIF. No acute bony pathology bilateral hips.
== END 2023-05-27 12:02 | disposition home or self-care (01) ==
LOC: HO.XRAY 12:01
PROVIDERS: PCP Physician Assistant; Visit Provider Physician Assistant
DX: M16.12 Unilateral primary osteoarthritis, left hip (principal); M25.551 Pain in right hip
CPT/HCPCS: 73502

== ENCOUNTER 2023-06-10 08:24 | Outpatient (REF) | payer OTHER, SELFPAY ==
--- NOTE | ~2023-06-10 | MM_ITS ---
EXAMINATION: BONE DENSITOMETRY CLINICAL INDICATION: Asymptomatic menopausal state. COMPARISON: This is the patient's baseline examination. TECHNIQUE: Using a [employer] DXA System (software version: 13.1) manufactured by [employer], dual-energy x-ray absorptiometry was performed of the lumbar spine and right hip. The images are of good technical quality. Summary results are attached. FINDINGS: RIGHT FEMUR, NECK: BMD 0.776 g/cm2, Z-score 0.0, T-score -1.9, osteopenia. RIGHT FEMUR, TOTAL: BMD 0.859 g/cm2, Z-score 0.5, T-score -1.2, osteopenia. AP SPINE L1-L2 (excluding L3 and L4): The data of L1-L4 has been changed to exclude the L3 and L4 vertebral bodies, because degenerative sclerosis at these levels may cause overestimation of lumbar spine density. BMD 1.097 g/cm2, Z-score 1.2, T-score -0.6, normal. IDENTIFIED RISK FACTORS: Menopause, anticonvulsant, history of fracture (adult). HISTORY OF FRACTURE: Hip. MEDICATIONS: Calcium supplements or multivitamin, vitamin D. MM/XR DEXA axial skeleton IMPRESSION: 1. DIAGNOSIS: Osteopenia based on the lowest T-score value of -1.9 in the femoral neck applying World Health Organization criteria. 2. 10-YEAR FRACTURE RISK PREDICTION, FRAX: Major osteoporotic fracture (clinical spine, forearm, hip or shoulder) 10.9%. Hip fracture 2.1%. 3. Treatment Recommendations: NOF guidelines recommend consideration for treatment in postmenopausal women and men age 50 and older presenting with the following: -A hip or vertebral (clinical or morphometric) fracture. -T-score less than or equal to -2.5 at the femoral neck or spine after appropriate evaluation to exclude secondary causes. -Low bone mass at the hip or spine and a 10-year fracture probability by FRAX of greater than or equal to 3% for hip fracture or greater than or equal to 20% for major osteoporotic fracture based on the [place] adapted WHO algorithm. 4. Other Recommendations: All treatment decisions require clinical judgment and consideration of individual patient factors, including patient preferences, comorbidities, previous drug use, risk factors not captured in the FRAX model (e.g. frailty, falls, vitamin D deficiency, increased bone turnover, interval significant decline in bone density) and possible under or overestimation of fracture risk by FRAX. Additional medical evaluation for secondary cause of low bone mineral density may be appropriate. FUTURE SCAN RECOMMENDATION: People with diagnosed cases of osteoporosis or at high risk for fracture should have regular bone mineral density tests. For patients eligible for Medicare, routine testing is allowed once every 2 years. The testing frequency can be increased to one year for patients who have rapidly progressing disease, those who are receiving or discontinuing medical therapy to restore bone mass, or have additional risk factors.
== END 2023-06-10 08:25 | disposition home or self-care (01) ==
LOC: HO.MAMMO 08:24
PROVIDERS: PCP Physician Assistant; Visit Provider Physician Assistant
DX: Z12.31 Encounter for screening mammogram for malignant neoplasm of breast (principal); Z13.820 Encounter for screening for osteoporosis; Z78.0 Asymptomatic menopausal state
CPT/HCPCS: 77063; 77067; 77080

== ENCOUNTER → 2023-06-10 08:45 | Outpatient (BNV) | payer OTHER, SELFPAY | PROVIDERS: PCP Physician Assistant; Visit Provider Radiology Diagnostic Radiology | DX: Z12.31 Encounter for screening mammogram for malignant neoplasm of breast (principal) | CPT/HCPCS: 77063; 77067 ==

== ENCOUNTER 2023-07-02 09:02 | Outpatient (REF) | payer OTHER, SELFPAY ==
[2023-07-02 09:59] LABS: TSH reflex Free T4 0.02 uIU/mL (0.32-4.0)
[2023-07-02 11:02] LABS: Free T4 (Free Thyroxine) 1.32 ng/dL (0.71-1.85)
== END 2023-07-02 09:03 | disposition home or self-care (01) ==
LOC: HO.LAB 09:02
PROVIDERS: PCP Physician Assistant; Visit Provider Physician Assistant
DX: E03.9 Hypothyroidism, unspecified (principal)
CPT/HCPCS: 36415; 84439; 84443

== ENCOUNTER 2023-08-04 15:37 | Outpatient (AMB) | payer OTHER, SELFPAY ==
--- NOTE | 2023-08-04 15:45 | A.OFFVIS_ITS ---
Intake Visit Reasons: 3 month follow up/ PVR Intake Note: Patient presents for initial visit for Hematuria Urology Medications: none Blood Thinner: none Smoker: former smoker Director Biostatistics Required: Yes Accompanied by: Unknown Allergies blackberry Allergy (Intermediate, Verified 08/04/23 17:45) Itching long Allergy (Intermediate, Verified 08/04/23 17:45) Itching peanut [PEANUT] Allergy (Intermediate, Verified 08/04/23 17:45) RASH Sulfa (Sulfonamide Antibiotics) [SULFA (SULFONAMIDE ANTIBIOTICS)] Allergy (Intermediate, Verified 08/04/23 17:45) HIVES, hives, rash, hives, rash tramadol Allergy (Intermediate, Verified 08/04/23 17:45) nausea strawberry Allergy (Verified 08/04/23 17:45) Itching animals Allergy (Uncoded 08/04/23 17:45) Itching red fruit Allergy (Uncoded 08/04/23 17:45) Itching tree Allergy (Uncoded 08/04/23 17:45) eye swelling, itch Medication List - Last Reconciled 08/04/23 by ANDERSON Gonzalez-FUENTES albuterol sulfate 5 mg inhalation Q4H PRN albuterol sulfate 90 mcg/actuation 2 puffs inhalation Q4-6H PRN amitriptyline 25 mg PO BEDTIME 90 days atorvastatin 10 mg PO DAILY calcium carbonate (Oyster Shell Calcium 500) 500 mg PO DAILY 90 days cetirizine 10 mg PO DAILY 90 days cholecalciferol (vitamin D3) 50 mcg PO DAILY 90 days dicyclomine 20 mg PO TID 30 days dolutegravir-rilpivirine 50-25 mg (Juluca) 1 tab PO DAILY estradiol 0.01%(0.1mg/gram) vaginally 3 times a week; pea sized amount to urethra 3 times a week 90 days famotidine 20 mg PO BID PRN aiucnonacqj-xfsvzxpvf-pxxebfme 200-62.5-25 mcg (Trelegy Ellipta) 1 inh inhalation DAILY 30 days gabapentin 100 mg PO DAILY PRN 15 days hydroxyzine HCl 25 mg PO BEDTIME 90 days levothyroxine 88 mcg PO DAILY 30 days lorazepam 0.5 mg PO ONCE PRN 1 day methocarbamol 750 mg PO TID PRN mirabegron ER (Myrbetriq) 25 mg PO DAILY 90 days montelukast 10 mg PO DAILY 30 days nebulizers (AeroEclipse II Nebulizer) As directed olopatadine 0.2% (Pataday Once Daily Relief) 1 drp ophthalmic (eye) DAILY 30 days ondansetron 8 mg PO Q8H PRN phenazopyridine 100 mg PO Q8H 6 doses sennosides (senna) 17.2 mg (2 x 8.6 mg) PO BEDTIME PRN 15 days sumatriptan succinate 50 mg PO Q2-4H PRN 30 days HPI Comments Details: Yamile is a very pleasant 73-year-old Sami-speaking female patient of Dr. Bone who was accompanied by her niece at today's office visit. Director Biostatistics offered however patient would like and is requesting niece to provide translation. She has a past medical history of environmental allergies, GERD, anxiety, HIV, hy pothyroidism, dyslipidemia, TIA, and asthma. She presents to the office today for a follow up of her ongoing lower urinary tract symptoms, microscopic hematuria, and abnormal cytology. During last office visit patient under went in office cystoscopy that noted mild generalized erythema noted throughout the bladder and Caruncle was noted. No bladder tumors noted. She was started on Myrbetriq and Estrace cream as well as amitriptyline at night. In discussion with the patient today she reports feeling improvement in lower urinary tract symptoms of bladder pressure, urinary urgency, and urinary frequency with these asformentioned urological medication however has since ran out of refills and has noted symptoms to have returned. In office urinalysis results reviewed with the patient today 3+ leukocytes negative nitrates and persistent microscopic hematuria noted. Previous workup has included a CT noting kidneys are normal in size shape and attenuation. No hydronephrosis, hydroureter or calculi seen. The bladder is unremarkable. Cytology 02/20--few atypical squamous cell, suspicion for low-grade dysplasia, 04/24--atypical squamous cells. She has a history of smoking recreational marijuana frequently and for many years on and off. She reports smoking recreational marijuana daily for over 20 years however quit for 12 years and is now smoking again. She otherwise denies any previous nicotine dependence and or workplace chemical exposure. When asked she continues to report lower abdominal bladder pressure, nocturia, and urinary urgency. Discussed at length potential causes for lower urinary tract symptoms patient is experiencing. PVR 14ml's. She otherwise denies dysuria, foul smelling urine, changes to urinary stream, flank pain, fever, and or chills. She discusses her upcoming trip to [place] with her sister. She otherwise denies any other issues or concerns at this time. [facility] Medical History Conjunctiva disorder Wart of scalp COVID-19 Upper extremity neuropathy Right shoulder pain Right arm pain Physical exam Cough Environmental allergies Left hip pain Left shoulder tendinitis Left shoulder pain GERD (gastroesophageal reflux disease) Asthma Urticaria Fracture of left hip requiring operative repair HIV (human immunodeficiency virus infection) Hypothyroidism Dyslipidemia Verruca TIA (transient ischemic attack) Asthma Surgical History History of hip replacement, total History of lumbar fusion History of section H/O umbilical hernia repair Hx of colonoscopy Family History Father Cancer Diabetes Mother Cancer Diabetes Brother Colon polyps Social History Household Members: None Housing: Apartment Alcohol intake: never Patient Tobacco Use Status: Former Tobacco user Tobacco use type: Cigarette e-Cigarette/Vaping Use: Never Used Second Hand Smoke Exposure: No Substance Use Type: Marijuana service: No Current occupational status: retired Cognitive needs: No Hearing needs: No Vision needs: Yes Review of Systems Const Reports as per HPI Eyes Reports no additional complaints ENT Reports no additional complaints Card Reports as per HPI Resp Reports as per HPI GI Reports as per HPI Reports as per HPI Musc Reports no additional complaints Neuro Reports as per HPI Psych Reports as per HPI Endo Reports no additional complaints Cordell/Lymph Reports as per HPI Aller/Immun Reports as per HPI Physical Exam Const General: cooperative, healthy appearing, comfortable, no acute distress, well developed, alert and awake Orientation/consciousness: patient oriented x3 Limitations: no limitations HEENT Head: Yes normal to inspection, Yes normocephalic and Yes atraumatic Ears: hearing grossly normal bilaterally Eyes General: appearance normal, both eyes and all related structures Neck Neck: Yes normal visual inspection and Yes trachea midline Chest Chest palpation & inspection: normal inspection of the chest Resp Effort & Inspection: normal respiratory effort and able to speak in complete sentences Cardio Rate: regular rate GI Inspection: Yes normal to inspection General: Yes no CVA tenderness External Female Exam: normal external appearance and other (caruncle) Speculum Exam - Vagina: normal appearance of the vagina Back/Spine/Pelvis Back: no CVA tenderness Skin General skin exam: no rashes or lesions noted Neuro General: patient oriented x3 Extrem General: Yes normal to inspection Psych Appearance: grossly normal and well kempt Mental Status: mental status grossly normal Speech and movement: Normal speech and movement present and Clear speech present Affect: normal affect Attitude: cooperative Thought process: Normal thought process present Thought content: Normal thought content present Insight: Fair insight present (Psych) Judgement: Fair judgement present (Psych) Office Procedures Post Void Residual Post Residual Void Post Void Residual (PVR): 14 [id number] Void Residual by ultrasound Results AMB Urinalysis, Automated UA Leukoctes 500 Jason/uL Last Edit by [email or web address] on 08/04/23 16:09 UA Nitrite Negative Last Edit by [email or web address] on 08/04/23 16:09 UA Urobilinogen 0.2 mg/dL Last Edit by [email or web address] on 08/04/23 16:09 UA Protein 0 mg/dL Last Edit by I.Predictus on 08/04/23 16:09 UA pH 6.5 Last Edit by [email or web address] on 08/04/23 16:09 UA Blood 25 Obdulio/uL Last Edit by [email or web address] on 08/04/23 16:09 UA Specific [place] 1.010 Last Edit by [email or web address] on 08/04/23 16:09 UA Ketone Negative Last Edit by [email or web address] on 08/04/23 16:09 UA Bilirubin 0 mg/dL Last Edit by [employer] on 08/04/23 16:09 UA Glucose 0 mg/dL Last Edit by I.[email or web address] on 08/04/23 16:09 Results Reviewed Results Reviewed: Laboratory Last Values Urine pH (Auto) 6.5 08/04/23 15:46 Specific [place] (Auto) 1.010 08/04/23 15:46 Urine Protein (Auto) 0 mg/dL 08/04/23 15:46 Glucose (UA)(Auto) 0 mg/dL 08/04/23 15:46 Urine Ketones (Auto) Negative 08/04/23 15:46 Urine Blood (Auto) 25 Obdulio/uL 08/04/23 15:46 Urine Nitrite (Auto) Negative 08/04/23 15:46 Urine Bilirubin (Auto) 0 mg/dL 08/04/23 15:46 Urine Urobilinogen (Auto) 0.2 mg/dL 08/04/23 15:46 Leukocyte Esterase (Auto) 500 Jason/uL 08/04/23 15:46 Assessment & Plan Assessment & Plan (1) Urinary urgency: Code(s): R39.15 - Urgency of urination Category: Medical (2) Sensation of pressure in bladder area: Code(s): R39.89 - Other symptoms and signs involving the genitourinary system Category: Medical (3) Abnormal cytology: Code(s): R89.6 - Abnormal cytological findings in specimens from other organs, systems and tissues Category: Medical (4) Bladder pain: Code(s): R39.89 - Other symptoms and signs involving the genitourinary system Category: Medical Plan In office urinalysis results reviewed with the patient today; as noted above; will send for microgen testing; will await results for potential treatment. Continue Myrbetriq, Estrace cream, and amitriptyline as discussed and prescribed; refill provided. PVR 13 mL. Discussed at length potential causes for lower urinary tract symptoms patient is experiencing. Discussed pelvic floor therapy for further assessment evaluation; however patient declines at this time. Discussed bladder triggers/irritants. Discussed importance of drinking water daily. Discussed, educated, and stressed the importance of limiting/quitting recreational marijuana Discussed surveillance monitoring of persistent microscopic hematuria; discussed near future in office cystoscopy for surveillance monitoring; she discusses her reluctancy. Follow-up in 1-3 months with PVR; or sooner with any issues, concerns, and or questions. Orders: Orders AMB Urinalysis Automated Today Z13.9 - Encounter for screening, unspecified AMB Post Void Residual by ultrasound Today R39.15 - Urgency of urination Medications: Changed From amitriptyline 25 mg PO BEDTIME 30 days 30 tabs 2RF N30.10 - Interstitial cystitis (chronic) without hematuria To amitriptyline 25 mg PO BEDTIME 90 days 90 tabs 2RF N30.10 - Interstitial cystitis (chronic) without hematuria From mirabegron ER (Myrbetriq) 25 mg PO DAILY 30 days 30 tabs 2RF N30.10 - Interstitial cystitis (chronic) without hematuria, N32.81 - Overactive bladder, R35.1 - Nocturia, R39.15 - Urgency of urination To mirabegron ER (Myrbetriq) 25 mg PO DAILY 90 days 90 tabs 2RF N30.10 - Interstitial cystitis (chronic) without hematuria, N32.81 - Overactive bladder, R35.1 - Nocturia, R39.15 - Urgency of urination From estradiol 0.01%(0.1mg/gram) vaginally 3 times a week; pea sized amount to urethra 3 times a week 30 days 42.5 grams 3RF To estradiol 0.01%(0.1mg/gram) vaginally 3 times a week; pea sized amount to urethra 3 times a week 90 days 42.5 grams 3RF Coding Level of Care Code Est Pt Level 4 (61164) Complex EM visit Add On G2211 Diagnoses Urinary urgency R39.15 Sensation of pressure in bladder area R39.89 Abnormal cytology R89.6 Bladder pain R39.89 CPT Codes Post Residual Void - PVR CPT Code: 25153-Diln Void Residual by ultrasound ([id number])
== END 2023-08-04 16:24 | disposition home or self-care (01) ==
PROVIDERS: PCP Physician Assistant; Visit Provider Nurse Practitioner Family
DX: R39.15 Urgency of urination (principal); R39.89 Other symptoms and signs involving the genitourinary system; R89.6 Abnormal cytological findings in specimens from other organs, systems and tissues; Z13.9 Encounter for screening, unspecified
CPT/HCPCS: 99214; G2211

== ENCOUNTER → 2023-08-04 15:37 | Outpatient (BNVA) | payer OTHER, SELFPAY | PROVIDERS: PCP Physician Assistant; Visit Provider Nurse Practitioner Family | DX: R39.15 Urgency of urination (principal); R39.89 Other symptoms and signs involving the genitourinary system; R89.6 Abnormal cytological findings in specimens from other organs, systems and tissues | CPT/HCPCS: 51798; 81003; 99212 ==

== ENCOUNTER 2023-08-19 14:46 | Outpatient (AMB) | payer OTHER, SELFPAY ==
--- NOTE | 2023-08-19 14:52 | MHC.PC.OV ---
Vital Signs 08/19/23 14:53 Height 5 ft 1 in Weight 137 lb 4 oz BMI 25.9 BP 158/90 H Blood Pressure Location Lt brachial Position Sitting Pulse 84 Pulse Source Pulse Oximeter Pulse Oximetry (%) 96 Oxygen Delivery Method Room Air Intake Visit Reasons: f/u HLD Intake Note: The patient is here for a follow-up on hyperlipidemia. Today's concern is bilateral foot skin peeling that has been occurring for the past few weeks. 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 Accompanied by: niece Allergies blackberry Allergy (Intermediate, Verified 08/19/23 15:13) Itching long Allergy (Intermediate, Verified 08/19/23 15:13) Itching peanut [PEANUT] Allergy (Intermediate, Verified 08/19/23 15:13) RASH Sulfa (Sulfonamide Antibiotics) [SULFA (SULFONAMIDE ANTIBIOTICS)] Allergy (Intermediate, Verified 08/19/23 15:13) HIVES, hives, rash, hives, rash tramadol Allergy (Intermediate, Verified 08/19/23 15:13) nausea strawberry Allergy (Verified 08/19/23 15:13) Itching animals Allergy (Uncoded 08/19/23 15:13) Itching red fruit Allergy (Uncoded 08/19/23 15:13) Itching tree Allergy (Uncoded 08/19/23 15:13) eye swelling, itch Medication List - Last Reconciled 08/19/23 by Armen Bone PA-C albuterol sulfate 5 mg inhalation Q4H PRN albuterol sulfate 90 mcg/actuation 2 puffs inhalation Q4-6H PRN amitriptyline 25 mg PO BEDTIME 90 days atorvastatin 10 mg PO DAILY calcium carbonate (Oyster Shell Calcium 500) 500 mg PO DAILY 90 days cetirizine 10 mg PO DAILY 90 days cholecalciferol (vitamin D3) 50 mcg PO DAILY 90 days dicyclomine 20 mg PO TID 30 days dolutegravir-rilpivirine 50-25 mg (Juluca) 1 tab PO DAILY estradiol 0.01%(0.1mg/gram) vaginally 3 times a week; pea sized amount to urethra 3 times a week 90 days famotidine 20 mg PO BID PRN fluconazole 150 mg PO Q3D 2 doses hootrpuieup-bykrapyax-bgpzbyfk 200-62.5-25 mcg (Trelegy Ellipta) 1 inh inhalation DAILY 30 days gabapentin 100 mg PO DAILY PRN hydroxyzine HCl 25 mg PO BEDTIME 90 days levothyroxine 88 mcg PO DAILY 30 days lorazepam 0.5 mg PO ONCE PRN 1 day methocarbamol 750 mg PO TID PRN metronidazole (Flagyl) 375 mg PO BID 7 days mirabegron ER (Myrbetriq) 25 mg PO DAILY 90 days montelukast 10 mg PO DAILY 30 days nebulizers (AeroEclipse II Nebulizer) As directed nitrofurantoin monohyd/m-cryst 100 mg (Macrobid) 100 mg PO BID 10 days olopatadine 0.2% (Pataday Once Daily Relief) 1 drp ophthalmic (eye) DAILY 30 days ondansetron 8 mg PO Q8H PRN phenazopyridine 100 mg PO Q8H 6 doses sennosides (senna) 17.2 mg (2 x 8.6 mg) PO BEDTIME PRN 15 days sumatriptan succinate 50 mg PO Q2-4H PRN 30 days Tobacco use date assessed: 05/13/23 Fall risk assessment: No Falls in past year Last assessed Fall Risk: 08/19/23 Dental Screening Dental Screen Date: 05/13/23 HPI f/u HLD HPI Details Patient is a 73 y/o F here today for a follow-up visit. Patient has a past medical history significant moderate persistent asthma, history of HIV, hypothyroidism migraine disorder. Concern--> patient reports she is developed skin irritation bilateral feet. She reports skin has a burning sensation in the skin has become very tight and shiny. .. CHRONIC MEDICAL CONDITION--> Asthma: Patient by [facility] and continues and inhaler and albuterol inhaler p.r.n.. She reports her asthma is fairly well controlled does seldomly have asthma exacerbations. She also seems to be suffering with allergies to which bother her eyes, nose and throat. She does use Benadryl which is helpful at night. . HIV: Patient followed by infectious disease specialist and continues on daily antiviral therapy. [facility] Medical History Conjunctiva disorder Wart of scalp COVID-19 Upper extremity neuropathy Right shoulder pain Right arm pain Physical exam Cough Environmental allergies Left hip pain Left shoulder tendinitis Left shoulder pain GERD (gastroesophageal reflux disease) Asthma Urticaria Fracture of left hip requiring operative repair HIV (human immunodeficiency virus infection) Hypothyroidism Dyslipidemia Verruca TIA (transient ischemic attack) Asthma Surgical History History of hip replacement, total History of lumbar fusion History of section H/O umbilical hernia repair Hx of colonoscopy Family History Father Cancer Diabetes Mother Cancer Diabetes Brother Colon polyps Social History Household Members: None Housing: Apartment Alcohol intake: never Patient Tobacco Use Status: Former Tobacco user Tobacco use type: Cigarette e-Cigarette/Vaping Use: Never Used Second Hand Smoke Exposure: No Substance Use Type: Marijuana service: No Current occupational status: retired Cognitive needs: No Hearing needs: No Vision needs: Yes Questionnaire Thrive Questionnaire Date Thrive assessed: 05/13/23 IAN-7 AMB Questionnaire IAN-7 Date IAN - 7 assessed: 05/13/23 Source: Developed by Drs. Bobo Mccall, Karen Huber, Jason Soria and colleagues, with an educational ramin from [employer]. Review of Systems Const Denies headache(s) Eyes Denies loss of vision ENT Denies vertigo, Denies dizziness, Denies headache(s) and Denies sore throat Card Denies chest pain, Denies leg edema and Denies lightheadedness Resp Denies cough, Denies hemoptysis and Denies wheezing GI Denies abdominal pain, Denies melena, Denies constipation, Denies diarrhea and Denies vomiting Denies urinary frequency, Denies dysuria and Denies urinary urgency Musc Denies arthralgias, Denies joint swelling, Denies numbness and Denies tingling Neuro Denies Abnormal speech present, Denies behavioral changes, Denies vertigo, Denies dizziness, Denies headache(s), Denies loss of vision, Denies memory loss, Denies numbness and Denies tingling Psych Denies anxiety, Denies behavioral changes, Denies depression, Denies memory loss and Denies panic attacks Cordell/Lymph Denies easy bleeding and Denies easy bruising Aller/Immun Denies wheezing Physical exam (Primary Care) Vital Signs: Last Vital Signs Pulse 84 08/19/23 14:53 BP 158/90 H 08/19/23 14:53 Pulse Ox 96 08/19/23 14:53 Oxygen Delivery Method Room Air 08/19/23 14:53 BMI result Body Mass Index 25.9 Tobacco/Smoking Status: Tobacco use Status Tobacco use date assessed 05/13/23 08/19/23 14:59 Patient Tobacco Use Status Former Tobacco user 08/19/23 14:59 Tobacco use type Cigarette 08/19/23 14:59 e-Cigarette/Vaping Use Never Used 08/19/23 14:59 Thrive Assessment: Date of Thrive Assessment Date Thrive assessed 05/13/23 08/19/23 14:59 Const General: healthy appearing, no acute distress, alert and awake Nutritional Appearance: well nourished Orientation/consciousness: oriented to person, oriented to place and oriented to time HENMT Ears: TM's normal bilaterally General nose exam: Normal nasal mucous membranes and turbinates present Eyes Conjunctivae: conjunctivae normal Sclerae: sclerae normal Pupils: Equal, round and reactive pupils present Neck Neck: Yes no lymphadenopathy and Yes no JVD Thyroid: Thyroid normal Carotids: no bruits Resp Effort & Inspection: normal respiratory effort and not tachypneic Auscultation: no crackles, no rales, no rhonchi and no wheezes Cardio Rate: regular rate Rhythm: regular rhythm Heart sounds: no murmurs and normal S1 and S2 GI Palpation (GI): Soft to palpation, nontender, no hepatomegaly and no splenomegaly Auscultation: normal bowel sounds Skin General skin exam: no rashes or lesions noted and dry skin Neuro General: oriented to person, oriented to place and oriented to time Cranial nerves: Yes Equal, round and reactive pupils present Speech: No Abnormal speech present Gait exam (Neuro): Normal gait present Motor exam (neuro): no tremor noted Extrem Right upper extremity: full ROM Left upper extremity: full ROM Right lower extremity: full ROM; no edema Left lower extremity: full ROM; no edema Ankle/foot/toe images: 1. SKIN ON FEET SOMEWHAT IRRITATED, SHINY AND TIGHT APPEARING. Psych Mental Status: mental status grossly normal Speech and movement: Normal speech and movement present Affect: normal affect Attitude: cooperative Thought process: Normal thought process present Assessment and Plan Assessment & Plan (1) Dyslipidemia: Code(s): E78.5 - Hyperlipidemia, unspecified Plan: Continues on statin therapy. Will check fasting lipid panel to assure normal. Goal LDL to be below 130 (2) Scleroderma: Code(s): M34.9 - Systemic sclerosis, unspecified Plan: Patient's skin manifestation her feet appeared to be scleroderma like. She does admit to a history of rheumatoid arthritis. Will send for baseline testing. She does have widespread muscular and joint pain. She does admit she was seeing a anesthetic assistant in the past. Will try to reestablish her with a anesthetic assistant. (3) Hypothyroidism: Code(s): E03.9 - Hypothyroidism, unspecified Qualifiers: Hypothyroidism type: acquired Qualified Code(s): E03.9 - Hypothyroidism, unspecified Plan: Patient continues on daily use of levothyroxine 88 mcg. Will repeat check TSH to assure normal. (4) Polyarthralgia: Code(s): M25.50 - Pain in unspecified joint Plan: Patient does have widespread polyarthralgia. She does admit to having history of rheumatoid arthritis and was seen a anesthetic assistant in the past though this is somewhat unclear. Supply patient with meloxicam to use for her arthralgias. Will send for baseline rheumatology testing to start workup (5) Asthma: Code(s): J45.909 - Unspecified asthma, uncomplicated Qualifiers: Asthma complication type: uncomplicated Asthma persistence: persistent Asthma severity: moderate Qualified Code(s): J45.40 - Moderate persistent asthma, uncomplicated Plan: Patient followed by pulmonology. She does report having some asthma exacerbations at times related to her allergies and changes in weather. (6) Osteoarthritis of left hip: Code(s): M16.12 - Unilateral primary osteoarthritis, left hip Qualifiers: Osteoarthritis type: primary Qualified Code(s): M16.12 - Unilateral primary osteoarthritis, left hip Plan: Reports left hip pain. Does have a traumatic femur fracture years back and had surgical hardware placed in [place]. (7) Mild recurrent major depression: Code(s): F33.0 - Major depressive disorder, recurrent, mild Orders: Orders Rheumatoid Factor 08/20/23 M25.50 - Pain in unspecified joint VAL Reflex Titer and Pattern 08/20/23 M25.50 - Pain in unspecified joint Cyclic Citrullinated Peptide 08/20/23 M25.50 - Pain in unspecified joint Erythrocyte Sedimentation Rate 08/20/23 M25.50 - Pain in unspecified joint CRP High Sensitivity 08/20/23 M25.50 - Pain in unspecified joint Referrals Rheumatology Referral M25.50 - Pain in unspecified joint Medications: New meloxicam 15 mg PO DAILY 30 days 30 tabs 1RF M25.50 - Pain in unspecified joint clotrimazole-betamethasone 1-0.05 % 1 appl topical BID 30 days 45 grams 0RF M34.9 - Systemic sclerosis, unspecified Changed From gabapentin 100 mg PO DAILY PRN pain (scale score 7-10) G56.90 - Unspecified mononeuropathy of unspecified upper limb To gabapentin 100 mg PO DAILY 30 days 30 caps 1RF pain (scale score 7-10) G56.90 - Unspecified mononeuropathy of unspecified upper limb Coding Level of Care Code Est Pt Level 4 (40961) Diagnoses Dyslipidemia E78.5 Scleroderma M34.9 Acquired hypothyroidism E03.9 Hypothyroidism type: acquired Polyarthralgia M25.50 Moderate persistent asthma without complication J45.40 Asthma complication type: uncomplicated Asthma persistence: persistent Asthma severity: moderate Primary osteoarthritis of left hip M16.12 Osteoarthritis type: primary Mild recurrent major depression F33.0
[2023-08-19 14:53] VITALS: BP 158/90; PULSE 84; O2SAT 96; BMI 25.9
== END 2023-08-19 15:36 | disposition home or self-care (01) ==
LOC: HO.HMGH 14:46
PROVIDERS: PCP Physician Assistant; Visit Provider Physician Assistant
DX: E78.5 Hyperlipidemia, unspecified (principal); M34.9 Systemic sclerosis, unspecified; F33.0 Major depressive disorder, recurrent, mild; E03.9 Hypothyroidism, unspecified; M25.50 Pain in unspecified joint; J45.40 Moderate persistent asthma, uncomplicated; M16.12 Unilateral primary osteoarthritis, left hip
CPT/HCPCS: 99214

== ENCOUNTER 2023-08-20 09:32 | Outpatient (REF) | payer OTHER, SELFPAY ==
[2023-08-20 09:54] LABS: MANUAL DIFF FLAG NO
[2023-08-20 10:23] LABS: Basophils Absolute Auto 0.1 X10*3/uL (0.0-0.2); Basophils Percent Auto 1.2 % (0-2); Eosinophils Absolute Auto 0.2 X10*3/uL (0.0-0.4); Eosinophils Percent Auto 3.5 % (0-4); Hemoglobin 14.7 g/dl (12.0-16.0); Imm Gran Abs Auto 0.01 X10*3/uL (0.00-0.03); Imm Gran Pct Auto 0.2 % (0.0-0.4); Lymphocytes Absolute Auto 1.8 X10*3/uL (1.2-4.9); Lymphocytes Percent Auto 31.1 % (20-40); Mean Corpuscular HGB Conc 34.2 g/dl (31.0-35.0); Mean Corpuscular Hemoglobin 30.8 pg (27.0-33.0); Mean Corpuscular Volume 90.1 fL (80.0-98.0); Mean Platelet Volume 9.2 fL (9.4-12.3); Monocytes Absolute Auto 0.5 X10*3/uL (0.1-1.2); Monocytes Percent Auto 8.3 % (2-11); Neutrophils Absolute Auto 3.2 x10*3/uL (2.0-8.3); Neutrophils Percent Auto 55.7 % (45-73); Platelet Count 272 X10*3/uL (160-400); Red Blood Count 4.77 X10*6/uL (4.20-5.50); Red Cell Distribution Width 12.9 % (11.0-16.0); White Blood Count 5.8 X10*3/uL (4.8-10.8)
[2023-08-20 10:59] LABS: Rheumatoid Factor < 13.0 IU/mL (<15.0)
[2023-08-20 11:02] LABS: Alanine Aminotransferase 10 U/L (0-31); Anion Gap 13 (12-20); Aspartate Amino Transferase 23 U/L (5-31); Carbon Dioxide 28 mmol/L (22-29); Chloride 106 mmol/L (96-108); Erythrocyte Sedimentation Rate 6 MM/HR (0-20); Estimated Glomerular Filt Rate > 60; Sodium 143 mmol/L (135-145)
[2023-08-20 11:23] LABS: TSH reflex Free T4 0.99 uIU/mL (0.32-4.0)
[2023-08-20 13:51] LABS: CT PCR NOT DETECTED (Not Detect.); NG PCR NOT DETECTED (Not Detect.)
[2023-08-22 08:49] LABS: Absolute CD3 Count 864 cells/uL (840-3060); Absolute CD4 Count 501 cells/uL (490-1740); Absolute CD8 Count 403 cells/uL (180-1170); Absolute Lymphocytes 1818 cells/uL (850-3900); CD4 CD8 Ratio 1.24 (0.86-5.00); Percent CD3 Cells 48 % (57-85); Percent CD4 Cells 28 % (30-61); Percent CD8 Cells 22 % (12-42)
[2023-08-23 07:48] LABS: CRP High Sensitivity 1.4 mg/L
[2023-08-23 08:33] LABS: Syphilis Screen Nonreactive (Nonreactive)
[2023-08-23 08:46] LABS: HBsAGNum1 0.29 S/CO (0.00-0.99); Hepatitis B Surface Antigen Negative (Negative); ~HepC Num1 0.07 S/CO (0.00-0.79); ~Hepatitis C Antibody Nonreactive (Nonreactive)
[2023-08-23 15:29] LABS: Anti Nuclear Antibody Screen NEGATIVE (NEGATIVE)
[2023-08-23 16:54] LABS: Cyclic Citrullinated Peptide <16 UNITS
[2023-08-24 04:29] LABS: HIV RNA PCR Qn Copies NOT DETECTED copies/mL (NOT DETECTED); HIV RNA PCR Qn Log Copies NOT DETECTED (NOT DETECTED)
== END 2023-08-20 09:33 | disposition home or self-care (01) ==
LOC: HO.LAB 09:32
PROVIDERS: Absent Provider Physician Assistant; PCP Physician Assistant; Visit Provider Internal Medicine Infectious Disease
DX: M25.50 Pain in unspecified joint (principal); E03.9 Hypothyroidism, unspecified; B20 Human immunodeficiency virus [HIV] disease
CPT/HCPCS: 0353U; 36415; 80051; 82565; 84443; 84450; 84460; 85025; 85652; 86038; 86141; 86200; 86359; 86360; 86431; 86780; 86803; 87340; 87536

== ENCOUNTER 2023-10-12 15:29 | Outpatient (REF) | payer OTHER, SELFPAY ==
[2023-10-12 18:18] LABS: Urine Cytology See Pathology rpt
== END 2023-10-12 15:30 | disposition home or self-care (01) ==
LOC: HO.LNP 15:29
PROVIDERS: PCP Physician Assistant; Visit Provider Nurse Practitioner Family
DX: R31.9 Hematuria, unspecified (principal); R39.15 Urgency of urination; R89.6 Abnormal cytological findings in specimens from other organs, systems and tissues; R39.89 Other symptoms and signs involving the genitourinary system; N39.0 Urinary tract infection, site not specified
CPT/HCPCS: 51798; 81003; 87086; 88112; 99212

== ENCOUNTER 2023-10-12 15:29 | Outpatient (AMB) | payer OTHER, SELFPAY ==
--- NOTE | 2023-10-12 15:41 | MHC.OFFVIS ---
Intake Visit Reasons: 2m/PVR Intake Note: Patient presents today for follow up on: Urinary Urgency Urology Medications: myrbetriq, estrace cream, amitriptyline Blood Thinner: none Smoker: former smoker PVR: 0ml's Recycling Technician Required: Yes Accompanied by: Unknown Allergies blackberry Allergy (Intermediate, Verified 10/14/23 14:23) Itching long Allergy (Intermediate, Verified 10/14/23 14:23) Itching peanut [PEANUT] Allergy (Intermediate, Verified 10/14/23 14:23) RASH Sulfa (Sulfonamide Antibiotics) [SULFA (SULFONAMIDE ANTIBIOTICS)] Allergy (Intermediate, Verified 10/14/23 14:23) HIVES, hives, rash, hives, rash tramadol Allergy (Intermediate, Verified 10/14/23 14:23) nausea strawberry Allergy (Verified 10/14/23 14:23) Itching animals Allergy (Uncoded 10/14/23 12:49) Itching red fruit Allergy (Uncoded 10/14/23 12:49) Itching tree Allergy (Uncoded 10/14/23 12:49) eye swelling, itch Medication List - Last Reconciled 10/12/23 by ANDERSON Gonzalez-FUENTES albuterol sulfate 5 mg inhalation Q4H PRN albuterol sulfate 90 mcg/actuation 2 puffs inhalation Q4-6H PRN amitriptyline 25 mg PO BEDTIME 90 days atorvastatin 10 mg PO DAILY calcium carbonate (Oyster Shell Calcium 500) 500 mg PO DAILY 90 days cetirizine 10 mg PO DAILY 90 days cholecalciferol (vitamin D3) 50 mcg PO DAILY 90 days clotrimazole-betamethasone 1-0.05 % 1 appl topical BID 30 days dicyclomine 20 mg PO TID 30 days dolutegravir-rilpivirine 50-25 mg (Juluca) 1 tab PO DAILY estradiol 0.01%(0.1mg/gram) vaginally 3 times a week; pea sized amount to urethra 3 times a week 90 days famotidine 20 mg PO BID PRN wojeaefvbvy-sxhrqbykn-bfiehibr 200-62.5-25 mcg (Trelegy Ellipta) 1 inh inhalation DAILY 30 days gabapentin 100 mg PO DAILY 30 days hydroxyzine HCl 25 mg PO BEDTIME 90 days levothyroxine 88 mcg PO DAILY 30 days lorazepam 0.5 mg PO ONCE PRN 1 day meloxicam 15 mg PO DAILY 30 days methocarbamol 750 mg PO TID PRN mirabegron ER (Myrbetriq) 25 mg PO DAILY 90 days montelukast 10 mg PO DAILY 30 days nebulizers (AeroEclipse II Nebulizer) As directed olopatadine 0.2% (Pataday Once Daily Relief) 1 drp ophthalmic (eye) DAILY 30 days ondansetron 8 mg PO Q8H PRN phenazopyridine 100 mg PO Q8H 6 doses sennosides (senna) 17.2 mg (2 x 8.6 mg) PO BEDTIME PRN 15 days sumatriptan succinate 50 mg PO Q2-4H PRN 30 days HPI Comments Details: Yamile is a very pleasant 73-year-old Hebrew-speaking female patient of Dr. Bone who was accompanied by her niece at today's office visit. Recycling Technician offered however patient would like and is requesting niece to provide translation. She has a past medical history of environmental allergies, GERD, anxiety, HIV, hypothyroidism, dyslipidemia, TIA, and asthma. She presents to the office today for a follow up of her ongoing lower urinary tract symptoms, microscopic hematuria, and abnormal cytology. In discussion with the patient today she reports noting somewhat improvement in abdominal pressure she had been experiencing and has since stopped taking her Estrace cream. However discussed importance of taking medications as prescribed. Patient with a history of in office cystoscopy 05/22 that noted mild generalized erythema noted throughout the bladder and Caruncle was noted. No bladder tumors noted. She was started on Myrbetriq and Estrace cream as well as amitriptyline at night. She reports being unsure if she has ever started Myrbetriq. She does continue to report lower urinary bladder and pressure however feels episodes are less frequent than prior. Previous workup has included a CT 01/21 noting kidneys are normal in size shape and attenuation. No hydronephrosis, hydroureter or calculi seen. The bladder is unremarkable. Cytology 02/20--few atypical squamous cell, suspicion for low-grade dysplasia, 04/24--atypical squamous cells. She has a history of smoking recreational marijuana frequently and for many years on and off. She reports smoking recreational marijuana daily for over 20 years however quit for 12 years and is now smoking again. She otherwise denies any previous nicotine dependence and or workplace chemical exposure. Discussed at length potential causes for lower urinary tract symptoms patient is experiencing. During last office visit urine was sent for dakota and she has since completed Macrobid and Flagyl. Ernaen 08/22 noted prevotella bivia, Escherichia coli, and Enterococcus faecalis. When asked she denies dysuria, foul smelling urine, changes to urinary stream, flank pain, fever, and or chills. In office urinalysis results reviewed with the patient today. PVR 0ml's. She otherwise denies any other issues or concerns at this time. [facility]LY [facility] Medical History Conjunctiva disorder Wart of scalp COVID-19 Upper extremity neuropathy Right shoulder pain Right arm pain Physical exam Cough Environmental allergies Left hip pain Left shoulder tendinitis Left shoulder pain GERD (gastroesophageal reflux disease) Asthma Urticaria Fracture of left hip requiring operative repair HIV (human immunodeficiency virus infection) Hypothyroidism Dyslipidemia Verruca TIA (transient ischemic attack) Asthma Surgical History History of hip replacement, total History of lumbar fusion History of section H/O umbilical hernia repair Hx of colonoscopy Family History Father Cancer Diabetes Mother Cancer Diabetes Brother Colon polyps Social History Household Members: None Housing: Apartment Alcohol intake: never Patient Tobacco Use Status: Never used Tobacco Tobacco use type: Cigarette e-Cigarette/Vaping Use: Never Used Second Hand Smoke Exposure: No Substance Use Type: Marijuana Advance Directives: No Advance Directives Information Provided: No service: No Current occupational status: retired Cognitive needs: No Hearing needs: No Vision needs: Yes Review of Systems Const Reports as per HPI Eyes Reports no additional complaints ENT Reports no additional complaints Card Reports as per HPI Resp Reports as per HPI GI Reports as per HPI Reports as per HPI Musc Reports no additional complaints Neuro Reports as per HPI Psych Reports as per HPI Endo Reports no additional complaints Cordell/Lymph Reports as per HPI Aller/Immun Reports as per HPI Physical Exam Const General: cooperative, healthy appearing, comfortable, no acute distress, well developed, alert and awake Orientation/consciousness: patient oriented x3 Limitations: no limitations HEENT Head: Yes normal to inspection, Yes normocephalic and Yes atraumatic Ears: hearing grossly normal bilaterally Eyes General: appearance normal, both eyes and all related structures Neck Neck: Yes normal visual inspection and Yes trachea midline Chest Chest palpation & inspection: normal inspection of the chest Resp Effort & Inspection: normal respiratory effort and able to speak in complete sentences Cardio Rate: regular rate GI Inspection: Yes normal to inspection General: Yes no CVA tenderness External Female Exam: normal external appearance and other (caruncle) Speculum Exam - Vagina: normal appearance of the vagina Back/Spine/Pelvis Back: no CVA tenderness Skin General skin exam: no rashes or lesions noted Neuro General: patient oriented x3 Extrem General: Yes normal to inspection Psych Appearance: grossly normal and well kempt Mental Status: mental status grossly normal Speech and movement: Normal speech and movement present and Clear speech present Affect: normal affect Attitude: cooperative Thought process: Normal thought process present Thought content: Normal thought content present Insight: Fair insight present (Psych) Judgement: Fair judgement present (Psych) Office Procedures Post Void Residual Post Residual Void Post Void Residual (PVR): 0 [id number] Void Residual by ultrasound Results AMB Urinalysis, Automated UA Leukoctes 500 Jason/uL Last Edit by Mobile Messenger on 10/12/23 16:19 UA Nitrite Negative Last Edit by Mobile Messenger on 10/12/23 16:19 UA Urobilinogen 0.2 mg/dL Last Edit by Mobile Messenger on 10/12/23 16:19 UA Protein 30 mg/dL Last Edit by Mobile Messenger on 10/12/23 16:19 UA pH 6.5 Last Edit by Mobile Messenger on 10/12/23 16:19 UA Blood 80 Obdulio/uL Last Edit by Mobile Messenger on 10/12/23 16:19 UA Specific [place] 1.010 Last Edit by Mobile Messenger on 10/12/23 16:19 UA Ketone Positive Last Edit by Mobile Messenger on 10/12/23 16:19 UA Bilirubin 1 mg/dL Last Edit by Mobile Messenger on 10/12/23 16:19 UA Glucose 0 mg/dL Last Edit by Mobile Messenger on 10/12/23 16:19 Results Reviewed Results Reviewed: Laboratory Last Values Urine pH (Auto) 6.5 10/12/23 15:51 Specific [place] (Auto) 1.010 10/12/23 15:51 Urine Protein (Auto) 30 mg/dL 10/12/23 15:51 Glucose (UA)(Auto) 0 mg/dL 10/12/23 15:51 Urine Ketones (Auto) Positive 10/12/23 15:51 Urine Blood (Auto) 80 Obdulio/uL 10/12/23 15:51 Urine Nitrite (Auto) Negative 10/12/23 15:51 Urine Bilirubin (Auto) 1 mg/dL 10/12/23 15:51 Urine Urobilinogen (Auto) 0.2 mg/dL 10/12/23 15:51 Leukocyte Esterase (Auto) 500 Jason/uL 10/12/23 15:51 Assessment & Plan Assessment & Plan (1) Abnormal cytology: Code(s): R89.6 - Abnormal cytological findings in specimens from other organs, systems and tissues Category: Medical (2) Bladder pain: Code(s): R39.89 - Other symptoms and signs involving the genitourinary system Category: Medical (3) Urinary tract infection: Code(s): N39.0 - Urinary tract infection, site not specified Category: Medical Plan In office urinalysis results reviewed with the patient today; as noted above; will send for urine cytology as well as urine culture. Start Macrobid as discussed and prescribed. Discussed importance of taking medications as prescribed. Discussed bladder triggers/irritants. Discussed, educated, and stressed the importance of adequate hydration relation to lower urinary tract symptoms as well as overall health and well-being. Discussed referral to casework manager for further assessment evaluation given abnormal cytology question casework manager for further assessment evaluation. Continue Estrace cream and Myrbetriq as prescribed. Follow-up in 3 months with PVR; or sooner with any issues, concerns, and or questions. Orders: Orders AMB Urinalysis Automated 10/12/23 Z13.9 - Encounter for screening, unspecified AMB Post Void Residual by ultrasound 10/12/23 R39.15 - Urgency of urination Urine Culture 10/12/23 R31.9 - Hematuria, unspecified Urine Cytology 10/12/23 R39.15 - Urgency of urination Referrals CONFIGURATION DEVELOPER Referral R89.6 - Abnormal cytological findings in specimens from other organs, systems and tissues Patient Instructions: The patient had an opportunity to ask questions regarding the treatment plan. All questions were answered. Physical exam, labs, and imaging were discussed and reviewed in detail. As well as risks, benefits, and discussion of treatment choices. No major barriers to understanding were identified. The patient expressed understanding and agreement with the above treatment plan. The patient was made aware they should contact our office by phone for worsening of their current condition, the appearance of new symptoms, or with any questions or concerns. Compliance is encouraged with any medications and follow up testing that is ordered. It is a privilege to be allowed the opportunity to participate in? your urological care.? Again, if you have any questions or concerns If you have any questions or concerns please do not hesitate to contact me. The office is [phone]. This note is constructed using voice recognition software. While every effort has been made to ensure accuracy administrative support manager errors may have been included. Yours sincerely, AMBER Gonzalez Coding Level of Care Code Est Pt Level 4 (41407) Complex EM visit Add On G2211 Diagnoses Abnormal cytology R89.6 Bladder pain R39.89 Urinary tract infection N39.0 CPT Codes Post Residual Void - PVR CPT Code: 54266-Rcjd Void Residual by ultrasound ([id number]) Time Spent (min) 35
== END 2023-10-12 16:25 | disposition home or self-care (01) ==
PROVIDERS: PCP Physician Assistant; Visit Provider Nurse Practitioner Family
DX: R89.6 Abnormal cytological findings in specimens from other organs, systems and tissues (principal); R39.89 Other symptoms and signs involving the genitourinary system; N39.0 Urinary tract infection, site not specified
CPT/HCPCS: 99214; G2211

== ENCOUNTER 2023-10-14 12:47 | Outpatient (AMB) | payer OTHER, SELFPAY ==
--- NOTE | 2023-10-14 12:49 | MHC.OFFWIV ---
Intake Vital Signs 10/14/23 12:51 Height 5 ft 1 in Weight 135 lb BMI 25.5 BP 128/72 Blood Pressure Location Rt brachial Position Sitting Pulse 97 Pulse Source Pulse Oximeter Temp 99.9 F Temp Source Oral Intake Visit Reasons: EP- feeling weak, dizziness, bumps behind ears Intake Note: pt c/o weakness, dizziness, nausea and vomiting, shaky and bumps behind ears. Started 4 days ago Patient Tobacco Use Status: Never used Tobacco Allergies blackberry Allergy (Intermediate, Verified 10/14/23 12:49) Itching long Allergy (Intermediate, Verified 10/14/23 12:49) Itching peanut [PEANUT] Allergy (Intermediate, Verified 10/14/23 12:49) RASH Sulfa (Sulfonamide Antibiotics) [SULFA (SULFONAMIDE ANTIBIOTICS)] Allergy (Intermediate, Verified 10/14/23 12:49) HIVES, hives, rash, hives, rash tramadol Allergy (Intermediate, Verified 10/14/23 12:49) nausea strawberry Allergy (Verified 10/14/23 12:49) Itching animals Allergy (Uncoded 10/14/23 12:49) Itching red fruit Allergy (Uncoded 10/14/23 12:49) Itching tree Allergy (Uncoded 10/14/23 12:49) eye swelling, itch Do you need a note to return to daycare/school/sports/work: No HPI EP- feeling weak, dizziness, bumps behind ears HPI Details This note is constructed using voice recognition software. While every effort has been made to ensure accuracy, quality review specialist errors may have been included. The patient is a 73 year old female who presents to the clinic today with several weeks of confusion, dizziness, and poor appetite after partially treating a UTI. She is still having urinary symptoms including urgency and burning. She had stopped her antibiotics early, and the family contacted PCP when symptoms did not improve. She also reports nausea without vomiting. She has had a low appetite. Family also reports that she has a history of HIV, and she is minimally compliant [facility] Medical History Conjunctiva disorder Wart of scalp COVID-19 Upper extremity neuropathy Right shoulder pain Right arm pain Physical exam Cough Environmental allergies Left hip pain Left shoulder tendinitis Left shoulder pain GERD (gastroesophageal reflux disease) Asthma Urticaria Fracture of left hip requiring operative repair HIV (human immunodeficiency virus infection) Hypothyroidism Dyslipidemia Verruca TIA (transient ischemic attack) Asthma Surgical History History of hip replacement, total History of lumbar fusion History of section H/O umbilical hernia repair Hx of colonoscopy Family History Father Cancer Diabetes Mother Cancer Diabetes Brother Colon polyps Social History Household Members: None Housing: Apartment Alcohol intake: never Patient Tobacco Use Status: Never used Tobacco Tobacco use type: Cigarette e-Cigarette/Vaping Use: Never Used Second Hand Smoke Exposure: No Substance Use Type: Marijuana service: No Current occupational status: retired Cognitive needs: No Hearing needs: No Vision needs: Yes Review of Systems Const All systems reviewed & are unremarkable except as noted in HPI and below Physical Exam Vital Signs: Last Vital Signs Temp 99.9 F 10/14/23 12:51 Pulse 97 10/14/23 12:51 BP 128/72 10/14/23 12:51 BMI result Body Mass Index 25.5 Const General: cooperative, healthy appearing, comfortable, no acute distress and alert Limitations: no limitations HEENT Head: Yes normal to inspection and Yes normocephalic Ears: hearing grossly normal bilaterally General nose exam: Normal external nose present Face and sinus: Yes normal facial exam and Yes sinuses nontender Mouth: Normal oral and palatal mucosa present and tongue normal Teeth and gingiva: dentition normal Throat: Yes posterior oropharynx normal Eyes General: appearance normal, both eyes and all related structures Neck Neck: Yes normal visual inspection and Yes full ROM Resp Effort & Inspection: normal respiratory effort and able to speak in complete sentences Auscultation: clear to auscultation bilaterally Cardio Jugular venous distension: no JVD Palpation: normal PMI Rate: regular rate Heart sounds: S1 normal heart sound present, S2 normal heart sound present, no click, no gallops, no murmurs and no rubs GI Inspection: Yes normal to inspection Palpation (GI): Soft to palpation, Tenderness to palpation present (GI) in the LLQ and Guarding due to palpation present (GI) in the LLQ Percussion: Yes normal to percussion Auscultation: normal bowel sounds Skin General skin exam: no rashes or lesions noted, elasticity normal and turgor normal Psych Appearance: grossly normal Mental Status: mental status grossly normal Speech and movement: Normal speech and movement present Affect: normal affect Assessment & Plan Assessment & Plan (1) Confusion: Code(s): R41.0 - Disorientation, unspecified Plan: Concerning feature following poorly treated urinary tract infection previously. Given this and the concern for potential sepsis, advised patient to be evaluated in the emergency room. Offered to call EMS, patient declined. (2) Left lower quadrant pain: Code(s): R10.32 - Left lower quadrant pain Plan: Patient likely requiring imaging for left lower quadrant pain in setting of low-grade fever, poor appetite. It is unclear with a multitude of symptoms at this time, and I advised her to seek evaluation Plan See above for full details and plan. In the emergency department. Given patient's confusion, and corresponding symptoms in setting of infection that was not properly treated, I am concerned that she has developed sepsis versus having a new concern for something such as diverticulitis. The emergency room for the patient did not want to be evaluated in the emergency room, however reluctantly did agree to seek treatment there. Offered to call EMS, however her family has agreed to transport her to the emergency room immediately. Coding Level of Care Code Est Pt Level 4 (24024) Diagnoses Confusion R41.0 Left lower quadrant pain R10.32
[2023-10-14 12:51] VITALS: BP 128/72; PULSE 97; TEMP 37.7; BMI 25.5
== END 2023-10-14 13:30 | disposition home or self-care (01) ==
PROVIDERS: PCP Physician Assistant; Visit Provider Registered Nurse
DX: R41.0 Disorientation, unspecified (principal); R10.32 Left lower quadrant pain
CPT/HCPCS: 99214

== ENCOUNTER 2023-10-14 13:41 | Emergency (ER) | payer OTHER, SELFPAY ==
--- NOTE | ~2023-10-14 | XR_ITS ---
EXAMINATION: XR CHEST CLINICAL INFORMATION: Fever COMPARISON: Chest radiograph 09/29/2022 TECHNIQUE: 2 views of the chest were obtained. FINDINGS: The lungs are adequately expanded. Similar mild biapical scarring. No focal consolidation. No pleural effusions or pneumothorax. The cardiomediastinal silhouette is within normal limits. Aortic arch calcifications. Degenerative changes of the thoracic spine. XR/XR chest 2V IMPRESSION: No acute pulmonary disease.
--- NOTE | ~2023-10-14 | CT_ITS ---
EXAMINATION: CT HEAD WITHOUT CONTRAST CLINICAL INFORMATION: Confusion. COMPARISON: CT head dated 06/23/2018. TECHNIQUE: Contiguous axial imaging was performed from the skull base to vertex without intravenous administration of contrast. This CT examination was performed using dose optimization techniques as appropriate, variously including the following: *Automated exposure control *Adjustment of mA and/or kV according to patient size (this includes techniques or standardized protocols for targeted exams where dose is matched to indication/reason for exam; i.e. extremities or head) *Use of iterative reconstruction technique DLP: 523 mGy-cm FINDINGS: There is no acute intracranial hemorrhage. There is no evidence of acute/subacute cerebral or cerebellar infarction. There is no midline shift or mass effect. No extra-axial fluid collection. The ventricles are normal in size. There is mild microvascular ischemic change. The orbits are symmetric and within normal limits. Visualized paranasal sinuses are clear. Mastoid air cells are well aerated. CT/CT head/brain wo IV con IMPRESSION: No acute intracranial pathology. Mild microvascular ischemic change.
--- NOTE | 2023-10-14 14:20 | ED.GENADULT ---
HPI - General Adult General Chief complaint: General Medical Stated complaint: infection-dizziness,vomiting confusion Time Seen by Provider: 10/14/23 16:23 Source: patient Mode of arrival: ambulatory Limitations: no limitations History of Present Illness ED Provider: thomas LYLE narrative: Patient's history of HIV last labs was undetectable viral load with CD4 count of 501 on 08/20/2023 went to [place] comes back with multiple complaints while in [place] patient did not take her medication for a month smoking marijuana vaping was diagnose with E coli and Enterobacter faecalis in the urine 08/22 sensitive to Macrobid patient had detailed workup in the past had MRI of the abdomen for small suspected lesion in the pancreas last month no biopsy was done and been followed by PCP patient does feel depressed denies any SI no history of constipation no relation of pain with food Related Data Home Medications ?Medication ?Instructions ?Recorded ?Confirmed dolutegravir 50 mg-rilpivirine 25 1 tab PO DAILY 12/11/20 08/19/23 mg tablet (Juluca) atorvastatin 10 mg tablet 10 mg PO DAILY 07/20/22 08/19/23 famotidine 20 mg tablet 20 mg PO BID PRN acid reflux 07/20/22 08/19/23 Previous Rx's ?Medication ?Instructions ?Recorded nebulizers (AeroEclipse II #1 ea 11/08/21 Nebulizer) methocarbamol 750 mg tablet 750 mg PO TID PRN pain (scale 07/07/22 score 4-6) #14 tabs albuterol sulfate 2.5 mg/0.5 mL 5 mg inhalation Q4H PRN shortness 09/28/22 solution for nebulization of breath or wheezing #30 ea olopatadine 0.2 % eye drops 1 drp ophthalmic (eye) DAILY 30 11/16/22 (Pataday Once Daily Relief) days #2.5 mL lorazepam 0.5 mg tablet 0.5 mg PO ONCE PRN anxiety 1 day 02/01/23 #1 tab ondansetron 8 mg disintegrating 8 mg PO Q8H PRN Nausea And 02/02/23 tablet Vomiting #30 tabs sumatriptan succinate 50 mg tablet 50 mg PO Q2-4H PRN migraine 02/10/23 headache 30 days #9 tabs sennosides 8.6 mg tablet (senna) 17.2 mg (2 x 8.6 mg) PO BEDTIME 02/25/23 PRN constipation 15 days #30 tabs phenazopyridine 100 mg tablet 100 mg PO Q8H 6 doses #6 tabs 03/30/23 albuterol sulfate 90 mcg/actuation 2 puff inhalation Q4-6H PRN 04/28/23 aerosol inhaler shortness of breath or wheezing #6.7 grams fluticasone fur. 200 mcg-umeclid 1 inh inhalation DAILY 30 days #1 04/28/23 62.5 mcg-vilant 25 mcg ea inhalat.powder (Trelegy Ellipta) montelukast 10 mg tablet 10 mg PO DAILY 30 days #30 tabs 04/28/23 cetirizine 10 mg tablet 10 mg PO DAILY allergy symptoms 90 05/13/23 days #90 tabs calcium carbonate (Oyster Shell 500 mg PO DAILY 90 days #90 tabs 06/10/23 Calcium 500) cholecalciferol (vitamin D3) 50 50 mcg PO DAILY 90 days #90 caps 06/10/23 mcg (2,000 unit) capsule hydroxyzine HCl 25 mg tablet 25 mg PO BEDTIME 90 days #90 tabs 06/21/23 dicyclomine 20 mg tablet 20 mg PO TID abdominal pain 30 08/02/23 days #90 tabs amitriptyline 25 mg tablet 25 mg PO BEDTIME 90 days #90 tabs 08/04/23 estradiol 0.01% (0.1 mg/gram) See Rx Instructions vaginal 3XW 90 08/04/23 vaginal cream days #42.5 grams mirabegron 25 mg tablet,extended 25 mg PO DAILY 90 days #90 tabs 08/04/23 release 24 hr (Myrbetriq) gabapentin 100 mg capsule 100 mg PO DAILY pain (scale score 08/19/23 7-10) 30 days #30 caps clotrimazole-betamethasone 1 1 appl topical BID 30 days #45 08/23/23 %-0.05 % topical cream grams levothyroxine 88 mcg tablet 88 mcg PO DAILY 30 days #30 tabs 08/28/23 meloxicam 15 mg tablet 15 mg PO DAILY 30 days #30 tabs 10/13/23 cefuroxime axetil 250 mg tablet 250 mg PO BID 7 days #14 tabs 10/14/23 nitrofurantoin macrocrystal 100 mg 100 mg PO BID 7 days #14 caps 10/14/23 capsule Allergies Allergy/AdvReac Type Severity Reaction Status Date / Time blackberry Allergy Intermediate Itching Verified 10/14/23 14:23 long Allergy Intermediate Itching Verified 10/14/23 14:23 peanut [PEANUT] Allergy Intermediate RASH Verified 10/14/23 14:23 Sulfa (Sulfonamide Allergy Intermediate HIVES, Verified 10/14/23 14:23 Antibiotics) hives, [SULFA (SULFONAMIDE rash, ANTIBIOTICS)] hives, rash tramadol Allergy Intermediate nausea Verified 10/14/23 14:23 strawberry Allergy Itching Verified 10/14/23 14:23 animals Allergy Itching Uncoded 10/14/23 12:49 red fruit Allergy Itching Uncoded 10/14/23 12:49 tree Allergy eye Uncoded 10/14/23 12:49 swelling, itch Review of Systems Review of Systems: Yes all other systems are reviewed and are negative PMFSH Past Medical History Medical History Conjunctiva disorder Wart of scalp COVID-19 Upper extremity neuropathy Right shoulder pain Right arm pain Physical exam Cough Environmental allergies Left hip pain Left shoulder tendinitis Left shoulder pain GERD (gastroesophageal reflux disease) Asthma Urticaria Fracture of left hip requiring operative repair HIV (human immunodeficiency virus infection) Hypothyroidism Dyslipidemia Verruca TIA (transient ischemic attack) Asthma Surgical History History of hip replacement, total History of lumbar fusion History of section H/O umbilical hernia repair Hx of colonoscopy Family History Family History Father Cancer Diabetes Mother Cancer Diabetes Brother Colon polyps Social History Social History Household Members: None Housing: Apartment Alcohol intake: never Patient Tobacco Use Status: Never used Tobacco Tobacco use type: Cigarette e-Cigarette/Vaping Use: Never Used Second Hand Smoke Exposure: No Substance Use Type: Marijuana Advance Directives: No Advance Directives Information Provided: No service: No Current occupational status: retired Cognitive needs: No Hearing needs: No Vision needs: Yes Physical Exam ED Vital Signs: Vital Signs - 24 hr 10/14/23 14:21 10/14/23 15:25 Temperature 98.5 F 98.6 F Pulse Rate 83 90 Respiratory Rate 16 17 Blood Pressure 140/79 H 151/86 H Pulse Oximetry 98 100 Oxygen Delivery Method Room Air Room Air BMI result Body Mass Index 25.5 Appearance: Alert. Oriented X3. No acute distress. Eyes: PERRLA, No Nystagmus ENT: Pharynx normal. Oral Mucosa moist right upper cervical lymphadenopathy+ Neck: Normal inspection. Neck supple. CVS: Normal heart rate and rhythm. Pulses normal. Respiratory: No respiratory distress. Equal air entry bilateral, no wheezing/rales/rhonchi Abdomen: Soft and nontender. Bowel sounds are present, no mass palpable, no CVA tenderness Skin: Skin warm and dry. Normal skin color. Normal skin turgor. Extremities: No lower extremity edema. No calf tenderness Neuro: Oriented X 3. No motor deficit. No sensory deficit.No cerebellar signs , cranial nerves II-XII intact Course Course Course Narrative: This is a Rapid Medical Examination (RME) performed by Aiyana Minaya PA-C in triage. Full HPI, ROS, assessment and treatment plan per primary provider in the Main ED. 73 yo Nigerien speaking female with history HIV, asthma, GERD, depression, scleroderma, hypothyroidism who presents to the ER from Urgent Care for evaluation of a Severe bladder infection that has been treated for months. She has not been compliant with her meds. She has been vomiting for 4 days with dizziness, confusion, headache and dizziness. Her niece reports poor PO intake and c/o lower abdominal pain. Recently spent a month in [place] and was not taking her HAART, got back here on 09/28. Plan: labs, cxr, covid, ekg, UA, head CT Medical Decision Making Lab Data [facility] Lab Attestation statement: I reviewed the patient's lab results. 10/14/23 14:49 10/14/23 14:49 Labs: Lab Results 10/14/23 10/14/23 10/14/23 Range/Units 14:45 14:49 16:01 WBC 8.7 (4.8-10.8) X10*3/uL RBC 4.54 (4.20-5.50) X10*6/uL Hgb 14.3 (12.0-16.0) g/dl Hct 41.6 (37.0-47.0) % MCV 91.6 (80.0-98.0) fL MCH 31.5 (27.0-33.0) pg MCHC 34.4 (31.0-35.0) g/dl RDW 13.7 (11.0-16.0) % Plt Count 233 (160-400) X10*3/uL MPV 8.9 L (9.4-12.3) fL Immature Gran % (Auto) 0.3 (0.0-0.4) % Neut % (Auto) 64.0 (45-73) % Lymph % (Auto) 24.1 (20-40) % [place] % (Auto) 9.6 (2-11) % Eos % (Auto) 1.1 (0-4) % Baso % (Auto) 0.9 (0-2) % Lymph # (Auto) 2.1 (1.2-4.9) X10*3/uL [place] # (Auto) 0.8 (0.1-1.2) X10*3/uL Eos # (Auto) 0.1 (0.0-0.4) X10*3/uL Baso # (Auto) 0.1 (0.0-0.2) X10*3/uL Abs Immat Gran (auto) 0.03 (0.00-0.03) X10*3/uL Absolute Neuts (auto) 5.6 (2.0-8.3) x10*3/uL Absolute Nucleated RBC 0.000 (0.0-0.012) X10*3/uL Nucleated RBC % (auto) 0.0 (0.0-0.2) /100WBC Sodium 140 (135-145) mmol/L Potassium 4.1 (3.3-5.1) mmol/L Chloride 100 (96-108) mmol/L Carbon Dioxide 27 (22-29) mmol/L Anion Gap 17 (12-20) BUN 10 (9-16) mg/dL Creatinine 1.11 (0.5-1.4) mg/dL Estim Creat Clear Calc 38.4 Estimated GFR 48 Random Glucose 99 (60-115) mg/dL Calcium 9.6 (8.4-10.2) mg/dL Magnesium 2.4 (1.6-2.6) mg/dL Total Bilirubin 0.5 (0.0-1.0) mg/dL Direct Bilirubin 0.2 (0.0-0.5) mg/dL AST 69 H (5-31) U/L ALT 22 (0-31) U/L Alkaline Phosphatase 314 H (39-117) U/L Troponin I High Sens 3.6 D (<3.5-17.0) ng/L Total Protein 7.8 (6.5-8.0) g/dL Albumin 4.0 (3.5-5.0) g/dL Lipase 16 (8-78) U/L TSH 2.67 (0.32-4.0) uIU/mL Urine Color Yellow Urine Appearance Clear Urine pH 7.0 (5.0-9.0) Ur Specific Hubbard <= 1.005 (1.005-1.025) Urine Protein Negative (Neg-Trace) mg/dL Urine Glucose (UA) Negative (Negative) mg/dL Urine Ketones Trace (Negative) mg/dL Urine Blood Small (1+) H (Negative) Urine Nitrite Negative (Negative) Ur Leukocyte Esterase Moderate (2+) H (Negative) Urine RBC 3-5 H (0-2) /HPF Urine WBC 6-10 H (0-5) /HPF Ur Squamous Epith Cells 0-2 (0-2) /HPF Urine Bacteria None Seen (None Seen) Hyaline Casts 0-2 (0-2) /LPF Urine Opiates Screen Not Detected (Not Detect) Ur Buprenorphine Scrn Not Detected (Not Detect) ng/mL Ur Oxycodone Screen Not Detected (Not Detect) ng/mL Urine Methadone Screen Not Detected (Not Detect) ng/mL Urine Fentanyl Screen Not Detected (Not Detect) Ur Barbiturates Screen Not Detected (Not Detect) Ur Phencyclidine Scrn Not Detected (Not Detect) Ur Amphetamines Screen Not Detected (Not Detect) U Benzodiazepines Scrn Not Detected (Not Detect) Urine Cocaine Screen Not Detected (Not Detect) U Marijuana (THC) Screen POSITIVE H (Not Detect) COVID-19 (SAMY) Negative (Negative) COVID-19 Clin Com See Note Influenza Type A (NEFTALI) Negative (Negative) Influenza Type B (NEFTALI) Negative (Negative) Influenza A & B Note See Note Independent Interpretation I performed an independent interpretation of an: CT Scan Radiology Impression Discussion of test interpretation with radiology: I have reviewed the radiologist's reading. Discharge Plan Discharge Clinical Impression: Urinary tract infection Patient Disposition: Home, Self-Care Instructions: Urinary Tract Infection in Women (ED) Additional Instructions: Drink plenty of fluids Take medication as prescribed and follow up with your PCP and senior net c developer as scheduled Take your medication on time Prescriptions: New cefuroxime axetil 250 mg tablet 250 mg PO BID 7 Days Qty: 14 0RF No Action (DME) AeroEclipse II Nebulizer Misc See Rx Instructions .Route Qty: 1 0RF Rx Instructions: As directed lorazepam 0.5 mg tablet 0.5 mg PO ONCE PRN (Reason: anxiety) 1 Days Qty: 1 0RF Rx Instructions: take 1 hour before procedure. sennosides [senna] 8.6 mg tablet 17.2 mg PO BEDTIME PRN (Reason: constipation) 15 Days Qty: 30 0RF cholecalciferol (vitamin D3) 50 mcg (2,000 unit) capsule 50 mcg PO DAILY 90 Days Qty: 90 1RF calcium carbonate [Oyster Shell Calcium 500] 500 mg calcium (1,250 mg) tablet 500 mg PO DAILY 90 Days Qty: 90 1RF hydroxyzine HCl 25 mg tablet 25 mg PO BEDTIME 90 Days Qty: 90 2RF dicyclomine 20 mg tablet 20 mg PO TID 30 Days Qty: 90 2RF levothyroxine 88 mcg tablet 88 mcg PO DAILY 30 Days Qty: 30 1RF meloxicam 15 mg tablet 15 mg PO DAILY 30 Days Qty: 30 1RF nitrofurantoin macrocrystal 100 mg capsule 100 mg PO BID 7 Days Qty: 14 0RF Rx Instructions: must administer with a meal/food albuterol sulfate 2.5 mg/0.5 mL solution for nebulization 5 mg inhalation Q4H PRN (Reason: shortness of breath or wheezing) Qty: 30 0RF ondansetron 8 mg Tablet,Disintegrating 8 mg PO Q8H PRN (Reason: Nausea And Vomiting) Qty: 30 2RF methocarbamol 750 mg tablet 750 mg PO TID PRN (Reason: pain (scale score 4-6)) Qty: 14 0RF Juluca 50-25 mg tablet 1 tab PO DAILY Rx Instructions: must administer with a meal/food olopatadine [Pataday Once Daily Relief] 0.2 % drops 1 drp ophthalmic (eye) DAILY 30 Days Qty: 2.5 1RF sumatriptan succinate 50 mg tablet 50 mg PO Q2-4H PRN (Reason: migraine headache) 30 Days Qty: 9 0RF Rx Instructions: do not exceed 4 doses per 24 hrs cetirizine 10 mg tablet 10 mg PO DAILY 90 Days Qty: 90 1RF gabapentin 100 mg capsule 100 mg PO DAILY 30 Days Qty: 30 1RF clotrimazole-betamethasone 1-0.05 % cream 1 appl topical BID 30 Days Qty: 45 0RF phenazopyridine 100 mg tablet 100 mg PO Q8H 0 Days Qty: 6 0RF estradiol 0.01 % (0.1 mg/gram) cream See Rx Instructions vaginal 3XW 90 Days Qty: 42.5 3RF Rx Instructions: vaginally 3 times a week; pea sized amount to urethra 3 times a week amitriptyline 25 mg tablet 25 mg PO BEDTIME 90 Days Qty: 90 2RF Myrbetriq 25 mg tablet extended release 24 hr 25 mg PO DAILY 90 Days Qty: 90 2RF famotidine 20 mg tablet 20 mg PO BID PRN (Reason: acid reflux) atorvastatin 10 mg tablet 10 mg PO DAILY Trelegy Ellipta 200-62.5-25 mcg blister with device 1 inh inhalation DAILY 30 Days Qty: 1 6RF albuterol sulfate 90 mcg/actuation HFA aerosol inhaler 2 puff inhalation Q4-6H PRN (Reason: shortness of breath or wheezing) Qty: 6.7 6RF montelukast 10 mg tablet 10 mg PO DAILY 30 Days Qty: 30 6RF Print Language: Nigerien
[2023-10-14 14:21] VITALS: BP 140/79; PULSE 83; RESP 16; TEMP 36.9; O2SAT 98; BMI 25.5
--- NOTE | 2023-10-14 14:22 | ECG_ITS ---
Test Reason : CHEST PAINS Blood Pressure : / mmHG Vent. Rate : 087 BPM Atrial Rate : 087 BPM P-R Int : 136 ms QRS Dur : 074 ms QT Int : 372 ms P-R-T Axes : 063 -24 023 degrees QTc Int : 447 ms Normal sinus rhythm Normal ECG When compared with ECG of 29-SEP-2022 12:52, No significant change was found Referred By: Ester Minaya Electronically Signed By:FERNANDO SPANGLER
[2023-10-14 14:54] LABS: MANUAL DIFF FLAG NO
[2023-10-14 14:56] LABS: Basophils Absolute Auto 0.1 X10*3/uL (0.0-0.2); Basophils Percent Auto 0.9 % (0-2); Eosinophils Absolute Auto 0.1 X10*3/uL (0.0-0.4); Eosinophils Percent Auto 1.1 % (0-4); Hematocrit 41.6 % (37.0-47.0); Hemoglobin 14.3 g/dl (12.0-16.0); Imm Gran Abs Auto 0.03 X10*3/uL (0.00-0.03); Imm Gran Pct Auto 0.3 % (0.0-0.4); Lymphocytes Absolute Auto 2.1 X10*3/uL (1.2-4.9); Lymphocytes Percent Auto 24.1 % (20-40); Mean Corpuscular HGB Conc 34.4 g/dl (31.0-35.0); Mean Corpuscular Hemoglobin 31.5 pg (27.0-33.0); Mean Corpuscular Volume 91.6 fL (80.0-98.0); Mean Platelet Volume 8.9 fL (9.4-12.3); Monocytes Absolute Auto 0.8 X10*3/uL (0.1-1.2); Monocytes Percent Auto 9.6 % (2-11); Neutrophils Absolute Auto 5.6 x10*3/uL (2.0-8.3); Platelet Count 233 X10*3/uL (160-400); Red Blood Count 4.54 X10*6/uL (4.20-5.50); Red Cell Distribution Width 13.7 % (11.0-16.0); White Blood Count 8.7 X10*3/uL (4.8-10.8)
[2023-10-14 15:08] LABS: IDNOW Serial# 152EDE1D
[2023-10-14 15:09] LABS: COVID-19 Test Negative (Negative)
[2023-10-14 15:13] LABS: IDNOW Serial# 08D9AD1C; Influenza A Negative (Negative); Influenza B2 Negative (Negative)
[2023-10-14 15:22] LABS: Alanine Aminotransferase 22 U/L (0-31); Alkaline Phosphatase 314 U/L (39-117); Anion Gap 17 (12-20); Aspartate Amino Transferase 69 U/L (5-31); Bilirubin Direct 0.2 mg/dL (0.0-0.5); Bilirubin Total 0.5 mg/dL (0.0-1.0); Blood Urea Nitrogen 10 mg/dL (9-16); Calcium 9.6 mg/dL (8.4-10.2); Carbon Dioxide 27 mmol/L (22-29); Chloride 100 mmol/L (96-108); Creatinine Clr Calc Pharmacy 38.4; Estimated Glomerular Filt Rate 48; Glucose Random 99 mg/dL (60-115); Magnesium 2.4 mg/dL (1.6-2.6); Potassium 4.1 mmol/L (3.3-5.1); Sodium 140 mmol/L (135-145); Total Protein 7.8 g/dL (6.5-8.0)
[2023-10-14 15:25] VITALS: BP 151/86; PULSE 90; RESP 17; TEMP 37; O2SAT 100
[2023-10-14 15:25] LABS: Lipase 16 U/L (8-78)
[2023-10-14 15:29] LABS: Troponin-I High Sensitivity 3.6 ng/L (<3.5-17.0)
[2023-10-14 15:43] LABS: TSH reflex Free T4 2.67 uIU/mL (0.32-4.0)
[2023-10-14 16:09] LABS: Appearance Urine Clear; Color Urine Yellow; Glucose Urine UA Negative (Negative); Leukocyte Esterase Urine Moderate (2+) (Negative); Nitrite Urine Negative (Negative); Specific Gravity - Urine <= 1.005 (1.005-1.025); UMIC TRIGGER UACC YES; Urine Blood Small (1+) (Negative); Urine Ketones Trace mg/dL (Negative); Urine Protein Negative (Neg-Trace)
[2023-10-14 16:17] LABS: Bacteria Urine None Seen (None Seen); Hyaline Casts Urine 0-2 /LPF (0-2); Squamous Epithelial Cell Urine 0-2 /HPF (0-2); UACC Culture Trigger YES
[2023-10-14 16:21] LABS: Amphetamine Screen Urine Not Detected (Not Detect); Barbiturates, Urine Not Detected (Not Detect); Benzodiazepines Screen Urine Not Detected (Not Detect); Buprenorphine Scr Not Detected (Not Detect); Cannabinoid Screen Urine POSITIVE (Not Detect); Cocaine Screen Urine Not Detected (Not Detect); Fentanyl, urine Not Detected (Not Detect); Methadone Screen, Urine Not Detected (Not Detect); Opiate Screen Urine Not Detected (Not Detect); Oxycodone Screen Urine Not Detected (Not Detect); Phencyclidine Screen Urine Not Detected (Not Detect)
[2023-10-14] MEDS: Dicyclomine HCl 10 MG CAPSULE 20 MG PO (17:50)
[2023-10-14] MEDS: cefuroxime axetiL 250 MG TABLET PO (17:51)
[2023-10-14 17:54] VITALS: BP 142/78; PULSE 87; RESP 17; TEMP 36.7; O2SAT 100
== END 2023-10-14 17:57 | disposition home or self-care (01) ==
PROVIDERS: Physician Assistant; Emergency Provider Internal Medicine; PCP Physician Assistant
DX: N39.0 Urinary tract infection, site not specified (principal); R07.89 Other chest pain; R11.2 Nausea with vomiting, unspecified; R41.0 Disorientation, unspecified; F12.90 Cannabis use, unspecified, uncomplicated; Z11.52 Encounter for screening for COVID-19; Z79.899 Other long term (current) drug therapy
CPT/HCPCS: 36415; 70450; 71046; 80048; 80076; 80307; 81001; 83690; 83735; 84443; 84484; 85025; 87086; 87502; 87635; 93005; 99284

== ENCOUNTER 2023-11-02 12:38 | Outpatient (REF) | payer OTHER, SELFPAY ==
[2023-11-02 13:19] LABS: MANUAL DIFF FLAG NO
[2023-11-02 14:25] LABS: Basophils Absolute Auto 0.1 X10*3/uL (0.0-0.2); Eosinophils Absolute Auto 0.2 X10*3/uL (0.0-0.4); Eosinophils Percent Auto 3.7 % (0-4); Hematocrit 40.5 % (37.0-47.0); Hemoglobin 13.5 g/dl (12.0-16.0); Imm Gran Abs Auto 0.01 X10*3/uL (0.00-0.03); Imm Gran Pct Auto 0.2 % (0.0-0.4); Lymphocytes Absolute Auto 1.9 X10*3/uL (1.2-4.9); Lymphocytes Percent Auto 30.7 % (20-40); Mean Corpuscular HGB Conc 33.3 g/dl (31.0-35.0); Mean Corpuscular Volume 92.9 fL (80.0-98.0); Monocytes Absolute Auto 0.5 X10*3/uL (0.1-1.2); Monocytes Percent Auto 8.7 % (2-11); Neutrophils Absolute Auto 3.5 x10*3/uL (2.0-8.3); Neutrophils Percent Auto 55.7 % (45-73); Platelet Count 292 X10*3/uL (160-400); Red Blood Count 4.36 X10*6/uL (4.20-5.50); Red Cell Distribution Width 13.2 % (11.0-16.0); White Blood Count 6.2 X10*3/uL (4.8-10.8)
[2023-11-02 15:20] LABS: Alanine Aminotransferase 14 U/L (0-31); Anion Gap 12 (12-20); Aspartate Amino Transferase 35 U/L (5-31); Carbon Dioxide 29 mmol/L (22-29); Chloride 105 mmol/L (96-108); Estimated Glomerular Filt Rate > 60; Potassium 4.5 mmol/L (3.3-5.1); Sodium 141 mmol/L (135-145)
[2023-11-02 17:37] LABS: CT PCR NOT DETECTED (Not Detect.); NG PCR NOT DETECTED (Not Detect.)
[2023-11-03 04:31] LABS: Syphilis Screen Nonreactive (Nonreactive)
[2023-11-03 04:47] LABS: HBsAGNum1 0.38 S/CO (0.00-0.99); Hepatitis B Surface Antigen Negative (Negative)
[2023-11-03 11:53] LABS: HCV Log PCR <1.18 NOT DETECTED Log IU/mL (NOT DETECTED); HepC Viral Load <15 NOT DETECTED IU/mL (NOT DETECTED)
[2023-11-03 12:49] LABS: HIV RNA PCR Qn Copies NOT DETECTED copies/mL (NOT DETECTED); HIV RNA PCR Qn Log Copies NOT DETECTED (NOT DETECTED)
== END 2023-11-02 12:39 | disposition home or self-care (01) ==
LOC: HO.LAB 12:38
PROVIDERS: PCP Physician Assistant; Visit Provider Internal Medicine Infectious Disease
DX: B20 Human immunodeficiency virus [HIV] disease (principal)
CPT/HCPCS: 80051; 82565; 84450; 84460; 85025; 86780; 87340; 87491; 87522; 87536; 87591

== ENCOUNTER 2023-11-17 13:41 | Outpatient (AMB) | payer OTHER, SELFPAY ==
[2023-11-17 13:49] VITALS: BP 138/84; PULSE 85; O2SAT 95; BMI 26.1
--- NOTE | 2023-11-17 13:49 | A.OFFVIS_ITS ---
Vital Signs 11/17/23 13:49 Height 5 ft 1 in Weight 138 lb BMI 26.1 BP 138/84 Blood Pressure Location Rt brachial Position Sitting Pulse 85 Pulse Source Doppler Pulse Oximetry (%) 95 Oxygen Delivery Method Room Air Intake Visit Reasons: asthma Allergies blackberry Allergy (Intermediate, Verified 10/14/23 14:23) Itching long Allergy (Intermediate, Verified 10/14/23 14:23) Itching peanut [PEANUT] Allergy (Intermediate, Verified 10/14/23 14:23) RASH Sulfa (Sulfonamide Antibiotics) [SULFA (SULFONAMIDE ANTIBIOTICS)] Allergy (Intermediate, Verified 10/14/23 14:23) HIVES, hives, rash, hives, rash tramadol Allergy (Intermediate, Verified 10/14/23 14:23) nausea strawberry Allergy (Verified 10/14/23 14:23) Itching animals Allergy (Uncoded 10/14/23 12:49) Itching red fruit Allergy (Uncoded 10/14/23 12:49) Itching tree Allergy (Uncoded 10/14/23 12:49) eye swelling, itch HPI HPI asthma: Details: 73-year-old lady, former smoker of marijuana, but not tobacco, now followed for moderate to severe persistent asthma and environmental allergies.? Patient previously on Xolair, however now she does not want to continue using. Her symptoms are now well controlled on Trelegy, Singulair, and albuterol MDI. She denies any recent exacerbations. [facility] Medical History (Updated 11/17/23 @ 14:10 by Lucho Aburto MD) Environmental allergies Conjunctiva disorder Wart of scalp COVID-19 Upper extremity neuropathy Right shoulder pain Right arm pain Physical exam Cough Left hip pain Left shoulder tendinitis Left shoulder pain GERD (gastroesophageal reflux disease) Asthma Urticaria Fracture of left hip requiring operative repair HIV (human immunodeficiency virus infection) Hypothyroidism Dyslipidemia Verruca TIA (transient ischemic attack) Asthma Surgical History History of hip replacement, total History of lumbar fusion History of section H/O umbilical hernia repair Hx of colonoscopy Family History Father Cancer Diabetes Mother Cancer Diabetes Brother Colon polyps Social History Household Members: None Housing: Apartment Alcohol intake: never Patient Tobacco Use Status: Never used Tobacco Tobacco use type: Cigarette e-Cigarette/Vaping Use: Never Used Second Hand Smoke Exposure: No Substance Use Type: Marijuana service: No Current occupational status: retired Cognitive needs: No Hearing needs: No Vision needs: Yes Review of Systems Const Denies daytime sleepiness, Denies excessive sweating, Denies fatigue, Denies fever(s), Denies lethargy, Denies malaise, Denies night sweats, Denies snoring and Denies weight loss Eyes Denies blurry vision and Denies itchy eyes ENT Denies nasal congestion, Denies post nasal drip, Denies sinus pain, Denies sinus pressure and Denies other ( Thrush) Card Denies chest pain, Denies pedal edema, Denies dyspnea, Denies orthopnea and Denies paroxysmal nocturnal dyspnea Resp Denies cough, Denies hemoptysis, Denies excessive phlegm production, Denies dyspnea, Denies snoring and Denies wheezing GI Denies abdominal pain and Denies heartburn Musc Denies myalgias, Denies arthralgias and Denies joint swelling Skin/Breast Denies rash Neuro Denies memory loss and Denies seizure-like activity Psych Denies abnormal sleep pattern, Denies anxiety and Denies memory loss Endo Denies excessive sweating, Denies fatigue and Denies heat intolerance Cordell/Lymph Denies easy bruising Aller/Immun Denies itchy eyes, Denies seasonal rhinorrhea and Denies wheezing Physical Exam Vital Signs: Last Vital Signs Pulse 85 11/17/23 13:49 BP 138/84 11/17/23 13:49 Pulse Ox 95 11/17/23 13:49 Oxygen Delivery Method Room Air 11/17/23 13:49 BMI result Body Mass Index 26.1 Const General: no acute distress and alert Nutritional Appearance: not obese Orientation/consciousness: Other orientation findings ( oriented) HEENT Head: Yes atraumatic Eyes General: appearance normal, both eyes and all related structures Sclerae: sclerae normal EOM: EOMs intact bilaterally Neck Neck: Yes supple Lymphatic: no lymphadenopathy noted Resp Effort & Inspection: normal respiratory effort and no use of accessory muscles Auscultation: clear to auscultation bilaterally Cardio Rate: regular rate Rhythm: regular rhythm Heart sounds: no gallops, no murmurs and no rubs Skin General skin exam: other ( warm) Extrem General: No clubbing, No cyanosis and No edema Assessment & Plan Assessment & Plan (1) Asthma: Code(s): J45.909 - Unspecified asthma, uncomplicated Category: Medical Qualifiers: Asthma severity: moderate Asthma persistence: persistent Asthma complication type: uncomplicated Qualified Code(s): J45.40 - Moderate persistent asthma, uncomplicated Plan: Well controlled on Trelegy and albuterol MDI. Continue current regimen. (2) Environmental allergies: Code(s): Z91.09 - Other allergy status, other than to drugs and biological substances Category: Medical Plan: Well controlled on Singulair. Continue current regimen. Coding Level of Care Code Est Pt Level 4 (23007) Diagnoses Moderate persistent asthma without complication J45.40 Asthma severity: moderate Asthma persistence: persistent Asthma complication type: uncomplicated Environmental allergies Z91.09
== END 2023-11-17 14:06 | disposition home or self-care (01) ==
PROVIDERS: PCP Physician Assistant; Visit Provider Internal Medicine Pulmonary Disease
DX: J45.40 Moderate persistent asthma, uncomplicated (principal); Z91.09 Other allergy status, other than to drugs and biological substances
CPT/HCPCS: 99214

== ENCOUNTER → 2023-11-17 13:41 | Outpatient (BNVA) | payer OTHER, SELFPAY | PROVIDERS: PCP Physician Assistant; Visit Provider Internal Medicine Pulmonary Disease | DX: J45.40 Moderate persistent asthma, uncomplicated (principal); Z91.09 Other allergy status, other than to drugs and biological substances | CPT/HCPCS: 99212 ==

== ENCOUNTER 2023-11-24 15:18 | Outpatient (AMB) | payer OTHER, SELFPAY ==
--- NOTE | 2023-11-24 15:38 | MHC.PC.OV ---
Vital Signs 11/24/23 15:40 Height 5 ft 1 in Weight 138 lb 8 oz BMI 26.2 BP 140/86 H Blood Pressure Location Lt brachial Position Sitting Pulse 82 Pulse Source Pulse Oximeter Pulse Oximetry (%) 98 Oxygen Delivery Method Room Air Intake Visit Reasons: f/u hypothyroid, Polyarthralgia Intake Note: The patient is here for her final follow-up as she will be moving to [place]. Associate Principal Required: No Accompanied by: Daughter Allergies blackberry Allergy (Intermediate, Verified 11/24/23 15:51) Itching long Allergy (Intermediate, Verified 11/24/23 15:51) Itching peanut [PEANUT] Allergy (Intermediate, Verified 11/24/23 15:51) RASH Sulfa (Sulfonamide Antibiotics) [SULFA (SULFONAMIDE ANTIBIOTICS)] Allergy (Intermediate, Verified 11/24/23 15:51) HIVES, hives, rash, hives, rash tramadol Allergy (Intermediate, Verified 11/24/23 15:51) nausea strawberry Allergy (Verified 11/24/23 15:51) Itching animals Allergy (Uncoded 11/24/23 15:51) Itching red fruit Allergy (Uncoded 11/24/23 15:51) Itching tree Allergy (Uncoded 11/24/23 15:51) eye swelling, itch Medication List - Last Reconciled 11/24/23 by Armen Bone PA-C albuterol sulfate 5 mg inhalation Q4H PRN albuterol sulfate 90 mcg/actuation 2 inhalations inhalation Q4H PRN amitriptyline 25 mg PO BEDTIME 90 days atorvastatin 10 mg PO DAILY calcium carbonate (Oyster Shell Calcium 500) 500 mg PO DAILY 90 days cefuroxime axetil 250 mg PO BID 7 days cetirizine 10 mg PO DAILY 90 days cholecalciferol (vitamin D3) 50 mcg PO DAILY 90 days clotrimazole-betamethasone 1-0.05 % 1 appl topical BID 30 days dicyclomine 20 mg PO TID 30 days dolutegravir-rilpivirine 50-25 mg (Juluca) 1 tab PO DAILY estradiol 0.01%(0.1mg/gram) vaginally 3 times a week; pea sized amount to urethra 3 times a week 90 days famotidine 20 mg PO BID PRN [id number] 200-62.5-25 mcg (Trelegy Ellipta) 1 inh inhalation DAILY 30 days gabapentin 100 mg PO DAILY 30 days hydroxyzine HCl 25 mg PO BEDTIME 90 days levothyroxine 88 mcg PO DAILY 30 days lorazepam 0.5 mg PO ONCE PRN 1 day meloxicam 15 mg PO DAILY 30 days methocarbamol 750 mg PO TID PRN mirabegron ER (Myrbetriq) 25 mg PO DAILY 90 days montelukast 10 mg PO DAILY nebulizers (AeroEclipse II Nebulizer) As directed nitrofurantoin macrocrystal 100 mg PO BID 7 days olopatadine 0.2% (Pataday Once Daily Relief) 1 drp ophthalmic (eye) DAILY 30 days ondansetron 8 mg PO Q8H PRN phenazopyridine 100 mg PO Q8H 6 doses sennosides (senna) 17.2 mg (2 x 8.6 mg) PO BEDTIME PRN 15 days sumatriptan succinate 50 mg PO Q2-4H PRN 30 days Tobacco use date assessed: 05/13/23 Fall risk assessment: No Falls in past year Last assessed Fall Risk: 11/24/23 Dental Screening Dental Screen Date: 05/13/23 HPI f/u hypothyroid, Polyarthralgia HPI Details Patient is a 73 y/o F here today for a follow-up visit. Patient has a past medical history significant moderate persistent asthma, history of HIV, hypothyroidism migraine disorder. Patient reports she will be moving to [place] this weekend and this will be her last visit. .. CHRONIC MEDICAL CONDITION--> Asthma: Patient by [facility] and continues and inhaler and albuterol inhaler p.r.n.. She reports her asthma is fairly well controlled does seldomly have asthma exacerbations. She also seems to be suffering with allergies to which bother her eyes, nose and throat. She does use Benadryl which is helpful at night. . HIV: Patient followed by infectious disease specialist and continues on daily antiviral therapy. Laboratory Tests 01/27/23 02/08/23 04/27/23 15:17 13:30 13:23 RBC 4.88 Hgb 15.4 Creatinine 1.22 AST 22 Lipase 16 TSH % CD3 Cells 54 L 05/25/23 07/02/23 10/14/23 11:53 09:13 14:49 RBC Hgb Creatinine AST 69 H Lipase TSH 0.08 L 0.02 L 2.67 % CD3 Cells 11/02/23 13:07 RBC 4.36 Hgb Creatinine 0.83 AST 35 H Lipase TSH % CD3 Cells PFSH Medical History Environmental allergies Conjunctiva disorder Wart of scalp COVID-19 Upper extremity neuropathy Right shoulder pain Right arm pain Physical exam Cough Left hip pain Left shoulder tendinitis Left shoulder pain GERD (gastroesophageal reflux disease) Asthma Urticaria Fracture of left hip requiring operative repair HIV (human immunodeficiency virus infection) Hypothyroidism Dyslipidemia Verruca TIA (transient ischemic attack) Asthma Surgical History History of hip replacement, total History of lumbar fusion History of section H/O umbilical hernia repair Hx of colonoscopy Family History Father Cancer Diabetes Mother Cancer Diabetes Brother Colon polyps Social History Household Members: None Housing: Apartment Alcohol intake: never Patient Tobacco Use Status: Never used Tobacco Tobacco use type: Cigarette e-Cigarette/Vaping Use: Never Used Second Hand Smoke Exposure: No Substance Use Type: Marijuana service: No Current occupational status: retired Cognitive needs: No Hearing needs: No Vision needs: Yes Questionnaire Thrive Questionnaire Date Thrive assessed: 05/13/23 Are you currently unemployed and looking for a job?: No IAN-7 AMB Questionnaire IAN-7 Date IAN - 7 assessed: 05/13/23 Source: Developed by Drs. Bobo Mccall, Karen Huber, Jason Soria and colleagues, with an educational ramin from [employer]. Review of Systems Const Denies headache(s) Eyes Denies loss of vision ENT Denies vertigo, Denies dizziness, Denies headache(s) and Denies sore throat Card Denies chest pain, Denies leg edema and Denies lightheadedness Resp Denies cough, Denies hemoptysis and Denies wheezing GI Denies abdominal pain, Denies melena, Denies constipation, Denies diarrhea and Denies vomiting Denies urinary frequency, Denies dysuria and Denies urinary urgency Musc Denies arthralgias, Denies joint swelling, Denies numbness and Denies tingling Neuro Denies Abnormal speech present, Denies behavioral changes, Denies vertigo, Denies dizziness, Denies headache(s), Denies loss of vision, Denies memory loss, Denies numbness and Denies tingling Psych Denies anxiety, Denies behavioral changes, Denies depression, Denies memory loss and Denies panic attacks Cordell/Lymph Denies easy bleeding and Denies easy bruising Aller/Immun Denies wheezing Physical exam (Primary Care) Vital Signs: Last Vital Signs Pulse 82 11/24/23 15:40 BP 140/86 H 11/24/23 15:40 Pulse Ox 98 11/24/23 15:40 Oxygen Delivery Method Room Air 11/24/23 15:40 BMI result Body Mass Index 26.2 Tobacco/Smoking Status: Tobacco use Status Tobacco use date assessed 05/13/23 11/24/23 15:39 Patient Tobacco Use Status Never used Tobacco 11/24/23 15:39 Tobacco use type Cigarette 11/24/23 15:39 e-Cigarette/Vaping Use Never Used 11/24/23 15:39 Thrive Assessment: Date of Thrive Assessment Date Thrive assessed 05/13/23 11/24/23 15:39 Const General: healthy appearing, no acute distress, alert and awake Nutritional Appearance: well nourished Orientation/consciousness: oriented to person, oriented to place and oriented to time HENMT Ears: TM's normal bilaterally General nose exam: Normal nasal mucous membranes and turbinates present Eyes Conjunctivae: conjunctivae normal Sclerae: sclerae normal Pupils: Equal, round and reactive pupils present Neck Neck: Yes no lymphadenopathy and Yes no JVD Thyroid: Thyroid normal Carotids: no bruits Resp Effort & Inspection: normal respiratory effort and not tachypneic Auscultation: no crackles, no rales, no rhonchi and no wheezes Cardio Rate: regular rate Rhythm: regular rhythm Heart sounds: no murmurs and normal S1 and S2 GI Palpation (GI): Soft to palpation, nontender, no hepatomegaly and no splenomegaly Auscultation: normal bowel sounds Skin General skin exam: no rashes or lesions noted and dry skin Neuro General: oriented to person, oriented to place and oriented to time Cranial nerves: Yes Equal, round and reactive pupils present Speech: No Abnormal speech present Gait exam (Neuro): Normal gait present Motor exam (neuro): no tremor noted Extrem Right upper extremity: full ROM Left upper extremity: full ROM Right lower extremity: full ROM; no edema Left lower extremity: full ROM; no edema Psych Mental Status: mental status grossly normal Speech and movement: Normal speech and movement present Affect: normal affect Attitude: cooperative Thought process: Normal thought process present Assessment and Plan Assessment & Plan (1) Dyslipidemia: Code(s): E78.5 - Hyperlipidemia, unspecified Plan: Continues on statin therapy. Will check fasting lipid panel to assure normal. Goal LDL to be below 130 (2) Hypothyroidism: Code(s): E03.9 - Hypothyroidism, unspecified Qualifiers: Hypothyroidism type: acquired Qualified Code(s): E03.9 - Hypothyroidism, unspecified Plan: Patient continues on daily use of levothyroxine 88 mcg. Will repeat check TSH to assure normal. (3) Polyarthralgia: Code(s): M25.50 - Pain in unspecified joint Plan: Patient does have widespread polyarthralgia. She does admit to having history of rheumatoid arthritis and was seen a network operations technician in the past though this is somewhat unclear. She anticipates better control over arthritic pain when moving down to [place] (4) Asthma: Code(s): J45.909 - Unspecified asthma, uncomplicated Qualifiers: Asthma complication type: uncomplicated Asthma persistence: persistent Asthma severity: moderate Qualified Code(s): J45.40 - Moderate persistent asthma, uncomplicated Plan: Patient followed by pulmonology. She does report having some asthma exacerbations at times related to her allergies and changes in weather. (5) Osteoarthritis of left hip: Code(s): M16.12 - Unilateral primary osteoarthritis, left hip Qualifiers: Osteoarthritis type: primary Qualified Code(s): M16.12 - Unilateral primary osteoarthritis, left hip Plan: Reports left hip pain. Does have a traumatic femur fracture years back and had surgical hardware placed in [place]. Coding Level of Care Code Est Pt Level 4 (84358) Diagnoses Dyslipidemia E78.5 Acquired hypothyroidism E03.9 Hypothyroidism type: acquired Polyarthralgia M25.50 Moderate persistent asthma without complication J45.40 Asthma complication type: uncomplicated Asthma persistence: persistent Asthma severity: moderate Primary osteoarthritis of left hip M16.12 Osteoarthritis type: primary
[2023-11-24 15:40] VITALS: BP 140/86; PULSE 82; O2SAT 98; BMI 26.2
== END 2023-11-24 16:00 | disposition home or self-care (01) ==
PROVIDERS: PCP Physician Assistant; Visit Provider Physician Assistant
DX: E78.5 Hyperlipidemia, unspecified (principal); E03.9 Hypothyroidism, unspecified; M25.50 Pain in unspecified joint; J45.40 Moderate persistent asthma, uncomplicated; M16.12 Unilateral primary osteoarthritis, left hip

== ENCOUNTER → 2023-11-24 15:18 | Outpatient (BNVA) | payer OTHER, SELFPAY | PROVIDERS: PCP Physician Assistant; Visit Provider Physician Assistant | DX: E03.9 Hypothyroidism, unspecified (principal); E78.5 Hyperlipidemia, unspecified; M25.50 Pain in unspecified joint; J45.40 Moderate persistent asthma, uncomplicated; M16.12 Unilateral primary osteoarthritis, left hip | CPT/HCPCS: 99212 ==

== ENCOUNTER 2024-11-21 10:40 | Outpatient (AMB) | payer OTHER, SELFPAY ==
--- NOTE | 2024-11-21 10:57 | A.OFFPC_ITS ---
Vital Signs 11/21/24 10:59 Height 5 ft 1 in Weight 129 lb 8 oz BMI 24.5 BP 110/72 Blood Pressure Location Lt brachial Position Sitting Pulse 80 Pulse Source Pulse Oximeter Temp 97 F Temp Source Temporal Artery Scan Pulse Oximetry (%) 96 Oxygen Delivery Method Room Air Intake Visit Reasons: Annual Physical Intake Note: Patient is here today for a physical. Requesting cardiology referral and TB test. 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 Accompanied by: Nephew or Niece Allergies blackberry Allergy (Intermediate, Verified 11/21/24 11:28) Itching long Allergy (Intermediate, Verified 11/21/24 11:28) Itching peanut (PEANUT) Allergy (Intermediate, Verified 11/21/24 11:28) RASH Sulfa (Sulfonamide Antibiotics) (SULFA (SULFONAMIDE ANTIBIOTICS)) Allergy (Intermediate, Verified 11/21/24 11:28) HIVES, hives, rash, hives, rash tramadol Allergy (Intermediate, Verified 11/21/24 11:28) nausea strawberry Allergy (Verified 11/21/24 11:28) Itching animals Allergy (Uncoded 11/21/24 11:28) Itching red fruit Allergy (Uncoded 11/21/24 11:28) Itching tree Allergy (Uncoded 11/21/24 11:28) eye swelling, itch Medication List - Last Reconciled 11/21/24 by Armen Bone PA-C albuterol sulfate 5 mg inhalation Q4H PRN albuterol sulfate 90 mcg/actuation 2 inhalations inhalation Q4H PRN amitriptyline 25 mg PO BEDTIME 90 days atorvastatin 40 mg PO BEDTIME calcium carbonate (Oyster Shell Calcium 500) 500 mg PO DAILY 90 days cetirizine 10 mg PO DAILY 90 days cholecalciferol (vitamin D3) 50 mcg PO DAILY 90 days clotrimazole-betamethasone 1-0.05 % 1 appl topical BID 30 days dicyclomine 20 mg PO TID 30 days dolutegravir-rilpivirine 50-25 mg (Juluca) 1 tab PO DAILY empagliflozin (Jardiance) 10 mg PO DAILY estradiol 0.01%(0.1mg/gram) vaginally 3 times a week; pea sized amount to urethra 3 times a week 90 days famotidine 20 mg PO BID PRN ucozcpvucso-qiagyysek-hwtaxhco 200-62.5-25 mcg (Trelegy Ellipta) 1 inh inhalation DAILY 30 days gabapentin 100 mg PO DAILY 30 days hydroxyzine HCl 25 mg PO BEDTIME 90 days levothyroxine 50 mcg PO DAILY lorazepam 0.5 mg PO ONCE PRN 1 day meloxicam 15 mg PO DAILY 30 days methocarbamol 750 mg PO TID PRN metoprolol succinate ER 25 mg PO BEDTIME midodrine 5 mg PO TID mirabegron ER (Myrbetriq) 25 mg PO DAILY 90 days montelukast 10 mg PO DAILY nebulizers (AeroEclipse II Nebulizer) As directed nitroglycerin mg sublingual olopatadine 0.2% (Pataday Once Daily Relief) 1 drp ophthalmic (eye) DAILY 30 days ondansetron 8 mg PO Q8H PRN phenazopyridine 100 mg PO Q8H 6 doses potassium chloride ER (Klor-Con) 10 mEq PO DAILY ranolazine ER 500 mg PO BID sennosides (senna) 17.2 mg (2 x 8.6 mg) PO BEDTIME PRN 15 days spironolactone 12.5 mg PO DAILY sumatriptan succinate 50 mg PO Q2-4H PRN 30 days ticagrelor (Brilinta) 90 mg PO BID Tobacco use date assessed: 11/21/24 Fall risk assessment: No Falls in past year Last assessed Fall Risk: 11/21/24 Dental Screening Dental Screen Date: 11/21/24 Did you have a dental visit in the last 12 months?: No Did you have a dental problem in the last 6 months where you did not have access to dental care?: No Was dental information given to patient?: Patient has dentist HPI Annual Physical HPI Details Patient is a 73 y/o F here today for a follow-up visit. Patient has a past medical history significant moderate persistent asthma, history of HIV, hypothyroidism migraine disorder. She recently moved to [place] to stay with family though during her time in [place] her health has declined. It is unclear though now she does have an ICD placed in his seems that she may have had a heart attack. Unclear she was found to have systolic heart failure though meds such as (spironolactone , Klor-Con were noted) It was advised to her to start cardiac rehab. According to her outpatient medication she is beta-yasmani and antiarrhythmic medication along with dual antiplatelet therapy, atorvastatin 40. She reports having a lot of trouble sleeping in his asking for sleeping medication. She also is having allergy type symptoms and even has a rash noted around her eyes. Asthma: Patient by [facility] and continues and inhaler and albuterol inhaler p.r.n.. She reports her asthma is fairly well controlled does seldomly have asthma exacerbations. She also seems to be suffering with allergies to which bother her eyes, nose and throat. She does use Benadryl which is helpful at night. . HIV: She will try to establish care with her infectious disease specialist and continue monitoring her HIV status. . [facility] Medical History Environmental allergies Conjunctiva disorder Wart of scalp COVID-19 Upper extremity neuropathy Right shoulder pain Right arm pain Physical exam Cough Left hip pain Left shoulder tendinitis Left shoulder pain GERD (gastroesophageal reflux disease) Asthma Urticaria Fracture of left hip requiring operative repair HIV (human immunodeficiency virus infection) Hypothyroidism Dyslipidemia Verruca TIA (transient ischemic attack) Asthma Surgical History History of permanent cardiac pacemaker placement History of hip replacement, total History of lumbar fusion History of section H/O umbilical hernia repair Hx of colonoscopy Family History Father Cancer Diabetes Mother Cancer Diabetes Brother Colon polyps Social History Household Members: None Housing: Apartment Alcohol intake: never Patient Tobacco Use Status: Never used Tobacco Tobacco use type: Cigarette e-Cigarette/Vaping Use: Never Used Second Hand Smoke Exposure: No Substance Use Type: Marijuana service: No Current occupational status: retired Cognitive needs: No Hearing needs: No Vision needs: Yes (Glasses) Questionnaire PHQ-9 Over the last 2 weeks, how often have you been bothered by any of the following problems? 1. Little interest or pleasure in doing things: not at all 2. Feeling down, depressed, or hopeless: not at all 3. Trouble falling or staying asleep, or sleeping too much: more than half the days 4. Feeling tired or having little energy: several days 5. Poor appetite or overeating: not at all 6. Feeling bad about yourself - or that you are a failure or have let yourself or your family down: not at all 7. Trouble concentrating on things, such as reading the newspaper or watching television: not at all 8. Moving or speaking so slowly that other people could have noticed. Or the op posite - being so fidgety or restless that you have been moving around a lot more than usual: not at all 9. Thoughts that you would be better off or of hurting yourself in some way: not at all Total score: 3 Depression Screening Interpretation: Positive Depression Screening Follow-up: Existing condition Depression Screening Done: Yes 86450 - PHQ-9 Billing: Yes Source: Developed by Drs. Bobo Mccall, Karen Huber, Jason Soria and colleagues, with an educational ramin from [employer]. Thrive Questionnaire Date Thrive assessed: 11/21/24 I am a: Patient What is your living situation today?: I have a steady place to live Within the past 12 months, did the food you bought not last and you didn't have the money to get more?: Never true Within the past 12 months, did you worry whether your food would run out before you got money to buy more?: Never true Do you have trouble paying for medicines?: No Do you have trouble getting transportation to medical appointments?: No Do you have trouble paying your heating and electricity bill?: No Do you have trouble taking care of your child, family member or friend?: No Do you have trouble with day-to-day activities such as bathing, preparing meals, shopping, managing finances, etc.?: Yes Are you currently unemployed and looking for a job?: No Are you interested in more education?: No Please select the resources that you would like help with: None Currently or been in a relationship where the following occur: No concerns reported THRIVE Score: 0 AUDIT C Alcohol Use Questionnaire (AUDIT-C) 1. How often do you have a drink containing alcohol?: Never Total Score: 0 IAN-7 AMB Questionnaire IAN-7 Date IAN - 7 assessed: 11/21/24 Feeling nervous, anxious, or on edge: 1 = Several days Not being able to stop or control worryin = Several days Worrying too much about different things: 1 = Several days Trouble relaxin = Several days Being so restless that it is hard to sit still: 1 = Several days Becoming easily annoyed or irritable: 0 = Not at all Feeling afraid as if something awful might happen: 0 = Not at all Total IAN-7 score (0-4 normal; 5-9 mild; 10-14 moderate; 15-21 severe): 5 Source: Developed by Drs. Bobo Mccall, Karen Huber, Jason Soria and colleagues, with an educational ramin from [employer]. Review of Systems Const Denies body aches, Denies chills, Denies excessive sweating, Denies fatigue, Denies fever(s) and Denies headache(s) Eyes Denies blurry vision ENT Denies dysphagia, Denies vertigo, Denies dizziness, Denies headache(s), Denies hearing loss and Denies tinnitus Card Denies chest pain, Denies chest pain with activity, Denies syncope, Denies irregular heart rhythm and Denies dyspnea Resp Denies chest congestion, Denies cough, Denies hemoptysis, Denies dyspnea and Denies wheezing GI Denies abdominal pain, Denies melena, Denies hematochezia, Denies coffee ground emesis, Denies dysphagia, Denies diarrhea, Denies nausea and Denies vomiting Denies urinary frequency, Denies dysuria, Denies urinary hesitancy and Denies urinary urgency Musc Denies arthralgias, Denies limited range of motion, Denies muscle cramps and Denies muscle weakness Skin/Breast Denies rash and Denies skin ulcer Neuro Denies Abnormal speech present, Denies confusion, Denies vertigo, Denies dizziness, Denies syncope, Denies headache(s), Denies memory loss and Denies seizure-like activity Psych Denies anxiety, Denies confusion, Denies depression, Denies memory loss, Denies panic attacks and Denies paranoia Endo Denies excessive sweating, Denies fatigue, Denies flushing, Denies polydipsia and Denies polyuria Aller/Immun Denies wheezing Physical exam (Primary Care) Vital Signs: Last Vital Signs Temp 97 F 11/21/24 10:59 Pulse 80 11/21/24 10:59 BP 110/72 11/21/24 10:59 Pulse Ox 96 11/21/24 10:59 Oxygen Delivery Method Room Air 11/21/24 10:59 BMI result Body Mass Index 24.5 Tobacco/Smoking Status: Tobacco use Status Tobacco use date assessed 11/21/24 11/21/24 11:09 Patient Tobacco Use Status Never used Tobacco 11/21/24 11:09 Tobacco use type Cigarette 11/21/24 11:09 e-Cigarette/Vaping Use Never Used 11/21/24 11:09 PHQ-9: PHQ-9 Score PHQ-9: Total score 3 11/21/24 11:24 Depression Screening Interpretation: Positive Depression Screening Follow-up: Existing condition Thrive Assessment: Date of Thrive Assessment Date Thrive assessed 11/21/24 11/21/24 11:09 Currently or been in a relationship where the following occur: No concerns reported Const General: cooperative, comfortable, no acute distress, alert and awake; No confusion Orientation/consciousness: oriented to person, oriented to place, patient oriented x3 and No confusion HENMT Head: Yes normocephalic Ears: external ears normal and TM's normal bilaterally Face and sinus: No sinus tenderness Mouth: Normal oral and palatal mucosa present and tongue normal Teeth and gingiva: dentition normal and gingiva normal Throat: Yes posterior oropharynx normal, Yes tonsils normal and Yes uvula midline Eyes Conjunctivae: conjunctivae normal Sclerae: sclerae normal Pupils: Equal, round and reactive pupils present EOM: EOMs intact bilaterally Direct Ophthalmoscopy: No no photophobia Neck Neck: Yes no lymphadenopathy, No tender and Yes no JVD Thyroid: Thyroid normal Carotids: no bruits Chest Chest palpation & inspection: no tenderness Resp Effort & Inspection: normal respiratory effort, no audible wheezes, not labored and no stridor Auscultation: no crackles, no rales, no rhonchi and no wheezes Cardio Jugular venous distension: no JVD Rate: regular rate, not bradycardic and not tachycardic Rhythm: regular rhythm Bruits: no carotid bruits Peripheral pulses: Peripheral pulses 2+ throughout GI Inspection: Yes normal to inspection, No abdominal wall ecchymosis and No visible herniation Palpation (GI): Soft to palpation, nontender, no guarding, not rigid and No hepatosplenomegaly present Auscultation: normoactive bowel sounds General: Yes no CVA tenderness Back/Spine/Pelvis Back: no CVA tenderness and No back tenderness Cervical Spine: cervical ROM normal Thoracic/Lumbar Spine: thoracic and lumbar spine normal to inspection, straight leg raise negative bilaterally, No thoraco-lumbar ROM limited and No lumbar spinal tenderness Skin Lesions: no lesions Rashes: no rashes Wounds: no wounds Neuro General: oriented to person, oriented to place, patient oriented x3, CN's II-XI intact bilaterally and No confusion Cranial nerves: Yes Equal, round and reactive pupils present and Yes Normal accommodation reflex present Cognition (Neuro): normal cognition Speech: No Abnormal speech present Gait exam (Neuro): Normal gait present Motor exam (neuro): 5/5 motor strength present throughout Extrem Right upper extremity: full ROM; no cyanosis Left upper extremity: full ROM; no cyanosis Right lower extremity: no edema Left lower extremity: no edema Psych Appearance: grossly normal Mental Status: mental status grossly normal Affect: normal affect Attitude: cooperative Thought process: Normal thought process present Coding Level of Care Code Est Pt Prev Care >65y(73974) Diagnoses Annual physical exam Z00.00 Coronary artery disease involving [place] coronary artery of [place] heart without angina pectoris I25.10 Associated angina: without angina Coronary Disease-Associated Artery/Lesion type: [place] artery [place] vs. transplanted heart: [place] heart Cardiac defibrillator in place Z95.810 Cardiac arrhythmia, unspecified cardiac arrhythmia type I49.9 Arrhythmia type: unspecified cardiac arrhythmia Allergy, sequela T78.40XS Encounter type: sequela Primary insomnia F51.01 Insomnia type: primary Asymptomatic HIV infection, with no history of HIV-related illness Z21 HIV symptom status: asymptomatic, with no history of HIV-related illness Mild recurrent major depression F33.0 Additional Codes PHQ-9 - 83241 - PHQ-9 Billing: Yes ([id number]) Assessment & Plan Assessment & Plan (1) Annual physical exam: Code(s): Z00.00 - Encounter for general adult medical examination without abnormal findings Category: Medical Plan: As per HPI Patient's family is trying to get VAL into a adult day program and needs TB testing (2) CAD (coronary artery disease): Code(s): I25.10 - Atherosclerotic heart disease of [place] coronary artery without angina pectoris Category: Medical Qualifiers: Associated angina: without angina Coronary Disease-Associated Artery/Lesion type: [place] artery [place] vs. transplanted heart: [place] heart Qualified Code(s): I25.10 - Atherosclerotic heart disease of [place] coronary artery without angina pectoris Plan: As per HPI patient family reports and had a heart attack and has been started on cardiac meds in higher dose of her cholesterol. Goal LDL is to be optimally below 70 (3) Cardiac defibrillator in place: Code(s): Z95.810 - Presence of automatic (implantable) cardiac defibrillator Category: Medical Plan: Patient has a an ICD defibrillator in place and now needs cardiology follow-up here in [place]. (4) Arrhythmia: Code(s): I49.9 - Cardiac arrhythmia, unspecified Category: Medical Qualifiers: Arrhythmia type: unspecified cardiac arrhythmia Qualified Code(s): I49.9 - Cardiac arrhythmia, unspecified Plan: Have no records from [place], unclear what kind of arrhythmia patient had though does have metoprolol and anterior through medication. Will try to get records from [place] (5) Allergies: Code(s): T78.40XA - Allergy, unspecified, initial encounter Category: Medical Qualifiers: Encounter type: sequela Qualified Code(s): T78.40XS - Allergy, unspecified, sequela Plan: Patient has not been taking any of her allergy medication quite some time, has been having allergy symptoms such as itchiness over his scalp pain around her eyes and in her ear canals. Will restart cetirizine (6) Insomnia: Code(s): G47.00 - Insomnia, unspecified Category: Medical Qualifiers: Insomnia type: primary Qualified Code(s): F51.01 - Primary insomnia Plan: Will restart hydroxyzine at night to help sleep. (7) HIV (human immunodeficiency virus infection): Code(s): B20 - Human immunodeficiency virus [HIV] disease Category: Medical Qualifiers: HIV symptom status: asymptomatic, with no history of HIV-related illness Qualified Code(s): Z21 - Asymptomatic human immunodeficiency virus [HIV] infection status Plan: Patient will get reestablished with her infectious disease specialist to continue monitoring her HIV status. She continues to be compliant with the liver HIV meds (8) Mild recurrent major depression: Code(s): F33.0 - Major depressive disorder, recurrent, mild Category: Medical Plan: Patient's PHQ-9 score 3, does have a history of depression. Currently not taking any depression medication in his not interested in restarting new medication. Patient's health seems to have declined while living in [place] which may be causing some of the depression. She is now living with family was supportive Orders: Orders Lipid Panel Today I25.10 - Atherosclerotic heart disease of [place] coronary artery without angina pectoris T Spot TB Today Z11.1 - Encounter for screening for respiratory tuberculosis CA echo transthoracic complete Today I25.10 - Atherosclerotic heart disease of [place] coronary artery without angina pectoris Comprehensive [place]. Panel Fast Today I25.10 - Atherosclerotic heart disease of [place] coronary artery without angina pectoris Complete Blood Count no Diff Today I25.10 - Atherosclerotic heart disease of [place] coronary artery without angina pectoris TSH reflex Free T4 Today E03.9 - Hypothyroidism, unspecified Resp Allergy Profile Region I Today R05.9 - Cough, unspecified, T78.40XA - Allergy, unspecified, initial encounter Referrals Cardiology Referral I25.10 - Atherosclerotic heart disease of [place] coronary artery without angina pectoris, Z95.810 - Presence of automatic (implantable) cardiac defibrillator Medications: New cetirizine 10 mg PO DAILY 90 tabs 1RF allergy symptoms 90 days T78.40XA - Allergy, unspecified, initial encounter Refilled cetirizine 10 mg PO DAILY 90 tabs 1RF allergy symptoms 90 days hydroxyzine HCl 25 mg PO BEDTIME 90 tabs 2RF 90 days F51.01 - Primary insomnia olopatadine 0.2% (Pataday Once Daily Relief) 1 drp ophthalmic (eye) DAILY 2.5 mL 1RF 30 days H11.9 - Unspecified disorder of conjunctiva montelukast 10 mg PO DAILY 90 tabs 2RF Discontinued lorazepam take 1 hour before procedure. Discontinued Reason: Doctor's Order 0.5 mg PO ONCE 1 day PRN 1 tab 0RF anxiety F41.9 - Anxiety disorder, unspecified
[2024-11-21 10:59] VITALS: BP 110/72; PULSE 80; TEMP 36.1; O2SAT 96; BMI 24.5
== END 2024-11-21 11:56 | disposition home or self-care (01) ==
LOC: HO.HMCH 10:41
PROVIDERS: PCP Physician Assistant; Visit Provider Physician Assistant
DX: Z00.00 Encounter for general adult medical examination without abnormal findings (principal); I25.10 Atherosclerotic heart disease of native coronary artery without angina pectoris; Z21 Asymptomatic human immunodeficiency virus [HIV] infection status; Z95.810 Presence of automatic (implantable) cardiac defibrillator; I49.9 Cardiac arrhythmia, unspecified; T78.40XS Allergy, unspecified, sequela; F51.01 Primary insomnia; F33.0 Major depressive disorder, recurrent, mild

== ENCOUNTER → 2024-11-21 10:40 | Outpatient (BNVA) | payer OTHER, SELFPAY | PROVIDERS: PCP Physician Assistant; Visit Provider Physician Assistant | DX: Z00.00 Encounter for general adult medical examination without abnormal findings (principal); J45.909 Unspecified asthma, uncomplicated; I25.10 Atherosclerotic heart disease of native coronary artery without angina pectoris; I49.9 Cardiac arrhythmia, unspecified; F51.01 Primary insomnia; F33.0 Major depressive disorder, recurrent, mild; E03.9 Hypothyroidism, unspecified; R05.9 Cough, unspecified; Z21 Asymptomatic human immunodeficiency virus [HIV] infection status; Z91.09 Other allergy status, other than to drugs and biological substances; Z95.810 Presence of automatic (implantable) cardiac defibrillator | CPT/HCPCS: 96127 ==

== ENCOUNTER 2024-12-16 11:38 | Observation (INO) | payer OTHER, SELFPAY ==
[2024-12-16] VITALS (8 sets, daily range): BP systolic 101–125; BP diastolic 52–73; PULSE 67–84; RESP 14–18; TEMP 36.8–37.1; O2SAT 94–99; BMI 21.2
--- NOTE | ~2024-12-16 | XR_ITS ---
CLINICAL HISTORY: dyspnea x weeks 2 view chest x-ray Comparison: CR/SR - XR CHEST 2 VIEWS - 10/14/23 14:33 EDT Findings: No consolidation or effusion. Normal heart size. There is an AICD with leads in appropriate position. No acute fracture. IMPRESSION: 1. No acute findings. This document has been electronically signed by: Kyleigh Ha MD on 12/16/2024 14:26:27
--- NOTE | 2024-12-16 11:42 | ED_ITS ---
HPI - General Adult General Chief complaint: General Medical Stated complaint: diff breathing, not feeling like herself Time Seen by Provider: 12/16/24 12:01 Source: patient, family, old records reviewed and gut snatcher Mode of arrival: ambulatory Limitations: no limitations History of Present Illness ED Provider: DR. Segal HPI narrative: 74-year-old female former smoker of marijuana history of asthma, environmental allergies, conjunctival disorder, HIV, TIA, asthma. HLD, hypothyroidism, AICD placement 2 months ago ever since patient been having increased exertional shortness of breath, patient had to sleep on multiple pillows to raise her head while she is sleeping, no lower extremity or ankle swelling or edema, no fever, chills, or cough. Patient is taking diuretics at home, patient also is compliant with her asthma medication. Related Data Home Medications ?Medication ?Instructions ?Recorded ?Confirmed dolutegravir 50 mg-rilpivirine 25 1 tab PO DAILY 12/1111/21/24 mg tablet (Juluca) famotidine 20 mg tablet 20 mg PO BID PRN acid reflux 07/20/22 11/21/24 atorvastatin 40 mg tablet 40 mg PO BEDTIME cholesterol 11/21/24 11/21/24 empagliflozin 10 mg tablet 10 mg PO DAILY 11/21/24 (Jardiance) levothyroxine 50 mcg tablet 50 mcg PO DAILY 11/21/24 0 11/21/24 metoprolol succinate 25 mg 25 mg PO BEDTIME 11/21/24 0 11/21/24 tablet,extended release 24 hr midodrine 5 mg tablet 5 mg PO TID 11/21/24 5 nitroglycerin 0.4 mg sublingual mg sublingual 11/21/24 11/21/24 tablet ranolazine 500 mg tablet,extended 500 mg PO BID 11/21/24 release,12 hr spironolactone 25 mg tablet 12.5 mg PO DAILY 11/21/24 11/21/24 ticagrelor 90 mg tablet (Brilinta) 90 mg PO BID 11/21/24 Previous Rx's ?Medication ?Instructions ?Recorded nebulizers (AeroEclipse II #1 ea 11/08/21 Nebulizer) methocarbamol 750 mg tablet 750 mg PO TID PRN pain (sc jc 07/07/22 score 4-6) #14 tabs albuterol sulfate 2.5 mg/0.5 mL 5 mg inhalation Q4H ND N shortness 09/28/22 solution for nebulization of breath or wheezing #30 ea ondansetron 8 mg disintegrating 8 mg PO Q8H PRN Nausea And 02/02/23 tablet Vomiting #30 tabs sumatriptan succinate 50 mg tablet 50 mg PO Q2-4H PRN migraine 02/10/23 headache 30 days #9 tabs sennosides 8.6 mg tablet (senna) 17.2 mg (2 x 8.6 mg) PO BEDTIME 02/25/23 PRN constipation 15 days #30 tabs phenazopyridine 100 mg tablet 100 mg PO Q8H 6 doses #6 tabs 03/30/23 fluticasone fur. 200 mcg-umeclid 1 inh inhalation ÁLVARO Y 30 days #1 04/28/23 62.5 mcg-vilant 25 mcg ea inhalat.powder (Trelegy Ellipta) amitriptyline 25 mg tablet 25 mg PO BEDTIME 90 days #9 0 tabs 08/04/23 estradiol 0.01% (0.1 mg/gram) See Rx Instructions vagi nal 3XW 90 08/04/23 vaginal cream days #42.5 grams mirabegron 25 mg tablet,extended 25 mg PO DAILY 90 day s #90 tabs 08/04/23 release 24 hr (Myrbetriq) gabapentin 100 mg capsule 100 mg PO DAILY pain (scale score 08/19/23 7-10) 30 days #30 caps clotrimazole-betamethasone 1 1 appl topical BID 30 day s #45 08/22/ %-0.05 % topical cream grams albuterol sulfate 90 mcg/actuation 2 inh inhalation Q4 H PRN for 10/18/23 aerosol inhaler dyspnea #6.7 ea dicyclomine 20 mg tablet 20 mg PO TID abdominal pain 30 10/27/23 days #90 tabs calcium carbonate (Oyster Shell 500 mg PO DAILY 90 day s #90 tabs 12/01/23 Calcium 500) cholecalciferol (vitamin D3) 50 50 mcg PO DAILY 90 day s #90 caps 12/01/23 mcg (2,000 unit) capsule meloxicam 15 mg tablet 15 mg PO DAILY 30 days #30 t abs 05/20/24 cetirizine 10 mg tablet 10 mg PO DAILY allergy sympt oms 90 11/21/24 days #90 tabs cetirizine 10 mg tablet 10 mg PO DAILY allergy sympt oms 90 11/21/24 days #90 tabs hydroxyzine HCl 25 mg tablet 25 mg PO BEDTIME 90 days #90 tabs 11/21/24 montelukast 10 mg tablet 10 mg PO DAILY #90 tabs 10/31 05/23 olopatadine 0.2 % eye drops 1 drp ophthalmic (eye) THU LY 30 11/21/24 (Pataday Once Daily Relief) days #2.5 mL Allergies Allergy/AdvReac Type Severity Reaction Status Date / Time blackberry Allergy Intermediate Itching Verified 12/16/24 11:50 long Allergy Intermediate Itching Verified 12/16/24 11:50 peanut (PEANUT) Allergy Intermediate RASH Verified 12/16/24 11:50 Sulfa (Sulfonamide Allergy Intermediate HIVES, Verified 12/16/24 11:50 Antibiotics) (SULFA hives, (SULFONAMIDE ANTIBIOTICS)) rash, hives, rash tramadol Allergy Intermediate nausea Verified 12/16/24 11:50 strawberry Allergy Itching Verified 12/16/24 11:50 animals Allergy Itching Uncoded 12/16/24 11:50 red fruit Allergy Itching Uncoded 12/16/24 11:50 tree Allergy eye Uncoded 12/16/24 11:50 swelling, itch Review of Systems 2 Review of Systems: All other systems are reviewed and are negative Constitutional: Reports as per HPI and Reports no additional constitutional complaints Eyes: Reports as per HPI and Reports no additional eye complaints Reports system reviewed and no additional complaints, except as documented Cardiovascular: Reports as per HPI and Reports no additional cardiovascular complaints Respiratory: Reports as per HPI and Reports no additional respiratory complaints Gastrointestinal: Reports as per HPI and Reports no additional gastrointestinal complaints Genitourinary: Reports no additional female genitourinary complaints Musculoskeletal: Reports no additional musculoskeletal complaints Skin/Breast: Reports system reviewed and no additional complaints, except as docu Psychiatric: Reports no additional psychiatric complaints Endocrine: Reports no additional endocrine complaints Hematologic/Lymphatic: Reports no additional hematologic/lymphatic complaints Allergic/Immunologic: Reports no additional allergic/immunologic complaints Reports system reviewed and no additional complaints, except as documented and Reports Abnormal speech present [facility] Past Medical History Medical History Environmental allergies Conjunctiva disorder Wart of scalp COVID-19 Upper extremity neuropathy Right shoulder pain Right arm pain Physical exam Cough Left hip pain Left shoulder tendinitis Left shoulder pain GERD (gastroesophageal reflux disease) Asthma Urticaria Fracture of left hip requiring operative repair HIV (human immunodeficiency virus infection) Hypothyroidism Dyslipidemia [place] TIA (transient ischemic attack) Asthma Surgical History History of permanent cardiac pacemaker placement History of hip replacement, total History of lumbar fusion History of section H/O umbilical hernia repair Hx of colonoscopy Family History Family History Father Cancer Diabetes Mother Cancer Diabetes Brother Colon polyps Social History Social History Household Members: None Housing: Apartment Alcohol intake: never Patient Tobacco Use Status: Never used Tobacco Tobacco use type: Cigarette Smoked in Last 30 Days: No e-Cigarette/Vaping Use: Never Used Second Hand Smoke Exposure: No Use of substances other than those prescribed or required for medical reasons: No Substance Use Type: Marijuana Advance Directives: No Advance Directives Information Provided: Yes service: No Current occupational status: retired Cognitive needs: No Hearing needs: No Vision needs: Yes (Glasses) Physical Exam ED Vital Signs: Vital Signs - 24 hr 12/16/24 11:42 12/16/24 12:19 12/16/24 13:10 Temperature 98.7 F Pulse Rate 72 69 67 Respiratory Rate 18 18 Blood Pressure 122/61 125/73 119/64 Pulse Oximetry 99 97 Oxygen Delivery Method Room Air Room Air BMI result Body Mass Index 21.2 Vital signs have been reviewed and appear to be correct. Blood pressure elevated. Heart rate normal. Respiratory rate normal. Temperature normal. Oxygen saturation normal. Appearance: Alert. Oriented X3. No acute distress. Head: Normal external exam. Normocephalic. Atraumatic. No Tran signs noted. No raccoon eyes noted Eyes: PERRLA. EOMI. Conjunctiva and sclera normal. Eyelids normal. ENT: TM's Normal. Pharynx normal. Uvula midline. Moist mucous membranes. No trismus noted. No drooling noted. No muffled voice noted. Neck: Normal inspection. Neck supple. FROM. No adenopathy. Thyroid Normal. No meningeal signs. No neck mass noted. CVS: Normal heart rate and rhythm. Heart sound normal. No murmurs noted. Pulses normal throughout. Respiratory: No respiratory distress. Painless inspiration. Breath sounds normal. No wheezes/rales/rhonchi noted. Chest nontender. No accessory muscle usage noted or decreased air movement noted. Abdomen: Soft and nontender. Bowel sounds normal in all 4 quadrants. No distention noted. No organomegaly noted. No visible injury noted. Back: No CVA tenderness. Full range of motion noted. Skin: Skin warm and dry. Normal skin color. Normal skin turgor. No rashes/lesions/lacerations noted. Extremities: +1 bilateral lower extremity edema. Extremities exhibit normal range of motion. Extremities nontender. Neuro: Oriented X 3. Cranial nerve exam: II-XII are grossly intact No motor deficit. No sensory deficit. Reflexes normal. Course Course Course Narrative: This is a rapid medical exam performed by Jose D Saucedo NP: Additional HPI, ROS, PE not included below will be deferred to primary provider. Patient is a 74y/o Swazi speaking F with pmhx CAD, implanted defibrillator, polyarthralgia, scleroderma, pancreatic mass, GERD, asthma, HIV, hypothyroidism, dyslipidemia presenting with weeks of shortness of breath. Using inhalers at home with little relief. Went to urgent care Wednesday, had x-ray, told she may have pulmonary edema. Family states she just came back from [place]. Plan: EKG, labs, CXR Reevaluation(s) Reevaluation #1: 74-year-old female with CHF and difficulty breathing, will start diuresis, consider nitro. Time: 14:37 Medications Administered Discontinued Medications Generic Name Dose Route Start Last Admin Trade Name Freq PRN Reason Stop Dose Admin Nitroglycerin 0.5 inch 12/16/24 12:59 12/16/24 13:10 Nitroglycerin 2 % Oint 1 Gm Packet TRANSDERMA 12/16/24 13:00 0.5 inch ONCE ONE Administration Medical Decision Making Differential Diagnosis Differential Diagnoses: The differential diagnosis associated with the presentation includes (ACS, CHF, pneumonia, pneumothorax, COPD/asthma exacerbation, respiratory failure, electrolyte derangement, severe anemia.) Admission/Observation Consideration of admission/observation: Escalation of care including admission/observation considered Lab Data MDM Lab Attestation statement: I reviewed the patient's lab results. 12/16/24 12:11 12/16/24 12:11 Labs: Lab Results 12/16/24 12/16/24 Range/Units 12:11 12:22 WBC 5.5 (4.8-10.8) X10*3/uL RBC 4.44 (4.20-5.50) X10*6/uL Hgb 13.6 (12.0-16.0) g/dl Hct 41.0 (37.0-47.0) % MCV 92.3 (80.0-98.0) fL MCH 30.6 (27.0-33.0) pg MCHC 33.2 (31.0-35.0) g/dl RDW 13.2 (11.0-16.0) % Plt Count 204 D (160-400) X10*3/uL MPV 9.5 (9.4-12.3) fL Immature Gran % (Auto) 0.4 (0.0-0.4) % Neut % (Auto) 62.6 (45-73) % Lymph % (Auto) 27.7 (20-40) % Lawrence % (Auto) 6.3 (2-11) % Eos % (Auto) 2.5 (0-4) % Baso % (Auto) 0.5 (0-2) % Lymph # (Auto) 1.5 (1.2-4.9) X10*3/uL Lawrence # (Auto) 0.4 (0.1-1.2) X10*3/uL Eos # (Auto) 0.1 (0.0-0.4) X10*3/uL Baso # (Auto) 0.0 (0.0-0.2) X10*3/uL Abs Immat Gran (auto) 0.02 (0.00-0.03) X10*3/uL Absolute Neuts (auto) 3.5 (2.0-8.3) x10*3/uL Absolute Nucleated RBC 0.000 (0.0-0.012) X10*3/uL Nucleated RBC % (auto) 0.0 (0.0-0.2) /100WBC PT 11.2 (10.9-12.4) SEC INR 1.0 (0.9-1.1) D-Dimer High Sensitivty 204 NG/ML VBG pH 7.58 H (7.32-7.43) VBG pCO2 22 mmHg VBG pO2 174 mmHg VBG HCO3 21 L (22-26) mmol/L VBG O2 Saturation 99.0 % VBG Base Excess 1.4 mmol/L Sodium 141 (135-145) mmol/L Potassium 4.0 (3.3-5.1) mmol/L Chloride 104 (96-108) mmol/L Carbon Dioxide 26 (22-29) mmol/L Anion Gap 15 (12-20) BUN 18 H (9-16) mg/dL Creatinine 1.04 (0.5-1.4) mg/dL Estim Creat Clear Calc 43.4 Estimated GFR 52 Random Glucose 89 (60-115) mg/dL Calcium 9.5 (8.4-10.2) mg/dL Magnesium 2.1 (1.6-2.6) mg/dL Total Bilirubin 0.6 (0.0-1.0) mg/dL AST 28 (5-31) U/L ALT 7 (0-31) U/L Alkaline Phosphatase 112 (39-117) U/L NT-Pro-B Natriuret Pep 2361.4 H (<300) pg/mL Total Protein 7.3 (6.5-8.0) g/dL Albumin 4.2 (3.5-5.0) g/dL TSH 16.59 H (0.32-4.0) uIU/mL COVID-19 (SAMY) Negative (Negative) COVID-19 Clin Com See Note Influenza Type A (NEFTALI) Negative (Negative) Influenza Type B (NEFTALI) Negative (Negative) Influenza A & B Note See Note Independent Interpretation I performed an independent interpretation of an: Plain X-Ray (Chest: No acute intrathoracic pathology.) Radiology Impression Discussion of test interpretation with radiology: I have reviewed the radiologist's reading. Discharge Plan Discharge Clinical Impression: CHF (congestive heart failure) Patient Disposition: Admitted As Inpatient Print Language: Swazi
--- NOTE | 2024-12-16 11:45 | ECG_ITS ---
Test Reason : SOB Blood Pressure : */* mmHG Vent. Rate : 71 BPM Atrial Rate : 71 BPM P-R Int : 126 ms QRS Dur : 78 ms QT Int : 386 ms P-R-T Axes : 63 -49 169 degrees QTcB Int : 419 ms Normal sinus rhythm Left anterior fascicular block Anteroseptal infarct , age undetermined Abnormal ECG When compared with ECG of 14-Oct-2023 14:36, Left anterior fascicular block is now Present Anteroseptal infarct is now Present Nonspecific T wave abnormality, worse in Inferior leads Nonspecific T wave abnormality now evident in Lateral leads Referred By: Abena Saucedo Electronically Signed By: Samuel Abdi
--- NOTE | 2024-12-16 12:11 | PC.NURSE ---
Awaiting arrival of patient, pt still in triage at this time
[2024-12-16 12:23] LABS: Hematocrit 41.0 % (37.0-47.0); Hemoglobin 13.6 g/dl (12.0-16.0); Imm Gran Abs Auto 0.02 X10*3/uL (0.00-0.03); Imm Gran Pct Auto 0.4 % (0.0-0.4); Lymphocytes Absolute Auto 1.5 X10*3/uL (1.2-4.9); Mean Corpuscular HGB Conc 33.2 g/dl (31.0-35.0); Mean Corpuscular Hemoglobin 30.6 pg (27.0-33.0); Mean Corpuscular Volume 92.3 fL (80.0-98.0); NRBC Abs Auto 0.000 X10*3/uL (0.0-0.012); NRBC Pct Auto 0.0 /100WBC (0.0-0.2); Platelet Count 204 X10*3/uL (160-400); Red Blood Count 4.44 X10*6/uL (4.20-5.50); White Blood Count 5.5 X10*3/uL (4.8-10.8)
--- OUTSIDE RECORDS SUMMARY | 2024-12-16 12:23 | XMS_ITS | Data Portability ---
Author Organization [facility], Main Office Address [address] [place] [address] Assessment Encounter Date Assessment Date Assessment LastModified by Organization Details LastModified Time 01/19/2023 01/19/2023 Telemedicine visit. 15 min[place] home in [place]. audio. [email or web address] Not available 01/20/2023 01:42:24 02/08/2023 02/08/2023 Telemedicine visit. 15 min. [place] home [place] audio. [email or web address] Not available 02/08/2023 11:36:08 04/21/2023 04/21/2023 Telemedicine visit. [facility]. 17 min. VIDEO. pt home in [place]. [email or web address] Not available 04/26/2023 10:01:42 Plan of Treatment Reminders Order Date Submit Date Provider Last Modified By Organization Details Last Modified Time Details Appointments B20 FOLLOW UP 2024 02:00P M Hernandez Heck MD Not available Not available Not available Lab urinalysi s, reflex culture [address], [address] [place] [address], [id number], 10/29/2023 12:38:45 CBC w/ diff [address], [address], 11/05/2023 08:35:10 electroly lina panel, blood [address], [address] [place] [address], 24550, 11/05/2023 08:35:10 ALT (alanine aminotran sferase), serum or plasma [address], [address] [place] [address], 24416, 11/05/2023 08:35:11 AST/SGOT (aspartat e aminotran sferase), serum or plasma [address], [address] [place] [address], 20224, 11/05/2023 08:35:11 CT + NG DNA, PCR, unspecifi ed specimen [address], [address] [place] [address], 57344, 11/05/2023 08:35:11 creatinin e w/ estimated GFR (eGFR), serum or plasma [address], [address] [place] [address], 38737, 11/05/2023 08:35:11 hepatitis C virus Ab, serum [address], [address] [place] [address], 79289, 11/05/2023 08:35:11 HIV-1 RNA, quantitat elisabeth, PCR, serum or plasma [address], [address] [place] [address], 85106, 11/05/2023 08:35:11 RPR (rapid plasma reagin), serum [address], [address] [place] [address], 66325, 11/05/2023 08:35:11 T-cell regulator y subsets panel, blood [address], [address] [place] [address], 12053, 11/05/2023 08:35:11 HBsAg (hepatiti s B surface Ag), EIA, serum [address], [address] [place] [address], 96681, 11/05/2023 08:35:11 CBC w/ diff [address], [address] [place] [address], 18136, 07/29/2023 09:08:05 electroly lina panel, blood [address], [address] [place] [address], 47176, 07/29/2023 09:08:05 ALT (alanine aminotran sferase), serum or plasma [address], [address] [place] [address], 03113, 07/29/2023 09:08:05 AST/SGOT (aspartat e aminotran sferase), serum or plasma [address], [address] [place] [address], 94048, 07/29/2023 09:08:05 CT + NG DNA, PCR, unspecifi ed specimen [address], [address] [place] [address], 35354, 07/29/2023 09:08:05 creatinin e w/ estimated GFR (eGFR), serum or plasma [address], [address] [place] [address], 89621, 07/29/2023 09:08:06 hepatitis C virus Ab, serum [address], [address] [place] [address], 12267, 07/29/2023 09:08:06 HIV-1 RNA, quantitat elisabeth, PCR, serum or plasma [address], [address] [place] [address], 86244, 07/29/2023 09:08:06 RPR (rapid plasma reagin), serum [address], [address] [place] [address], 56909, 07/29/2023 09:08:06 T-cell regulator y subsets panel, blood [address], [address] [place] [address], 31284, 07/29/2023 09:08:06 HBsAg (hepatiti s B surface Ag), EIA, serum [address], [address] [place] [address], 60554, 07/29/2023 09:08:06 CBC w/ diff [address], [address] [place] [address], 97599, 05/03/2023 17:39:13 electroly lina panel, blood [address], [address], 05/03/2023 17:39:13 ALT (alanine aminotran sferase), serum or plasma [address], [address], 05/03/2023 17:39:14 AST/SGOT (aspartat e aminotran sferase), serum or plasma [address] [place] [address], [address] [place] [address], 44704, 05/03/2023 17:39:14 CT + NG DNA, PCR, unspecifi ed specimen [address] [place] [address], [address] [place] [address], 26297, 05/03/2023 17:39:14 creatinin e w/ estimated GFR (eGFR), serum or plasma [address] [place] [address], [address] [place] [address], 00819, 05/03/2023 17:39:14 hepatitis C virus Ab, serum [address] [place] [address], [address] [place] [address], 64204, 05/03/2023 17:39:14 HIV-1 RNA, quantitat elisabeth, PCR, serum or plasma [address] [place] [address], [address] [place] [address], 22932, 05/03/2023 17:39:14 RPR (rapid plasma reagin), serum [address] [place] [address], [address] [place] [address], 80549, 05/03/2023 17:39:14 T-cell regulator y subsets panel, blood [address] [place] [address], [address] [place] [address], 22623, 05/03/2023 17:39:14 HBsAg (hepatiti s B surface Ag), EIA, serum [address], [address] [place] [address], 69649, 05/03/2023 17:39:14 CBC w/ diff [address], [address] [place] [address], 29698, 02/15/2023 10:20:54 electroly lina panel, blood [address], [address] [place] [address], 96839, 02/15/2023 10:20:54 ALT (alanine aminotran sferase), serum or plasma [address], [address] [place] [address], 65663, 02/15/2023 10:20:54 AST/SGOT (aspartat e aminotran sferase), serum or plasma [address], [address] [place] [address], 57307, 02/15/2023 10:20:54 CT + NG DNA, PCR, unspecifi ed specimen [address], [address] [place] [address], 57675, 02/15/2023 10:20:55 creatinin e w/ estimated GFR (eGFR), serum or plasma [address], [address] [place] [address], 59205, 02/15/2023 10:20:55 hepatitis C virus Ab, serum [address], [address] [place] [address], 42413, 02/15/2023 10:20:55 HIV-1 RNA, quantitat elisabeth, PCR, serum or plasma [address], [address] [place] [address], 50116, 02/15/2023 10:20:55 RPR (rapid plasma reagin), serum [address] [place] [address], [address] [place] [address], 70153, 02/15/2023 10:20:56 T-cell regulator y subsets panel, blood [address], [address] [place] [address], 66063, 02/15/2023 10:20:56 HBsAg (hepatiti s B surface Ag), EIA, serum [address], [address] [place] [address], 03769, 02/15/2023 10:20:56 Referral None recorded. Procedures None recorded. Surgeries None recorded. Imaging None recorded. Medication Orders Juluca 50 mg-25 mg tablet 2023 024 [id number], [address] [place], [address], 10/29/2023 11:57:52 Juluca 50 mg-25 mg tablet 2023 024 [facility], [address] [place], [address], 07/22/2023 15:27:41 Juluca 50 mg-25 mg tablet 2023 024 [facility], [address] [place], [address], 04/26/2023 10:02:19 Juluca 50 mg-25 mg tablet 2022 023 [facility], [address] [place], [address], 02/08/2023 11:46:18 Juluca 50 mg-25 mg tablet 2022 023 [id number], [address] [place], [address], 01/20/2023 01:44:13 Patient TargetsNo targets recorded. Patient InstructionsNo instructions recorded. Reason for Referral None Reported. Results Created Date Observation Date Name Description Value Unit Range Abnormal Flag Note LastModifiedBy Organization Detail LastModifiedTime 10/29/19 24 10/29/2023 UA WITH CULTU RE IF INDIC ATED glucose, (UA) NEGATI VE mg/dL negati ve Not Available [facility] [address] [place], [address], 10/29/2023 19:47:43 10/29/19 24 10/29/2023 UA WITH CULTU RE IF INDIC ATED bilirubin, urine NEGATI VE negati ve Not Available [facility] [address] [place], [address], 10/29/2023 19:47:43 10/29/19 24 10/29/2023 UA WITH CULTU RE IF INDIC ATED ketone, urine NEGATI VE mg/dL negati ve Not Available [facility] [address] [place], [address], 10/29/2023 19:47:43 10/29/19 24 10/29/2023 UA WITH CULTU RE IF INDIC ATED specific gravity, urine 1.008 1.003- 1.030 Not Available [facility] [address] [place], [address], 10/29/2023 19:47:43 10/29/19 24 10/29/2023 UA WITH CULTU RE IF INDIC ATED blood, urine NEGATI VE negati ve Not Available [facility] [address] [place], [address], 10/29/2023 19:47:43 10/29/19 24 10/29/2023 UA WITH CULTU RE IF INDIC ATED pH, urine 7.0 5.0-8. 0 Not Available [facility] [address] [place], [address], 10/29/2023 19:47:43 10/29/19 24 10/29/2023 UA WITH CULTU RE IF INDIC ATED protein, urine NEGATI VE mg/dL <= trace Not Available [facility] [address] [place], [address], 10/29/2023 19:47:43 10/29/19 24 10/29/2023 UA WITH CULTU RE IF INDIC ATED urobilinogen , urine 0.2 E.U./ dL 0.2-1. 0 Not Available [facility] [address] [place], [address], 10/29/2023 19:47:43 10/29/19 24 10/29/2023 UA WITH CULTU RE IF INDIC ATED nitrite, urine NEGATI VE negati ve Not Available [facility] [address] [place], [address], 10/29/2023 19:47:43 10/29/19 24 10/29/2023 UA WITH CULTU RE IF INDIC ATED leukocyte esterase, urine TRACE negati ve abnormal Not Available [facility] [address] [place], [address], 10/29/2023 19:47:43 10/29/19 24 10/29/2023 UA WITH CULTU RE IF INDIC ATED RBC, urine 5 /hpf 0-4 high Not Available [facility] [address] [place], [address], 10/29/2023 19:47:43 10/29/19 24 10/29/2023 UA WITH CULTU RE IF INDIC ATED WBC, urine 2 /hpf 0-4 Not Available [facility] [address] [place], [address], 10/29/2023 19:47:43 10/29/19 24 10/29/2023 UA WITH CULTU RE IF INDIC ATED epith cells, urine 38 /lpf 0-60 Not Available [facility] [address] [place] [address], 17[address], 10/29/2023 19:47:43 10/29/19 24 10/29/2023 UA WITH CULTU RE IF INDIC ATED bacteria, urine NEGATI VE negati ve Not Available [facility] [address] [place] [address], 50[address], 10/29/2023 19:47:43 10/29/19 24 10/29/2023 UA WITH CULTU RE IF INDIC ATED performing lab [facility] [address] [place] [address] Medic al Bill mahoney MD Not Available [facility] [address] [place] [address], [address], 10/29/2023 19:47:43 10/29/19 24 10/29/2023 URINE CULTU RE performing lab [facility] [address] [place] [address] Medic al Bill mahoney MD Not Available [facility] [address] [place] [address], [address], 10/31/2023 11:56:24 10/29/19 24 10/30/2023 URINE CULTU RE urine culture <10,0 00 CFU/m L GRAM POSIT ELISABETH COCCI AND GRAM NEGAT ELISABETH BACIL LI Not Available [facility] [address] [place] [address], [address], 10/31/2023 11:56:24 Result Notes None recorded. Problems Name Problem SNOMED Code Status Onset Date Resolution Date Notes Provider Name and Address Organization Details Recorded Time Syphilis 89277786 Active 2013 Syphilis , unspecif ied; snomedde scriptio n: Syphilis ; Report Immunity to Registry : Yes; Notes: hx of syphilli s. she was treated at [place] 2002; Syphili s; snomedde scriptio n: Syphilis ; Report Immunity to Registry : Yes; Notes: hx of syphilli s. 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; snomedde scriptio n: Hypothyr oidism; Report Immunity to Registry : Yes; Unspeci fied hypothyr oidism; snomedde scriptio n: Hypothyr oidism; Report Immunity to Registry : Yes; Not Available [facility] 4 06:58:27 Chronic kidney disease 451240136 Active 2016 Chronic kidney disease; snomedde scriptio n: Chronic kidney disease; Report Immunity to Registry : Yes; Not Available [facility] 4 06:58:26 Viral hepatiti s B without hepatic coma 453356657 Active 2016 Unspecif ied viral hepatiti s B without hepatic coma; snomedde scriptio n: Type B viral hepatiti s; Report Immunity to Registry : Yes; Notes: HBV core ab pos; s ag neg; s ab pos HBV VL nondetec jayda 2017; Not Available [facility] 4 06:58:26 Type B viral hepatiti s 55140884 Active 2016 Type B viral hepatiti s; snomedde scriptio n: Type B viral hepatiti s; Report Immunity to Registry : Yes; Notes: HBV core ab pos; s ag neg; s ab pos HBV VL nondetec jayda 2017; Not Available [facility] 4 06:58:26 Genital herpes simplex 51661106 Active 2017 Genital herpes simplex; snomedde scriptio n: Genital herpes simplex; Report Immunity to Registry : Yes; Notes: HSV 1 and 2 pos serology ; Not Available [facility] 4 06:58:27 Anogenit al herpesvi ral infectio n 532701254 Active 2017 Anogenit al herpesvi ral infectio n, unspecif ied; snomedde scriptio n: Genital herpes simplex; Report Immunity to Registry : Yes; Notes: HSV 1 and 2 pos serology ; Not Available [facility] 4 06:58:27 Methicil chari resistan t Staphylo coccus aureus infectio n [id number] Completed 201804/21/2023 Methicil chari resistan t Staphylo coccus aureus infectio n; snomedde scriptio n: Methicil chari resistan t Staphylo coccus aureus infectio n; Report Immunity to Registry : Yes; ReasonDa te: 11/08/19 19; Notes: culture; Methici llin resistan t Staphylo coccus aureus infectio n, unspecif ied site; snomedde scriptio n: Methicil chari resistan t Staphylo coccus aureus infectio n; Report Immunity to Registry : Yes; ReasonDa te: 11/08/19 19; Notes: culture; Not Available [facility] 4 06:58:26 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 Age-rela jayda osteopor osis without current patholog ical fracture ; snomedde scriptio n: Osteopor osis; Report Immunity to Registry : Yes; Notes: per report; Not Available [facility] 4 06:58:26 Human immunode ficiency virus infectio n [id number] Active 2019 Human immunode ficiency virus [HIV] disease; snomedde scriptio n: Human immunode ficiency virus infectio n; Report Immunity to Registry : Yes; Notes: [id number] neg; Human immunode ficiency virus infectio n; snomedde scriptio n: Human immunode ficiency virus infectio n; Report Immunity to Registry : Yes; Notes: [id number] neg; Not Available [facility] 4 06:58:26 Osteopor osis 91661944 Active 2019 Osteopor osis; snomedde scriptio n: Osteopor osis; Report Immunity to Registry : Yes; Notes: per report; Not Available [facility] 4 06:58:26 Problem Notes None recorded. Medical Equipment None Reported. Medications Name Sig Start Date Stop Date Status Note LastModified by Organization Details LastModified Time Colace 100 mg capsule 1 tab po bid 10/02 completed VACCINE_ IND: no; SU_FULL_ NAME: Hernandez rosen; Not Available Not Available Not Available prednison e 10 mg tablet TAKE FOUR TABS DAILY FOR 5 DAYS, THEN GO DOWN BY 1 TAB EVERY 5 DAYS active Not Available Not Available No t Available cefuroxim e axetil 250 mg tablet TOME LEONA TABLETA POR V A ORAL DOS VECES AL D A POR 7 D active Not Available Not Available No t Available tizanidin e 2 mg tablet TAB 2MG; Quantity : 30; Duration : 15; 0 refill(s ) 08/27 completed Duration : 15; VACCINE_ IND: no; Not Available Not Available Not Available albuterol sulfate 2.5 mg/3 mL (0.083 %) solution for nebulizat ion 0.083 Quantity : 360; Duration : 30; 0 refill(s ) 05/05 completed Duration : 30; VACCINE_ IND: no; Not Available Not Available Not Available verapamil 40 mg tablet HCL 40MG TABLET; Quantity : 90; Duration : 30; 0 refill(s ) 06/10 completed Duration : 30; VACCINE_ IND: no; Not Available Not Available Not Available cetirizin e 10 mg tablet TOME LEONA TABLETA POR V A ORAL TODOS LOS D CUANDO SEA NECESARI O PARA LA ALERGIA active Not Available Not Available No t Available atorvasta tin 10 mg tablet TOME 1 TABLETA POR V A ORAL TODOS LOS D AL ACOSTARS E active Not Available Not Available No t Available Pneumovax -23 25 mcg/0.5 mL injection solution - Quantity : ; 0 refill(s ) 2013 active VACCINE_ IND: yes; VACCINE_ NAME: pneumoco ccal polysacc haride PPV23; SU_FULL_ NAME: Hernandez Herbert; Not Available Not Available Not Available azithromy katie 250 mg tablet TAB 250MG; Quantity : 6; Duration : 6; 0 refill(s ) 05/05 completed Duration : 6; VACCINE_ IND: no; Not Available Not Available Not Available fluconazo le 150 mg tablet TAKE 1 TABLET ORALLY EVERY 3 DAYS FOR 2 DOSES active Not Available Not Available No t Available albuterol sulfate 1.25 mg/3 mL solution for nebulizat ion 1.25 MG (3 ML) INHALED EVERY 4 TO 6 HOURS NEEDED FOR SHORTNES S OF BREATH OR WHEEZING active Not Available Not Available No t Available senna 8.6 mg tablet active Not Available Not Available No t Available meloxicam 15 mg tablet TOME 1 TABLETA POR V A ORAL TODOS LOS D active Not Available Not Available No t Available famotidin e 40 mg tablet TAB 40MG; Quantity : 90; Duration : 90; 0 refill(s ) 05/05 completed Duration : 90; VACCINE_ IND: no; Not Available Not Available Not Available prednison e 20 mg tablet TOME DOS TABLETAS POR V A ORAL TODOS LOS D POR 5 D active Not Available Not Available No t Available sumatript an 50 mg tablet PLEASE SEE ATTACHED FOR DETAILED DIRECTIO NS active Not Available Not Available No t Available metronida zole 500 mg tablet TOME LEONA TABLETA DOS VECES AL D A POR 10 D active Not Available Not Available No t Available ciproflox acin 500 mg tablet TOME LEONA TABLETA DOS VECES AL D A active Not Available Not Available No t Available omeprazol e 40 mg capsule,d elayed release 40 Quantity : 90; Duration : 90; 0 refill(s ) 03/28 completed Duration : 90; VACCINE_ IND: no; Not Available Not Available Not Available aspirin 81 mg tablet,de layed release 81MG TABLET DELAYED RELEASE; Quantity : 30; Duration : 30; 0 refill(s ) 01/27 completed Duration : 30; VACCINE_ IND: no; Not Available Not Available Not Available acetamino phen 500 mg tablet TAB 500MG; Quantity : 240; Duration : 30; 0 refill(s ) 04/09 completed Duration : 30; VACCINE_ IND: no; Not Available Not Available Not Available ondansetr on 8 mg disintegr ating tablet TOME LEONA TABLETA POR V A ORAL CADA OCHO HORAS CUANDO SEA NECESARI O PARA LAS N USEAS Y EL V KRISTA active Not Available Not Available No t Available levothyro xine 75 mcg tablet 75 MCG TABLET; Quantity : 30; Duration : 30; 0 refill(s ) 06/23 completed Duration : 30; VACCINE_ IND: no; Not Available Not Available Not Available levothyro xine 100 mcg tablet TOME 1 TABLETA POR V A ORAL TODOS LOS D active Not Available Not Available No t Available oxycodone -acetamin ophen 5 mg-325 mg tablet 5 MG-325MG Quantity : 40; Duration : 4; 0 refill(s ) 05/27 completed Duration : 4; VACCINE_ IND: no; Not Available Not Available Not Available levothyro xine 88 mcg tablet TAKE 1 TABLET BY MOUTH ONCE A DAY ON EMPTY STOMACH 30 MINUTES PRIOR BREAKFAS T active Not Available Not Available No t Available famotidin e 20 mg tablet TOME LEONA TABLETA DOS VECES AL D A CUANDO SEA NECESARI O FOR REFLUX active Not Available Not Available No t Available amitripty line 25 mg tablet TOME 1 TABLETA POR V A ORAL TODOS LOS D AL ACOSTARS E active Not Available Not Available No t Available lorazepam 0.5 mg tablet TAKE 1 TABLET ONCE NEEDED FOR ANXIETY FOR 1 DAY TAKE 1 HOUR BEFORE PROCEDUR E. active Not Available Not Available No t Available metoclopr amide 5 mg tablet TAB 5MG; Quantity : 10; Duration : 10; 0 refill(s ) 01/08 completed Duration : 10; VACCINE_ IND: no; Not Available Not Available Not Available methocarb jesus 750 mg tablet TAKE 1 TABLET ORALLY 3 TIMES A DAY NEEDED FOR PAIN (SCALE SCORE 4-6) active Not Available Not Available No t Available calcium 500 mg (as calcium carbonate 1,250 mg) tablet TOME LEONA TABLETA POR V A ORAL TODOS LOS D active Not Available Not Available No t Available dicyclomi ne 20 mg tablet TOME LEONA TABLETA POR V A ORAL 3 TIMES A DAY FOR ABDOMINA L PAIN FOR 30 DAYS active Not Available Not Available No t Available phenazopy ridine 100 mg tablet TOME LEONA TABLETA CADA OCHO HORAS FOR 6 DOSES active Not Available Not Available No t Available baclofen 10 mg tablet TAB 10MG; Quantity : 90; Duration : 30; 0 refill(s ) 01/08 completed Duration : 30; VACCINE_ IND: no; Not Available Not Available Not Available benzonata te 100 mg capsule TOME LEONA C PSULA DEVAN VECES AL D A CUANDO SEA NECESARI O FOR COUGH active Not Available Not Available No t Available levothyro xine 50 mcg tablet 50 MCG TABLET; Quantity : 30; Duration : 30; 0 refill(s ) 04/22 completed Duration : 30; VACCINE_ IND: no; Not Available Not Available Not Available venlafaxi ne 37.5 mg tablet TOME 1 TABLETA POR V A ORAL TODOS LOS D POR LA NOCHE active Not Available Not Available No t Available ranitidin e 150 mg tablet HCL 150MG TABLET; Quantity : 60; Duration : 30; 0 refill(s ) 06/10 completed Duration : 30; VACCINE_ IND: no; Not Available Not Available Not Available clotrimaz ole-betam ethasone 1 %-0.05 % topical cream APPLY 1 APPL TOPICALL Y 2 TIMES A DAY FOR 30 DAYS active Not Available Not Available No t Available losartan 25 mg tablet TOME 1 TABLETA POR V A ORAL TODOS LOS D active Not Available Not Available No t Available mont[address] [facility] 10 mg tablet TOME 1 TABLETA POR V A ORAL TODOS LOS D active Not Available Not Available No t Available hydroxyzi ne HCl 25 mg tablet TOME 1 TABLETA POR V A ORAL TODOS LOS D AL ACOSTARS E active Not Available Not Available No t Available gabapenti n 100 mg capsule TOME 1 C PSULA POR V A ORAL TODOS LOS D PARA EL DOLOR active Not Available Not Available No t Available estradiol 0.01% (0.1 mg/gram) vaginal cream PLACE A PEA SIZED AMOUNT TO URETHRA 3 TIMES A WEEK active Not Available Not Available No t Available albuterol sulfate HFA 90 mcg/actua tion aerosol inhaler INHALE DANDO DOS SOPLIDOS POR V A ORAL CADA SEIS HORAS CUANDO SEA NECESARI O SEG N LO INDICADO active Not Available Not Available No t Available fluticaso ne propionat e 50 mcg/actua tion nasal spray,sly pension 50 mcg/inh Quantity : 16; Duration : 30; 0 refill(s ) 01/27 completed Duration : 30; VACCINE_ IND: no; Not Available Not Available Not Available loratadin e 10 mg tablet TOME LEONA TABLETA TODOS LOS D active Not Available Not Available No t Available naproxen 500 mg tablet 500 mg Quantity : ; 0 refill(s ) 03/20 completed Frequenc y: bid; VACCINE_ IND: no; Not Available Not Available Not Available Artificia l Tears (polyviny l alcohol) 1.4 % eye drops 1.4 Quantity : 15; Duration : 30; 0 refill(s ) 11/05 completed Duration : 30; VACCINE_ IND: no; Not Available Not Available Not Available levothyro xine 112 mcg tablet TOME LEONA TABLETA TODOS LOS D active Not Available Not Available No t Available amoxicill in 875 mg-potass ium clavulana te 125 mg tablet CLAVTAB 875-125; Quantity : 20; Duration : 10; 0 refill(s ) 01/08 completed Duration : 10; VACCINE_ IND: no; Not Available Not Available Not Available oxycodone 5 mg tablet TOME LEONA TABLETA DOS VECES AL D A CUANDO SEA NECESARI O PARA EL DOLOR POR 5 D active Not Available Not Available No t Available Benadryl 25 mg capsule 25 mg Quantity : 60; 0 refill(s ) 07/22 completed Frequenc y: qhs; VACCINE_ IND: no; SU_FULL_ NAME: Hernandez rosen; Not Available Not Available Not Available Pneumovax -23 25 mcg/0.5 mL injection syringe - Quantity : ; 0 refill(s ) 2021 active VACCINE_ IND: yes; VACCINE_ NAME: pneumoco ccal polysacc haride PPV23; SU_FULL_ NAME: Hernandez rosen; VIS_DATE : 18:20:20 .0; Not Available Not Available Not Available bupropion HCl XL 300 mg 24 hr tablet, extended release TAKE ONE TABLET BY MOUTH DAILY 06/23 completed Duration : 30; VACCINE_ IND: no; Not Available Not Available Not Available bupropion HCl XL 150 mg 24 hr tablet, extended release HCLTAB 150MG XL; Quantity : 30; Duration : 30; 0 refill(s ) 04/09 completed Duration : 30; VACCINE_ IND: no; Not Available Not Available Not Available nitrofura ntoin monohydra te/macroc rystals 100 mg capsule TOME 1 C PSULA POR V A ORAL DOS VECES AL D A CON LAS COMIDAS FOR 10 DAYS active Not Available Not Available No t Available Truvada 200 mg-300 mg tablet 200 MG-300 MG TABLET; Quantity : 30; Duration : 30; 0 refill(s ) 05/27 completed Duration : 30; VACCINE_ IND: no; Not Available Not Available Not Available Flovent HFA 110 mcg/actua tion aerosol inhaler 110 Quantity : 12; Duration : 30; 0 refill(s ) 04/09 completed Duration : 30; VACCINE_ IND: no; Not Available Not Available Not Available Calcium 600 + D(3) 600 mg-5 mcg (200 unit) tablet + D3 TABLET; Quantity : 60; Duration : 30; 0 refill(s ) 01/27 completed Duration : 30; VACCINE_ IND: no; Not Available Not Available Not Available Augmentin 875 mg-125 mg Quantity : 20; Duration : 10; 0 refill(s ) 08/13 completed Frequenc y: bid; Duration : 10; VACCINE_ IND: no; SU_FULL_ NAME: Hernandez Grande silas; Not Available Not Available Not Available Truvada Quantity : ; 0 refill(s ) 2012 active VACCINE_ IND: no; Not Available Not Available Not Available Isentress 400 mg tablet 400 MG TABLET; Quantity : 60; Duration : 30; 0 refill(s ) 05/27 completed Duration : 30; VACCINE_ IND: no; Not Available Not Available Not Available Isentress Quantity : ; 0 refill(s ) 2012 active VACCINE_ IND: no; Not Available Not Available Not Available oxycodone 10 mg tablet TOME LEONA TABLETA POR V A ORAL DOS VECES AL D A CUANDO SEA NECESARI O PARA EL DOLOR POR 7 D active Not Available Not Available No t Available cholecalc iferol (vitamin D3) 50 mcg (2,000 unit) capsule TOME 1 C PSULA POR V A ORAL TODOS LOS D active Not Available Not Available No t Available Prevnar 13 (PF) 0.5 mL intramusc ular syringe - Quantity : ; 0 refill(s ) 2013 active VACCINE_ IND: yes; VACCINE_ NAME: Pneumoco ccal conjugat e PCV 13; SU_FULL_ NAME: Hernandez Herbert; Not Available Not Available Not Available Myrbetriq 25 mg tablet,ex tended release TOME 1 TABLETA POR V A ORAL TODOS LOS D active Not Available Not Available No t Available Triumeq 600 mg-50 mg-300 mg tablet TAB; Quantity : 30; Duration : 30; 0 refill(s ) 04/14 completed Duration : 30; VACCINE_ IND: no; Not Available Not Available Not Available Breo Ellipta 200 mcg-25 mcg/dose powder for inhalatio n 0 Quantity : 60; Duration : 30; 0 refill(s ) 11/05 completed Duration : 30; VACCINE_ IND: no; Not Available Not Available Not Available Genvoya 150 mg-150 mg-200 mg-10 mg tablet TOME LEONA TABLETA TODOS LOS LITTLEJOHN 03/07 completed Duration : 30; VACCINE_ IND: no; SU_FULL_ NAME: Hernandez rosen; Not Available Not Available Not Available Genvoya Quantity : 30; 0 refill(s ) 05/27 completed Frequenc y: qd; VACCINE_ IND: no; Not Available Not Available Not Available Fluvirin 3127-5728 45 mcg (15 mcg x 3)/0.5 mL intramusc ular suspensio n trivalen t Quantity : ; 0 refill(s ) 2015 active VACCINE_ IND: yes; VACCINE_ NAME: Influenz a, seasonal , injectab le; Not Available Not Available Not Available Shingrix (PF) 50 mcg/0.5 mL intramusc ular suspensio n, kit adjuvant ed Quantity : 1; Duration : 1; 1 refill(s ) 01/28 completed Frequenc y: x1; Duration : 1; VACCINE_ IND: no; VACCINE_ NAME: zoster recombin ant; SU_FULL_ NAME: Hernandez Martorel l; Not Available Not Available Not Available Juluca 50 mg-25 mg tablet TOME 1 TABLETA POR V A ORAL TODOS LOS D active Not Available Not Available No t Available Xolair 150 mg/mL subcutane ous syringe 150 Quantity : 2; Duration : 28; 0 refill(s ) 08/27 completed Duration : 28; VACCINE_ IND: no; Not Available Not Available Not Available EC-Naprox en 500 mg tablet,de layed release TAB 500MG; Quantity : 30; Duration : 15; 0 refill(s ) 07/09 completed Duration : 15; VACCINE_ IND: no; Not Available Not Available Not Available Fluzone High-Dose 2019-20 (PF) 180 mcg/0.5 mL intramusc ular syringe 0 Quantity : 0; Duration : 1; 0 refill(s ) 03/28 completed Duration : 1; VACCINE_ IND: no; VACCINE_ NAME: Influenz a, high dose seasonal ; Not Available Not Available Not Available Trelegy Ellipta 200 mcg-62.5 mcg-25 mcg powder for inhalatio n TOME LEONA INHALACI N POR V A ORAL TODOS LOS D active Not Available Not Available No t Available Afluria Quad 0599-3431 (6mo up) 60 mcg (15 mcg x 4)/0.5 mL IM susp quadriva lent Quantity : ; 0 refill(s ) 2021 active VACCINE_ IND: yes; VACCINE_ NAME: influenz a, injectab le, quadriva lent; SU_FULL_ NAME: Hernandez rosen; VIS_DATE : 18:22:30 .0; Not Available Not Available Not Available Vitals Date Recorded Body height Heart rate Respiratory rate Body temperature Body mass index (BMI) Body weight Systolic And Diastolic Provider Name and Address Organization Details Last Updated DateTime 4 154.94 cm 96 /min 12 /min 98.3 [degF] 25.9 kg/m2 50797.1 5 g 130/98 mm[Hg] Sherrell WAN 4 11:36:06 Date Recorded Heart rate Body temperature Body weight Oxygen saturation Oxygen saturation in Arterial blood by Pulse oximetry Systolic And Diastolic Provider Name and Address Organization Details Last Updated DateTime 3 86 /min 98.3 [degF] 23392.1 9 g 98 % 98 % 100/86 mm[Hg] Macy HECK MD [facility] 11:24:05 Social History Question Answer Notes LastModified by Organizat ion Details LastModified Time Tobacco Smoking Status Never Smoker HARVEY Pacheco MD [facility] 02/08/2023 11:24:56 Are You Blind Or Do You Have Difficulty Seeing? No [email or web address] Information not available 02/08/2023 Are You Deaf Or Do You Have Serious Difficulty Hearing? No [email or web address] Information not available 02/08/2023 Which Of Your Hands Is Dominant? Right [email or web address] Information not available 02/08/2023 What Is Your Relationship Status? Single [email or web address] Information not available 02/08/2023 Have You Recently Traveled Abroad? No [email or web address] Information not available 02/08/2023 Do You Have Difficulty Walking Or Climbing Stairs? No [email or web address] Information not available 02/08/2023 Sex: Female Functional Status Question Answer Note LastModified by Organizat [employer] Details LastModified Time Do you have transportation difficulties? No [email or web address] Information not available 02/08/2023 Are you able to walk independently without assistance or assistive devices? [email or web address] Information not available 02/08/2023 Do you have difficulty doing errands alone? No [email or web address] Information not available 02/08/2023 Are you able to care for yourself independently? Yes [email or web address] Information not available 02/08/2023 Do you have difficulty dressing, bathing, grooming, or toileting? No Information not available 02/08/2023 Mental Status Question Answer Note LastModified by Organization D etails LastModified Time Do you have difficulty concentrating, remembering or making decisions? No [email or web address] Information no t available 02/08/2023 Family History Nothing Reported Notes:Migraine Headches, Res ponse Property: Yes; , Depression, Response Property: Yes; , Asthma, Response Property: Yes; , Osteoporosis, Response Property: Yes; Notes: ; Relationship: Father: Cancer of the prostate, Response Property: Yes; Medical History Condition Response Anxiety Disorder Y Arthritis Y AIDS/HIV Y Hypertension Y Depression Y Asthma Y Osteoporosis Y Gynecological HistoryNo gynecological history recorded. Obstetrics History GPAL:G 0 P 0 0 0 0 Immunizations Vaccine Type Date Status Note Provider Nam e and Address Organization Details Recorded Time pneumococcal polysaccharide PPV23 2 completed Not Available [facility] 04/21/2023 06:54:18 Influenza, split virus, quadrivalent, preservative 2 completed Not Available [facility] 04/21/2023 06:54:19 Past Encounters Encounter ID Performer Location Encounter Start Date Encounter Closed Date Diagnosis/Indication Diagnosis SNOMED-CT Code Diagnosis ICD10 Code Diagnosis IMO Codes Diagnosis Note [id number] Hernandez Heck MD Main Office [address] [place] [phone] 11/25/2022 10:31:16 11/25/2022 13:29:04 Human immunodeficiency virus infection 79128114 B20 HIV: Continue Juluca 1 tab po qd w food. she wants to keep same regimen. she is aware of new regimens such as IM tx and clinical trials reviewed. Strict compliance w regimen reviewed; keep viral suppressio n, prevent resistance and prevent transmissi on. labs safe sex. U=U. condom use reviewed. flu vaccine and RSV vaccine prescribed . plan of care reviewed. [id number] Hernandez Heck MD Main Office [address] [place] [phone] 01/19/2023 17:46:42 01/25/2023 13:33:20 Human immunodeficiency virus infection 14517067 B20 HIV: Continue Juluca 1 tab po qd w food. she wants to keep same regimen. will keep same regimen for now.Strict compliance w regimen reviewed; keep viral suppressio n, prevent resistance and prevent transmissi on.labssaf e sex. U=U. condom use reviewed.f abdirahman vaccine and RSV vaccine prescribed .f/u PCP.will request ER notes and CT scan ?malignanc y workup plan of care reviewed. [id number] Hernandez Heck MD Main Office [address] [place] [phone] 02/08/2023 11:03:57 02/08/2023 11:56:42 Human immunodeficiency virus infection 08357919 B20 HIV:Contin ue Juluca 1 tab po qd w food. keep same regimen for now.Strict compliance w regimen reviewed; keep viral suppressio n, prevent resistance and prevent transmissi on.labssaf e sex. U=U. condom use reviewed.v accines recommende d.f/u PCP.plan of care reviewed. [id number] Hernandez Heck MD Main Office [address] [place] [phone] 04/21/2023 11:34:14 04/21/2023 13:11:13 Human immunodeficiency virus infection 84916833 B20 HIV:Contin ue Juluca 1 tab po qd w food. keep same regimen for now.Strict compliance w regimen reviewed; keep viral suppressio n, prevent resistance and prevent transmissi on.labssaf e sex. U=U. condom use reviewed.a richter of PreP availabili tyf/u PCP.plan of care reviewed. [id number] Hernandez Heck MD Main Office [address] [place] [phone] 07/21/2023 14:24:58 07/22/2023 16:02:07 Human immunodeficiency virus infection 76062429 B20 HIV:Contin ue Juluca 1 tab po qd w food. keep same regimen for now.Strict compliance w regimen reviewed; keep viral suppressio n, prevent resistance and prevent transmissi on.labssaf e sex. U=U. condom use reviewed.a richter of PreP availabili tyaware of DoxyPRPf/u PCP.plan of care reviewed. [id number] Hernandez Heck MD Main Office [address] [place] [address] 10/29/2023 11:09:03 10/29/2023 12:05:39 Human immunodeficiency virus infection 10260891 B20 HIV:Contin ue Juluca 1 tab po qd w food. keep same regimen for now. she is aware of new regimens; does not want long acting injections .Strict compliance w regimen reviewed; keep viral suppressio n, prevent resistance and prevent transmissi on.labssaf e sex. U=U. condom use reviewed.a richter of PreP availabili tyaware of DoxyPEPflu vaccine y Spikevax 2023f/u PCP.plan of care reviewed. Dysuria 64195352 R30.0 u/a and u/chydrati on Health Concerns Section Related Observation LastModified by Organization Detai ls LastModified Time None Recorded Concern Status LastModified by Organization Details LastModified Time None Recorded Advance Directives Directive None Recorded Payers Insurance Date Sequence Insurance Name Policy Number Policy Mcgraw Covered Member ID Mcgraw Member ID Guarantor Name 10/23/2024 1 [facility] - DOS ON OR AFTER 2022 - ALF OPTIONS AND ONE CARE (MEDICARE REPLACEMENT/AD VANTAGE - PPO) Yamile Whiteon [id number] 12/12/2024 1 MEDICARE B-[place]: [facility] Yamile Whiteon [id number] 11/27/2024 1 MED[place]: [facility] Yamile John Whiteon [id number] 11/27/2024 1 [facility] Yamile Whiteon [id number] 12/12/2024 1 [place]: [facility] Yamile lira Leon [id number] 12/12/2024 2 [facility] - DOS ON OR AFTER 2022 - ONE CARE (MEDICARE REPLACEMENT/AD VANTAGE - HMO) Yamile Whiteon [id number] Notes Date Note Type Note Provider Name and Address Organization Details Recorded Time 01/19/2023 text/html ROS as noted in the HPI f/u HIVTelemedicine Visit.pt called. she reports went to ER this past week w abd pain, and was told may have a malignancy; workup in progress.no jaundice. no vomiting. has lost some weight on the past 2 weeks or so.on Juluca 1 tab po qd. taking with food.doing well on tx.cldsjlkzyd08/2023 HIV VL gvwtaazhhdl26/2022 HIV VL nondetected; KK2=511vZHC>55= ALT/AST wnl; GC/chlamydia neg; neg; HCV neg; HBV s ag neg;08/2021 eGFR>55; AST/ALT wnl; HCV ab neg; GC/chlamydia neg; syphilis neg; HIV VL nondetected; Hernandez Heck MD [address] [place] [address], [phone], HARVEY HECK MD [facility] 01/20/2023 01:44:48 02/08/2023 text/html ROS as noted in the HPI f/u HIVon Juluca 1 tab po qd.taking with food.doing well on tx./2023 HIV VL vbdwvjywmds60/2022 HIV VL nondetected; FU9=929rPJJ>55= ALT/AST wnl; GC/chlamydia neg; neg; HCV neg; HBV s ag neg;08/2021 eGFR>55; AST/ALT wnl; HCV ab neg; GC/chlamydia neg; syphilis neg; HIV VL nondetected;declines vaccines this yearworkup for cancer tomorrow. Hernandez Heck MD [address] [place] [address], [phone], HARVEY HECK MD [facility] 02/08/2023 11:46:31 04/21/2023 text/html ROS as noted in the HPI f/u HIVon Juluca 1 tab po qd.taking with food.compliantlabs reviewed.01/2023 HIV VLNondetceted; CD4 50786 HIV VL tuihrbctllr36/2022 HIV VL nondetected; SC1=029tWQD>55= ALT/AST wnl; GC/chlamydia neg; neg; HCV neg; HBV s ag neg;08/2021 eGFR>55; AST/ALT wnl; HCV ab neg; GC/chlamydia neg; syphilis neg; HIV VL nondetected; Hernandez Heck MD [address] [place] [address], [phone], HARVEY HECK MD [facility] 04/26/2023 10:02:26 07/21/2023 text/html ROS as noted in the HPI f/u HIVon Juluca 1 tab po qd.taking with food.compliantlabs reviewed.01/2023 HIV VLNondetceted; CD4 05511/2022 HIV VL cmgbwajyxag32/2022 HIV VL nondetected; IS0=601jAMK>55= ALT/AST wnl; GC/chlamydia neg; neg; HCV neg; HBV s ag neg;08/2021 eGFR>55; AST/ALT wnl; HCV ab neg; GC/chlamydia neg; syphilis neg; HIV VL nondetected;will be going to [facility] [place] in July 2023 to visit daughter.she might move to [facility] [place] on Dec 2023 Hernandez Heck MD [address] [place] [address], [phone], HARVEY HECK MD [facility] 07/22/2023 15:27:39 10/29/2023 text/html ROS as noted in the HPI f/u HIVon Juluca 1 tab po qd.taking with food.compliantaware of new regimens, but has preferred not to switch.labs reviewed.07/2023 HIV VL nondetected; ALt/AST wnl; eGFR nl01/2023 HIV VLNondetceted; CD4 72635 HIV VL gdjgfnofcod75/2022 HIV VL nondetected; JL6=669hPEW>55= ALT/AST wnl; GC/chlamydia neg; neg; HCV neg; HBV s ag neg;08/2021 eGFR>55; AST/ALT wnl; HCV ab neg; GC/chlamydia neg; syphilis neg; HIV VL nondetected;will be going to [facility] [place] in July 2023 to visit daughter.she might move to [facility] [place] on Dec 2023 Hernandez Heck MD [address] [place] [address], [phone], HARVEY HECK MD [facility] 10/29/2023 13:59:07 OBGyn Episode No OBEpisode recorded.
[2024-12-16 12:24] LABS: MANUAL DIFF FLAG NO
[2024-12-16 12:25] LABS: Venous Blood Gas Refer to POC result
[2024-12-16 12:26] LABS: VBG HCO3 21 mmol/L (22-26); VBG O2 % Saturation 99.0 %
--- NOTE | 2024-12-16 12:30 | PC.NURSE ---
74 F presents to ED with SOB x 1 week, seen at urgent care last week. Pt also has a dry cough that started today. Pt sts Left sided chest pain where her pacemaker was placed about 7 months ago, pt sts pain feels the same since initial placement. Pt is A+Ox4, calm, cooperative. RR even and unlabored, breath sounds clear bilat. Pt going to XR for chest XR.
[2024-12-16 12:35] LABS: INTERNATIONAL NORM RATIO 1.0 (0.9-1.1); Prothrombin Time 11.2 SEC (10.9-12.4)
[2024-12-16 12:39] LABS: Alanine Aminotransferase 7 U/L (0-31); Albumin Level 4.2 g/dL (3.5-5.0); Alkaline Phosphatase 112 U/L (39-117); Anion Gap 15 (12-20); Aspartate Amino Transferase 28 U/L (5-31); Blood Urea Nitrogen 18 mg/dL (9-16); COVID-19 Test Negative (Negative); Calcium 9.5 mg/dL (8.4-10.2); Carbon Dioxide 26 mmol/L (22-29); Chloride 104 mmol/L (96-108); Creatinine Clr Calc Pharmacy 43.4; Estimated Glomerular Filt Rate 52; IDNOW Serial# 55D5AD1C; IDNOW Serial# 58CA691E; Influenza B2 Negative (Negative); Magnesium 2.1 mg/dL (1.6-2.6); Potassium 4.0 mmol/L (3.3-5.1); Sodium 141 mmol/L (135-145); Total Protein 7.3 g/dL (6.5-8.0)
[2024-12-16 12:44] LABS: NT Pro B Type Natriuretic Pept 2361.4 pg/mL (<300)
[2024-12-16] MEDS: Nitroglycerin 2 % Oint 1 GM Packet 0.5 INCH TRANSDERMA (13:10)
--- NOTE | 2024-12-16 13:25 | PC.NURSE ---
attempted to give patient lasix but placed IV not working. Working on getting an US line placed.
--- NOTE | 2024-12-16 13:41 | PC.NURSE ---
provider at bedside attempting US line
[2024-12-16 13:44] LABS: D Dimer High Sensitivity 204 NG/ML
--- NOTE | 2024-12-16 14:46 | PC.NURSE ---
provider unable to get access, nurse Linsey is attempting US IV now
[2024-12-16] MEDS: Furosemide 40 MG/4 ML VIAL IVPUSH (15:10)
[2024-12-16 15:12] LABS: Free T4 (Free Thyroxine) 0.93 ng/dL (0.71-1.85)
--- NOTE | 2024-12-16 15:42 | PM.IMHP ---
History of Present Illness Date of Service: 12/16/24 Attending physician on admission: Davon Hoang Chief Complaint: dypnea This is a 74-year-old Taiwanese-speaking female with multiple medical issues who presents to the emergency department with shortness of breath. History was obtained with the assistance of a process controls technician. Patient reports 4 weeks of shortness of breath. There is no specific pattern to her breathing, it is not worse when she lies down flat it is not worse when she ambulates. She has had intermittent dry cough with a past several weeks. She sometimes gets chills but denies any fever. She has not had chest pain or palpitations. She denies any lower extremity edema. She denies any recent sick contacts. She states that in April she had an MRI while she was in [place], it seems at that time she had AICD placement although she is unable to provide any details regarding this. 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 In the emergency department lab work was relatively unremarkable. She was afebrile, labs revealed no leukocytosis. ProBNP was elevated at 2361. EKG showed previous infarct as compared to prior EKG from December. CXR was negative and viral screen for flu, RSV and covid was negative. In the emergency department she received a dose of IV Lasix and nitro paste and admission was requested overnight for observation. Review of Systems Review of Systems: Yes all other systems are reviewed and are negative Constitutional: Constitutional: Denies chills and Denies fever(s) Cardiovascular: Cardiovascular: Denies chest pain and Reports dyspnea Respiratory: Respiratory: Reports dyspnea [facility] Medical History Environmental allergies Conjunctiva disorder Wart of scalp COVID-19 Upper extremity neuropathy Right shoulder pain Right arm pain Physical exam Cough Left hip pain Left shoulder tendinitis Left shoulder pain GERD (gastroesophageal reflux disease) Asthma Urticaria Fracture of left hip requiring operative repair HIV (human immunodeficiency virus infection) Hypothyroidism Dyslipidemia Verruca TIA (transient ischemic attack) Asthma Family History Father Cancer Diabetes Mother Cancer Diabetes Brother Colon polyps Surgical History History of permanent cardiac pacemaker placement History of hip replacement, total History of lumbar fusion History of section H/O umbilical hernia repair Hx of colonoscopy Social History Household Members: None Housing: Apartment Alcohol intake: never Patient Tobacco Use Status: Never used Tobacco Tobacco use type: Cigarette Smoked in Last 30 Days: No e-Cigarette/Vaping Use: Never Used Second Hand Smoke Exposure: No Use of substances other than those prescribed or required for medical reasons: No Substance Use Type: Marijuana Currently Displaying Signs/Symptoms of Drug Intoxication Withdrawal: No Advance Directives: No Advance Directives Information Provided: Yes service: No Current occupational status: retired Cognitive needs: No Hearing needs: No Vision needs: Yes (Glasses) Meds Allergies Allergy/AdvReac Type Severity Reaction Status Date / Time blackberry Allergy Intermediate Itching Verified 12/16/24 11:50 long Allergy Intermediate Itching Verified 12/16/24 11:50 peanut (PEANUT) Allergy Intermediate RASH Verified 12/16/24 11:50 Sulfa (Sulfonamide Allergy Intermediate HIVES, Verified 12/16/24 11:50 Antibiotics) (SULFA hives, (SULFONAMIDE ANTIBIOTICS)) rash, hives, rash tramadol Allergy Intermediate nausea Verified 12/16/24 11:50 strawberry Allergy Itching Verified 12/16/24 11:50 animals Allergy Itching Uncoded 12/16/24 11:50 red fruit Allergy Itching Uncoded 12/16/24 11:50 tree Allergy eye Uncoded 12/16/24 11:50 swelling, itch Home Medications ?Medication ?Instructions ?Recorded ?Confirmed ?Last Taken ?Type dolutegravir 50 mg-rilpivirine 25 1 tab PO DAILY 12/11/20 12/16/24 12/16/24 06:00 History mg tablet (Juluca) famotidine 20 mg tablet 20 mg PO BID PRN acid reflux 07/20/22 12/16/24 12/15/24 History atorvastatin 40 mg tablet 40 mg PO BEDTIME cholesterol 11/21/24 12/16/24 12/15/24 History empagliflozin 10 mg tablet 10 mg PO DAILY 11/21/24 12/16/24 12/15/24 History (Jardiance) levothyroxine 50 mcg tablet 50 mcg PO DAILY 11/21/24 12/16/24 12/16/24 06:00 History metoprolol succinate 25 mg 25 mg PO BEDTIME 11/21/24 12/16/24 12/15/24 History tablet,extended release 24 hr midodrine 5 mg tablet 5 mg PO TID 11/21/24 12/16/24 12/15/24 History nitroglycerin 0.4 mg sublingual 0.4 mg sublingual Q5M PRN Chest 11/21/24 12/16/24 Unknown History tablet Pain ranolazine 500 mg tablet,extended 500 mg PO BID 11/21/24 12/16/24 12/15/24 History release,12 hr spironolactone 25 mg tablet 12.5 mg PO DAILY 11/21/24 12/16/24 12/15/24 History ticagrelor 90 mg tablet (Brilinta) 90 mg PO BID 11/21/24 12/16/24 12/15/24 History Physical Exam Vital Signs and Narrative: Vital Signs: Last Vital Signs Temp 98.7 F 12/16/24 11:42 Pulse 67 12/16/24 13:10 Resp 18 12/16/24 12:19 BP 118/68 12/16/24 15:10 Pulse Ox 97 12/16/24 12:19 O2 Del Method Room Air 12/16/24 12:19 BMI result Body Mass Index 21.2 Const: General: cooperative, comfortable, alert and awake Nutritional Appearance: average body habitus Orientation/consciousness: patient oriented x3 Resp: Effort & Inspection: normal respiratory effort, able to speak in complete sentences, no respiratory distress and no use of accessory muscles Auscultation: clear to auscultation bilaterally Cardio: Rate: regular rate GI: Inspection: No distended Palpation (GI): Soft to palpation and nontender Neuro: General: patient oriented x3, moves all extremities and CN's II-XI intact bilaterally Results Labs 12/16/24 12:11 12/16/24 12:11 Labs: Laboratory Results - last 24 hr 12/16/24 12/16/24 12:11 12:22 MCV 92.3 MCH 30.6 MCHC 33.2 RDW 13.2 Plt Count 204 D MPV 9.5 Immature Gran % (Auto) 0.4 Neut % (Auto) 62.6 Lymph % (Auto) 27.7 [place] % (Auto) 6.3 Eos % (Auto) 2.5 Baso % (Auto) 0.5 Lymph # (Auto) 1.5 [place] # (Auto) 0.4 Eos # (Auto) 0.1 Baso # (Auto) 0.0 Abs Immat Gran (auto) 0.02 Absolute Neuts (auto) 3.5 Absolute Nucleated RBC 0.000 Nucleated RBC % (auto) 0.0 PT 11.2 INR 1.0 D-Dimer High Sensitivty 204 VBG pH 7.58 H VBG pCO2 22 VBG pO2 174 VBG HCO3 21 L VBG O2 Saturation 99.0 VBG Base Excess 1.4 Anion Gap 15 Estim Creat Clear Calc 43.4 Estimated GFR 52 Random Glucose 89 Calcium 9.5 Magnesium 2.1 Total Bilirubin 0.6 AST 28 ALT 7 Alkaline Phosphatase 112 NT-Pro-B Natriuret Pep 2361.4 H Total Protein 7.3 Albumin 4.2 TSH 16.59 H Free T4 0.93 COVID-19 (SAMY) Negative COVID-19 Clin Com See Note Influenza Type A (NEFTALI) Negative Influenza Type B (NEFTALI) Negative Influenza A & B Note See Note Assessment and Plan (1) CHF (congestive heart failure): Status: Acute (2) Cardiac defibrillator in place: Status: Acute Plan Patient this is a 74-year-old Taiwanese-speaking female with a history of HIV, asthma, recent [place] and AICD placement in [place], hypertension, hypothyroidism who presents to the emergency department with 4 week history of persistent shortness of breath Shortness of breath possibly due to acute decompensated CHF athough does not look overtly fluid overloaded at this time received one dose of IV lasix in ED, will hold off on further diuretics for now monitor on telemetry check full RPP cardiology consult, defer repeat echo to cardiology reportedly pt is not taking any of her medications so possibly due to med non-compliance resume brilinta, jarcollin, statin follow bp, resume bb if stable 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 will further review which medications the patient has been taking with the patient's daughter in the am Quality Stroke Does the patient have a stroke diagnosis?: No VTE Prior VTE?: No VTE Risk Level:: Medical - moderate - high VTE Device Contraindication: N/A - Device Ordered VTE Drug Contraindication: N/A - Med Ordered
--- NOTE | 2024-12-16 17:16 | PHA.MEDREC ---
Pharmacy Consult ? Medication Reconciliation Pharmacy has completed the medication reconciliation. Spoke with patient's family at bedside, they state that her med list from Dr Bone's office visit on 11/21 is up to date and she took her Levothyroxine and Dolutegrivir-rilpavirine this morning and the rest of her meds yesterday.
[2024-12-16 19:23] LABS: Troponin-I High Sensitivity 20.6 ng/L (<3.5-17.0)
[2024-12-17] VITALS (7 sets, daily range): BP systolic 103–133; BP diastolic 57–71; PULSE 83–91; RESP 16–20; TEMP 36.2–36.9; O2SAT 95–98; BMI 21.3
[2024-12-17] MEDS: 0.9 % Sodium Chloride Flush 3 ML SYRINGE IVFLUSH ×3 (08:33→20:00)
[2024-12-17] MEDS: Fluticasone/Umeclidinium/Vilanterol 200/62.5/25 BLST.W.DEV 1 PUFF INHALE (08:51)
[2024-12-17 09:31] LABS: Troponin-I High Sensitivity 18.2 ng/L (<3.5-17.0)
[2024-12-17 09:52] LABS: Chlamydia pneumoniae PCR Not Detected (Not Detect.); Coronavirus 229E PCR Not Detected (Not Detect.); Coronavirus HKU1 PCR Not Detected (Not Detect.); Coronavirus NL63 PCR Not Detected (Not Detect.); Coronavirus OC43 PCR Not Detected (Not Detect.); RSV PCR Not Detected (Not Detect.); Rhino/Enterovirus PCR Not Detected (Not Detect.)
[2024-12-17 10:26] LABS: Influenza A H1 PCR Not Detected (Not Detect.); Influenza A H1-2009 PCR Not Detected (Not Detect.); Influenza A H3 PCR Not Detected (Not Detect.); SARS-CoV-2 PCR Not Detected (Not Detect.)
[2024-12-17] MEDS: RILPIVIRINE HCL 25 MG PO (12:21)
[2024-12-17] MEDS: DOLUTEGRAVIR SODIUM 50 MG PO (12:21)
--- NOTE | 2024-12-17 13:17 | MHC.CM.PN ---
CM MET WITH PT AND DAUGHTER WITH THE ASSISTANCE OF A [facility] CLAIM REPRESENTATIVE PT RECENTLY MOVED IN WITH HER DAUGHTER AFTER MOVING BACK FROM [place] PT HAS NO SERVICES OR DME, HOWEVER THEY DO HAVE AN APPT SCHEDULED WITH [facility] TO DETERMINE WHAT SHE MAY BE ELIGIBLE FOR SHE DOES NOT HAVE A HCP, SHE ACCEPTED BLANK DOCUMENT/INFORMATION IN [place] FOR REVIEW. SHE UNDERSTANDS CM CAN ASSIST IF SHE WANTS TO COMPLETE ONE DURING HER ADMISSION. PCP: MARGARETH CLEMENTS OBSERVATION NOTICE DELIVERED DCP: HOME VIA FAMILY TRANSPORT
--- NOTE | 2024-12-17 13:48 | PM.CNCAR ---
History of Present Illness History of Present Illness Date of Service: 12/17/24 Requesting physician: Angela Martino Chief complaint: sob Narrative: [age] year female presenting with dizziness and shortness of breath. It appears she was in [place] towards the start of the year when she had anterior wall PR. Subsequent to that she had ICD placement for primary prevention. She is on multiple medicines but currently it is unclear which medicine she is taking regularly. She also has midodrine on her list which means her blood pressure at some stage was low. Her blood pressure currently is low to and she is coming in because she was feeling short of breath and lightheaded. She gets vertigo and uses meclizine from time to time but this was different from that. Does not appear to be significantly volume overloaded. Also denying any orthopnea or PND. No chest discomfort. [facility] Past Medical History Medical History Environmental allergies Conjunctiva disorder Wart of scalp COVID-19 Upper extremity neuropathy Right shoulder pain Right arm pain Physical exam Cough Left hip pain Left shoulder tendinitis Left shoulder pain GERD (gastroesophageal reflux disease) Asthma Urticaria Fracture of left hip requiring operative repair HIV (human immunodeficiency virus infection) Hypothyroidism Dyslipidemia Verruca TIA (transient ischemic attack) Asthma Family History Family History Father Cancer Diabetes Mother Cancer Diabetes Brother Colon polyps Surgical History Surgical History History of permanent cardiac pacemaker placement History of hip replacement, total History of lumbar fusion History of section H/O umbilical hernia repair Hx of colonoscopy Social History Social History Household Members: None Housing: Apartment Alcohol intake: never Patient Tobacco Use Status: Never used Tobacco Tobacco use type: Cigarette Smoked in Last 30 Days: No e-Cigarette/Vaping Use: Never Used Second Hand Smoke Exposure: No Use of substances other than those prescribed or required for medical reasons: No Substance Use Type: Marijuana Currently Displaying Signs/Symptoms of Drug Intoxication Withdrawal: No Advance Directives: No Advance Directives Information Provided: Yes service: No Current occupational status: retired Cognitive needs: No Hearing needs: No Vision needs: Yes (Glasses) Meds Allergies Allergy/AdvReac Type Severity Reaction Status Date / Time blackberry Allergy Intermediate Itching Verified 12/16/24 11:50 long Allergy Intermediate Itching Verified 12/16/24 11:50 peanut (PEANUT) Allergy Intermediate RASH Verified 12/16/24 11:50 Sulfa (Sulfonamide Allergy Intermediate HIVES, Verified 12/16/24 11:50 Antibiotics) (SULFA hives, (SULFONAMIDE ANTIBIOTICS)) rash, hives, rash tramadol Allergy Intermediate nausea Verified 12/16/24 11:50 strawberry Allergy Itching Verified 12/16/24 11:50 animals Allergy Itching Uncoded 12/16/24 11:50 red fruit Allergy Itching Uncoded 12/16/24 11:50 tree Allergy eye Uncoded 12/16/24 11:50 swelling, itch Active Medications: Current Medications Acetaminophen (Acetaminophen 325 Mg Tablet) 650 mg PO Q6H PRN PRN Reason: Pain, Mild 1-3,fever,headache Aspirin (Aspirin 81 Mg Tab.Chew) 81 mg PO DAILY [facility] Atorvastatin Calcium (Atorvastatin Calcium 40 Mg Tablet) 40 mg PO BEDTIME [facility] Last Admin: 12/16/24 23:47 Dose: 40 mg Calcium Carbonate (Calcium Carbonate 750 Mg Tab.Chew) 750 mg PO Q4H PRN PRN Reason: Heartburn Dolutegravir Sodium 50 mg/ (Rilpivirine 25 mg) 0 mg PO DAILY [facility] Last Admin: 12/17/24 12:21 Dose: 2 tablet Empagliflozin (Empagliflozin 10 Mg Tablet) 10 mg PO DAILY [facility] Last Admin: 12/17/24 08:32 Dose: 10 mg Fluticasone/Umeclidinium/Vilanterol (Fluticasone/Umeclidinium/Vilanterol 200/62.5/25 Blst.W.Dev) 1 puff INHALE RDAILY [facility] Last Admin: 12/17/24 08:51 Dose: 1 puff Hydroxyzine HCl (Hydroxyzine Hcl 25 Mg Tablet) 25 mg PO BEDTIME [facility] Last Admin: 12/16/24 23:47 Dose: 25 mg Levothyroxine Sodium (Levothyroxine Sodium 50 Mcg Tablet) 50 mcg PO DAILY@0600 [facility] Last Admin: 12/17/24 05:47 Dose: 50 mcg Magnesium Hydroxide (Milk Of Magnesia 30 Ml Oral.Susp) 30 ml PO DAILY PRN PRN Reason: Constipation Melatonin (Melatonin 3 Mg Tablet) 6 mg PO BEDTIME PRN PRN Reason: Insomnia Sodium Chloride (0.9 % Sodium Chloride Flush 3 Ml Syringe) 3 ml IVFLUSH QSHIFT [facility] Last Admin: 12/17/24 08:33 Dose: 3 ml Ticagrelor (Ticagrelor 90 Mg Tablet) 90 mg PO BID [facility] Last Admin: 12/17/24 08:31 Dose: 90 mg Home Medications ?Medication ?Instructions ?Recorded ?Confirmed ?Last Taken ?Type dolutegravir 50 mg-rilpivirine 25 1 tab PO DAILY 12/11/20 12/16/24 12/16/24 06:00 History mg tablet (Juluca) famotidine 20 mg tablet 20 mg PO BID PRN acid reflux 07/20/22 12/16/24 12/15/24 History atorvastatin 40 mg tablet 40 mg PO BEDTIME cholesterol 11/21/24 12/16/24 12/15/24 History empagliflozin 10 mg tablet 10 mg PO DAILY 11/21/24 12/16/24 12/15/24 History (Jardiance) levothyroxine 50 mcg tablet 50 mcg PO DAILY 11/21/24 12/16/24 12/16/24 06:00 History metoprolol succinate 25 mg 25 mg PO BEDTIME 11/21/24 12/16/24 12/15/24 History tablet,extended release 24 hr midodrine 5 mg tablet 5 mg PO TID 11/21/24 12/16/24 12/15/24 History nitroglycerin 0.4 mg sublingual 0.4 mg sublingual Q5M PRN Chest 11/21/24 12/16/24 Unknown History tablet Pain ranolazine 500 mg tablet,extended 500 mg PO BID 11/21/24 12/16/24 12/15/24 History release,12 hr spironolactone 25 mg tablet 12.5 mg PO DAILY 11/21/24 12/16/24 12/15/24 History ticagrelor 90 mg tablet (Brilinta) 90 mg PO BID 11/21/24 12/16/24 12/15/24 History Physical Exam Vital Signs: Vital Signs: Last Vital Signs Temp 97.2 F 12/17/24 11:51 Pulse 89 12/17/24 11:51 Resp 18 12/17/24 11:51 BP 103/63 12/17/24 11:51 Pulse Ox 98 12/17/24 11:51 O2 Del Method Room Air 12/17/24 11:51 BMI result Body Mass Index 21.3 GENERAL APPEARANCE: in no acute distress, pleasant. NECK: no carotid bruit, no jugular venous distention. SKIN: He had left chest wall scar from previous ICD placement. HEART: no murmurs, regular rate and rhythm. LUNGS: clear to auscultation bilaterally. ABDOMEN: soft, nontender. EXTREMITIES: no edema. PERIPHERAL PULSES: equal. NEUROLOGIC: No gross deficits, AAO X 3 Objective Labs and Meds 12/16/24 12:11 12/16/24 12:11 Lab results: Laboratory Results - last 24 hr 12/16/24 12/16/24 12/16/24 12:11 18:59 19:33 Hold Purple Top Troponin I High Sens 20.6 H D Free T4 0.93 Respiratory Panel [place] See Note Adenovirus (Rapid PCR) Not Detected B.pert (TEM-PCR) Not Detected B.parapertussis DNA PCR Not Detected C. pneumoniae DNA (PCR) Not Detected Coronavirus OC43 (PCR) Not Detected Coronavirus HKU1 (PCR) Not Detected Coronavirus 229E (PCR) Not Detected Coronavirus NL63 (PCR) Not Detected Human Metapneumovir PCR Not Detected Influenza A (RT-PCR) Not Detected Influenza A (H1) PCR Not Detected Influ A (H1/09) PCR Not Detected Influenza A (H3) PCR Not Detected Influenza B (RT-PCR) Not Detected M. pneumoniae (PCR) Not Detected Parainfluenza 1 (PCR) Not Detected Parainfluenza 2 (PCR) Not Detected Parainfluenza 3 (PCR) Not Detected Parainfluenza 4 (PCR) Not Detected RSV (PCR) Not Detected Entero/Rhino (PCR) Not Detected SARS-CoV-2 RNA (RT-PCR) Not Detected 12/17/24 08:27 Hold Purple Top SEE NOTE Troponin I High Sens 18.2 H Free T4 Respiratory Panel [place] Adenovirus (Rapid PCR) B.pert (TEM-PCR) B.parapertussis DNA PCR C. pneumoniae DNA (PCR) Coronavirus OC43 (PCR) Coronavirus HKU1 (PCR) Coronavirus 229E (PCR) Coronavirus NL63 (PCR) Human Metapneumovir PCR Influenza A (RT-PCR) Influenza A (H1) PCR Influ A (H1/09) PCR Influenza A (H3) PCR Influenza B (RT-PCR) M. pneumoniae (PCR) Parainfluenza 1 (PCR) Parainfluenza 2 (PCR) Parainfluenza 3 (PCR) Parainfluenza 4 (PCR) RSV (PCR) Entero/Rhino (PCR) SARS-CoV-2 RNA (RT-PCR) Assessment and Plan (1) Cardiomyopathy: Status: Acute (2) Dizziness: Status: Acute Plan [age] female with a anterior wall PR in [place] in April 2024 and severe LV dysfunction reportedly. We do not have any records available. She had primary prevention ICD placed. She is supposed to be on ticagrelor but has not been taking that regularly. She does take baby aspirin. She is also on spironolactone metoprolol and Jardiance. Quite unclear what the patient is taking currently. She does not appear to be volume overloaded currently. Would favor resuming the spironolactone with close monitoring of electrolytes. Also can resume metoprolol succinate 25 mg daily. Get records from [place]. Echocardiography tomorrow. Once we know which device she has then we can do interrogation. Thank you for allowing me to participate in the care of your patient. Please feel free to contact me if you have any questions. Procedures Date of Service Date of Service: 12/17/24
--- NOTE | 2024-12-17 13:59 | P.PNIM_ITS ---
Subjective Subjective Date of Service: 12/17/24 Interval History: Seen and examined this morning history obtained with the assistance of a orange picker reports feeling dizzy, although sob seems better only taking a few medications at home despite there being 32 on her med list - although she isn't sure what she is taking Review of Systems Review of Systems: Yes all other systems are reviewed and are negative Constitutional Constitutional: Denies chills and Denies fever(s) Cardiovascular Cardiovascular: Denies palpitations Respiratory Respiratory: Denies cough Endocrine Endocrine: Denies palpitations Physical Exam 2 Vital Signs: Vital Signs: Last Vital Signs Temp 97.2 F 12/17/24 11:51 Pulse 89 12/17/24 11:51 Resp 18 12/17/24 11:51 BP 103/63 12/17/24 11:51 Pulse Ox 98 12/17/24 11:51 O2 Del Method Room Air 12/17/24 11:51 BMI result Body Mass Index 21.3 Const: General: cooperative, comfortable, alert and awake Nutritional Appearance: average body habitus Orientation/consciousness: patient oriented x3 Resp: Effort & Inspection: normal respiratory effort, able to speak in complete sentences, no respiratory distress and no use of accessory muscles A uscultation: clear to auscultation bilaterally Cardio: Rate: regular rate GI: Inspection: No distended Palpation (GI): Soft to palpation and nontender Neuro: General: patient oriented x3, moves all extremities and CN's II-XI intact bilaterally Objective Data Active Medications Acetaminophen (Acetaminophen 325 Mg Tablet) 650 mg PO Q6H PRN PRN Reason: Pain, Mild 1-3,fever,headache Aspirin (Aspirin 81 Mg Tab.Chew) 81 mg PO DAILY [facility] Atorvastatin Calcium (Atorvastatin Calcium 40 Mg Tablet) 40 mg PO BEDTIME [facility] Last Admin: 12/16/24 23:47 Dose: 40 mg Documented By: MELQUIADES Calcium Carbonate (Calcium Carbonate 750 Mg Tab.Chew) 750 mg PO Q4H PRN PRN Reason: Heartburn Dolutegravir Sodium 50 mg/ (Rilpivirine 25 mg) 0 mg PO DAILY [facility] Last Admin: 12/17/24 12:21 Dose: 2 tablet Documented By: MERT Empagliflozin (Empagliflozin 10 Mg Tablet) 10 mg PO DAILY [facility] Last Admin: 12/17/24 08:32 Dose: 10 mg Documented By: MERT Fluticasone/Umeclidinium/Vilanterol (Fluticasone/Umeclidinium/Vilanterol 200/62.5/25 Blst.W.Dev) 1 puff INHALE RDAILY [facility] Last Admin: 12/17/24 08:51 Dose: 1 puff Documented By: SHYANNE Hydroxyzine HCl (Hydroxyzine Hcl 25 Mg Tablet) 25 mg PO BEDTIME [facility] Last Admin: 12/16/24 23:47 Dose: 25 mg Documented By: MELQUIADES Levothyroxine Sodium (Levothyroxine Sodium 50 Mcg Tablet) 50 mcg PO DAILY@0600 [facility] Last Admin: 12/17/24 05:47 Dose: 50 mcg Documented By: [facility] Magnesium Hydroxide (Milk Of Magnesia 30 Ml Oral.Susp) 30 ml PO DAILY PRN PRN Reason: Constipation Melatonin (Melatonin 3 Mg Tablet) 6 mg PO BEDTIME PRN PRN Reason: Insomnia Sodium Chloride (0.9 % Sodium Chloride Flush 3 Ml Syringe) 3 ml IVFLUSH QSHIFT [facility] Last Admin: 12/17/24 08:33 Dose: 3 ml Documented By: MERT Ticagrelor (Ticagrelor 90 Mg Tablet) 90 mg PO BID [facility] Last Admin: 12/17/24 08:31 Dose: 90 mg Documented By: MERT Labs 12/16/24 12:11 12/16/24 12:11 Labs: Laboratory Results - last 24 hr 12/16/24 12/16/24 12/16/24 12:11 18:59 19:33 Hold Purple Top Troponin I High Sens 20.6 H D Free T4 0.93 Respiratory Panel [place] See Note Adenovirus (Rapid PCR) Not Detected B.pert (TEM-PCR) Not Detected B.parapertussis DNA PCR Not Detected C. pneumoniae DNA (PCR) Not Detected Coronavirus OC43 (PCR) Not Detected Coronavirus HKU1 (PCR) Not Detected Coronavirus 229E (PCR) Not Detected Coronavirus NL63 (PCR) Not Detected Human Metapneumovir PCR Not Detected Influenza A (RT-PCR) Not Detected Influenza A (H1) PCR Not Detected Influ A (H1/09) PCR Not Detected Influenza A (H3) PCR Not Detected Influenza B (RT-PCR) Not Detected M. pneumoniae (PCR) Not Detected Parainfluenza 1 (PCR) Not Detected Parainfluenza 2 (PCR) Not Detected Parainfluenza 3 (PCR) Not Detected Parainfluenza 4 (PCR) Not Detected RSV (PCR) Not Detected Entero/Rhino (PCR) Not Detected SARS-CoV-2 RNA (RT-PCR) Not Detected 12/17/24 08:27 Hold Purple Top SEE NOTE Troponin I High Sens 18.2 H Free T4 Respiratory Panel [place] Adenovirus (Rapid PCR) B.pert (TEM-PCR) B.parapertussis DNA PCR C. pneumoniae DNA (PCR) Coronavirus OC43 (PCR) Coronavirus HKU1 (PCR) Coronavirus 229E (PCR) Coronavirus NL63 (PCR) Human Metapneumovir PCR Influenza A (RT-PCR) Influenza A (H1) PCR Influ A (H1/) PCR Influenza A (H3) PCR Influenza B (RT-PCR) M. pneumoniae (PCR) Parainfluenza 1 (PCR) Parainfluenza 2 (PCR) Parainfluenza 3 (PCR) Parainfluenza 4 (PCR) RSV (PCR) Entero/Rhino (PCR) SARS-CoV-2 RNA (RT-PCR) Assessment and Plan (1) Cardiomyopathy: Status: Acute (2) Shortness of breath: Status: Acute Plan Patient this is a 74-year-old Pakistani-speaking female with a history of HIV, asthma, recent RI and AICD placement in [place], hypertension, hypothyroidism who presents to the emergency department with 4 week history of persistent shortness of breath Shortness of breath possibly due to med compliance in the setting of CAD with RI and stent placement/AICD placement in apr CXR negative, full RPP negative no adverse events on tele thus far will obtain echo plan for AICD interrogation tomorrow if able to determine device CAD resume brilinta, jardiance, statin, BB, ASA 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 Quality Stroke Does the patient have a stroke diagnosis?: No VTE Prior VTE?: No VTE Risk Level:: Medical - moderate - high VTE Device Contraindication: N/A - Device Ordered VTE Drug Contraindication: N/A - Med Ordered
[2024-12-17] MEDS: Metoprolol Succinate ER 25 MG TAB.ER.24H PO (20:00)
[2024-12-18 03:58] VITALS: BP 96/54; PULSE 83; RESP 16; TEMP 36; O2SAT 95
--- NOTE | 2024-12-18 07:00 | CA_ITS ---
Transthoracic Echocardiogram Patient (Last, First, Middle): Yamile Polo H Gender: Female Date of : 1950 Age: 74 Procedure Date: 12/18/2024 Procedure Type: Transthoracic Echocardiogram Location: [facility] Height: 154.94 cm Weight: 57.61 kg BSA: 1.56 m2 Heart Rate: bpm BP: 96 / 54 mmHg [employer] Specialist: DEMIAN Referring MD: Angela AMAYA Marketing Account Manager: Kenneth Nava MD Symptoms: dizziness sob Study Quality: Technically Difficult ECG Rhythm: Sinus Conclusions: - 1. Severe reduction LV ejection fraction 10-15% with large area of wall motion abnormality consistent with prior myocardial infarction and overall findings consistent with ischemic cardiomyopathy with impaired relaxation filling pattern 2. Mild mitral regurgitation 3. Normal RV systolic pressure 4. No gross pericardial effusion Findings Left Ventricle Normal left ventricular cavity size. There is mildly increased left ventricular wall thickness. The left ventricular systolic function is severely decreased. The visually estimated ejection fraction is between 10 15%. Spectral Doppler is indicative of an impaired relaxation filling pattern. E/E prime ratio is between 8 and 15 consistent with indeterminate filling pressures. Wall Motion Rest Echo Findings The inferolateral wall, the basal inferior, basal anterior, mid inferior, basal anterolateral, basal inferoseptal, and basal anteroseptal segments are hypokinetic. The entire apex, the mid anterior, mid anterolateral, mid inferoseptal, and mid anteroseptal segments are akinetic. Right Ventricle Normal right ventricular cavity size and systolic function. There is an ICD wire seen in the right ventricle. Atria The left atrium is likely dilated. There is no evidence of interatrial shunt. The right atrium is normal in size. Aortic Valve Normal aortic valve structure and function. There is no aortic valve stenosis. There is no aortic valve regurgitation. Mitral Valve There is mild anterior and posterior mitral leaflet thickening. There is mild mitral valve regurgitation. There is no mitral valve stenosis. Pulmonic Valve The pulmonic valve is likely normal. Tricuspid Valve Normal tricuspid valve structure. There is mild tricuspid valve regurgitation. The right ventricular systolic pressure is normal. The right ventricular systolic pressure is 29 mmHg. Normal right atrial pressure. There is no evidence of pulmonary hypertension. Great Vessels All visible segments of the aorta are normal in size. The pulmonary artery was not well visualized. There is no dilatation of the ascending aorta measuring 3.00 cm. Venous The inferior vena cava is normal in size and collapses greater than 50% with inspiration. Pericardium/Pleural There is no evidence of pericardial effusion. Prior Study Comparison Significant changes compared to prior study dated: 04/27/2018. Compared to prior echo from more than 6 years ago that has significant reduction LV ejection fraction with new wall motion abnormality, consistent with development of new severe LV systolic dysfunction related to ischemic cardiomyopathy Measurements 2D Linear Measurements IVSd: 1.31 0.6-0.9/0.6-1.0 cm LVIDd: 3.19 3.9-5.3/4.2-5.9 cm LVIDd Index: 2.04 2.4-3.2/2.2-3.1 cm/m2 LVIDs: 2.96 2.0-3.6 cm LVPWd: 1.32 0.7-1.1 cm Ao Root: 3.30 2.1-3.5 cm LA Diam: 3.40 2.7-3.8/3.0-4.0 cm LAIDs Index: 2.18 1.5-2.3 cm/m2 LV Mass: 171.26 67-162/88-224 g LV Mass Index: 109.78 43-95/49-115 g/m2 LVOT Diam: 2.10 3.0+(-)1.3 cm 2D Systolic Function EF 4C: 12.10 >55% EF 2C: 16.00 >55% EF BiP: 13.90 >55% Mitral Valve MV Pk E: 0.46 MV PK A: 0.76 MV Decel Time: 116.00 E/A: 0.60 E'Lateral: 3.59 E'Medial: 3.37 E/E' Med: 13.60 E/E' Lat: 12.80 PHT: 34.00 MVA PHT: 6.47 Decel Briscoe: 3.96 Aortic Valve AoV Pk Bennett: 1.06 AoV Mn Bennett: 0.61 AoV VTI: 0.22 AoV Pk Grad: 4.00 Aov Mn Grad: 2.00 ANDRES Cont.VTI: 1.76 LVOT LVOT Pk Bennett: 0.60 LVOT Mn Bennett: 0.38 LVOT VTI: 0.11 LVOT Pk Grad: 1.00 LVOT Mn Grad: 1.00 LVOT Diam: 2.10 LVOT Area: 3.46 Diastolic Function MV Pk E: 0.46 MV Pk A: 0.76 E/A: 0.60 E'Medial: 3.37 E/E' Med: 13.60 E' Laterial: 3.59 E/E' Lat: 12.80 Tricuspid Valve TR Pk Bennett: 2.57 TR Pk Grad: 26.00 RA Press: 3.00 RVSP: 29.00 Great Vessels Aorta Ao Root-2D: 3.30 2.0-3.7 cm Ao Asc: 3.00 2.1-3.4 cm Pulmonary Valve PV Pk Bennett: 0.81 Peak PV Grad: 3.00 Updated in Other Vendor System with Status of Final Kenneth Nava MD electronically signed on 12/19/2024 12:43:10 PM with status of Final
[2024-12-18] MEDS: Fluticasone/Umeclidinium/Vilanterol 200/62.5/25 BLST.W.DEV 1 PUFF INHALE (07:42)
[2024-12-18 07:43] VITALS: PULSE 86; RESP 18; O2SAT 95
[2024-12-18 07:46] VITALS: BP 106/62; PULSE 87; RESP 20; TEMP 36.1; O2SAT 94
[2024-12-18] MEDS: RILPIVIRINE HCL 25 MG PO (08:58)
[2024-12-18] MEDS: DOLUTEGRAVIR SODIUM 50 MG PO (08:58)
[2024-12-18] MEDS: 0.9 % Sodium Chloride Flush 3 ML SYRINGE IVFLUSH (09:19)
--- NOTE | 2024-12-18 11:29 | PM.PNCARD ---
Subjective Subjective Date of Service: 12/18/24 Principal diagnosis: CHF Interval history: History obtained with help of spanish medical interpreter in the room. Patient says she has stopped taking medication as she was just on lot of medications and was confused. Patient is feeling better right now. No arrhythmias noted overnight. Type of device company is unknown as yet. Patient says she does have a card at home. Review of Systems Constitutional: Reports no additional constitutional complaints Physical Exam Vital Signs: Last Vital Signs Temp 97.0 F 12/18/24 07:46 Pulse 87 12/18/24 07:46 Resp 20 12/18/24 07:46 BP 106/62 12/18/24 07:46 Pulse Ox 94 12/18/24 07:46 O2 Del Method Room Air 12/18/24 07:46 BMI result Body Mass Index 21.3 GENERAL APPEARANCE: in no acute distress, pleasant. NECK: no carotid bruit, no jugular venous distention. SKIN: He had left chest wall scar from previous ICD placement. HEART: no murmurs, regular rate and rhythm. LUNGS: clear to auscultation bilaterally. ABDOMEN: soft, nontender. EXTREMITIES: no edema. PERIPHERAL PULSES: equal. NEUROLOGIC: No gross deficits, AAO X 3 Objective Labs and Meds 12/16/24 12:11 12/16/24 12:11 Progress Note: A&P Assessment and plan (1) CHF (congestive heart failure): Status: Acute Assessment and Plan: Acute decompensated congestive heart failure in this elderly woman due to noncompliance with the medications. Discussed with the help of spanish medical interpreter the importance of compliance with medication need for all her medications including pathophysiology of coronary artery disease as well as ischemic cardiomyopathy and congestive heart failure. I would continue with dual antiplatelet therapy till April of next year. Obtain records from [place]. Continue high-intensity statin therapy. Target goal LDL less than 50 mg/dL. Agree with Jardiance, spironolactone and metoprolol therapy. She is on midodrine therapy for unclear reasons. She is on the lower side. Would not add other vasodilators due to patient being on midodrine therapy. Will need an echocardiogram prior to discharge. I asked her about the device company and she is not aware but she says she has the card at home and she will bring it to the next office visit. Will sign of the case and patient probably can be discharged home later after echocardiogram is performed and will set up for outpatient follow-up Time Spent With Patient Time: Total time managing care of this patient today ____ minutes. Progress Note: Quality Stroke Does the patient have a stroke diagnosis?: No Procedures Date of Service Date of Service: 12/18/24
[2024-12-18 11:52] VITALS: BP 120/78; PULSE 81; RESP 20; TEMP 36.3; O2SAT 94
[2024-12-18 12:34] VITALS: BP 128/78
--- NOTE | 2024-12-18 13:33 | MHC.CM.PN ---
Patient has been medically cleared for dc to home today, self care.
--- NOTE | 2024-12-18 13:33 | PM.DS ---
DS: Providers Provider Date of Service: 12/18/24 Date of admission: 12/16/24 16:22 Date of discharge: 12/18/24 Primary care physician: Armen Bone PA-C Consults: 12/16/24 15:48 Consult to Cardiology Routine Consulting Provider: [facility] Reason for consultation: SC and AICD placed in [place]; now with SOB DS: Diagnosis Discharge Diagnosis (1) CHF (congestive heart failure): Status: Acute DS: Summary Hospital Course Hospital Course: History and physical as per admitting provider. This is a 74-year-old [place]ib[place]ian-speaking female with multiple medical issues who presents to the emergency department with shortness of breath. History was obtained with the assistance of a compact assembler. Patient reports 4 weeks of shortness of breath. There is no specific pattern to her breathing, it is not worse when she lies down flat it is not worse when she ambulates. She has had intermittent dry cough with a past several weeks. She sometimes gets chills but denies any fever. She has not had chest pain or palpitations. She denies any lower extremity edema. She denies any recent sick contacts. She states that in April she had an MRI while she was in [place], it seems at that time she had AICD placement although she is unable to provide any details regarding this. She has since returned to [place] but has yet to schedule an appointment with a roll or tape edge machine operator. In the emergency department lab work was relatively unremarkable. She was afebrile, labs revealed no leukocytosis. ProBNP was elevated at 2361. EKG showed previous infarct as compared to prior EKG from December. CXR was negative and viral screen for flu, RSV and covid was negative. In the emergency department she received a dose of IV Lasix and nitro paste and admission was requested overnight for observation. 74-year-old woman treated for acute on chronic decompensated heart failure in the setting of coronary artery disease, SC, stent placement and AICD in April. Chest x-ray negative, respiratory pathogen panel negative. Patient will need AICD interrogation outpatient Mild decompensated heart failure with reduced ejection fraction. Echocardiogram completed, EF of 20-25% as expected. To follow up outpatient with Cardiology History of coronary artery disease. Continue Brilinta, Jardiance, statin, beta yasmani and aspirin History of immunodeficiency. Continue current treatment. Follow up with Infectious Disease provider outpatient Asthma. No acute exacerbation. Continue albuterol inhalers as needed Hypothyroidism. Continue levothyroxine Retention. Continue metoprolol Time Attestation Discharge Coordination Time (in mins): 45 Quality: Safe Use of Opioids Does Pt have an Active Cancer Diagnosis on the Problem List?: No Quality: Stroke Does the patient have a stroke diagnosis?: No Physical Exam Exam: Exam: Appearing in no acute distress head is normocephalic atraumatic eyes pupils are PERRLA sclera is anicteric mouth throat mucous membranes are intact and moist neck is supple no lymphadenopathy, no JVD noted lung sounds are clear to auscultation heart regular rate rhythm, clear S1, S2 positive bowel sounds, abdomen is soft, nontender neuro patient is alert x3, no focal deficits Vital Signs: Vital Signs: Last Vital Signs Temp 97.3 F 12/18/24 11:52 Pulse 81 12/18/24 11:52 Resp 20 12/18/24 11:52 BP 128/78 12/18/24 12:34 Pulse Ox 94 12/18/24 11:52 O2 Del Method Room Air 12/18/24 11:52 BMI result Body Mass Index 21.3 Discharge Plan Discharge Anticipated Discharge Date/Time: 12/18/24 13:16 Patient Disposition: Home, Self-Care Discharge Diagnosis: Acute decompensated congestive heart failure History of coronary artery disease Referrals: Armen Bone PA-C [Primary Care Provider, Internal Medicine] - 1 Week Kelle Randolph MD [Physician, Infectious Disease] - 1 Week Discharge Medications: New aspirin 81 mg Tablet,Chewable 81 mg PO DAILY Qty: 30 0RF Continued sennosides [senna] 8.6 mg tablet 17.2 mg PO BEDTIME PRN (Reason: constipation) 15 Days Qty: 30 0RF albuterol sulfate 90 mcg/actuation HFA aerosol inhaler 2 inh inhalation Q4H PRN (Reason: for dyspnea) Qty: 6.7 6RF cholecalciferol (vitamin D3) 50 mcg (2,000 unit) capsule 50 mcg PO DAILY 90 Days Qty: 90 1RF calcium carbonate [Oyster Shell Calcium 500] 500 mg calcium (1,250 mg) tablet 500 mg PO DAILY 90 Days Qty: 90 1RF meloxicam 15 mg tablet 15 mg PO DAILY 30 Days Qty: 30 0RF albuterol sulfate 2.5 mg/0.5 mL solution for nebulization 5 mg inhalation Q4H PRN (Reason: shortness of breath or wheezing) Qty: 30 0RF ondansetron 8 mg Tablet,Disintegrating 8 mg PO Q8H PRN (Reason: Nausea And Vomiting) Qty: 30 2RF Juluca 50-25 mg tablet 1 tab PO DAILY Rx Instructions: must administer with a meal/food sumatriptan succinate 50 mg tablet 50 mg PO Q2-4H PRN (Reason: migraine headache) 30 Days Qty: 9 0RF Rx Instructions: do not exceed 4 doses per 24 hrs gabapentin 100 mg capsule 100 mg PO DAILY 30 Days Qty: 30 1RF estradiol 0.01 % (0.1 mg/gram) cream See Rx Instructions vaginal 3XW 90 Days Qty: 42.5 3RF Rx Instructions: vaginally 3 times a week; pea sized amount to urethra 3 times a week amitriptyline 25 mg tablet 25 mg PO BEDTIME 90 Days Qty: 90 2RF Myrbetriq 25 mg tablet extended release 24 hr 25 mg PO DAILY 90 Days Qty: 90 2RF famotidine 20 mg tablet 20 mg PO BID PRN (Reason: acid reflux) Trelegy Ellipta 200-62.5-25 mcg blister with device 1 inh inhalation DAILY 30 Days Qty: 1 6RF olopatadine [Pataday Once Daily Relief] 0.2 % drops 1 drp ophthalmic (eye) DAILY 30 Days Qty: 2.5 1RF atorvastatin 40 mg tablet 40 mg PO BEDTIME midodrine 5 mg tablet 5 mg PO TID spironolactone 25 mg tablet 12.5 mg PO DAILY nitroglycerin 0.4 mg tablet, sublingual 0.4 mg sublingual Q5M PRN (Reason: Chest Pain) metoprolol succinate 25 mg tablet extended release 24 hr 25 mg PO BEDTIME ranolazine 500 mg tablet extended release 12 hr 500 mg PO BID ticagrelor [Brilinta] 90 mg tablet 90 mg PO BID Jardiance 10 mg tablet 10 mg PO DAILY levothyroxine 50 mcg tablet 50 mcg PO DAILY hydroxyzine HCl 25 mg tablet 25 mg PO BEDTIME 90 Days Qty: 90 2RF Discontinued dicyclomine 20 mg tablet 20 mg PO TID 30 Days Qty: 90 2RF methocarbamol 750 mg tablet 750 mg PO TID PRN (Reason: pain (scale score 4-6)) Qty: 14 0RF clotrimazole-betamethasone 1-0.05 % cream 1 appl topical BID 30 Days Qty: 45 0RF phenazopyridine 100 mg tablet 100 mg PO Q8H 0 Days Qty: 6 0RF cetirizine 10 mg tablet 10 mg PO DAILY 90 Days Qty: 90 1RF montelukast 10 mg tablet 10 mg PO DAILY Qty: 90 2RF No Action (DME) AeroEclipse II Nebulizer Misc See Rx Instructions .Route Qty: 1 0RF Rx Instructions: As directed Discharge Orders: Discharge Order (Routine); Ordered 12/18/24 Ordered By: Heidy Pollock Diet: Advance to usual diet Activity on Discharge: As tolerated Stand Alone Forms: Patient Portal Discharge page Print Language: Djiboutian Care Plan Goals: Follow up with Dr. Korina Randolph, Infectious Disease provider Health Concerns: Acute decompensated congestive heart failure History of coronary artery disease Plan of Treatment: Follow up with primary care provider as needed Take all medications as prescribed Assessment: See discharge summary
[2024-12-18 16:00] VITALS: BP 118/75; PULSE 81; RESP 18; TEMP 36.1; O2SAT 96
[2024-12-21 17:39] LABS: Absolute CD3 Count 1135 cells/uL (840-3060); Absolute CD8 Count 565 cells/uL (180-1170); Percent CD3 Cells 57 % (57-85); Percent CD8 Cells 28 % (12-42)
== END 2024-12-18 18:31 | disposition home or self-care (01) ==
LOC: HO.ED 14:40 → HO.EDOVER 16:29 → HO.IMC 21:48
PROVIDERS: Registered Nurse Emergency; Admitting Provider Physician Assistant Medical; Emergency Provider Emergency Medicine; PCP Physician Assistant; Visit Provider Nurse Practitioner Acute Care
DX: I50.20 Unspecified systolic (congestive) heart failure (principal); I42.9 Cardiomyopathy, unspecified; R06.02 Shortness of breath; R06.00 Dyspnea, unspecified; B20 Human immunodeficiency virus [HIV] disease; E03.9 Hypothyroidism, unspecified; J45.909 Unspecified asthma, uncomplicated; I25.10 Atherosclerotic heart disease of native coronary artery without angina pectoris; Z95.810 Presence of automatic (implantable) cardiac defibrillator; Z79.899 Other long term (current) drug therapy; Z91.148 Patient's other noncompliance with medication regimen for other reason; Z03.818 Encounter for observation for suspected exposure to other biological agents ruled out
CPT/HCPCS: 36415; 71046; 80053; 82803; 83735; 83880; 84439; 84443; 84484; 85025; 85379; 85610; 86359; 86360; 87502; 87633; 87635; 93005; 93306; 94640; 96372; 99222; 99285; J1938

== ENCOUNTER → 2024-12-16 11:45 | Outpatient (BNV) | payer OTHER, SELFPAY | PROVIDERS: Emergency Provider Emergency Medicine; PCP Physician Assistant; Visit Provider Radiology Diagnostic Radiology | DX: R06.00 Dyspnea, unspecified (principal) | CPT/HCPCS: 71046 ==

== ENCOUNTER 2024-12-16 16:22 | Outpatient (BNV) | payer OTHER, SELFPAY | END 2024-12-18 07:00 | PROVIDERS: Admitting Provider Physician Assistant Medical; Emergency Provider Emergency Medicine; PCP Physician Assistant; Visit Provider Internal Medicine Cardiovascular Disease | DX: I42.2 Other hypertrophic cardiomyopathy (principal); I34.0 Nonrheumatic mitral (valve) insufficiency | CPT/HCPCS: 93306 ==

== ENCOUNTER → 2024-12-16 16:22 | Outpatient (BNV) | payer OTHER, SELFPAY | PROVIDERS: Admitting Provider Physician Assistant Medical; Emergency Provider Emergency Medicine; PCP Physician Assistant; Visit Provider Internal Medicine Cardiovascular Disease | DX: I42.9 Cardiomyopathy, unspecified (principal); R42 Dizziness and giddiness | CPT/HCPCS: 93010; 99223 ==

== ENCOUNTER → 2024-12-16 16:22 | Outpatient (BNV) | payer OTHER, SELFPAY | PROVIDERS: Admitting Provider Physician Assistant Medical; Emergency Provider Emergency Medicine; PCP Physician Assistant; Visit Provider Physician Assistant Medical | DX: I50.9 Heart failure, unspecified (principal) | CPT/HCPCS: 99223; 99232; 99239 ==

== ENCOUNTER 2024-12-21 13:53 | Outpatient (AMB) | payer OTHER, SELFPAY ==
--- NOTE | 2024-12-21 13:54 | A.OFFPC_ITS ---
Vital Signs 12/21/24 13:55 Height 5 ft 5 in Weight 131 lb 6 oz BMI 21.9 BP 110/60 Blood Pressure Location Lt brachial Position Sitting Respiration 18 Pulse 79 Pulse Source Pulse Oximeter Temp 96.6 F L Temp Source Temporal Artery Scan Pulse Oximetry (%) 99 Oxygen Delivery Method Room Air Intake Visit Reasons: [facility] 12/18 SOB Electric Vehicle Electrician Required: No Accompanied by: Self / Same As Patient Allergies blackberry Allergy (Intermediate, Verified 12/21/24 14:10) Itching long Allergy (Intermediate, Verified 12/21/24 14:10) Itching peanut (PEANUT) Allergy (Intermediate, Verified 12/21/24 14:10) RASH Sulfa (Sulfonamide Antibiotics) (SULFA (SULFONAMIDE ANTIBIOTICS)) Allergy (Intermediate, Verified 12/21/24 14:10) HIVES, hives, rash, hives, rash tramadol Allergy (Intermediate, Verified 12/21/24 14:10) nausea strawberry Allergy (Verified 12/21/24 14:10) Itching animals Allergy (Uncoded 12/21/24 14:10) Itching red fruit Allergy (Uncoded 12/21/24 14:10) Itching tree Allergy (Uncoded 12/21/24 14:10) eye swelling, itch Medication List - Last Reconciled 12/21/24 by Lillie Guajardo PA-C albuterol sulfate 5 mg inhalation Q4H PRN albuterol sulfate 90 mcg/actuation 2 inhalations inhalation Q4H PRN amitriptyline 25 mg PO BEDTIME 90 days aspirin 81 mg PO DAILY atorvastatin 40 mg PO BEDTIME calcium carbonate (Oyster Shell Calcium 500) 500 mg PO DAILY 90 days cholecalciferol (vitamin D3) 50 mcg PO DAILY 90 days dolutegravir-rilpivirine 50-25 mg (Juluca) 1 tab PO DAILY empagliflozin (Jardiance) 10 mg PO DAILY estradiol 0.01%(0.1mg/gram) vaginally 3 times a week; pea sized amount to urethra 3 times a week 90 days famotidine 20 mg PO BID PRN ddbuztqcpqo-fzcmyggbu-enwyqrsc 200-62.5-25 mcg (Trelegy Ellipta) 1 inh inhalation DAILY 30 days gabapentin 100 mg PO DAILY 30 days hydroxyzine HCl 25 mg PO BEDTIME 90 days levothyroxine 50 mcg PO DAILY meloxicam 15 mg PO DAILY 30 days metoprolol succinate ER 25 mg PO BEDTIME midodrine 5 mg PO TID mirabegron ER (Myrbetriq) 25 mg PO DAILY 90 days nebulizers (AeroEclipse II Nebulizer) As directed nitroglycerin 0.4 mg sublingual Q5M PRN olopatadine 0.2% (Pataday Once Daily Relief) 1 drp ophthalmic (eye) DAILY 30 days ondansetron 8 mg PO Q8H PRN ranolazine ER 500 mg PO BID sennosides (senna) 17.2 mg (2 x 8.6 mg) PO BEDTIME PRN 15 days spironolactone 12.5 mg PO DAILY sumatriptan succinate 50 mg PO Q2-4H PRN 30 days ticagrelor (Brilinta) 90 mg PO BID Tobacco use date assessed: 12/21/24 Fall risk assessment: No Falls in past year Last assessed Fall Risk: 12/21/24 Dental Screening Dental Screen Date: 12/21/24 Did you have a dental visit in the last 12 months?: No Did you have a dental problem in the last 6 months where you did not have access to dental care?: No Was dental information given to patient?: No HPI TCM [facility] 12/18 SOB HPI Details 74-year-old female with past medical his tory of dyslipidemia, hypothyroidism, HIV, asthma, GERD, depression, scleroderma, coronary artery disease, CHF last seen 10/2024 by PA coming in for hospital discharge follow up. In review of the notes, patient was seen in [facility] ED 12/16/2024 for shortness of breath in the ED received nitro paste and Lasix and admitted for chronic decompensated heart failure and AICD device interrogation. Echocardiogram revealed ejection fraction of 20-25% she has continued on her medications advised to follow up with infectious disease and cardiology outpatient. She was discharged home 12/18/2024 Presenting with a follow-up after hospitalization due to shortness of breath. Patient presents today with her daughter who reports the patient has been having worsening memory impairment. She often has to repeat herself and there are periods of confusion. Her breathing has improved since the hospital discharge and she is no longer having shortness of breath and denies any chest pain at this time. She is also requesting updated referral to Dermatology. TCM TCM Information Date of Discharge 12/18/24 Discharged From [facility] Interactive Contact Date (Reference documentation from this date) 12/19/24 [facility] Medical History Environmental allergies Conjunctiva disorder Wart of scalp COVID-19 Upper extremity neuropathy Right shoulder pain Right arm pain Physical exam Cough Left hip pain Left shoulder tendinitis Left shoulder pain GERD (gastroesophageal reflux disease) Asthma Urticaria Fracture of left hip requiring operative repair HIV (human immunodeficiency virus infection) Hypothyroidism Dyslipidemia Verruca TIA (transient ischemic attack) Asthma Surgical History History of permanent cardiac pacemaker placement History of hip replacement, total History of lumbar fusion History of section H/O umbilical hernia repair Hx of colonoscopy Family History Father Cancer Diabetes Mother Cancer Diabetes Brother Colon polyps Social History Household Members: None Housing: Apartment Alcohol intake: never Patient Tobacco Use Status: Never used Tobacco Tobacco use type: Cigarette e-Cigarette/Vaping Use: Never Used Second Hand Smoke Exposure: No Substance Use Type: Marijuana service: No Current occupational status: retired Cognitive needs: No Hearing needs: No Vision needs: Yes (Glasses) Questionnaire Thrive Questionnaire Date Thrive assessed: 11/21/24 I am a: Patient What is your living situation today?: I have a steady place to live Within the past 12 months, did the food you bought not last and you didn't have the money to get more?: Never true Within the past 12 months, did you worry whether your food would run out before you got money to buy more?: Never true Do you have trouble paying for medicines?: No Do you have trouble getting transportation to medical appointments?: No Do you have trouble paying your heating and electricity bill?: No Do you have trouble taking care of your child, family member or friend?: No Do you have trouble with day-to-day activities such as bathing, preparing meals, shopping, managing finances, etc.?: Yes Are you currently unemployed and looking for a job?: No Are you interested in more education?: No Please select the resources that you would like help with: None Currently or been in a relationship where the following occur: No concerns reported THRIVE Score: 0 IAN-7 AMB Questionnaire IAN-7 Date IAN - 7 assessed: 11/21/24 Source: Developed by Drs. Bobo Mccall, Karen Huber, Jason Soria and colleagues, with an educational ramin from [employer]. Review of Systems Const Denies body aches, Denies chills, Denies fever(s), Denies headache(s) and Denies poor appetite Eyes Reports no additional complaints ENT Denies dizziness and Denies headache(s) Card Denies chest pain, Denies syncope, Denies edema, Denies irregular heart rhythm, Denies lightheadedness and Denies dyspnea Resp Denies cough and Denies dyspnea GI Denies diarrhea, Denies nausea and Denies vomiting Reports no additional complaints Musc Reports no additional complaints and Denies abnormal gait Skin/Breast Reports system reviewed and no additional complaints, except as documented Neuro Denies abnormal gait, Denies dizziness, Denies syncope and Denies headache(s) Psych Reports no additional complaints Physical exam (Primary Care) Vital Signs: Last Vital Signs Temp 96.6 F L 12/21/24 13:55 Resp 18 12/21/24 13:55 Oxygen Delivery Method Room Air 12/21/24 13:55 BMI result Body Mass Index 21.9 Tobacco/Smoking Status: Tobacco use Status Tobacco use date assessed 12/21/24 12/21/24 13:56 Patient Tobacco Use Status Never used Tobacco 12/21/24 13:56 Tobacco use type Cigarette 12/21/24 13:56 e-Cigarette/Vaping Use Never Used 12/21/24 13:56 Thrive Assessment: Date of Thrive Assessment Date Thrive assessed 11/21/24 12/21/24 13:56 Currently or been in a relationship where the following occur: No concerns reported Const General: cooperative, healthy appearing, comfortable and no acute distress Orientation/consciousness: patient oriented x3 HENMT Head: Yes normocephalic Ears: hearing grossly normal bilaterally General nose exam: Normal external nose present Eyes General: appearance normal, both eyes and all related structures Conjunctivae: conjunctivae normal Neck Neck: Yes full ROM and Yes no lymphadenopathy Resp Effort & Inspection: normal respiratory effort Auscultation: clear to auscultation bilaterally, no crackles, no rales, no rhonchi and no wheezes Cardio Rate: regular rate Rhythm: regular rhythm Skin General skin exam: no rashes or lesions noted Neuro General: patient oriented x3 Gait exam (Neuro): Normal gait present Extrem General: Yes normal to inspection, Yes full ROM and No edema Psych Affect: normal affect Attitude: cooperative Insight: Good insight present (Psych) Judgement: Good judgement present (Psych) Coding Level of Care Code TCM Mod MDM <= 7 Days Complex EM visit Add On G2211 Diagnoses CHF (congestive heart failure) I50.9 Cardiomyopathy I42.[address] Z95.810 Asymptomatic HIV infection, with no history of HIV-related illness Z21 HIV symptom status: asymptomatic, with no history of HIV-related illness Moderate persistent asthma without complication J45.40 Asthma severity: moderate Asthma persistence: persistent Asthma complication type: uncomplicated Shortness of breath R06.02 Memory impairment R41.3 Scalp lesion L98.9 Assessment & Plan Assessment & Plan (1) CHF (congestive heart failure): Comment: Echo 11/2024 EF 20-25% Code(s): I50.9 - Heart failure, unspecified Category: Medical Plan: Patient has a appointment with Cardiology 01/01/2025. She will continue on her current medication regimen as prescribed by the hospital of spironolactone, metoprolol, Jardiance and aspirin. Clinically euvolemic on exam today and denying any symptoms of shortness of breath, swelling or chest pain. I did review with the patient red flag symptoms and when to present for 2 for re- evaluation. She will follow up with her PCP in 3 months. (2) Cardiomyopathy: Code(s): I42.9 - Cardiomyopathy, unspecified Category: Medical Plan: See above (3) Cardiac defibrillator in place: Code(s): Z95.810 - Presence of automatic (implantable) cardiac defibrillator Category: Medical Plan: Awaiting appointment with cardiology and recently had device interrogation (4) HIV (human immunodeficiency virus infection): Code(s): B20 - Human immunodeficiency virus [HIV] disease Category: Medical Qualifiers: HIV symptom status: asymptomatic, with no history of HIV-related illness Qualified Code(s): Z21 - Asymptomatic human immunodeficiency virus [HIV] infection status Plan: Continue to follow up with infectious disease provider (5) Asthma: Code(s): J45.909 - Unspecified asthma, uncomplicated Category: Medical Qualifiers: Asthma severity: moderate Asthma persistence: persistent Asthma complication type: uncomplicated Qualified Code(s): J45.40 - Moderate persistent asthma, uncomplicated Plan: Patient reports her shortness of breath have been improving and has not been using her inhaler often. She no longer uses the Trelegy and uses albuterol only as needed denies any nocturnal symptoms. She will reach out if she begins to use the albuterol more frequently (6) Shortness of breath: Code(s): R06.02 - Shortness of breath Category: Medical Plan: Resolved at this time lungs are CTA (7) Memory impairment: Code(s): R41.3 - Other amnesia Category: Medical Plan: She does report mild memory impairment with needing to repeat certain things. Denies any dangerous behaviors such as wandering or leaving the stove or oven on. She is requesting referral to Neurology was has been placed today (8) Scalp lesion: Code(s): L98.9 - Disorder of the skin and subcutaneous tissue, unspecified Category: Medical Plan: Requesting referral to Dermatology which has been placed today Plan This note was constructed using voice recognition software. While every effort has been made to ensure accuracy and actuarial internship, still areas may have been included sometimes these areas may affect the content or meeting of the given symptoms. Total time spent caring for the patient today was 20 minutes. This includes time spent before the visit reviewing the chart, time spent during the visit, and time spent after the visit and documentation. Patient was informed and verbally consented to the use of an ambient scribe for clinic note documentation during this visit. Orders: Referrals Neurology Referral R41.3 - Other amnesia Dermatology Referral L98.9 - Disorder of the skin and subcutaneous tissue, unspecified Medications: New empagliflozin (Jardiance) 10 mg PO DAILY 90 tabs 0RF Z95.810 - Presence of automatic (implantable) cardiac defibrillator levothyroxine 50 mcg PO DAILY 30 tabs 0RF Z95.810 - Presence of automatic (implantable) cardiac defibrillator metoprolol succinate ER 25 mg PO BEDTIME 30 tabs 0RF Z95.810 - Presence of automatic (implantable) cardiac defibrillator Refilled gabapentin 100 mg PO DAILY 30 caps 0RF pain (scale score 7-10) 30 days G56.90 - Unspecified mononeuropathy of unspecified upper limb Discontinued iagdngezvxa-euqasragn-xlcgldcq 200-62.5-25 mcg (Trelegy Ellipta) Discontinued Reason: Patient no longer taking 1 inh inhalation DAILY 30 days 1 ea 6RF meloxicam Discontinued Reason: Patient no longer taking 15 mg PO DAILY 30 days 30 tabs 0RF M25.50 - Pain in unspecified joint
[2024-12-21 13:55] VITALS: BP 110/60; PULSE 79; RESP 18; TEMP 35.9; O2SAT 99; BMI 21.9
--- OUTSIDE RECORDS SUMMARY | 2024-12-21 17:47 | XMS_ITS | Data Portability ---
Author Organization HARVEY - HERNANDEZ JACK MD [facility], Main Office Address [address] [place] [address] Assessment Encounter Date Assessment Date Assessment LastModified by Organization Details LastModified Time 01/19/2023 01/19/2023 Telemedicine visit. [place] home in [place] audio. [email or web address] Not available 01/20/2023 01:42:24 02/08/2023 02/08/2023 Telemedicine visit. 15 [place] in [place] audio. [email or web address] Not available 02/08/2023 11:36:08 04/21/2023 04/21/2023 Telemedicine visit. doximity. 17 min. VIDEO. [place] in [place]. [email or web address] Not available 04/26/2023 10:01:42 Plan of Treatment Reminders Order Date Submit Date Provider Last Modified By Organization Details Last Modified Time Details Appointments B20 FOLLOW UP 2024 02:00P M Hernandez Heck MD Not available Not available Not available Lab urinalysi s, reflex culture [address], [address] [place] [address], [id number], 10/29/2023 12:38:45 CBC w/ diff [address], [address], 11/05/2023 08:35:10 electroly lina panel, blood [address], [address] [place] [address], [address], 11/05/2023 08:35:10 ALT (alanine aminotran sferase), serum or plasma [address], [address] [place] [address], [address], 11/05/2023 08:35:11 AST/SGOT (aspartat e aminotran sferase), serum or plasma [address], [address] [place] [address], [address], 11/05/2023 08:35:11 CT + NG DNA, PCR, unspecifi ed specimen [address], [address] [place] [address], 8[address], 11/05/2023 08:35:11 creatinin e w/ estimated GFR (eGFR), serum or plasma [address], [address] [place] [address], [address], 11/05/2023 08:35:11 hepatitis C virus Ab, serum [address], [address] [place] [address], 19[address], 11/05/2023 08:35:11 HIV-1 RNA, quantitat elisabeth, PCR, serum or plasma [address], [address] [place] [address], 14[address], 11/05/2023 08:35:11 RPR (rapid plasma reagin), serum [address], [address] [place] [address], 120[address], 11/05/2023 08:35:11 T-cell regulator y subsets panel, blood [address], [address] [place] [address], 77[address], 11/05/2023 08:35:11 HBsAg (hepatiti s B surface Ag), EIA, serum [address], [address] [place] [address], [address], 11/05/2023 08:35:11 CBC w/ diff [address], [address] [place] [address], 39[address], 07/29/2023 09:08:05 electroly lina panel, blood [address], [address] [place] [address], 99226, 07/29/2023 09:08:05 ALT (alanine aminotran sferase), serum or plasma [address], [address] [place] [address], 87570, 07/29/2023 09:08:05 AST/SGOT (aspartat e aminotran sferase), serum or plasma [address], [address] [place] [address], 77[address], 07/29/2023 09:08:05 CT + NG DNA, PCR, unspecifi ed specimen [address], [address] [place] [address], 6[address], 07/29/2023 09:08:05 creatinin e w/ estimated GFR (eGFR), serum or plasma [address], [address] [place] [address], 36[address], 07/29/2023 09:08:06 hepatitis C virus Ab, serum [address], [address] [place] [address], 19[address], 07/29/2023 09:08:06 HIV-1 RNA, quantitat elisabeth, PCR, serum or plasma [address], [address] [place] [address], 59265, 07/29/2023 09:08:06 RPR (rapid plasma reagin), serum [address], [address] [place] [address], 895[address], 07/29/2023 09:08:06 T-cell regulator y subsets panel, blood [address], [address] [place] [address], 60462, 07/29/2023 09:08:06 HBsAg (hepatiti s B surface Ag), EIA, serum [address], [address] [place] [address], 969[address], 07/29/2023 09:08:06 CBC w/ diff [address], [address] [place] [address], [address], 05/03/2023 17:39:13 electroly lina panel, blood [address], [address], 05/03/2023 17:39:13 ALT (alanine aminotran sferase), serum or plasma [address], [address], 05/03/2023 17:39:14 AST/SGOT (aspartat e aminotran sferase), serum or plasma [address] [place] [address], [address] [place] [address], 386[address], 05/03/2023 17:39:14 CT + NG DNA, PCR, unspecifi ed specimen [address] [place] [address], [address] [place] [address], 53[address], 05/03/2023 17:39:14 creatinin e w/ estimated GFR (eGFR), serum or plasma [address] [place] [address], [address] [place] [address], 00847, 05/03/2023 17:39:14 hepatitis C virus Ab, serum [address] [place] [address], [address] [place] [address], 446[address], 05/03/2023 17:39:14 HIV-1 RNA, quantitat elisabeth, PCR, serum or plasma [address] [place] [address], [address] [place] [address], 13[address], 05/03/2023 17:39:14 RPR (rapid plasma reagin), serum [address] [place] [address], [address] [place] [address], 31079, 05/03/2023 17:39:14 T-cell regulator y subsets panel, blood [address] [place] [address], [address] [place] [address], 739[address], 05/03/2023 17:39:14 HBsAg (hepatiti s B surface Ag), EIA, serum [address], [address] [place] [address], 867[address], 05/03/2023 17:39:14 CBC w/ diff [address], [address] [place] [address], 34836, 02/15/2023 10:20:54 electroly lina panel, blood [address], [address] [place] [address], 09151, 02/15/2023 10:20:54 ALT (alanine aminotran sferase), serum or plasma [address], [address] [place] [address], 71704, 02/15/2023 10:20:54 AST/SGOT (aspartat e aminotran sferase), serum or plasma [address], [address] [place] [address], 39616, 02/15/2023 10:20:54 CT + NG DNA, PCR, unspecifi ed specimen [address], [address] [place] [address], 41050, 02/15/2023 10:20:55 creatinin e w/ estimated GFR (eGFR), serum or plasma [address], [address] [place] [address], 23308, 02/15/2023 10:20:55 hepatitis C virus Ab, serum [address], [address] [place] [address], 66766, 02/15/2023 10:20:55 HIV-1 RNA, quantitat elisabeth, PCR, serum or plasma [address], [address] [place] [address], 80702, 02/15/2023 10:20:55 RPR (rapid plasma reagin), serum [address] [place] [address], [address] [place] [address], 18937, 02/15/2023 10:20:56 T-cell regulator y subsets panel, blood [address], [address] [place] [address], 07552, 02/15/2023 10:20:56 HBsAg (hepatiti s B surface Ag), EIA, serum [address], [address] [place] [address], 28271, 02/15/2023 10:20:56 Referral None recorded. Procedures None recorded. Surgeries None recorded. Imaging None recorded. Medication Orders Juluca 50 mg-25 mg tablet 2023 024 [id number], [address] [place], [address], 10/29/2023 11:57:52 Juluca 50 mg-25 mg tablet 2023 024 [id number], [address] [place], [address], 07/22/2023 15:27:41 Juluca 50 mg-25 mg tablet 2023 024 [id number], [address] [place], [address], 04/26/2023 10:02:19 Juluca 50 mg-25 mg tablet 2022 023 [id number], [address] [place], [address], 02/08/2023 11:46:18 Juluca 50 mg-25 mg tablet 2022 023 [id number], [address] [place], [address], 01/20/2023 01:44:13 Patient TargetsNo targets recorded. Patient InstructionsNo instructions recorded. Reason for Referral None Reported. Results Created Date Observation Date Name Description Value Unit Range Abnormal Flag Note LastModifiedBy Organization Detail LastModifiedTime 10/29/19 24 10/29/2023 UA WITH CULTU RE IF INDIC ATED glucose, (UA) NEGATI VE mg/dL negati ve Not Available [facility] [address] [place], [address], 10/29/2023 19:47:43 10/29/19 24 10/29/2023 UA WITH CULTU RE IF INDIC ATED bilirubin, urine NEGATI VE negati ve Not Available [facility] [address] [place], [address], 10/29/2023 19:47:43 10/29/19 24 10/29/2023 UA WITH CULTU RE IF INDIC ATED ketone, urine NEGATI VE mg/dL negati ve Not Available [facility] [address] [place], [address], 10/29/2023 19:47:43 10/29/19 24 10/29/2023 UA WITH CULTU RE IF INDIC ATED specific gravity, urine 1.008 1.003- 1.030 Not Available [facility] [address] [place], [address], 10/29/2023 19:47:43 10/29/19 24 10/29/2023 UA WITH CULTU RE IF INDIC ATED blood, urine NEGATI VE negati ve Not Available [facility] [address] [place], [address], 10/29/2023 19:47:43 10/29/19 24 10/29/2023 UA WITH CULTU RE IF INDIC ATED pH, urine 7.0 5.0-8. 0 Not Available [facility] [address] [place], [address], 10/29/2023 19:47:43 10/29/19 24 10/29/2023 UA WITH CULTU RE IF INDIC ATED protein, urine NEGATI VE mg/dL <= trace Not Available [facility] [address] [place], [address], 10/29/2023 19:47:43 10/29/19 24 10/29/2023 UA WITH CULTU RE IF INDIC ATED urobilinogen , urine 0.2 E.U./ dL 0.2-1. 0 Not Available [facility] [address] [place], [address], 10/29/2023 19:47:43 10/29/19 24 10/29/2023 UA WITH CULTU RE IF INDIC ATED nitrite, urine NEGATI VE negati ve Not Available [facility] [address] [place], [address], 10/29/2023 19:47:43 10/29/19 24 10/29/2023 UA WITH CULTU RE IF INDIC ATED leukocyte esterase, urine TRACE negati ve abnormal Not Available [facility] [address] [place], [address], 10/29/2023 19:47:43 10/29/19 24 10/29/2023 UA WITH CULTU RE IF INDIC ATED RBC, urine 5 /hpf 0-4 high Not Available [facility] [address] [place], [address], 10/29/2023 19:47:43 10/29/19 24 10/29/2023 UA WITH CULTU RE IF INDIC ATED WBC, urine 2 /hpf 0-4 Not Available [facility] [address] [place], [address], 10/29/2023 19:47:43 10/29/19 24 10/29/2023 UA WITH CULTU RE IF INDIC ATED epith cells, urine 38 /lpf 0-60 Not Available [facility] [address] [place] [address], [address], 10/29/2023 19:47:43 10/29/19 24 10/29/2023 UA WITH CULTU RE IF INDIC ATED bacteria, urine NEGATI VE negati ve Not Available [facility] [address] [place] [address], [address], 10/29/2023 19:47:43 10/29/19 24 10/29/2023 UA WITH CULTU RE IF INDIC ATED performing lab [facility] [address] [place] [address] Medic al Bill mahoney MD Not Available [facility] [address] [place] [address], [address], 10/29/2023 19:47:43 10/29/19 24 10/29/2023 URINE CULTU RE performing lab [facility] [address] [place] [address] Medic al Bill mahoney MD Not Available [facility] [address] [place] [address], [address], 10/31/2023 11:56:24 10/29/19 24 10/30/2023 URINE CULTU RE urine culture <10,0 00 CFU/m L GRAM POSIT ELISABETH COCCI AND GRAM NEGAT ELISABETH BACIL LI Not Available [facility] [address] [place] [address], [address], 10/31/2023 11:56:24 Result Notes None recorded. Problems Name Problem SNOMED Code Status Onset Date Resolution Date Notes Provider Name and Address Organization Details Recorded Time Syphilis 83766611 Active 2013 Syphilis , unspecif ied; snomedde scriptio n: Syphilis ; Report Immunity to Registry : Yes; Notes: hx of syphilli s. she was treated at [facility] 2002; Syphili s; snomedde scriptio n: Syphilis ; Report Immunity to Registry : Yes; Notes: hx of syphilli s. 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; snomedde scriptio n: Hypothyr oidism; Report Immunity to Registry : Yes; Unspeci fied hypothyr oidism; snomedde scriptio n: Hypothyr oidism; Report Immunity to Registry : Yes; Not Available [facility] 4 06:58:27 Chronic kidney disease 447502324 Active 2016 Chronic kidney disease; snomedde scriptio n: Chronic kidney disease; Report Immunity to Registry : Yes; Not Available [facility] 4 06:58:26 Viral hepatiti s B without hepatic coma 665400712 Active 2016 Unspecif ied viral hepatiti s B without hepatic coma; snomedde scriptio n: Type B viral hepatiti s; Report Immunity to Registry : Yes; Notes: HBV core ab pos; s ag neg; s ab pos HBV VL nondetec jayda 2017; Not Available [facility] 4 06:58:26 Type B viral hepatiti s 88836132 Active 2016 Type B viral hepatiti s; snomedde scriptio n: Type B viral hepatiti s; Report Immunity to Registry : Yes; Notes: HBV core ab pos; s ag neg; s ab pos HBV VL nondetec jayda 2017; Not Available [facility] 4 06:58:26 Genital herpes simplex 10805004 Active 2017 Genital herpes simplex; snomedde scriptio n: Genital herpes simplex; Report Immunity to Registry : Yes; Notes: HSV 1 and 2 pos serology ; Not Available [facility] 4 06:58:27 Anogenit al herpesvi ral infectio n 611469127 Active 2017 Anogenit al herpesvi ral infectio n, unspecif ied; snomedde scriptio n: Genital herpes simplex; Report Immunity to Registry : Yes; Notes: HSV 1 and 2 pos serology ; Not Available [facility] 4 06:58:27 Methicil chari resistan t Staphylo coccus aureus infectio n 716608622 Completed 201804/21/2023 Methicil chari resistan t Staphylo [...] te: 11/08/19 19; Notes: culture; Not Available [facility] 4 06:58:26 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 Age-rela jayda osteopor osis without current patholog ical fracture ; snomedde scriptio n: Osteopor osis; Report Immunity to Registry : Yes; Notes: per report; Not Available [facility] 4 06:58:26 Human immunode ficiency virus infectio n 28585421 Active 2019 Human immunode ficiency virus [HIV] disease; snomedde scriptio n: Human immunode ficiency virus infectio n; Report Immunity to Registry : Yes; Notes: [id number] neg; Human immunode ficiency virus infectio n; snomedde scriptio n: Human immunode ficiency virus infectio n; Report Immunity to Registry : Yes; Notes: [id number] neg; Not Available [facility] 4 06:58:26 Osteopor osis 84621100 Active 2019 Osteopor osis; snomedde scriptio n: Osteopor osis; Report Immunity to Registry : Yes; Notes: per report; Not Available [facility] 4 06:58:26 Problem Notes None recorded. Medical [...] Not Available Not Available Not Available Fluvirin 5068-3597 45 mcg (15 mcg x 3)/0.5 mL [...] Not Available No t Available Afluria Quad 0038-3899 (6mo up) 60 mcg (15 mcg x [...] /min 12 /min 98.3 [degF] 25.9 kg/m2 27664.1 5 g 130/98 mm[Hg] Sherrell [facility] 4 11:36:06 Date Recorded Heart rate Body temperature Body weight Oxygen saturation Oxygen saturation in Arterial blood by Pulse oximetry Systolic And Diastolic Provider Name and Address Organization Details Last Updated DateTime 3 86 /min 98.3 [degF] 90550.1 9 g 98 % 98 % 100/86 mm[Hg] Macy HECK MD [facility] 11:24:05 Social History Question Answer Notes LastModified by Organizat ion Details LastModified Time Tobacco Smoking Status Never Smoker HARVEY Pacheco MD [facility] 02/08/2023 11:24:56 Are You Blind Or Do You Have Difficulty Seeing? No [email or web address] Information not available 02/08/2023 Are You Deaf Or Do You Have Serious Difficulty Hearing? No [email or web address] Information not available 02/08/2023 Which Of Your Hands Is Dominant? Right [email or web address] Information not available 02/08/2023 What Is Your Relationship Status? Single [email or web address] Information not available 02/08/2023 Have You Recently Traveled Abroad? No [email or web address] Information not available 02/08/2023 Do You Have Difficulty Walking Or Climbing Stairs? No [email or web address] Information not available 02/08/2023 Sex: Female Functional Status Question Answer Note LastModified by Organizat [employer] Details LastModified Time Do you have transportation difficulties? No [email or web address] Information not available 02/08/2023 Are you able to walk independently without assistance or assistive devices? YESWOREST [email or web address] Information not available 02/08/2023 Do you have difficulty doing errands alone? No [email or web address] Information not available 02/08/2023 Are you able to care for yourself independently? Yes [email or web address] Information not available 02/08/2023 Do you have difficulty dressing, bathing, grooming, or toileting? No [email or web address] Information not available 02/08/2023 Mental Status Question Answer Note LastModified by Organization D etails LastModified Time Do you have difficulty concentrating, remembering or making decisions? No [email or web address] Information no t available 02/08/2023 Family History [...] pneumococcal polysaccharide PPV23 2 completed Not Available [facility] 04/21/2023 06:54:18 Influenza, split virus, quadrivalent, preservative 2 completed Not Available [facility] 04/21/2023 06:54:19 Past Encounters Encounter ID Performer Location Encounter Start Date Encounter Closed Date Diagnosis/Indication Diagnosis SNOMED-CT Code Diagnosis ICD10 Code Diagnosis IMO Codes Diagnosis Note [id number] Hernandez Heck MD Main Office [address] [place] [phone] 11/25/2022 10:31:16 11/25/2022 13:29:04 Human immunodeficiency virus infection 22714751 B20 HIV: Continue Juluca 1 tab po [...] reviewed. [id number] Hernandez Heck MD Main Office [address] [place] [phone] 01/19/2023 17:46:42 01/25/2023 13:33:20 Human immunodeficiency virus infection 70432408 B20 HIV: Continue Juluca 1 tab po [...] reviewed. [id number] Hernandez Heck MD Main Office [address] [place] [phone] 02/08/2023 11:03:57 02/08/2023 11:56:42 Human immunodeficiency virus infection 49764238 B20 HIV:Contin ue Juluca 1 tab po qd w food. keep same regimen for now.Strict compliance w regimen reviewed; keep viral suppressio n, prevent resistance and prevent transmissi on.labssaf e sex. U=U. condom use reviewed.v accines recommende d.f/u PCP.plan of care reviewed. [id number] Hernandez Heck MD Main Office [address] [place] [address] 04/21/2023 11:34:14 04/21/2023 13:11:13 Human immunodeficiency virus infection 41768813 B20 HIV:Contin ue Juluca 1 tab po qd w food. keep same regimen for now.Strict compliance w regimen reviewed; keep viral suppressio n, prevent resistance and prevent transmissi on.labssaf e sex. U=U. condom use reviewed.a richter of PreP availabili tyf/u PCP.plan of care reviewed. [id number] Hernandez Heck MD Main Office [address] [place] [phone] 07/21/2023 14:24:58 07/22/2023 16:02:07 Human immunodeficiency virus infection 19331798 B20 HIV:Contin ue Juluca 1 tab po qd w food. keep same regimen for now.Strict compliance w regimen reviewed; keep viral suppressio n, prevent resistance and prevent transmissi on.labssaf e sex. U=U. condom use reviewed.a richter of PreP availabili tyaware of DoxyPRPf/u PCP.plan of care reviewed. [id number] Hernandez Heck MD Main Office [address] [place] [address] 10/29/2023 11:09:03 10/29/2023 12:05:39 Human immunodeficiency virus infection 40211900 B20 HIV:Contin ue Juluca 1 tab po [...] Spikevax 2023f/u PCP.plan of care reviewed. Dysuria 59464683 R30.0 u/a and u/chydrati on Health Concerns Section Related Observation LastModified by Organization Detai ls LastModified Time None Recorded Concern Status LastModified by Organization Details LastModified Time None Recorded Advance Directives Directive None Recorded Payers Insurance Date Sequence Insurance Name Policy Number Policy Mcgraw Covered Member ID Mcgraw Member ID Guarantor Name 10/23/2024 1 [facility] - DOS ON OR AFTER 2022 - [employer] AND ONE CARE (MEDICARE REPLACEMENT/AD VANTAGE - PPO) Yamile Whiteon [id number] 12/12/2024 1 [place]: [facility] Yamile Whiteon [id number] 11/27/2024 1 [place] [facility] Yamile John Whiteon [id number] 11/27/2024 1 [facility] Yamile Whiteon [id number] 12/12/2024 1 [place] [facility] Yamile lira Leon [id number] 12/12/2024 2 [facility] - DOS ON OR AFTER 2022 - ONE CARE (MEDICARE REPLACEMENT/AD VANTAGE - HMO) Yamile Whiteon [id number] Notes Date Note Type Note Provider Name [...] po qd. taking with food.doing well on tx.dmkoqkedhw42/2023 HIV VL buqijqwjlyt97/2022 HIV VL nondetected; AN3=130tGEA>55= ALT/AST wnl; GC/chlamydia neg; neg; HCV neg; HBV s ag neg;08/2021 eGFR>55; AST/ALT wnl; HCV ab neg; GC/chlamydia neg; syphilis neg; HIV VL nondetected; Hernandez Heck MD [address] [place] [address], [phone], HARVEY HECK MD [facility] 01/20/2023 01:44:48 02/08/2023 text/html ROS as noted in the HPI f/u HIVon Juluca 1 tab po qd.taking with food.doing well on tx.qjmmjjfyat40/2023 HIV VL wtmykvtmwrt22/2022 HIV VL nondetected; LU7=758jXPU>55= ALT/AST wnl; GC/chlamydia neg; neg; HCV neg; HBV s ag neg;08/2021 eGFR>55; AST/ALT wnl; HCV ab neg; GC/chlamydia neg; syphilis neg; HIV VL nondetected;declines vaccines this yearworkup for cancer tomorrow. Hernandez Heck MD [address] [place] [address], [phone], HARVEY HECK MD [facility] 02/08/2023 11:46:31 04/21/2023 text/html ROS as noted in the HPI f/u HIVon Juluca 1 tab po qd.taking with food.compliantlabs reviewed.01/2023 HIV VLNondetceted; CD4 24743 HIV VL asoxxpjsagt37/2022 HIV VL nondetected; UN7=105uCAI>55= ALT/AST wnl; GC/chlamydia neg; neg; HCV neg; HBV s ag neg;08/2021 eGFR>55; AST/ALT wnl; HCV ab neg; GC/chlamydia neg; syphilis neg; HIV VL nondetected; Hernandez Heck MD [address] [place] [address], [phone], HARVEY HECK MD [facility] 04/26/2023 10:02:26 07/21/2023 text/html ROS as noted in the HPI f/u HIVon Juluca 1 tab po qd.taking with food.compliantlabs reviewed.01/2023 HIV VLNondetceted; CD4 99715/2022 HIV VL ofgvvgjczgy05/2022 HIV VL nondetected; JI6=621vBJO>55= ALT/AST wnl; GC/chlamydia neg; neg; HCV neg; HBV s ag neg;08/2021 eGFR>55; AST/ALT wnl; HCV ab neg; GC/chlamydia neg; syphilis neg; HIV VL nondetected;will be going to [facility] in July 2023 to visit daughter.she might move to [facility] on Dec 2023 Hernandez Heck MD [address] [place] [address], [phone], HARVEY HECK MD [facility] 07/22/2023 15:27:39 10/29/2023 text/html ROS as noted in the HPI f/u HIVon Juluca 1 tab po qd.taking with food.compliantaware of new regimens, but has preferred not to switch.labs reviewed.07/2023 HIV VL nondetected; ALt/AST wnl; eGFR nl01/2023 HIV VLNondetceted; CD4 75995 HIV VL hghxycyoyeh90/2022 HIV VL nondetected; KD1=940bUIT>55= ALT/AST wnl; GC/chlamydia neg; neg; HCV neg; HBV s ag neg;08/2021 eGFR>55; AST/ALT wnl; HCV ab neg; GC/chlamydia neg; syphilis neg; HIV VL nondetected;will be going to [facility] in July 2023 to visit daughter.she might move to [facility] on Dec 2023 Hernandez Heck MD [address] [place] [address], [phone], HARVEY HECK MD [facility] 10/29/2023 13:59:07 OBGyn Episode No OBEpisode recorded.
== END 2024-12-21 14:38 | disposition home or self-care (01) ==
LOC: HO.HMCH 13:54
PROVIDERS: PCP Physician Assistant
DX: I50.9 Heart failure, unspecified (principal); I42.9 Cardiomyopathy, unspecified; Z21 Asymptomatic human immunodeficiency virus [HIV] infection status; Z95.810 Presence of automatic (implantable) cardiac defibrillator; J45.40 Moderate persistent asthma, uncomplicated; R06.02 Shortness of breath; R41.3 Other amnesia; L98.9 Disorder of the skin and subcutaneous tissue, unspecified

== ENCOUNTER → 2024-12-21 13:53 | Outpatient (BNVA) | payer OTHER, SELFPAY | PROVIDERS: PCP Physician Assistant | DX: J45.40 Moderate persistent asthma, uncomplicated (principal); I42.9 Cardiomyopathy, unspecified; E78.5 Hyperlipidemia, unspecified; R41.3 Other amnesia; L98.9 Disorder of the skin and subcutaneous tissue, unspecified; G56.90 Unspecified mononeuropathy of unspecified upper limb; M25.50 Pain in unspecified joint; I50.9 Heart failure, unspecified; Z21 Asymptomatic human immunodeficiency virus [HIV] infection status; Z95.810 Presence of automatic (implantable) cardiac defibrillator | CPT/HCPCS: 99495 ==

== ENCOUNTER 2025-01-23 15:17 | Outpatient (AMB) | payer OTHER, SELFPAY ==
--- NOTE | 2025-01-23 15:37 | MHC.OFFVIS ---
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: No Allergies blackberry Allergy (Intermediate, Verified 12/21/24 14:10) Itching long Allergy (Intermediate, Verified 12/21/24 14:10) Itching peanut (PEANUT) Allergy (Intermediate, Verified 12/21/24 14:10) RASH Sulfa (Sulfonamide Antibiotics) (SULFA (SULFONAMIDE ANTIBIOTICS)) Allergy (Intermediate, Verified 12/21/24 14:10) HIVES, hives, rash, hives, rash tramadol Allergy (Intermediate, Verified 12/21/24 14:10) nausea strawberry Allergy (Verified 12/21/24 14:10) Itching animals Allergy (Uncoded 12/21/24 14:10) Itching red fruit Allergy (Uncoded 12/21/24 14:10) Itching tree Allergy (Uncoded 12/21/24 14:10) eye swelling, itch Medication List - Last Reconciled 01/23/25 by ALICJA Patiño albuterol sulfate 5 mg inhalation Q4H PRN albuterol sulfate 90 mcg/actuation 2 inhalations inhalation Q4H PRN amitriptyline 25 mg PO BEDTIME 90 days aspirin 81 mg PO DAILY atorvastatin 40 mg PO BEDTIME calcium carbonate (Oyster Shell Calcium 500) 500 mg PO DAILY 90 days cholecalciferol (vitamin D3) 50 mcg PO DAILY 90 days dolutegravir-rilpivirine 50-25 mg (Juluca) 1 tab PO DAILY empagliflozin (Jardiance) 10 mg PO DAILY estradiol 0.01%(0.1mg/gram) vaginally 3 times a week; pea sized amount to urethra 3 times a week 90 days famotidine 20 mg PO BID PRN gabapentin 100 mg PO DAILY 30 days hydroxyzine HCl 25 mg PO BEDTIME 90 days levothyroxine 50 mcg PO DAILY metoprolol succinate ER 25 mg PO BEDTIME midodrine 5 mg PO TID mirabegron ER (Myrbetriq) 25 mg PO DAILY 90 days nebulizers (AeroEclipse II Nebulizer) As directed nitroglycerin 0.4 mg sublingual Q5M PRN olopatadine 0.2% (Pataday Once Daily Relief) 1 drp ophthalmic (eye) DAILY 30 days ondansetron 8 mg PO Q8H PRN ranolazine ER 500 mg PO BID sennosides (senna) 17.2 mg (2 x 8.6 mg) PO BEDTIME PRN 15 days spironolactone 12.5 mg PO DAILY sumatriptan succinate 50 mg PO Q2-4H PRN 30 days ticagrelor (Brilinta) 90 mg PO BID HPI HPI f/up chf- medtronic idc: Details: The patient is a 75 year old individual presenting for follow-up after a recent hospitalization for acute decompensated congestive heart failure. The patient was recently admitted to [facility] with symptoms of dizziness and shortness of breath and was found to have acute decompensated congestive heart failure, which was attributed to not taking medications as directed. She was restarted on medications, diuresed. An echocardiogram during the recent hospitalization showed an ejection fraction of 10-15%, a large area of wall motion abnormality consistent with the prior NC, ischemic cardiomyopathy, and mild mitral regurgitation. The patient has a history of an anterior myocardial infarction in January 2024 while in [place], which resulted in a severely reduced ejection fraction. An ICD was placed for primary prevention at that time. The patient continues to report feeling dizzy, increased fatigue, and less active in recent months. She now lives with her niece who helps her with her medications.The patient experiences Random chest pain daily, occurring for a few minutes and resolving. Shortness of breath is also reported, but the patient sleeps with one pillow and denies leg swelling. No signs of bleeding. The patient is reportedly now adherent with medications. Current medications include aspirin, atorvastatin, Jardiance, metoprolol, ranolazine, spironolactone, and Brilinta. [facility] Medical History (Updated 01/23/25 @ 17:14 by ALICJA Patiño) Cardiomyopathy CHF (congestive heart failure) Cardiac defibrillator in place Environmental allergies Conjunctiva disorder Wart of scalp COVID-19 Upper extremity neuropathy Right shoulder pain Right arm pain Physical exam Cough Left hip pain Left shoulder tendinitis Left shoulder pain GERD (gastroesophageal reflux disease) Asthma Urticaria Fracture of left hip requiring operative repair HIV (human immunodeficiency virus infection) Hypothyroidism Dyslipidemia Verruca TIA (transient ischemic attack) Asthma Surgical History History of permanent cardiac pacemaker placement History of hip replacement, total History of lumbar fusion History of section H/O umbilical hernia repair Hx of colonoscopy Family History Father Cancer Diabetes Mother Cancer Diabetes Brother Colon polyps Social History Household Members: None Housing: Apartment Alcohol intake: never Patient Tobacco Use Status: Never used Tobacco Tobacco use type: Cigarette e-Cigarette/Vaping Use: Never Used Second Hand Smoke Exposure: No Substance Use Type: Marijuana service: No Current occupational status: retired Cognitive needs: No Hearing needs: No Vision needs: Yes (Glasses) Review of Systems Const All systems reviewed & are unremarkable except as noted in HPI and below Denies chills, Reports fatigue, Denies fever(s), Denies frequent falls, Denies weakness, Denies weight gain and Denies weight loss ENT Denies dizziness Card Reports chest pain, Reports chest pain at rest, Denies chest pain with activity, Denies leg edema, Denies lightheadedness, Denies palpitations, Reports dyspnea, Denies dyspnea on exertion, Denies orthopnea and Denies other (loss of consciousness) Resp Denies cough, Reports dyspnea and Denies dyspnea on exertion GI Denies hematochezia and Denies change in stool character Musc Denies abnormal gait, Denies muscle weakness, Denies numbness, Denies radiating pain into limb and Denies tingling Neuro Denies abnormal gait, Denies dizziness, Denies frequent falls, Denies numbness, Denies tingling and Denies weakness Endo Reports fatigue and Denies palpitations Physical Exam Vital Signs: Last Vital Signs Pulse 80 01/23/25 15:40 BP 120/76 01/23/25 15:40 BMI result Body Mass Index 21.6 Const General: cooperative, healthy appearing, comfortable and no acute distress Orientation/consciousness: patient oriented x3 Neck Neck: Yes normal visual inspection Resp Effort & Inspection: normal respiratory effort Auscultation: clear to auscultation bilaterally, no rales, no rhonchi and no wheezes Cardio Rate: regular rate Rhythm: regular rhythm Heart sounds: S1 normal heart sound present, S2 normal heart sound present, no gallops, no murmurs and no rubs Neuro General: patient oriented x3 Extrem General: Yes normal to inspection Psych Appearance: grossly normal Mental Status: mental status grossly normal Speech and movement: Normal speech and movement present Office Procedures Cardiac Device Check Cardiac Device Check Details: [employer] dual-chamber ICD, battery 13 years, atrial threshold 0.9 volts at 0.5 milliseconds, ventricular threshold 0.5 volts at 0.5 milliseconds no therapies brief high atrial rates lasting sec, heart failure index is normal 85125-AG Cardiac Device Check, dual lead implantable defibrillator Procedure code (CPT) selection complete Assessment & Plan Assessment & Plan (1) CHF (congestive heart failure): Code(s): I50.9 - Heart failure, unspecified Category: Medical Plan: [facility] admission for decompensated heart failure. She had not been taking her medications. She has known history of anterior STEMI with residual severe ischemic cardiomyopathy status post dual-chamber ICD placement while in [place] January 2024. She was restarted on her medications. Echocardiogram 12/18/2024 showed EF 10-15%, wall motion abnormality consistent with prior NC, ischemic cardiomyopathy, mild MR. She is not fluid overloaded on exam today. Continue metoprolol XL, spironolactone and Jardiance for neurohormonal modulation. Her blood pressure runs on the low side and she is on midodrine t.i.d.. Currently not on Martín/Arb for this reason. Signs and symptoms of heart failure reviewed with her. Instructed on low-salt diet. Cardiology follow-up 3 months, sooner if needed. (2) CAD (coronary artery disease): Comment: Cardiac catheterization for anterior STEMI 02/19/2024. 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 transplanted heart: [place] heart Associated angina: without angina Qualified Code(s): I25.10 - Atherosclerotic heart disease of q[place] coronary artery without angina pectoris Plan: Recent anterior STEMI with cardiac catheterization as above. She does report intermittent nonexertional chest discomfort, not new. Ongoing medical management. Continue aspirin indefinitely. Continue Brilinta at this time as she has had no bleeding issues. Continue metoprolol and Ranexa as antianginals. Continue atorvastatin with ideal LDL goal less than 70. (3) Cardiomyopathy: Code(s): I42.9 - Cardiomyopathy, unspecified Category: Medical Plan: Ischemic cardiomyopathy as above. Dual-chamber ICD in place (4) Old anterior myocardial infarction: Comment: 02/19/2024 in [place]. PCI to the proximal to mid LAD at D1 bifurcation with 2 overlapping stents Code(s): I25.2 - Old myocardial infarction Category: Medical (5) ICD (implantable cardioverter-defibrillator) in place: Comment: [employer] ICD dual chamber Code(s): Z95.810 - Presence of automatic (implantable) cardiac defibrillator Category: Medical Plan: Device interrogation today shows it is functioning normally. No significant alerts. Brief high V rates, no therapies. Will arrange for remote monitoring. Will have device check complete device check with threshold testing next visit. (6) Hospital discharge follow-up: Code(s): Z51.89 - Encounter for other specified aftercare Category: Medical Plan: Notes reviewed Plan I explained to the patient and the patient's niece that the recent echocardiogram confirmed the patient's heart is very weak, with a pumping function of only 10-15%, which explains the feelings of weakness and fatigue. I noted that this condition carries a risk for fluid buildup (congestive heart failure) and dangerous heart rhythms. We successfully identified the patient's ICD as a [employer] device. I informed them that we will order a remote, bedside monitor to be sent to their home to track the device's function and get the patient enrolled in our system. We discussed the patient's wish to travel for the holidays. I recommended that if travel is undertaken, the patient should rest, ensure an adequate medication supply, and know the location of a local hospital. I advised that while the decision is theirs, travel involves significant risk due to the patient's weak heart, including the potential for heart failure or arrhythmias that could trigger the defibrillator. I clarified that Jardiance is prescribed for heart failure management, not diabetes. A follow-up visit is scheduled for three months, which will include a meeting with a [employer] telemarketing representative and myself. Patient Instructions: - Continue taking all your medications exactly as prescribed. - Your Jardiance medication is prescribed to help your heart pump better and prevent fluid buildup. - We will mail a monitor to your home that will check your heart device (ICD) while you sleep. - If you decide to travel, you must take it very easy, make sure you have enough of all your medications for the entire trip, and know where the nearest hospital is. - Your next follow-up appointment in this office is in three months. Patient was informed and verbally consented to the use of an ambient scribe for clinic note documentation during this visit. Visit time spent on chart review, interview, assessment, orders, documentation. Coding Level of Care Code Est Pt Level 4 (53220) Complex visit Add On G2211 Diagnoses CHF (congestive heart failure) I50.9 Coronary artery disease involving qawalangin coronary artery of q[place] heart without angina pectoris I25.10 Coronary Disease-Associated Artery/Lesion type: [place] artery [place] vs. transplanted heart: [place] heart Associated angina: without angina Cardiomyopathy I42.9 Old anterior myocardial infarction I25.2 ICD (implantable cardioverter-defibrillator) in place Z95.810 Hospital discharge follow-up Z51.89 CPT Codes Cardiac Device Check - Cardiac Device 5: [id number]-[id number] Cardiac Device Check, dual lead implantable defibrillator ([id number]) Time Spent (min) 36
[2025-01-23 15:40] VITALS: BP 120/76; PULSE 80; BMI 21.6
== END 2025-01-23 16:33 | disposition home or self-care (01) ==
LOC: HO.HCS 15:18
PROVIDERS: PCP Physician Assistant; Visit Provider Nurse Practitioner Family
DX: I50.9 Heart failure, unspecified (principal); I25.10 Atherosclerotic heart disease of native coronary artery without angina pectoris; I42.9 Cardiomyopathy, unspecified; I25.2 Old myocardial infarction; Z95.810 Presence of automatic (implantable) cardiac defibrillator; Z51.89 Encounter for other specified aftercare
CPT/HCPCS: 93283; 99214; G2211

== ENCOUNTER → 2025-01-23 15:17 | Outpatient (BNVA) | payer OTHER, SELFPAY | PROVIDERS: PCP Physician Assistant; Visit Provider Nurse Practitioner Family | DX: I25.10 Atherosclerotic heart disease of native coronary artery without angina pectoris (principal); I25.2 Old myocardial infarction; I42.9 Cardiomyopathy, unspecified; I50.9 Heart failure, unspecified; Z95.810 Presence of automatic (implantable) cardiac defibrillator | CPT/HCPCS: 93283; 99212 ==

== ENCOUNTER 2025-02-25 12:50 | Observation (INO) | payer OTHER, SELFPAY ==
--- NOTE | ~2025-02-25 | XR_ITS ---
CLINICAL HISTORY: weakness Chest Radiographs, 2 views Comparison: CR - XR CHEST 2V - 12/16/24 12:39 EDT CR/SR - XR CHEST 2 VIEWS - 10/14/23 14:[address]/REG/IL/SR - CT CHEST WITHOUT IV CONTRAST - 09/29/22 15:25 EDT Findings: No cardiomegaly. Left chest wall cardiac pacemaker/AICD. Normal mediastinal contours. No pneumothorax. No opacity. No pleural effusion. No acute findings in the upper abdomen. No acute fracture. Impression: No acute findings. This document has been electronically signed by: Marina Escobar MD on 02/25/2025 15:07:06
--- NOTE | ~2025-02-25 | XR_ITS ---
CLINICAL HISTORY: central chest pain, CHF Defibr Chest Radiograph Comparison: CR - XR CHEST 2V - 02/25/25 13:40 EST CR - XR CHEST 2V - 12/16/24 12:39 EDT CR/SR - XR CHEST 2 VIEWS - 10/14/23 14:[address]/REG/WA/SR - CT CHEST WITHOUT IV CONTRAST - 09/29/22 15:25 EDT Findings: No cardiomegaly. Left chest wall cardiac pacemaker/AICD. Normal mediastinal contours. No pneumothorax. Left lower lung zone opacity, greater than on the recent prior studies could be secondary to eventration of the left hemidiaphragm. A Bochdalek hernia is considered less likely. Development of pneumonia or a subpulmonic effusion since the prior study of the same day is considered unlikely. No pleural effusion. No acute findings in the upper abdomen. No acute fracture. Impression: No acute pathology. 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 This document has been electronically signed by: Marina Escobar MD on 02/25/2025 18:15:36
--- NOTE | ~2025-02-25 | CT_ITS ---
CLINICAL HISTORY: vertigo, headache, ataxia CT head without contrast Comparison: 10/14/23 Findings: No acute hemorrhage. No extra-axial fluid collection. Prominence of the ventricles and extra-axial spaces due to atrophy of the brain parenchyma, stable. No hydrocephalus, mass-effect or herniation. Wick-white differentiation is maintained. There is patchy hypoattenuation of the periventricular and deep white matter, which is most likely the sequela of moderate chronic small vessel ischemic disease and is similar to the prior study. New 7 mm focus of decreased attenuation in the right frontal lobe periventricular white matter (series 8 images 28 through 30). No acute orbital pathology. No acute soft tissue abnormality. No fracture. The visualized paranasal sinuses are predominantly clear. The mastoid air cells are clear. Impression: No intracranial hemorrhage or acute transcortical infarction. New 7 mm focus of decreased attenuation in the right frontal lobe periventricular white matter, age indeterminate lacunar infarction. CTA of the head and neck with 3-D postprocessing Comparison: None available Findings: No significant carotid artery stenosis. Intact vertebral arteries. The vertebral basilar system is patent. Diminutive sized basilar artery without focal stenosis; there is a lobular contour of the basilar artery attributed to atherosclerotic disease. The cerebellar and posterior cerebral arteries are intact. The intracranial internal carotid arteries are patent. The middle/anterior cerebral arteries are intact. No aneurysm, abrupt cutoffs or significant stenosis. No mass, midline shift, hydrocephalus, acute hemorrhage or abnormal contrast enhancement. Trace biapical scarring. Mild emphysematous changes. The thyroid gland is not well delineated and could be hypoattenuating or atrophic. The soft tissues of the head and neck are otherwise unremarkable. Impression: No aneurysm, abrupt cutoffs or significant stenosis. This document has been electronically signed by: Marina Escobar MD on 02/25/2025 20:10:40
[2025-02-25 12:53] VITALS: BP 121/63; PULSE 69; RESP 18; TEMP 36.5; O2SAT 100; BMI 26.3
--- NOTE | 2025-02-25 12:53 | ED.GENADULT ---
HPI - General Adult General Chief complaint: Dizziness Stated complaint: dizziness, vision changes Time Seen by Provider: 02/25/25 16:19 History of Present Illness HPI narrative: Author / Clinician: Dawson Desir MD Chief Complaint Acute onset vertigo (?everything was spinning?) since 04:00 this morning with associated dry mouth and intermittent stabbing chest pain. History of Present Illness Miss Polo awoke at approximately 04:00 this morning with a sensation that ?everything was spinning around.? She denies vision changes and neck pain. Initially denied headache but later endorsed ?a little bit of headache.? She feels her mouth is dry. She also reports intermittent stabbing chest pain. She notes her balance is ?way off? today and has limited her usual morning activities. No motor weakness reported. Past medical history notable for prior myocardial infarction with reduced ejection fraction (patient has an implantable cardioverter-defibrillator) and history of infertility. She denies diabetes and hypertension. Social history: She lives with a family member. Review of Systems - General: No constitutional symptoms discussed. - Neurologic: Vertigo present; balance impaired; denies focal motor deficits. - HEENT: Denies vision changes; endorses mild headache; denies neck pain. - Cardiovascular: Intermittent stabbing chest pain. - Respiratory: No respiratory complaints mentioned. - GI/: Not discussed. - Endocrine: Denies diabetes. --- Physical Examination Vital Signs: Measure Value ------- ----- Physical Exam: Gen: Alert, awake, well appearing, well hydrated. Head: Atraumatic. Eyes: Anicteric, conjunctiva normal. ENT: Moist mucosa, no pallor. Neck: Supple. Skin: Warm, well perfused. Respiratory: Breathing comfortably; lungs clear bilaterally; no distress. Cardiovascular: Regular rate and rhythm, no murmurs or rubs; no edema. Abdominal: Soft, non-tender, no distension. Neuro: Alert; gross motor strength intact in all extremities; normal cerebellar testing. NIHSS 1 for ataxia per RN on gait assessment Psych: Calm. --- Past Medical History - Myocardial infarction with reduced ejection fraction; ICD in place - Infertility --- Medical Decision Making Preliminary Differential: - Peripheral vertigo - Central vertigo Given her cardiac history and new-onset vertigo with chest pain, work-up initiated to evaluate for central versus peripheral vertigo and to rule out acute cardiac pathology. Plan: Initial Plan - Order CT imaging to evaluate for central causes of vertigo. Independent Data Analysis/Interpretation: - Imaging: na - ECG: sinus, rate 71 no acute ischemia. - POCUS: if performed independently see separate documentation Additional Complexity: - Social Determinants of health: [ ] - Consults: [ ] - Independent review of external records: [ ] Risk: - High: Threat to life/bodily functions --- ED Course, Updates . CTA neg. needs MR/neuro eval, PT, troponin trend. Will admit Disposition [ ] Critical Care: [N/A] Related Data Home Medications ?Medication ?Instructions ?Recorded ?Confirmed dolutegravir 50 mg-rilpivirine 25 1 tab PO DAILY 12/11/20 02/27/25 mg tablet (Juluca) famotidine 20 mg tablet 20 mg PO BID PRN acid reflux 07/20/22 02/27/25 atorvastatin 40 mg tablet 40 mg PO BEDTIME cholesterol 11/21/24 02/27/25 midodrine 5 mg tablet 5 mg PO TID 11/21/24 02/27/25 ranolazine 500 mg tablet,extended 500 mg PO BID 11/21/24 02/27/25 release,12 hr spironolactone 25 mg tablet 12.5 mg PO DAILY 11/21/24 02/27/25 ticagrelor 90 mg tablet (Brilinta) 90 mg PO BID 11/21/24 02/27/25 Previous Rx's ?Medication ?Instructions ?Recorded nebulizers (AeroEclipse II #1 ea 11/08/21 Nebulizer) albuterol sulfate 2.5 mg/0.5 mL 5 mg inhalation Q4H PRN shortness 09/28/22 solution for nebulization of breath or wheezing #30 ea sumatriptan succinate 50 mg tablet 50 mg PO Q2-4H PRN migraine 02/10/23 headache 30 days #9 tabs mirabegron 25 mg tablet,extended 25 mg PO DAILY 90 days #90 tabs 08/04/23 release 24 hr (Myrbetriq) albuterol sulfate 90 mcg/actuation 2 inh inhalation Q4H PRN for 10/18/23 aerosol inhaler dyspnea #6.7 ea calcium carbonate (Oyster Shell 500 mg PO DAILY 90 days #90 tabs 12/01/23 Calcium 500) cholecalciferol (vitamin D3) 50 50 mcg PO DAILY 90 days #90 caps 12/01/23 mcg (2,000 unit) capsule hydroxyzine HCl 25 mg tablet 25 mg PO BEDTIME 90 days #90 tabs 11/21/24 aspirin 81 mg chewable tablet 81 mg PO DAILY #30 tabs 12/18/24 empagliflozin 10 mg tablet 10 mg PO DAILY #90 tabs 12/21/24 (Jardiance) levothyroxine 50 mcg tablet 50 mcg PO DAILY #90 tabs 01/16/25 metoprolol succinate 25 mg 25 mg PO BEDTIME #90 tabs 01/16/25 tablet,extended release 24 hr gabapentin 100 mg capsule 100 mg PO DAILY pain (scale score 01/18/25 7-10) 30 days #30 caps Allergies Allergy/AdvReac Type Severity Reaction Status Date / Time blackberry Allergy Intermediate Itching Verified 02/25/25 12:56 long Allergy Intermediate Itching Verified 02/25/25 12:56 peanut (PEANUT) Allergy Intermediate RASH Verified 02/25/25 12:56 Sulfa (Sulfonamide Allergy Intermediate HIVES, Verified 02/25/25 12:56 Antibiotics) (SULFA hives, (SULFONAMIDE ANTIBIOTICS)) rash, hives, rash tramadol Allergy Intermediate nausea Verified 02/25/25 12:56 strawberry Allergy Itching Verified 02/25/25 12:56 animals Allergy Itching Uncoded 12/21/24 14:10 red fruit Allergy Itching Uncoded 12/21/24 14:10 tree Allergy eye Uncoded 12/21/24 14:10 swelling, itch PMFSH Past Medical History Medical History Cardiomyopathy CHF (congestive heart failure) Cardiac defibrillator in place Environmental allergies Conjunctiva disorder Wart of scalp COVID-19 Upper extremity neuropathy Right shoulder pain Right arm pain Physical exam Cough Left hip pain Left shoulder tendinitis Left shoulder pain GERD (gastroesophageal reflux disease) Asthma Urticaria Fracture of left hip requiring operative repair HIV (human immunodeficiency virus infection) Hypothyroidism Dyslipidemia Verruca TIA (transient ischemic attack) Asthma Surgical History History of permanent cardiac pacemaker placement History of hip replacement, total History of lumbar fusion History of section H/O umbilical hernia repair Hx of colonoscopy Family History Family History Father Cancer Diabetes Mother Cancer Diabetes Brother Colon polyps Social History Social History Household Members: None Housing: Apartment Alcohol intake: never Patient Tobacco Use Status: Never used Tobacco Tobacco use type: Cigarette e-Cigarette/Vaping Use: Never Used Second Hand Smoke Exposure: No Substance Use Type: Marijuana service: No Current occupational status: retired Cognitive needs: No Hearing needs: No Vision needs: Yes (Glasses) Physical Exam ED Vital Signs: Vital Signs - 24 hr 02/25/25 12:53 02/25/25 16:16 02/25/25 19:07 Temperature 97.7 F 98.1 F Pulse Rate 69 69 70 Respiratory Rate 18 16 18 Blood Pressure 121/63 122/69 124/68 Pulse Oximetry 100 99 Oxygen Delivery Method Room Air Room Air 02/25/25 20:19 Temperature 98.0 F Pulse Rate 65 Respiratory Rate 16 Blood Pressure 120/63 Pulse Oximetry 95 Oxygen Delivery Method Room Air BMI result Body Mass Index 26.3 NIH Stroke Scale Level of Consciousness: Alert Level of Consciousness Questions: Answers both questions correctly Level of Consciousness Commands: Performs both tasks correctly Best Gaze: Normal Visual: No visual loss Facial Palsy: Normal Motor Arm (Right): No drift Motor Arm (Left): No drift Motor Leg (Right): No drift Motor Leg (Left): No drift Limb Ataxia: Present in one limb Sensory: Normal Best Language: No aphasia Dysarthia: Normal Extinction and Inattention: No abnormality Score: 1 Course Course Course Narrative: Rapid medical examination performed in triage by Belle Goetz PA-C: Patient is a 75 year old female presenting to the emergency department with dizziness and feeling generally unwell. Patient states over the last few days she has felt generally unwell with dizziness, chest pain, and weakness. Detailed physical exam and review of systems are deferred to the orthotic/prosthetic clinician. EKG, labs, imaging, swabs ordered. Patient placed back in the waiting room pending room availability and results. Medications Administered Discontinued Medications Generic Name Dose Route Start Last Admin Trade Name Freq PRN Reason Stop Dose Admin Sodium Chloride 500 mls @ 50 mls/hr 02/25/25 16:45 02/25/25 18:45 Ns IV 02/26/25 02:44 Infused .Q10H MESERET Infusion Ceftriaxone Sodium 1 gm/ 50 mls @ 100 mls/hr 02/25/25 23:00 02/26/25 05:36 Sodium Chloride IV Infused Q24H MESERET Infusion Iohexol 70 ml 02/25/25 18:52 02/25/25 18:52 Iohexol 350 Mg/Ml 100 Ml Infus..Btl IV 02/25/25 18:53 70 ml ONCE ONE Administration Meclizine HCl 25 mg 02/25/25 21:17 02/25/25 21:47 Meclizine Hcl 25 Mg Tablet PO 02/25/25 21:18 25 mg ONCE STA Administration Sodium Chloride 3 ml 02/26/25 00:00 02/26/25 07:48 0.9 % Sodium Chloride Flush 3 Ml Syringe IVFLUSH 3 ml QSHIFT MESERET Administration Medical Decision Making Lab Data 02/26/25 03:57 02/26/25 03:57 Labs: Lab Results 02/25/25 02/25/25 Range/Units 13:17 16:28 WBC 5.8 (4.8-10.8) X10*3/uL RBC 4.66 (4.20-5.50) X10*6/uL Hgb 14.7 (12.0-16.0) g/dl Hct 44.2 (37.0-47.0) % MCV 94.8 (80.0-98.0) fL MCH 31.5 (27.0-33.0) pg MCHC 33.3 (31.0-35.0) g/dl RDW 14.9 (11.0-16.0) % Plt Count 242 (160-400) X10*3/uL MPV 8.9 L (9.4-12.3) fL Immature Gran % (Auto) 0.0 (0.0-0.4) % Neut % (Auto) 53.8 (45-73) % Lymph % (Auto) 35.4 (20-40) % Henderson % (Auto) 7.6 (2-11) % Eos % (Auto) 2.3 (0-4) % Baso % (Auto) 0.9 (0-2) % Lymph # (Auto) 2.0 (1.2-4.9) X10*3/uL Henderson # (Auto) 0.4 (0.1-1.2) X10*3/uL Eos # (Auto) 0.1 (0.0-0.4) X10*3/uL Baso # (Auto) 0.1 (0.0-0.2) X10*3/uL Abs Immat Gran (auto) 0.00 (0.00-0.03) X10*3/uL Absolute Neuts (auto) 3.1 (2.0-8.3) x10*3/uL Absolute Nucleated RBC 0.000 (0.0-0.012) X10*3/uL Nucleated RBC % (auto) 0.0 (0.0-0.2) /100WBC Sodium 138 (135-145) mmol/L Potassium 3.7 (3.3-5.1) mmol/L Chloride 104 (96-108) mmol/L Carbon Dioxide 25 (22-29) mmol/L Anion Gap 13 (12-20) BUN 17 H (9-16) mg/dL Creatinine 1.09 (0.5-1.4) mg/dL Estim Creat Clear Calc 38.5 Estimated GFR 49 Random Glucose 126 H (60-115) mg/dL Calcium 9.9 (8.4-10.2) mg/dL Magnesium 2.3 (1.6-2.6) mg/dL Total Bilirubin 0.6 (0.0-1.0) mg/dL AST 31 (5-31) U/L ALT 12 (0-31) U/L Alkaline Phosphatase 114 (39-117) U/L Troponin I High Sens 9.4 8.2 (<3.5-17.0) ng/L NT-Pro-B Natriuret Pep 1047.2 H (<300) pg/mL Total Protein 7.3 (6.5-8.0) g/dL Albumin 4.3 (3.5-5.0) g/dL Influenza Type A (PCR) NEGATIVE (Negative) Influenza Type B (PCR) NEGATIVE (Negative) RSV RNA Qual (PCR) NEGATIVE (Negative) SARS-CoV-2 RNA (RT-PCR) NEGATIVE (Negative) Discharge Plan Discharge Clinical Impression: Dizziness Patient Disposition: Admitted As Inpatient Discharge Date/Time: 02/26/25 13:54
--- NOTE | 2025-02-25 12:55 | ECG_ITS ---
Test Reason : dizziness Blood Pressure : */* mmHG Vent. Rate : 71 BPM Atrial Rate : 71 BPM P-R Int : 148 ms QRS Dur : 80 ms QT Int : 416 ms P-R-T Axes : 52 -44 140 degrees QTcB Int : 452 ms Normal sinus rhythm Left axis deviation Anteroseptal infarct (cited on or before 16-Dec-2024) T wave abnormality, consider lateral ischemia Abnormal ECG When compared with ECG of 16-Dec-2024 11:56, T wave inversion now evident in Anterior leads Referred By: Belle Goetz Electronically Signed By: STANISLAV HIDALOG
[2025-02-25 13:23] LABS: MANUAL DIFF FLAG NO
[2025-02-25 13:25] LABS: Hematocrit 44.2 % (37.0-47.0); Hemoglobin 14.7 g/dl (12.0-16.0); Imm Gran Abs Auto 0.00 X10*3/uL (0.00-0.03); Imm Gran Pct Auto 0.0 % (0.0-0.4); Lymphocytes Absolute Auto 2.0 X10*3/uL (1.2-4.9); Mean Corpuscular HGB Conc 33.3 g/dl (31.0-35.0); Mean Corpuscular Hemoglobin 31.5 pg (27.0-33.0); Mean Corpuscular Volume 94.8 fL (80.0-98.0); NRBC Abs Auto 0.000 X10*3/uL (0.0-0.012); NRBC Pct Auto 0.0 /100WBC (0.0-0.2); Platelet Count 242 X10*3/uL (160-400); Red Blood Count 4.66 X10*6/uL (4.20-5.50); White Blood Count 5.8 X10*3/uL (4.8-10.8)
[2025-02-25 13:42] LABS: Alanine Aminotransferase 12 U/L (0-31); Albumin Level 4.3 g/dL (3.5-5.0); Alkaline Phosphatase 114 U/L (39-117); Anion Gap 13 (12-20); Aspartate Amino Transferase 31 U/L (5-31); Blood Urea Nitrogen 17 mg/dL (9-16); Calcium 9.9 mg/dL (8.4-10.2); Carbon Dioxide 25 mmol/L (22-29); Chloride 104 mmol/L (96-108); Creatinine Clr Calc Pharmacy 38.5; Estimated Glomerular Filt Rate 49; Magnesium 2.3 mg/dL (1.6-2.6); Potassium 3.7 mmol/L (3.3-5.1); Sodium 138 mmol/L (135-145); Total Protein 7.3 g/dL (6.5-8.0)
[2025-02-25 13:53] LABS: Troponin-I High Sensitivity 9.4 ng/L (<3.5-17.0)
[2025-02-25 14:00] LABS: Resp Syncy Virus RNA Qual PCR NEGATIVE (Negative); SARS COV2 PCR INHOUSE NEGATIVE (Negative)
[2025-02-25 14:08] LABS: NT Pro B Type Natriuretic Pept 1047.2 pg/mL (<300)
[2025-02-25 16:16] VITALS: BP 122/69; PULSE 69; RESP 16
--- OUTSIDE RECORDS SUMMARY | 2025-02-25 16:29 | XMS_ITS | Continuity of Care Document ---
Author Organization HARVEY JACK MD [facility], Main Office Address [address] [place] [id number] Assessment No assessment recorded. Plan of Treatment Reminders Order Date Submit Date Provider Last Modified By Organization Details Last Modified Time Details Appointments B20 FOLLOW UP 2025 02:00P Ross Shah MD Not available Not available Not available Lab CBC w/ diff [address] [place] [address], [id number], 01/08/2025 12:51:22 electroly lina panel, blood [address] [place] [address], [id number], 01/08/2025 12:51:22 ALT (alanine aminotran sferase), serum or plasma [address] [place] [address], [id number], 01/08/2025 12:51:23 AST/SGOT (aspartat e aminotran sferase), serum or plasma [address] [place] [address], [id number], 01/08/2025 12:51:23 creatinin e w/ estimated GFR (eGFR), serum or plasma [address] [place], [place] [address], [place], [id number], 01/08/2025 12:51:23 hepatitis C virus Ab, serum [address] [place] [address], [address] [place] [address], [id number], 01/08/2025 12:51:23 HIV-1 RNA, quantitat nikkie, PCR, serum or plasma [address] [place] [address], [address] [place] [address], [id number], 01/08/2025 12:51:23 RPR (rapid plasma reagin), serum [address] [place] [address], [address] [place] [address], [id number], 01/08/2025 12:51:23 T-cell regulator y subsets panel, blood [address] [place] [address], [address] [place] [address], [id number], 01/08/2025 12:51:23 HBsAg (hepatiti s B surface Ag), EIA, serum [address] [place] [address], [address] [place] [address], [id number], 01/08/2025 12:51:23 Referral None recorded. Procedures None recorded. Surgeries None recorded. Imaging None recorded. Medication Orders None recorded. Patient TargetsNo targets recorded. Patient InstructionsNo instructions recorded. Reason for Referral None Reported. Problems Name Problem SNOMED Code Status Onset Date Resolution Date Notes Provider Name and Address Organization Details Recorded Time Syphilis 90219993 Active 2013 Syphilis , unspecif ied; snomedde scriptio n: Syphilis ; Report Immunity to Registry : Yes; Notes: hx of syphilli s. she was treated at [facility] 2002; Syphili s; snomedde scriptio n: Syphilis ; Report Immunity to Registry : Yes; Notes: hx of syphilli s. 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; snomedde scriptio n: Hypothyr oidism; Report Immunity to Registry : Yes; Unspeci fied hypothyr oidism; snomedde scriptio n: Hypothyr oidism; Report Immunity to Registry : Yes; Not Available [facility] 4 06:58:27 Chronic kidney disease 546458355 Active 2016 Chronic kidney disease; snomedde scriptio n: Chronic kidney disease; Report Immunity to Registry : Yes; Not Available [facility] 4 06:58:26 Viral hepatiti s B without hepatic coma 250954610 Active 2016 Unspecif ied viral hepatiti s B without hepatic coma; snomedde scriptio n: Type B viral hepatiti s; Report Immunity to Registry : Yes; Notes: HBV core ab pos; s ag neg; s ab pos HBV VL nondetec jayda 2017; Not Available [facility] 4 06:58:26 Type B viral hepatiti s 10500404 Active 2016 Type B viral hepatiti s; snomedde scriptio n: Type B viral hepatiti s; Report Immunity to Registry : Yes; Notes: HBV core ab pos; s ag neg; s ab pos HBV VL nondetec jayda 2017; Not Available [facility] 4 06:58:26 Genital herpes simplex 36585907 Active 2017 Genital herpes simplex; snomedde scriptio n: Genital herpes simplex; Report Immunity to Registry : Yes; Notes: HSV 1 and 2 pos serology ; Not Available [facility] 4 06:58:27 Anogenit al herpesvi ral infectio n 185888216 Active 2017 Anogenit al herpesvi ral infectio n, unspecif ied; snomedde scriptio n: Genital herpes simplex; Report Immunity to Registry : Yes; Notes: HSV 1 and 2 pos serology ; Not Available [facility] 4 06:58:27 Methicil chari resistan t Staphylo coccus aureus infectio n 414005338 Completed 201804/21/2023 Methicil chari resistan t Staphylo [...] te: 11/08/19 19; Notes: culture; Not Available [facility] 4 06:58:26 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 Age-rela jayda osteopor osis without current patholog ical fracture ; snomedde scriptio n: Osteopor osis; Report Immunity to Registry : Yes; Notes: per report; Not Available [facility] 4 06:58:26 Human immunode ficiency virus infectio n 03918632 Active 2019 Human immunode ficiency virus [HIV] disease; snomedde scriptio n: Human immunode ficiency virus infectio n; Report Immunity to Registry : Yes; Notes: [id number] neg; Human immunode ficiency virus infectio n; snomedde scriptio n: Human immunode ficiency virus infectio n; Report Immunity to Registry : Yes; Notes: [id number] neg; Not Available [facility] 4 06:58:26 Osteopor osis 21132190 Active 2019 Osteopor osis; snomedde scriptio n: Osteopor osis; Report Immunity to Registry : Yes; Notes: per report; Not Available [facility] 4 06:58:26 Problem Notes None recorded. Medical [...] no; Not Available Not Available Not Available spironola ctone 25 mg tablet TOME 1/2 TABLETA POR V A ORAL TODOS LOS D active Not Available Not Available No t Available ondansetr on 8 mg disintegr ating tablet TOME LEONA TABLETA POR V A ORAL CADA [facility] CUANDO SEA NECESARI O PARA LAS N USEAS Y EL V KRISTA active Not Available Not Available No t Available levothyro xine 75 mcg tablet TOME 1 TABLETA POR V A ORAL TODOS LOS D SEG N LO INDICADO active Not Available Not Available No t Available levothyro xine 100 mcg tablet TOME [...] Available famotidin e 20 mg tablet TOME LENOA TABLETA DOS VECES AL D A CUANDO [...] t Available levothyro xine 50 mcg tablet TOME 1 TABLETA POR V A ORAL TODOS LOS D active Not Available Not Available No t Available venlafaxi ne 37.5 mg tablet TOME [...] Not Available Not Available No t Available nitroglyc nuno 0.4 mg sublingua l tablet PLEASE SEE ATTACHED FOR DETAILED DIRECTIO [...] LOS D CUANDO SEA NECESARI O PARA EL DOLOR active Not Available Not Available No t Available metoprolo l succinate ER 25 mg tablet,ex tended release 24 hr TOME LEONA TABLETA POR V A ORAL AL ACOSTARS E active Not Available Not [...] no; Not Available Not Available Not Available ranolazin e ER 500 mg tablet,ex tended release,1 2 hr TOME 1 TABLETA POR V A ORAL DOS VECES AL D A SEG N LO INDICADO active Not Available Not Available No t Available Isentress 400 mg tablet 400 MG [...] Not Available Not Available No t Available Jardiance 10 mg tablet TOME 1 TABLETA POR [...] Not Available Not Available Not Available Fluvirin 9899-6069 45 mcg (15 mcg x 3)/0.5 mL [...] NAME: zoster recombin ant; SU_FULL_ NAME: Hernandez rosen; Not Available Not Available Not Available Juluca [...] Not Available No t Available Afluria Quad (6mo up) 60 mcg (15 mcg x 4)/0.5 mL IM susp quadriva lent Quantity : ; 0 refill(s ) 2021 active VACCINE_ IND: yes; VACCINE_ NAME: influenz a, injectab le, quadriva lent; SU_FULL_ NAME: Hernandez rosen; VIS_DATE : 18:22:30 .0; Not Available Not Available Not Available Vitals Date Recorded Body height Body temperature Body mass index (BMI) Body weight Systolic And Diastolic Provider Name and Address Organization Details Last Updated DateTime 12/28/2024 154.94 cm 97.5 [degF] 24.9 kg/m2 07015.1 9 g 116/62 mm[Hg] Sherrell Englishngo HARVEY SHAH MD [facility] 15:03:29 Social History Question Answer Notes LastModified by Organizat ion Details LastModified Time Tobacco Smoking Status Never Smoker HARVEY Pacheco MD [facility] 02/08/2023 11:24:56 Are You Blind Or Do You Have Difficulty Seeing? No [email or web address] Information not available 02/08/2023 Are You Deaf Or Do You Have Serious Difficulty Hearing? No [email or web address] Information not available 02/08/2023 Which Of Your Hands Is Dominant? Right Information not available 02/08/2023 What Is Your Relationship Status? Single [email or web address] Information not available 02/08/2023 Have You Recently Traveled Abroad? No [email or web address] Information not available 02/08/2023 Do You Have Difficulty Walking Or Climbing Stairs? No [email or web address] Information not available 02/08/2023 Sex: Female Functional Status Question Answer Note LastModified by Organizat ion Details LastModified Time Do you have transportation difficulties? No [email or web address] Information not available 02/08/2023 Are you able to walk independently without assistance or assistive devices? YESWOREST [email or web address] Information not available 02/08/2023 Do you have difficulty doing errands alone? No [email or web address] Information not available 02/08/2023 Are you able to care for yourself independently? Yes [email or web address] Information not available 02/08/2023 Do you have difficulty dressing, bathing, grooming, or toileting? No [email or web address] Information not available 02/08/2023 Mental Status Question Answer Note LastModified by Organization D etails LastModified Time Do you have difficulty concentrating, remembering or making decisions? No [email or web address] Information no t available 02/08/2023 Family History [...] Immunizations Vaccine Type Date Status Note Provider Meir swan and Address Organization Details Recorded Time pneumococcal polysaccharide PPV23 2 completed Not Available [facility] 04/21/2023 06:54:18 Influenza, split virus, quadrivalent, preservative 2 completed Not Available [facility] 04/21/2023 06:54:19 Influenza, split virus, trivalent, PF 5 completed Hernandez Shah MD [address] [place] [address], [phone], [facility] HERNANDEZ SHAH MD [facility] 12/28/2024 17:15:24 Past Encounters Encounter ID Performer Location Encounter Start Date Encounter Closed Date Diagnosis/Indication Diagnosis SNOMED-CT Code Diagnosis ICD10 Code Diagnosis IMO Codes Diagnosis Note [id number] Hernandez Shah MD Main Office [address] [place] [phone] 12/28/2024 14:37:35 12/28/2024 16:06:11 Human immunodeficiency virus infection 08471322 B20 HIV:Contin ue Juluca 1 tab po qd w food. keep same regimen for now. she is aware of new regimens; does not want long acting injections .Strict compliance w regimen reviewed; keep viral suppressio n, prevent resistance and prevent transmissi on.labssaf e sex. U=U. condom use reviewed. flu vaccinef/u PCP.plan of care reviewed.R ecommend influenza, RSV and Prevnar 20 vaccines; does not like vaccines. Will order and pt will decide about them Health Concerns Section Related Observation LastModified by Organization Detai ls LastModified Time None Recorded Concern Status LastModified by Organization Details LastModified Time None Recorded Payers Encounter Date Sequence Insurance Name Policy Number Policy Mcgraw Covered Member ID Mcgraw Member ID Guarantor Name 12/28/2024 1 [place]ICARE [place]: [employer] Yamile Polo [id number] 12/28/2024 2 [facility] - DOS ON OR AFTER 2022 - ONE CARE (MEDICARE REPLACEMENT/ADV ANTAGE - HMO) Yamile Polo [id number] Notes Date Note Type Note Provider Name and Address Organization Details Recorded Time 12/28/2024 text/html ROS as noted in the HPI f/u HIV on Auguca 1 tab po qd.taking with food.compliant; no missed doses aware of new regimens, but has preferred not to switch. 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 here, other than when admitted to [facility], but does have f/u w Cardiology Recently hospitalized at [facility] Dec 16 for SOB; saw PCP last week, next appt in changes, limiting fluids/salt Denies fever/chills, N/V/D/constipation Not currently sexually active Here w/piter, who cares for herNiece reports changes in memory since Car[place] recent labs 07/2023 HIV VL nondetected; ALT/AST wnl; eGFR nl 01/2023 HIV VLNondetceted; CD4 628 11/2022 HIV VL nondetceted 01/2022 HIV VL nondetected; SY3=933nRBV>55= ALT/AST wnl; GC/chlamydia neg; neg; HCV neg; HBV s ag neg; 08/2021 eGFR>55; AST/ALT wnl; HCV ab neg; GC/chlamydia neg; syphilis neg; HIV VL nondetected; will be going to [facility] in July 2023 to visit daughter. she might move to [facility] on Dec 2023 Hernandez Shah MD [address] [place] [address], [phone], [place] HAR[facility]Y - HERNANDEZ SHAH MD [facility] 12/28/2024 17:15:45 OBGyn Episode No OBEpisode recorded.
--- OUTSIDE RECORDS SUMMARY | 2025-02-25 16:29 | XMS_ITS | Data Portability ---
Author Organization HARVEY - HERNANDEZ JACK MD [facility], Main Office Address [address] [place] [address] Assessment Encounter Date Assessment Date Assessment LastModified by Organization Details LastModified Time 02/08/2023 02/08/2023 Telemedicine visit. 15 min. pt home in [place]. audio. [email or web address] Not available 02/08/2023 11:36:08 04/21/2023 04/21/2023 Telemedicine visit. [employer]ximity. 17 min. VIDEO. pt home in [place]. [email or web address] Not available 04/26/2023 10:01:42 Plan of Treatment Reminders Order Date Submit Date Provider Last Modified By Organization Details Last Modified Time Details Appointments B20 FOLLOW UP 2025 02:00P M Hernandez Shah MD Not available Not available Not available Lab CBC w/ diff [address] [place] [address], [address], 01/08/2025 12:51:22 electroly lina panel, blood [address] [place] [address], 70712, 01/08/2025 12:51:22 ALT (alanine aminotran sferase), serum or plasma [address] [place] [address], 84889, 01/08/2025 12:51:23 AST/SGOT (aspartat e aminotran sferase), serum or plasma [address] [place] [address], [address] [place] [address], 13455, 01/08/2025 12:51:23 creatinin e w/ estimated GFR (eGFR), serum or plasma [address] [place] [address], [address] [place] [address], 38264, 01/08/2025 12:51:23 hepatitis C virus Ab, serum [address] [place] [address], 63851, 01/08/2025 12:51:23 HIV-1 RNA, quantitat elisabeth, PCR, serum or plasma [address] [place] [address], 94859, 01/08/2025 12:51:23 RPR (rapid plasma reagin), serum [address] [place] [address], 71127, 01/08/2025 12:51:23 T-cell regulator y subsets panel, blood [address] [place] [address], 89868, 01/08/2025 12:51:23 HBsAg (hepatiti s B surface Ag), EIA, serum [address] [place] [address], 01353, 01/08/2025 12:51:23 urinalysi s, reflex culture [address] [place] [address], 480[address], 10/29/2023 12:38:45 CBC w/ diff [address], [address] [place] [address], 13291, 11/05/2023 08:35:10 electroly lina panel, blood [address], [address] [place] [address], 95966, 11/05/2023 08:35:10 ALT (alanine aminotran sferase), serum or plasma [address], [address], 11/05/2023 08:35:11 AST/SGOT (aspartat e aminotran sferase), serum or plasma [address], [address] [place] [address], 63558, 11/05/2023 08:35:11 CT + NG DNA, PCR, unspecifi ed specimen [address], [address] [place] [address], 59936, 11/05/2023 08:35:11 creatinin e w/ estimated GFR (eGFR), serum or plasma [address], [address] [place] [address], 08970, 11/05/2023 08:35:11 hepatitis C virus Ab, serum [address], [address], 11/05/2023 08:35:11 HIV-1 RNA, quantitat elisabeth, PCR, serum or plasma [address], [address] [place] [address], 36847, 11/05/2023 08:35:11 RPR (rapid plasma reagin), serum [address], [address] [place] [address], 34966, 11/05/2023 08:35:11 T-cell regulator y subsets panel, blood [address], [address] [place] [address], 70764, 11/05/2023 08:35:11 HBsAg (hepatiti s B surface Ag), EIA, serum [address], [address] [place] [address], 90415, 11/05/2023 08:35:11 CBC w/ diff [address], [address] [place] [address], 71139, 07/29/2023 09:08:05 electroly lina panel, blood [address], [address] [place] [address], 61804, 07/29/2023 09:08:05 ALT (alanine aminotran sferase), serum or plasma [address], [address] [place] [address], 81253, 07/29/2023 09:08:05 AST/SGOT (aspartat e aminotran sferase), serum or plasma [address], [address] [place] [address], 88816, 07/29/2023 09:08:05 CT + NG DNA, PCR, unspecifi ed specimen [address], [address] [place] [address], 44578, 07/29/2023 09:08:05 creatinin e w/ estimated GFR (eGFR), serum or plasma [address], [address] [place] [address], 70865, 07/29/2023 09:08:06 hepatitis C virus Ab, serum [address], [address] [place] [address], 05696, 07/29/2023 09:08:06 HIV-1 RNA, quantitat elisabeth, PCR, serum or plasma [address], [address] [place] [address], 42434, 07/29/2023 09:08:06 RPR (rapid plasma reagin), serum [address], [address] [place] [address], 54761, 07/29/2023 09:08:06 T-cell regulator y subsets panel, blood [address], [address] [place] [address], 01586, 07/29/2023 09:08:06 HBsAg (hepatiti s B surface Ag), EIA, serum [address], [address] [place] [address], 65048, 07/29/2023 09:08:06 CBC w/ diff 2023 024 [facility], [address] [place] [address], 82943, 05/03/2023 17:39:13 electroly lina panel, blood [address] [place] [address], [address] [place] [address], 69455, 05/03/2023 17:39:13 ALT (alanine aminotran sferase), serum or plasma [address] [place] [address], [address] [place] [address], 05479, 05/03/2023 17:39:14 AST/SGOT (aspartat e aminotran sferase), serum or plasma [address] [place] [address], [address] [place] [address], 57617, 05/03/2023 17:39:14 CT + NG DNA, PCR, unspecifi ed specimen [address] [place] [address], [address] [place] [address], 92397, 05/03/2023 17:39:14 creatinin e w/ estimated GFR (eGFR), serum or plasma [address] [place] [address], [address] [place] [address], 67772, 05/03/2023 17:39:14 hepatitis C virus Ab, serum [address] [place] [address], [address] [place] [address], 64266, 05/03/2023 17:39:14 HIV-1 RNA, quantitat elisabeth, PCR, serum or plasma [address] [place] [address], [address] [place] [address], 12646, 05/03/2023 17:39:14 RPR (rapid plasma reagin), serum [address], [address] [place] [address], 03745, 05/03/2023 17:39:14 T-cell regulator y subsets panel, blood [address], [address] [place] [address], 70068, 05/03/2023 17:39:14 HBsAg (hepatiti s B surface Ag), EIA, serum [address], [address] [place] [address], 95670, 05/03/2023 17:39:14 CBC w/ diff [address], [address] [place] [address], 08587, 02/15/2023 10:20:54 electroly lina panel, blood [address], [address] [place] [address], 00636, 02/15/2023 10:20:54 ALT (alanine aminotran sferase), serum or plasma [address], [address] [place] [address], 43465, 02/15/2023 10:20:54 AST/SGOT (aspartat e aminotran sferase), serum or plasma [address], [address] [place] [address], 18597, 02/15/2023 10:20:54 CT + NG DNA, PCR, unspecifi ed specimen [address] [place] [address], [address] [place] [address], 61737, 02/15/2023 10:20:55 creatinin e w/ estimated GFR (eGFR), serum or plasma [address] [place] [address], [address] [place] [address], 14924, 02/15/2023 10:20:55 hepatitis C virus Ab, serum [address] [place] [address], [address] [place] [address], 78948, 02/15/2023 10:20:55 HIV-1 RNA, quantitat elisabeth, PCR, serum or plasma [address] [place] [address], [address] [place] [address], 18039, 02/15/2023 10:20:55 RPR (rapid plasma reagin), serum [address] [place] [address], [address] [place] [address], 70340, 02/15/2023 10:20:56 T-cell regulator y subsets panel, blood [address] [place] [address], [address] [place] [address], 35138, 02/15/2023 10:20:56 HBsAg (hepatiti s B surface Ag), EIA, serum [address] [place] [address], [address] [place] [address], 45645, 02/15/2023 10:20:56 Referral None recorded. Procedures None recorded. Surgeries None recorded. Imaging None recorded. Medication Orders Juluca 50 mg-25 mg tablet [address] [facility] #[id number], [address] [place], [address], 10/29/2023 11:57:52 Juluca 50 mg-25 mg tablet [address] [facility] #[id number], [address] [place], [address], 07/22/2023 15:27:41 Juluca 50 mg-25 mg tablet [address] [facility] #[id number], [address] [place], [address], 04/26/2023 10:02:19 Juluca 50 mg-25 mg tablet [address] [facility] #[id number], [address] [place] [address], [address], 02/08/2023 11:46:18 Patient TargetsNo targets recorded. Patient InstructionsNo instructions recorded. Reason for Referral None Reported. Results Created Date Observation Date Name Description Value Unit Range Abnormal Flag Note LastModifiedBy Organization Detail LastModifiedTime 10/29/19 24 10/29/2023 UA WITH CULTU RE IF INDIC ATED glucose, (UA) NEGATI VE mg/dL negati ve Not Available [facility] [address] [place], [address], 10/29/2023 19:47:43 10/29/19 24 10/29/2023 UA WITH CULTU RE IF INDIC ATED bilirubin, urine NEGATI VE negati ve Not Available [facility] [address] [place], [address], 10/29/2023 19:47:43 10/29/19 24 10/29/2023 UA WITH CULTU RE IF INDIC ATED ketone, urine NEGATI VE mg/dL negati ve Not Available [facility] [address] [place], [address], 10/29/2023 19:47:43 10/29/19 24 10/29/2023 UA WITH CULTU RE IF INDIC ATED specific gravity, urine 1.008 1.003- 1.030 Not Available [facility] [address] [place], [address], 10/29/2023 19:47:43 10/29/19 24 10/29/2023 UA WITH CULTU RE IF INDIC ATED blood, urine NEGATI VE negati ve Not Available [facility] [address] [place], [address], 10/29/2023 19:47:43 10/29/19 24 10/29/2023 UA WITH CULTU RE IF INDIC ATED pH, urine 7.0 5.0-8. 0 Not Available [facility] [address] [place], [address], 10/29/2023 19:47:43 10/29/19 24 10/29/2023 UA WITH CULTU RE IF INDIC ATED protein, urine NEGATI VE mg/dL <= trace Not Available [facility] [address] [place], [address], 10/29/2023 19:47:43 10/29/19 24 10/29/2023 UA WITH CULTU RE IF INDIC ATED urobilinogen , urine 0.2 E.U./ dL 0.2-1. 0 Not Available [facility] [address] [place], [address], 10/29/2023 19:47:43 10/29/19 24 10/29/2023 UA WITH CULTU RE IF INDIC ATED nitrite, urine NEGATI VE negati ve Not Available [facility] [address] [place], [address], 10/29/2023 19:47:43 10/29/19 24 10/29/2023 UA WITH CULTU RE IF INDIC ATED leukocyte esterase, urine TRACE negati ve abnormal Not Available [facility] [address] [place], [address], 10/29/2023 19:47:43 10/29/19 24 10/29/2023 UA WITH CULTU RE IF INDIC ATED RBC, urine 5 /hpf 0-4 high Not Available [facility] [address] [place], [address], 10/29/2023 19:47:43 10/29/19 24 10/29/2023 UA WITH CULTU RE IF INDIC ATED WBC, urine 2 /hpf 0-4 Not Available [facility] [address] [place] [address], [address]647, 10/29/2023 19:47:43 10/29/19 24 10/29/2023 UA WITH CULTU RE IF INDIC ATED epith cells, urine 38 /lpf 0-60 Not Available [facility] [address] [place] [address], 25180, 10/29/2023 19:47:43 10/29/19 24 10/29/2023 UA WITH CULTU RE IF INDIC ATED bacteria, urine NEGATI VE negati ve Not Available [facility] [address] [place] [address], 12034, 10/29/2023 19:47:43 10/29/19 24 10/29/2023 UA WITH CULTU RE IF INDIC ATED performing lab [facility] [address] [place] [address] Medic al Direkeegan mahoney MD Not Available [facility] [address] [place] [address], 9[address], 10/29/2023 19:47:43 10/29/19 24 10/29/2023 URINE CULTU RE performing lab Perfor ed[facility] [address] [place] [address] Medic al Direkeegan mahoney MD Not Available [facility] [address] [place] [address], 89805, 10/31/2023 11:56:24 10/29/19 24 10/30/2023 URINE CULTU RE urine culture <10,0 00 CFU/m L GRAM POSIT ELISABETH COCCI AND GRAM NEGAT ELISABETH BACIL LI Not Available [facility] [address] [place] [address], 35985, 10/31/2023 11:56:24 Result Notes None recorded. Problems Name Problem SNOMED Code Status Onset Date Resolution Date Notes Provider Name and Address Organization Details Recorded Time Syphilis 18316927 Active 2013 Syphilis , unspecif ied; snomedde scriptio n: Syphilis ; Report Immunity to Registry : Yes; Notes: hx of syphilli s. she was treated at [place] 2002; Syphili s; snomedde scriptio n: Syphilis ; Report Immunity to Registry : Yes; Notes: hx of syphilli s. 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 Hypothyr oidism; snomedde scriptio n: Hypothyr oidism; Report Immunity to Registry : Yes; Unspeci fied hypothyr oidism; snomedde scriptio n: Hypothyr oidism; Report Immunity to Registry : Yes; Not Available [facility] 4 06:58:27 Chronic kidney disease 203031905 Active 2016 Chronic kidney disease; snomedde scriptio n: Chronic kidney disease; Report Immunity to Registry : Yes; Not Available [facility] 4 06:58:26 Viral hepatiti s B without hepatic coma 823702606 Active 2016 Unspecif ied viral hepatiti s B without hepatic coma; snomedde scriptio n: Type B viral hepatiti s; Report Immunity to Registry : Yes; Notes: HBV core ab pos; s ag neg; s ab pos HBV VL nondetec jayda 2017; Not Available [facility] 4 06:58:26 Type B viral hepatiti s 31725332 Active 2016 Type B viral hepatiti s; snomedde scriptio n: Type B viral hepatiti s; Report Immunity to Registry : Yes; Notes: HBV core ab pos; s ag neg; s ab pos HBV VL nondetec jayda 2017; Not Available [facility] 4 06:58:26 Genital herpes simplex 65615535 Active 2017 Genital herpes simplex; snomedde scriptio n: Genital herpes simplex; Report Immunity to Registry : Yes; Notes: HSV 1 and 2 pos serology ; Not Available [facility] 4 06:58:27 Anogenit al herpesvi ral infectio n 820181037 Active 2017 Anogenit al herpesvi ral infectio n, unspecif ied; snomedde scriptio n: Genital herpes simplex; Report Immunity to Registry : Yes; Notes: HSV 1 and 2 pos serology ; Not Available [facility] 4 06:58:27 Methicil chari resistan t Staphylo coccus aureus infectio n 586951355 Completed 201804/21/2023 Methicil chari resistan t Staphylo [...] te: 11/08/19 19; Notes: culture; Not Available [facility] 4 06:58:26 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 Age-rela jayda osteopor osis without current patholog ical fracture ; snomedde scriptio n: Osteopor osis; Report Immunity to Registry : Yes; Notes: per report; Not Available [facility] 4 06:58:26 Human immunode ficiency virus infectio n 68098299 Active 2019 Human immunode ficiency virus [HIV] disease; snomedde scriptio n: Human immunode ficiency virus infectio n; Report Immunity to Registry : Yes; Notes: [id number] neg; Human immunode ficiency virus infectio n; snomedde scriptio n: Human immunode ficiency virus infectio n; Report Immunity to Registry : Yes; Notes: [id number] neg; Not Available [facility] 4 06:58:26 Osteopor osis 73708621 Active 2019 Osteopor osis; snomedde scriptio n: Osteopor osis; Report Immunity to Registry : Yes; Notes: per report; Not Available [facility] 4 06:58:26 Problem Notes None recorded. [...] 6; Duration : 6; 0 refill(s ) 05/052 completed Duration : 6; VACCINE_ IND: no; [...] 10; VACCINE_ IND: no; SU_FULL_ NAME: Hernandez rosen; Not Available Not Available Not Available [employer] [...] Not Available Not Available Not Available Fluvirin 6134-8666 45 mcg (15 mcg x 3)/0.5 mL [...] NAME: zoster recombin ant; SU_FULL_ NAME: Hernandez Grande l; Not Available Not Available Not Available [...] Not Available No t Available Afluria Quad 4248-4008 (6mo up) 60 mcg (15 mcg x 4)/0.5 mL IM susp quadriva lent Quantity : ; 0 refill(s ) 2021 active VACCINE_ IND: yes; VACCINE_ NAME: influenz a, injectab le, quadriva lent; SU_FULL_ NAME: Hernandez patricio VIS_DATE : 18:22:30 .0; Not Available Not Available Not Available Vitals Date Recorded Body height Heart rate Respiratory rate Body temperature Body mass index (BMI) Body weight Systolic And Diastolic Provider Name and Address Organization Details Last Updated DateTime 4 154.94 cm 96 /min 12 /min 98.3 [degF] 25.9 kg/m2 90358.1 5 g 130/98 mm[Hg] Sherrell SHAH MD [facility] 4 11:36:06 Date Recorded Body height Body temperature Body mass index (BMI) Body weight Systolic And Diastolic Provider Name and Address Organization Details Last Updated DateTime 12/28/2024 154.94 cm 97.5 [degF] 24.9 kg/m2 34622.1 9 g 116/62 mm[Hg] Sherrell SHAH MD [facility] 5 15:03:29 Date Recorded Heart rate Body temperature Body weight Oxygen saturation Systolic And Diastolic Provider Name and Address Organization Details Last Updated DateTime 3 86 /min 98.3 [degF] 60164.1 9 g 98 % 100/86 mm[Hg] Macy SHAH MD [facility] 3 11:24:05 Social History Question Answer Notes LastModified by Organizat ion Details LastModified Time Tobacco Smoking Status Never Smoker HARVEY Pacheco MD [facility] 02/08/2023 11:24:56 Are You Blind Or Do You Have Difficulty Seeing? No Information not available 02/08/2023 Are You Deaf Or Do You Have Serious Difficulty Hearing? No [email or web address] Information not available 02/08/2023 Which Of Your Hands Is Dominant? Right [email or web address] Information not available 02/08/2023 What Is Your Relationship Status? Single [email or web address] Information not available 02/08/2023 Have You Recently Traveled Abroad? No Information not available 02/08/2023 Do You Have Difficulty Walking Or Climbing Stairs? No [email or web address] Information not available 02/08/2023 Sex: Female Functional Status Question Answer Note LastModified by Organizat ion Details LastModified Time Do you have transportation difficulties? No [email or web address] Information not available 02/08/2023 Are you able to walk independently without assistance or assistive devices? YESWOREST [email or web address] Information not available 02/08/2023 Do you have difficulty doing errands alone? No [email or web address] Information not available 02/08/2023 Are you able to care for yourself independently? Yes [email or web address] Information not available 02/08/2023 Do you have difficulty dressing, bathing, grooming, or toileting? No [email or web address] Information not available 02/08/2023 Mental Status Question Answer Note LastModified by Organization D etails LastModified Time Do you have difficulty concentrating, remembering or making decisions? No [email or web address] Information no t available 02/08/2023 Family History Nothing Reported Notes:Migraine Headches, Res ponse Property: Yes; , Depression, Response Property: Yes; , Asthma, Response Property: Yes; , Osteoporosis, Response Property: Yes; Notes: ; Relationship: Father: Cancer of the prostate, Response Property: Yes; Medical History Condition Response Anxiety Disorder Y Arthritis Y AIDS/HIV Y Hypertension Y Osteoporosis Y Depression Y Asthma Y Gynecological HistoryNo gynecological history recorded. Obstetrics History GPAL:G 0 P 0 0 0 0 Immunizations Vaccine Type Date Status Note Provider Nam e and Address Organization Details Recorded Time pneumococcal polysaccharide PPV23 2 completed Not Available [facility] 04/21/2023 06:54:18 Influenza, split virus, quadrivalent, preservative 2 completed Not Available [facility] 04/21/2023 06:54:19 Influenza, split virus, trivalent, PF 5 completed Hernandez Shah MD [address] [place] [address], [phone], HARVEY - HERNANDEZ SHAH MD [facility] 12/28/2024 17:15:24 Past Encounters Encounter ID Performer Location Encounter Start Date Encounter Closed Date Diagnosis/Indication Diagnosis SNOMED-CT Code Diagnosis ICD10 Code Diagnosis IMO Codes Diagnosis Note [id number] Hernandez Shah MD Main Office [address] [place] [address] [phone] 6 11/25/2022 10:31:16 11/25/2022 13:29:04 Human immunodeficiency virus infection 74539701 B20 HIV: Continue Juluca 1 tab po [...] . plan of care reviewed. [id number] Hernandez Shah MD Main Office [address] [place] [address] [phone] 6 01/19/2023 17:46:42 01/25/2023 13:33:20 Human immunodeficiency virus infection 64191326 B20 HIV: Continue Juluca 1 tab po [...] workup plan of care reviewed. [id number] Hernandez Shah MD Main Office [address] [place] [address] [phone] 02/08/2023 11:03:57 02/08/2023 11:56:42 Human immunodeficiency virus infection 35791783 B20 HIV:Contin ue Juluca 1 tab po qd w food. keep same regimen for now.Strict compliance w regimen reviewed; keep viral suppressio n, prevent resistance and prevent transmissi on.labssaf e sex. U=U. condom use reviewed.v accines recommende d.f/u PCP.plan of care reviewed. [id number] Hernandez Shah MD Main Office [address] [place] [address] [phone] 6 04/21/2023 11:34:14 04/21/2023 13:11:13 Human immunodeficiency virus infection 82171268 B20 HIV:Contin ue Juluca 1 tab po qd w food. keep same regimen for now.Strict compliance w regimen reviewed; keep viral suppressio n, prevent resistance and prevent transmissi on.labssaf e sex. U=U. condom use reviewed.a richter of PreP availabili tyf/u PCP.plan of care reviewed. [id number] Hernandez Shah MD Main Office [address] [place] [address] [phone] 6 07/21/2023 14:24:58 07/22/2023 16:02:07 Human immunodeficiency virus infection 23746553 B20 HIV:Contin ue Juluca 1 tab po qd w food. keep same regimen for now.Strict compliance w regimen reviewed; keep viral suppressio n, prevent resistance and prevent transmissi on.labssaf e sex. U=U. condom use reviewed.a richter of PreP availabili tyaware of DoxyPRPf/u PCP.plan of care reviewed. [id number] Hernandez Shah MD Main Office [address] [place] [address] [phone] 6 10/29/2023 11:09:03 10/29/2023 12:05:39 Human immunodeficiency virus infection 05186838 B20 HIV:Contin ue Juluca 1 tab po [...] Spikevax 2023f/u PCP.plan of care reviewed. Dysuria 14667019 R30.0 u/a and u/[place] [id number] Hernandez Shah MD Main Office [address] [place] [address] [phone] 6 12/28/2024 14:37:35 12/28/2024 16:06:11 Human immunodeficiency virus infection 57963292 B20 HIV:Contin ue Juluca 1 tab po [...] Mcgraw Member ID Guarantor Name 12/28/2024 1 [facility] - DOS ON OR AFTER 2022 - RESIDENTIAL OPTIONS AND ONE CARE (MEDICARE REPLACEMENT/AD VANTAGE - PPO) Yamile Polo [id number] 12/28/2024 1 MEDICARE B-[place]: [facility] Yamile Polo [id number] 12/28/2024 1 MEDICARE B-[place]: [facility] Yamile Polo [id number] 12/28/2024 1 [facility] Yamile Polo [id number] 12/28/2024 1 [place]ID-[place]: [facility] Yamile Booker [id number] 12/30/2024 2 [facility] - DOS ON OR AFTER 2022 - ONE CARE (MEDICARE REPLACEMENT/AD VANTAGE - HMO) Yamile Polo [id number] Notes Date Note Type Note Provider Name and Address Organization Details Recorded Time 02/08/2023 text/html ROS as noted in the HPI f/u HIVon Juluca 1 tab po qd.taking with food.doing well on tx.fuewscenkk45/2023 HIV VL ugxnxmtrqvq31/2022 HIV VL nondetected; RH8=019gHAY>55= ALT/AST wnl; GC/chlamydia neg; neg; HCV neg; HBV s ag neg;08/2021 eGFR>55; AST/ALT wnl; HCV ab neg; GC/chlamydia neg; syphilis neg; HIV VL nondetected;declines vaccines this yearworkup for cancer tomorrow. Hernandez Shah MD [address] [place] [address], [phone], HARVEY - HERNANDEZ SHAH MD [facility] 02/08/2023 11:46:31 04/21/2023 text/html ROS as noted in the HPI f/u HIVon Juluca 1 tab po qd.taking with food.compliantlabs reviewed.01/2023 HIV VLNondetceted; CD4 26742 HIV VL emwixgftuyx05/2022 HIV VL nondetected; OR6=720nYUY>55= ALT/AST wnl; GC/chlamydia neg; neg; HCV neg; HBV s ag neg;08/2021 eGFR>55; AST/ALT wnl; HCV ab neg; GC/chlamydia neg; syphilis neg; HIV VL nondetected; Hernandez hSah MD [address] [place] [address], [phone], HARVEY SHAH MD [facility] 04/26/2023 10:02:26 07/21/2023 text/html ROS as noted in the HPI f/u HIVon Juluca 1 tab po qd.taking with food.compliantlabs reviewed.01/2023 HIV VLNondetceted; CD4 65890 HIV VL cephzkycipc85/2022 HIV VL nondetected; SF6=333eFAP>55= ALT/AST wnl; GC/chlamydia neg; neg; HCV neg; HBV s ag neg;08/2021 eGFR>55; AST/ALT wnl; HCV ab neg; GC/chlamydia neg; syphilis neg; HIV VL nondetected;will be going to [facility] in July 2023 to visit daughter.she might move to [facility] on Dec 2023 Hernandez Shah MD [address] [place] [address], [phone], HARVEY SHAH MD [facility] 07/22/2023 15:27:39 10/29/2023 text/html ROS as noted in the HPI f/u HIVon Juluca 1 tab po qd.taking with food.compliantaware of new regimens, but has preferred not to switch.labs reviewed.07/2023 HIV VL nondetected; ALt/AST wnl; eGFR nl01/2023 HIV VLNondetceted; CD4 46337 HIV VL ncghcrcliop21/2022 HIV VL nondetected; XT6=253oMJM>55= ALT/AST wnl; GC/chlamydia neg; neg; HCV neg; HBV s ag neg;08/2021 eGFR>55; AST/ALT wnl; HCV ab neg; GC/chlamydia neg; syphilis neg; HIV VL nondetected;will be going to [facility] in July 2023 to visit daughter.she might move to [facility] on Dec 2023 Hernandez Shah MD [address] [place] [address], [phone], HARVEY SHAH MD [facility] 10/29/2023 13:59:07 12/28/2024 text/html ROS as noted in the HPI f/u HIV on Juluca 1 tab po qd.taking with food.compliant; no missed doses aware of new regimens, but has preferred not to switch. 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, other than when admitted to [facility], but does have f/u w Cardiology Recently hospitalized at [facility] Dec 16 for SOB; saw PCP last week, next appt in changes, limiting fluids/salt Denies fever/chills, N/V/D/constipation Not currently sexually active Here w/piter, who cares for herNiece reports changes in memory since Caridad recent labs 07/2023 HIV VL nondetected; ALT/AST wnl; eGFR nl 01/2023 HIV VLNondetceted; CD4 628 11/2022 HIV VL nondetceted 01/2022 HIV VL nondetected; ZR9=445hXRV>55= ALT/AST wnl; GC/chlamydia neg; neg; HCV neg; HBV s ag neg; 08/2021 eGFR>55; AST/ALT wnl; HCV ab neg; GC/chlamydia neg; syphilis neg; HIV VL nondetected; will be going to [facility] in July 2023 to visit daughter. she might move to [facility] on Dec 2023 Hernandez Shah MD [address] [place] [address], [phone], HARVEY SHAH MD [facility] 12/28/2024 17:15:45 OBGyn Episode No OBEpisode recorded.
[2025-02-25 16:55] LABS: Troponin-I High Sensitivity 8.2 ng/L (<3.5-17.0)
--- NOTE | 2025-02-25 17:16 | HO.NURTONUR ---
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
[2025-02-25] MEDS: iohexoL 350 MG/ML 100 ML INFUS..BTL 70 ML IV (18:52)
[2025-02-25 19:07] VITALS: BP 124/68; PULSE 70; RESP 18; TEMP 36.7; O2SAT 99
[2025-02-25 20:19] VITALS: BP 120/63; PULSE 65; RESP 16; TEMP 36.7; O2SAT 95
--- NOTE | 2025-02-25 20:28 | PC.NURSE ---
Pt 1A walk to BR, unsteady on feet.
--- NOTE | 2025-02-25 21:20 | PM.IMHP ---
History of Present Illness Date of Service: 02/25/25 Attending physician on admission: Kaylen Jansen Chief Complaint: Dizziness Yamile Polo is a very pleasant 75 years old woman with past medical history significant for TIA, cardiomyopathy s/p pacemaker implantation/ICD, asthma and hypothyroidism presents to the emergency department accompanied by her niece after she started to experience events of vertigo-like dizziness (room spinning around her) that has been going on for the last 2 days. She denied exacerbation of dizziness with head movements. Patient is a poor historian and nieces suspecting that she might have cognitive impairment. The patient was experiencing yesterday short episode of sharp chest pain. She is unable to say of the defibrillator fired. She was experiencing some mild headache. Denied episodes of loss of consciousness, acute visual disturbances, focal weakness, nausea, vomiting or diarrhea. She did not report and palpitations. She has occasional shortness on breath. She has not been taking any new medications. In the ED, she was found to have normal vital signs. CBC and CMP are essentially unremarkable. Troponin is 9.4 then 8.7. Pro BNP 1047.2, albumin and total protein are normal. Viral testing for COVID-19, influenza RSV is negative. CXR is negative. Head and neck CTA showed no aneurysm, bruits cough or significant stenosis. ECG showed normal sinus rhythm. ED Tx: None Review of Systems Review of Systems: All 12 systems were reviewed and normal except as noted in HPI. [facility] Medical History (Updated 02/25/25 @ 22:16 by Kaylen Jansen MD) Cardiomyopathy CHF (congestive heart failure) Cardiac defibrillator in place Environmental allergies Conjunctiva disorder Wart of scalp COVID-19 Upper extremity neuropathy Right shoulder pain Right arm pain Physical exam Cough Left hip pain Left shoulder tendinitis Left shoulder pain GERD (gastroesophageal reflux disease) Asthma Urticaria Fracture of left hip requiring operative repair HIV (human immunodeficiency virus infection) Hypothyroidism Dyslipidemia Verruca TIA (transient ischemic attack) Asthma Family History Father Cancer Diabetes Mother Cancer Diabetes Brother Colon polyps Surgical History History of permanent cardiac pacemaker placement History of hip replacement, total History of lumbar fusion History of section H/O umbilical hernia repair Hx of colonoscopy Social History Household Members: None Housing: Apartment Alcohol intake: never Patient Tobacco Use Status: Never used Tobacco Tobacco use type: Cigarette Smoked in Last 30 Days: No e-Cigarette/Vaping Use: Never Used Second Hand Smoke Exposure: No Use of substances other than those prescribed or required for medical reasons: No Substance Use Type: Marijuana Advance Directives: No Advance Directives Information Provided: No Do you have a plan to hurt others: No Plan Nutrition Risks: Poor intake 0-25% >4 days service: No Current occupational status: retired Cognitive needs: No Hearing needs: No Vision needs: Yes (Glasses) Meds Allergies Allergy/AdvReac Type Severity Reaction Status Date / Time blackberry Allergy Intermediate Itching Verified 02/25/25 12:56 long Allergy Intermediate Itching Verified 02/25/25 12:56 peanut (PEANUT) Allergy Intermediate RASH Verified 02/25/25 12:56 Sulfa (Sulfonamide Allergy Intermediate HIVES, Verified 02/25/25 12:56 Antibiotics) (SULFA hives, (SULFONAMIDE ANTIBIOTICS)) rash, hives, rash tramadol Allergy Intermediate nausea Verified 02/25/25 12:56 strawberry Allergy Itching Verified 02/25/25 12:56 animals Allergy Itching Uncoded 12/21/24 14:10 red fruit Allergy Itching Uncoded 12/21/24 14:10 tree Allergy eye Uncoded 12/21/24 14:10 swelling, itch Active Medications: Current Medications Acetaminophen (Acetaminophen 325 Mg Tablet) 975 mg PO Q6H PRN PRN Reason: Pain, Mild 1-3,fever,headache Sodium Chloride (Ns) 500 mls @ 50 mls/hr IV .Q10H MESERET Stop: 02/26/25 02:44 Last Infusion: 02/25/25 18:45 Dose: Infused Meclizine HCl (Meclizine Hcl 25 Mg Tablet) 25 mg PO ONCE STA Stop: 02/25/25 21:18 Sodium Chloride (0.9 % Sodium Chloride Flush 3 Ml Syringe) 3 ml IVFLUSH QSHIFT [facility] Home Medications ?Medication ?Instructions ?Recorded ?Confirmed ?Last Taken ?Type dolutegravir 50 mg-rilpivirine 25 1 tab PO DAILY 10/01/23/25 12/16/24 06:00 History mg tablet (Juluca) famotidine 20 mg tablet 20 mg PO BID PRN acid reflux 07/20/22 01/23/25 12/15/24 History atorvastatin 40 mg tablet 40 mg PO BEDTIME cholesterol 11/21/24 01/23/25 12/15/24 History midodrine 5 mg tablet 5 mg PO TID 11/21/24 01/23/25 12/15/24 History nitroglycerin 0.4 mg sublingual 0.4 mg sublingual Q5M PRN Chest 11/21/24 01/23/25 Unknown History tablet Pain ranolazine 500 mg tablet,extended 500 mg PO BID 11/21/24 01/23/25 12/15/24 History release,12 hr spironolactone 25 mg tablet 12.5 mg PO DAILY 11/21/24 01/23/25 12/15/24 History ticagrelor 90 mg tablet (Brilinta) 90 mg PO BID 11/21/24 01/23/25 12/15/24 History Physical Exam Vital Signs and Narrative: Vital Signs: Last Vital Signs Temp 98.0 F 02/25/25 20:19 Pulse 65 02/25/25 20:19 Resp 16 02/25/25 20:19 BP 120/63 02/25/25 20:19 Pulse Ox 95 02/25/25 20:19 O2 Del Method Room Air 02/25/25 20:19 BMI result Body Mass Index 26.3 General: Alert, oriented, in no acute distress. Well nourished and cooperative. Afebrile. Forgetful at time. HEENT: Head normocephalic, atraumatic. PER, EOMI. Sclerae anicteric, conjunctiva clear. Oropharynx without erythema or exudate. Mucous membranes moist. Neck: Supple, no lymphadenopathy, or JVD. Heart: RRR, no murmurs, rubs or gallops. Lungs: Clear to auscultation bilaterally. No wheezes, rales, or rhonchi. Normal respiratory effort. Abdomen: Soft, non tenderness, nondistended, normoactive bowel sounds. No hepatosplenomegaly, masses or masses. Extremities: No calf tenderness bilaterally, no swelling Musculoskeletal: Full range of motion. No joint swelling, deformity, or tenderness. Normal muscle tone and strength. Skin: Warm/Dry. No pallor. No jaundice. Neurologic: Alert & oriented x4. Moving all extremities spontaneously. Normal speech. Psychological: Normal mood and affect. Thought process coherent. Results Labs 02/25/25 13:17 02/25/25 13:17 Labs: Laboratory Results - last 24 hr 02/25/25 02/25/25 13:17 16:28 MCV 94.8 MCH 31.5 MCHC 33.3 RDW 14.9 Plt Count 242 MPV 8.9 L Immature Gran % (Auto) 0.0 Neut % (Auto) 53.8 Lymph % (Auto) 35.4 [place] % (Auto) 7.6 Eos % (Auto) 2.3 Baso % (Auto) 0.9 Lymph # (Auto) 2.0 [place] # (Auto) 0.4 Eos # (Auto) 0.1 Baso # (Auto) 0.1 Abs Immat Gran (auto) 0.00 Absolute Neuts (auto) 3.1 Absolute Nucleated RBC 0.000 Nucleated RBC % (auto) 0.0 Anion Gap 13 Estim Creat Clear Calc 38.5 Estimated GFR 49 Random Glucose 126 H Calcium 9.9 Magnesium 2.3 Total Bilirubin 0.6 AST 31 ALT 12 Alkaline Phosphatase 114 Troponin I High Sens 9.4 8.2 NT-Pro-B Natriuret Pep 1047.2 H Total Protein 7.3 Albumin 4.3 Influenza Type A (PCR) NEGATIVE Influenza Type B (PCR) NEGATIVE RSV RNA Qual (PCR) NEGATIVE SARS-CoV-2 RNA (RT-PCR) NEGATIVE Assessment and Plan (1) Vertigo: Status: Acute (2) Cardiomyopathy: Status: Acute Plan Yamile Polo is a 75 y/o woman with a TIA and cardiomyopathy s/p pacemaker implantation/ICD, who presents with: Vertigo. Likely BPPV, however, patient has multiple risk factor for stroke. Unfortunately brain MRI cannot be obtained as the patient has a pacemaker. Head and neck CTA unremarkable. Keeping observation. Fall precautions. Neuro checks. Antivert. Neurologic consult. HrEF. EF 15%. No symptoms or evidence of decompensation. Continue Juluca, metoprolol and spironolactone. CAD. Continue aspirin, ticagrelor and statin. Recent event of CP. Currently symptomatic, troponin negative x2. ECG unremarkable. Hyperlipidemia. Continue statin. Hypothyroidism. Continue levothyroxine. Asthma. Continue home inhalers. Code status: Full DVT prophylaxis: SCDs Quality Stroke Does the patient have a stroke diagnosis?: No VTE Prior VTE?: No VTE Risk Level:: Medical - moderate - high VTE Device Contraindication: N/A - Device Ordered VTE Drug Contraindication: N/A - Med Ordered
--- NOTE | 2025-02-25 21:31 | HO.NURTONUR ---
Patient presenting to ED w/ neice w/ vague c/o dizziness/intermittent SOB Pt primarily uzbek speaking, somewhat poor historian. Alert, able to answer questions appropriately but intermittently confused. 1A to walk, unsteady on feet. CTA head/neck neg for acute findings. PMH: past medical history significant for TIA, cardiomyopathy s/p pacemaker implantation/AICD, asthma and hypothyroidism SR on monitor. 22 L hand, 20 US IV R AC Plan: Neuro consult. Meczline for dizziness.
[2025-02-25 21:50] VITALS: BP 111/67; PULSE 73; RESP 16; O2SAT 95
[2025-02-25 22:05] LABS: Appearance Urine Cloudy; Glucose Urine UA 250 mg/dL (Negative); PH 6.5 (5.0-9.0); Specific Gravity - Urine >= 1.030 (1.005-1.025); UMIC TRIGGER UACC YES
[2025-02-25 22:15] LABS: UACC Culture Trigger YES
[2025-02-26] MEDS: 0.9 % Sodium Chloride Flush 3 ML SYRINGE IVFLUSH ×2 (00:04→07:48)
[2025-02-26 04:29] LABS: Hematocrit 44.0 % (37.0-47.0); Hemoglobin 14.6 g/dl (12.0-16.0); Mean Corpuscular HGB Conc 33.2 g/dl (31.0-35.0); Mean Corpuscular Hemoglobin 31.7 pg (27.0-33.0); Mean Corpuscular Volume 95.4 fL (80.0-98.0); NRBC Abs Auto 0.000 X10*3/uL (0.0-0.012); NRBC Pct Auto 0.0 /100WBC (0.0-0.2); Platelet Count 231 X10*3/uL (160-400); Red Blood Count 4.61 X10*6/uL (4.20-5.50); White Blood Count 6.5 X10*3/uL (4.8-10.8)
[2025-02-26 04:48] LABS: Anion Gap 15 (12-20); Blood Urea Nitrogen 16 mg/dL (9-16); Calcium 9.1 mg/dL (8.4-10.2); Carbon Dioxide 21 mmol/L (22-29); Chloride 108 mmol/L (96-108); Creatinine Clr Calc Pharmacy 43.3; Estimated Glomerular Filt Rate 56; Potassium 3.9 mmol/L (3.3-5.1); Sodium 140 mmol/L (135-145)
[2025-02-26 05:32] VITALS: BP 110/66; PULSE 70; RESP 14; TEMP 36.6; O2SAT 94
--- NOTE | 2025-02-26 05:36 | PC.NURSE ---
pt brought front main to main ed at this time, offers no complaints, respirations even and unlabored.
[2025-02-26 08:01] VITALS: BP 112/78; PULSE 69; RESP 17; O2SAT 99
--- NOTE | 2025-02-26 08:42 | PHA.MEDREC ---
Pharmacy Consult ? Medication Reconciliation Pharmacy has completed the medication reconciliation. Spoke with pt at bedside, she was able to confirm her medications. Last took them yesterday.
--- NOTE | 2025-02-26 09:15 | P.PNIM_ITS ---
Subjective Subjective Date of Service: 02/26/25 Physical Exam 2 Vital Signs: Vital Signs: Last Vital Signs Temp 97.8 F 02/26/25 05:32 Pulse 69 02/26/25 08:01 Resp 17 02/26/25 08:01 BP 112/78 02/26/25 08:01 Pulse Ox 99 02/26/25 08:01 O2 Del Method Room Air 02/26/25 08:01 BMI result Body Mass Index 26.3 Objective Data Active Medications Acetaminophen (Acetaminophen 325 Mg Tablet) 975 mg PO Q6H PRN PRN Reason: Pain, Mild 1-3,fever,headache Ceftriaxone Sodium 1 gm/ (Sodium Chloride) 50 mls @ 100 mls/hr IV Q24H [facility] Last Infusion: 02/26/25 05:36 Dose: Infused Documented By: JOEL Sodium Chloride (0.9 % Sodium Chloride Flush 3 Ml Syringe) 3 ml IVFLUSH QSHIFT [facility] Last Admin: 02/26/25 07:48 Dose: 3 ml Documented By: RISA Labs 02/26/25 03:57 02/26/25 03:57 Labs: Laboratory Results - last 24 hr 02/25/25 02/25/25 02/25/25 13:17 16:28 21:58 MCV 94.8 MCH 31.5 MCHC 33.3 RDW 14.9 Plt Count 242 MPV 8.9 L Immature Gran % (Auto) 0.0 Neut % (Auto) 53.8 Lymph % (Auto) 35.4 [place] % (Auto) 7.6 Eos % (Auto) 2.3 Baso % (Auto) 0.9 Lymph # (Auto) 2.0 [place] # (Auto) 0.4 Eos # (Auto) 0.1 Baso # (Auto) 0.1 Abs Immat Gran (auto) 0.00 Absolute Neuts (auto) 3.1 Absolute Nucleated RBC 0.000 Nucleated RBC % (auto) 0.0 Anion Gap 13 Estim Creat Clear Calc 38.5 Estimated GFR 49 Random Glucose 126 H Calcium 9.9 Magnesium 2.3 Total Bilirubin 0.6 AST 31 ALT 12 Alkaline Phosphatase 114 Troponin I High Sens 9.4 8.2 NT-Pro-B Natriuret Pep 1047.2 H Total Protein 7.3 Albumin 4.3 Urine Color Yellow Urine Appearance Cloudy Urine pH 6.5 Ur Specific [place] >= 1.030 H Urine Protein 30 (1+) H Urine Glucose (UA) 250 H Urine Ketones Negative Urine Blood Small (1+) H Urine Nitrite Negative Ur Leukocyte Esterase Small (1+) H Urine RBC 3-5 H Urine WBC >50 H Ur Squamous Epith Cells 11-20 Urine Bacteria 4+ Hyaline Casts 0-2 Influenza Type A (PCR) NEGATIVE Influenza Type B (PCR) NEGATIVE RSV RNA Qual (PCR) NEGATIVE SARS-CoV-2 RNA (RT-PCR) NEGATIVE 02/26/25 03:57 MCV 95.4 MCH 31.7 MCHC 33.2 RDW 14.8 Plt Count 231 MPV 9.3 L Immature Gran % (Auto) Neut % (Auto) Lymph % (Auto) [place] % (Auto) Eos % (Auto) Baso % (Auto) Lymph # (Auto) [place] # (Auto) Eos # (Auto) Baso # (Auto) Abs Immat Gran (auto) Absolute Neuts (auto) Absolute Nucleated RBC 0.000 Nucleated RBC % (auto) 0.0 Anion Gap 15 Estim Creat Clear Calc 43.3 Estimated GFR 56 Random Glucose 84 Calcium 9.1 D Magnesium Total Bilirubin AST ALT Alkaline Phosphatase Troponin I High Sens NT-Pro-B Natriuret Pep Total Protein Albumin Urine Color Urine Appearance Urine pH Ur Specific [place] Urine Protein Urine Glucose (UA) Urine Ketones Urine Blood Urine Nitrite Ur Leukocyte Esterase Urine RBC Urine WBC Ur Squamous Epith Cells Urine Bacteria Hyaline Casts Influenza Type A (PCR) Influenza Type B (PCR) RSV RNA Qual (PCR) SARS-CoV-2 RNA (RT-PCR) Assessment and Plan (1) Vertigo: Status: Acute Plan Yamile Polo is a 75 y/o woman with a TIA and cardiomyopathy s/p pacemaker implantation/ICD, who presents with Vertigo. Likely BPPV, however, patient has multiple risk factor for stroke. Unfortunately brain MRI cannot be obtained as the patient has a pacemaker. Head and neck CTA unremarkable. Fall precautions. Neuro checks. Antivert. Neurology consult. PT consultation HFrEF. EF 15%. No symptoms or evidence of decompensation. Continue Jardiance, metoprolol and spironolactone. CAD. Continue aspirin, ticagrelor and statin. Recent event of CP. Currently symptomatic, troponin negative x2. ECG unremarkable. Hyperlipidemia. Continue statin. Hypothyroidism. Continue levothyroxine. Asthma. Continue home inhalers. Code status: Full DVT prophylaxis: SCDs Quality Stroke Does the patient have a stroke diagnosis?: No VTE Prior VTE?: No VTE Risk Level:: Medical - moderate - high VTE Device Contraindication: N/A - Device Ordered VTE Drug Contraindication: N/A - Med Ordered
--- NOTE | 2025-02-26 09:30 | PM.NEUROCN ---
History of Present Illness Data of Consult Service Date: 02/26/25 Primary Care Provider: Armen Bone PA-C [facility] Reason for consult: Dizziness 75 years old woman with past medical history significant for TIA, cardiomyopathy s/p pacemaker implantation/ICD, asthma and hypothyroidism presents to the emergency department accompanied by her niece after she started to experience events of vertigo-like dizziness (room spinning around her) that has been going on for the last 2 days. When I saw her she was comfortable not complaining of any symptom. Apparently family has suggested that there might be some cognitive problems. There was no change in hearing. No obvious seizure-like episode was reported. Review of Systems Constitutional: Constitutional: Reports as per HPI [facility] Past Medical History Medical History (Updated 02/26/25 @ 09:33 by Clifton Andrew MD) Cardiomyopathy CHF (congestive heart failure) Cardiac defibrillator in place Environmental allergies Conjunctiva disorder Wart of scalp COVID-19 Upper extremity neuropathy Right shoulder pain Right arm pain Physical exam Cough Left hip pain Left shoulder tendinitis Left shoulder pain GERD (gastroesophageal reflux disease) Asthma Urticaria Fracture of left hip requiring operative repair HIV (human immunodeficiency virus infection) Hypothyroidism Dyslipidemia [place] TIA (transient ischemic attack) Asthma Family History Family History Father Cancer Diabetes Mother Cancer Diabetes Brother Colon polyps Surgical History Surgical History History of permanent cardiac pacemaker placement History of hip replacement, total History of lumbar fusion History of section H/O umbilical hernia repair Hx of colonoscopy Social History Social History Household Members: None Housing: Apartment Alcohol intake: never Patient Tobacco Use Status: Never used Tobacco Tobacco use type: Cigarette Smoked in Last 30 Days: No e-Cigarette/Vaping Use: Never Used Second Hand Smoke Exposure: No Use of substances other than those prescribed or required for medical reasons: No Substance Use Type: Marijuana Advance Directives: No Advance Directives Information Provided: No Do you have a plan to hurt others: No Plan Nutrition Risks: Poor intake 0-25% >4 days service: No Current occupational status: retired Cognitive needs: No Hearing needs: No Vision needs: Yes (Glasses) Meds Allergies Allergy/AdvReac Type Severity Reaction Status Date / Time blackberry Allergy Intermediate Itching Verified 02/25/25 12:56 long Allergy Intermediate Itching Verified 02/25/25 12:56 peanut (PEANUT) Allergy Intermediate RASH Verified 02/25/25 12:56 Sulfa (Sulfonamide Allergy Intermediate HIVES, Verified 02/25/25 12:56 Antibiotics) (SULFA hives, (SULFONAMIDE ANTIBIOTICS)) rash, hives, rash tramadol Allergy Intermediate nausea Verified 02/25/25 12:56 strawberry Allergy Itching Verified 02/25/25 12:56 animals Allergy Itching Uncoded 12/21/24 14:10 red fruit Allergy Itching Uncoded 12/21/24 14:10 tree Allergy eye Uncoded 12/21/24 14:10 swelling, itch Active Medications: Current Medications Acetaminophen (Acetaminophen 325 Mg Tablet) 975 mg PO Q6H PRN PRN Reason: Pain, Mild 1-3,fever,headache Ceftriaxone Sodium 1 gm/ (Sodium Chloride) 50 mls @ 100 mls/hr IV Q24H [facility] Last Infusion: 02/26/25 05:36 Dose: Infused Sodium Chloride (0.9 % Sodium Chloride Flush 3 Ml Syringe) 3 ml IVFLUSH QSHIFT [facility] Last Admin: 02/26/25 07:48 Dose: 3 ml Home Medications ?Medication ?Instructions ?Recorded ?Confirmed ?Last Taken ?Type dolutegravir 50 mg-rilpivirine 25 1 tab PO DAILY 12/11/20 02/26/25 02/25/25 History mg tablet (Juluca) famotidine 20 mg tablet 20 mg PO BID PRN acid reflux 07/20/22 02/26/25 02/25/25 History atorvastatin 40 mg tablet 40 mg PO BEDTIME cholesterol 11/21/24 02/26/25 02/25/25 History midodrine 5 mg tablet 5 mg PO TID 11/21/24 02/26/25 02/25/25 History ranolazine 500 mg tablet,extended 500 mg PO BID 11/21/24 02/26/25 02/25/25 History release,12 hr spironolactone 25 mg tablet 12.5 mg PO DAILY 11/21/24 02/26/25 02/25/25 History ticagrelor 90 mg tablet (Brilinta) 90 mg PO BID 11/21/24 02/26/25 02/25/25 History Physical Exam Vital Signs: Vital Signs: Last Vital Signs Temp 97.8 F 02/26/25 05:32 Pulse 69 02/26/25 08:01 Resp 17 02/26/25 08:01 BP 112/78 02/26/25 08:01 Pulse Ox 99 02/26/25 08:01 O2 Del Method Room Air 02/26/25 08:01 BMI result Body Mass Index 26.3 Neuro: Other: Mental Status: Alert and awake with normal spontaneity of speech fluency comprehension and affect. She did not speak Bengali Cranial Nerves: CN II: Visual enamorado full to confrontation, visual acuity intact. CN III, IV, : Pupils equal, round, reactive to light and accommodation. Extraocular movements are normal. CN V: Facial sensation is normal. CN VII: Facial movements symmetrical. CN VIII: Hearing intact to bedside conversation is normal. CN IX, X: Palate elevates symmetrically. CN XI: Shoulder shrug and head turn symmetrical. CN XII: Tongue midline without atrophy or fasciculations. Motor: No obvious focal arm or leg weakness. Deep tendon reflexes were absent. Plantars were flexor. Extrapyramidal: Full facial expressions and blinking. No rigidity. Movements are appropriate with no tremor or abnormality. Speech: Normal; no dysarthria or tremor. Results Labs 02/26/25 03:57 02/26/25 03:57 Labs: Short CBC 02/25/25 02/26/25 Range/Units 13:17 03:57 WBC 5.8 6.5 (4.8-10.8) X10*3/uL Hgb 14.7 14.6 (12.0-16.0) g/dl Hct 44.2 44.0 (37.0-47.0) % Plt Count 242 231 (160-400) X10*3/uL BMP 02/25/25 02/26/25 13:17 03:57 Sodium 138 140 Potassium 3.7 3.9 Chloride 104 108 Carbon Dioxide 25 21 L BUN 17 H 16 Creatinine 1.09 0.97 Calcium 9.9 9.1 D Liver Function 02/25/25 Range/Units 13:17 Total Bilirubin 0.6 (0.0-1.0) mg/dL AST 31 (5-31) U/L ALT 12 (0-31) U/L Alkaline Phosphatase 114 (39-117) U/L Albumin 4.3 (3.5-5.0) g/dL Urine 02/25/25 Range/Units 21:58 Urine Color Yellow Urine Appearance Cloudy Urine pH 6.5 (5.0-9.0) Ur Specific [place] >= 1.030 H (1.005-1.025) Urine Protein 30 (1+) H (Neg-Trace) mg/dL Urine Glucose (UA) 250 H (Negative) mg/dL CT head without contrast Comparison: 10/14/23 Findings: No acute hemorrhage. No extra-axial fluid collection. Prominence of the ventricles and extra-axial spaces due to atrophy of the brain parenchyma, stable. No hydrocephalus, mass-effect or herniation. Wick-white differentiation is maintained. There is patchy hypoattenuation of the periventricular and deep white matter, which is most likely the sequela of moderate chronic small vessel ischemic disease and is similar to the prior study. New 7 mm focus of decreased attenuation in the right frontal lobe periventricular white matter (series 8 images 28 through 30). No acute orbital pathology. No acute soft tissue abnormality. No fracture. The visualized paranasal sinuses are predominantly clear. The mastoid air cells are clear. Impression: No intracranial hemorrhage or acute transcortical infarction. New 7 mm focus of decreased attenuation in the right frontal lobe periventricular white matter, age indeterminate lacunar infarction. CTA of the head and neck with 3-D postprocessing Comparison: None available Findings: No significant carotid artery stenosis. Intact vertebral arteries. The vertebral basilar system is patent. Diminutive sized basilar artery without focal stenosis; there is a lobular contour of the basilar artery attributed to atherosclerotic disease. The cerebellar and posterior cerebral arteries are intact. The intracranial internal carotid arteries are patent. The middle/anterior cerebral arteries are intact. No aneurysm, abrupt cutoffs or significant stenosis. No mass, midline shift, hydrocephalus, acute hemorrhage or abnormal contrast enhancement. Trace biapical scarring. Mild emphysematous changes. The thyroid gland is not well delineated and could be hypoattenuating or atrophic. The soft tissues of the head and neck are otherwise unremarkable. Impression: No aneurysm, abrupt cutoffs or significant stenosis. Assessment and Plan (1) Cerebral microvascular disease: Status: Acute (2) Dizziness: Status: Acute 75 years old woman with nonspecific dizziness. Family also reported some cognitive issues. Her head CT revealed moderate microvascular ischemic type of changes. She did not seem to have any acute medical illness like a viral syndrome. My recommendation is to obtain an EEG to rule out seizure disorder. As far as microvascular disease is concerned, anti-platelet agent and control of vascular risk factors is recommended Procedures Date of Service Date of Service: 02/26/25
[2025-02-26 12:29] VITALS: BP 111/68; PULSE 75; RESP 14; TEMP 36.7; O2SAT 94
--- NOTE | 2025-02-26 12:46 | PM.DS ---
DS: Providers Provider Date of admission: 02/25/25 20:23 Date of discharge: 02/26/25 Primary care physician: Armen Bone PA-C Consults: 02/25/25 21:19 Consult to Neurology Routine Consulting Provider: [facility] Reason for consultation: Vertigo Has provider been notified: No DS: Diagnosis Discharge Diagnosis (1) Cerebral microvascular disease: Status: Acute (2) Dizziness: Status: Acute DS: Summary Hospital Course Hospital Course: Hp as per admitting provider. Yamile Polo is a very pleasant 75 years old woman with past medical history significant for TIA, cardiomyopathy s/p pacemaker implantation/ICD, asthma and hypothyroidism presents to the emergency department accompanied by her niece after she started to experience events of vertigo-like dizziness (room spinning around her) that has been going on for the last 2 days. She denied exacerbation of dizziness with head movements. Patient is a poor historian and nieces suspecting that she might have cognitive impairment. The patient was experiencing yesterday short episode of sharp chest pain. She is unable to say of the defibrillator fired. She was experiencing some mild headache. Denied episodes of loss of consciousness, acute visual disturbances, focal weakness, nausea, vomiting or diarrhea. She did not report and palpitations. She has occasional shortness on breath. She has not been taking any new medications. In the ED, she was found to have normal vital signs. CBC and CMP are essentially unremarkable. Troponin is 9.4 then 8.7. Pro BNP 1047.2, albumin and total protein are normal. Viral testing for COVID-19, influenza RSV is negative. CXR is negative. Head and neck CTA showed no aneurysm, bruits cough or significant stenosis. ECG showed normal sinus rhythm. ED Tx: None Patient treated for acute on chronic dizziness. no new symptoms. Patient with no dizziness sicnce arrival to ED. Seen by PT with no rec for further treatment. Seen by neurology with rec for EEG. Outpatient referral made. Patient or family to call neurology to schedule EEG. Time Attestation Discharge Coordination Time (in mins): 45 Quality: Safe Use of Opioids Does Pt have an Active Cancer Diagnosis on the Problem List?: No Quality: Stroke Does the patient have a stroke diagnosis?: No Physical Exam Exam: Exam: Appearing in no acute distress head is normocephalic atraumatic eyes pupils are PERRLA sclera is anicteric mouth throat mucous membranes are intact and moist neck is supple no lymphadenopathy, no JVD noted lung sounds are clear to auscultation heart regular rate rhythm, clear S1, S2 positive bowel sounds, abdomen is soft, nontender neuro patient is alert x3, no focal deficits Vital Signs: Vital Signs: Last Vital Signs Temp 98.0 F 02/26/25 12:29 Pulse 75 02/26/25 12:29 Resp 14 02/26/25 12:29 BP 111/68 02/26/25 12:29 Pulse Ox 94 02/26/25 12:29 O2 Del Method Room Air 02/26/25 12:29 BMI result Body Mass Index 26.3 DS: Data Data Completed and Pending Labs on day of discharge: Laboratory Results - last 24 hr 02/25/25 02/25/25 02/25/25 13:17 16:28 21:58 WBC 5.8 RBC 4.66 Hgb 14.7 Hct 44.2 MCV 94.8 MCH 31.5 MCHC 33.3 RDW 14.9 Plt Count 242 MPV 8.9 L Immature Gran % (Auto) 0.0 Neut % (Auto) 53.8 Lymph % (Auto) 35.4 [place] % (Auto) 7.6 Eos % (Auto) 2.3 Baso % (Auto) 0.9 Lymph # (Auto) 2.0 [place] # (Auto) 0.4 Eos # (Auto) 0.1 Baso # (Auto) 0.1 Abs Immat Gran (auto) 0.00 Absolute Neuts (auto) 3.1 Absolute Nucleated RBC 0.000 Nucleated RBC % (auto) 0.0 Sodium 138 Potassium 3.7 Chloride 104 Carbon Dioxide 25 Anion Gap 13 BUN 17 H Creatinine 1.09 Estim Creat Clear Calc 38.5 Estimated GFR 49 Random Glucose 126 H Calcium 9.9 Magnesium 2.3 Total Bilirubin 0.6 AST 31 ALT 12 Alkaline Phosphatase 114 Troponin I High Sens 9.4 8.2 NT-Pro-B Natriuret Pep 1047.2 H Total Protein 7.3 Albumin 4.3 Urine Color Yellow Urine Appearance Cloudy Urine pH 6.5 Ur Specific [place] >= 1.030 H Urine Protein 30 (1+) H Urine Glucose (UA) 250 H Urine Ketones Negative Urine Blood Small (1+) H Urine Nitrite Negative Ur Leukocyte Esterase Small (1+) H Urine RBC 3-5 H Urine WBC >50 H Ur Squamous Epith Cells 11-20 Urine Bacteria 4+ Hyaline Casts 0-2 Influenza Type A (PCR) NEGATIVE Influenza Type B (PCR) NEGATIVE RSV RNA Qual (PCR) NEGATIVE SARS-CoV-2 RNA (RT-PCR) NEGATIVE 02/26/25 03:57 WBC 6.5 RBC 4.61 Hgb 14.6 Hct 44.0 MCV 95.4 MCH 31.7 MCHC 33.2 RDW 14.8 Plt Count 231 MPV 9.3 L Immature Gran % (Auto) Neut % (Auto) Lymph % (Auto) [place] % (Auto) Eos % (Auto) Baso % (Auto) Lymph # (Auto) [place] # (Auto) Eos # (Auto) Baso # (Auto) Abs Immat Gran (auto) Absolute Neuts (auto) Absolute Nucleated RBC 0.000 Nucleated RBC % (auto) 0.0 Sodium 140 Potassium 3.9 Chloride 108 Carbon Dioxide 21 L Anion Gap 15 BUN 16 Creatinine 0.97 Estim Creat Clear Calc 43.3 Estimated GFR 56 Random Glucose 84 Calcium 9.1 D Magnesium Total Bilirubin AST ALT Alkaline Phosphatase Troponin I High Sens NT-Pro-B Natriuret Pep Total Protein Albumin Urine Color Urine Appearance Urine pH Ur Specific [place] Urine Protein Urine Glucose (UA) Urine Ketones Urine Blood Urine Nitrite Ur Leukocyte Esterase Urine RBC Urine WBC Ur Squamous Epith Cells Urine Bacteria Hyaline Casts Influenza Type A (PCR) Influenza Type B (PCR) RSV RNA Qual (PCR) SARS-CoV-2 RNA (RT-PCR) Preliminary micro results at discharge 02/25/25 22:16 Urine Culture - Preliminary Urine clean catch Strep agalactiae (Grp B) Discharge Plan Discharge Anticipated Discharge Date/Time: 02/26/25 12:40 Patient Disposition: Home, Self-Care Discharge Diagnosis: Dizziness/vertigo Referrals: Armen Bone PA-C [Primary Care Provider, Internal Medicine] - 1 Week Discharge Medications: Continued (DME) AeroEclipse II Nebulizer Misc See Rx Instructions .Route Qty: 1 0RF Rx Instructions: As directed albuterol sulfate 90 mcg/actuation HFA aerosol inhaler 2 inh inhalation Q4H PRN (Reason: for dyspnea) Qty: 6.7 6RF cholecalciferol (vitamin D3) 50 mcg (2,000 unit) capsule 50 mcg PO DAILY 90 Days Qty: 90 1RF calcium carbonate [Oyster Shell Calcium 500] 500 mg calcium (1,250 mg) tablet 500 mg PO DAILY 90 Days Qty: 90 1RF metoprolol succinate 25 mg tablet extended release 24 hr 25 mg PO BEDTIME Qty: 90 1RF levothyroxine 50 mcg tablet 50 mcg PO DAILY Qty: 90 1RF gabapentin 100 mg capsule 100 mg PO DAILY 30 Days Qty: 30 3RF albuterol sulfate 2.5 mg/0.5 mL solution for nebulization 5 mg inhalation Q4H PRN (Reason: shortness of breath or wheezing) Qty: 30 0RF aspirin 81 mg Tablet,Chewable 81 mg PO DAILY Qty: 30 0RF Juluca 50-25 mg tablet 1 tab PO DAILY Rx Instructions: must administer with a meal/food sumatriptan succinate 50 mg tablet 50 mg PO Q2-4H PRN (Reason: migraine headache) 30 Days Qty: 9 0RF Rx Instructions: do not exceed 4 doses per 24 hrs Myrbetriq 25 mg tablet extended release 24 hr 25 mg PO DAILY 90 Days Qty: 90 2RF famotidine 20 mg tablet 20 mg PO BID PRN (Reason: acid reflux) atorvastatin 40 mg tablet 40 mg PO BEDTIME midodrine 5 mg tablet 5 mg PO TID spironolactone 25 mg tablet 12.5 mg PO DAILY ranolazine 500 mg tablet extended release 12 hr 500 mg PO BID ticagrelor [Brilinta] 90 mg tablet 90 mg PO BID hydroxyzine HCl 25 mg tablet 25 mg PO BEDTIME 90 Days Qty: 90 2RF Jardiance 10 mg tablet 10 mg PO DAILY Qty: 90 0RF Discharge Orders: Discharge Order (Routine); Ordered 02/26/25 Ordered By: Heidy Pollock Diet: Advance to usual diet Activity on Discharge: As tolerated Stand Alone Forms: Patient Portal Discharge page Print Language: Mohawk Other Ambulatory Orders: EEG Routine (Routine) Timeframe: 1 Week Facility: [facility] - Location: Radiology Ordered By: Heidy Pollock Care Plan Goals: Call [facility], [address] [place] [address], [address], [place] [address], to schedule and appointment for an EEG Health Concerns: Dizziness/vertigo Plan of Treatment: Follow up with primary care provider as needed Take all medications as prescribed Assessment: See discharge summary
--- NOTE | 2025-02-26 13:47 | MHC.CM.PN ---
pt dcd home self care prior to being seen by cm
== END 2025-02-26 13:51 | disposition home or self-care (01) ==
LOC: HO.ED 16:29 → HO.EDOVER 20:41
PROVIDERS: Physician Assistant Medical; Admitting Provider Internal Medicine; Emergency Provider Emergency Medicine; PCP Physician Assistant; Visit Provider Nurse Practitioner Acute Care
DX: R42 Dizziness and giddiness (principal); I42.9 Cardiomyopathy, unspecified; I67.89 Other cerebrovascular disease; Z03.818 Encounter for observation for suspected exposure to other biological agents ruled out; R94.31 Abnormal electrocardiogram [ECG] [EKG]; R53.1 Weakness; R51.9 Headache, unspecified; R07.9 Chest pain, unspecified; J45.909 Unspecified asthma, uncomplicated; K21.9 Gastro-esophageal reflux disease without esophagitis; Z86.73 Personal history of transient ischemic attack (TIA), and cerebral infarction without residual deficits; Z95.0 Presence of cardiac pacemaker; Z79.899 Other long term (current) drug therapy
CPT/HCPCS: 36415; 70496; 70498; 71045; 71046; 80048; 80053; 81001; 83735; 83880; 84484; 85025; 85027; 87086; 87147; 87637; 93005; 96361; 96365; 96366; 97162; 99221; 99285; J0696; Q9967

== ENCOUNTER → 2025-02-25 12:55 | Outpatient (BNV) | payer OTHER, SELFPAY | PROVIDERS: PCP Physician Assistant; Visit Provider Radiology Diagnostic Radiology | DX: R51.9 Headache, unspecified (principal); R42 Dizziness and giddiness; R53.1 Weakness; R91.8 Other nonspecific abnormal finding of lung field | CPT/HCPCS: 70496; 70498; 71045; 71046 ==

== ENCOUNTER → 2025-02-25 12:55 | Outpatient (BNV) | payer OTHER, SELFPAY | PROVIDERS: Admitting Provider Internal Medicine; Emergency Provider Emergency Medicine; PCP Physician Assistant; Visit Provider Internal Medicine | DX: I25.2 Old myocardial infarction (principal) | CPT/HCPCS: 93010 ==

== ENCOUNTER → 2025-02-25 20:23 | Outpatient (BNV) | payer OTHER, SELFPAY | PROVIDERS: Admitting Provider Internal Medicine; Emergency Provider Emergency Medicine; PCP Physician Assistant; Visit Provider Psychiatry & Neurology Neurology | DX: I67.89 Other cerebrovascular disease (principal); R42 Dizziness and giddiness | CPT/HCPCS: 99222 ==

== ENCOUNTER → 2025-02-25 20:23 | Outpatient (BNV) | payer OTHER, SELFPAY | PROVIDERS: Admitting Provider Internal Medicine; Emergency Provider Emergency Medicine; PCP Physician Assistant; Visit Provider Internal Medicine | DX: R42 Dizziness and giddiness (principal) | CPT/HCPCS: 99232 ==